=== PATIENT | male | born 1950 | race Caucasian/White ===

== ENCOUNTER 2023-05-31 11:22 | Inpatient (IN) | payer OTHER, SELFPAY ==
[2023-05-31] VITALS (17 sets, daily range): BP systolic 105–142; BP diastolic 44–100; BMI 23.6; BMI 21.9
--- NOTE | 2023-05-31 08:17 | ED.GENMED ---
History of Present Illness
<Glenn Garcia PA-C - Last Filed: 05/31/23 10:32>
General
Chief Complaint: Breathing Problem
Source: patient
Exam Limitations: none
Time Seen by Provider: 05/31/23 08:08
Travel History
Have you had any contact with someone who has COVID-19?: No
Do you have any symptoms of coronavirus? Fever > 100 degrees, chills, cough, shortness of breath, sore throat, loss of taste or smell, muscle aches, or headache?: No
History of Present Illness
History of Present Illness:
73-year-old male with history of end-stage renal disease on dialysis with COPD and CHF presents with the onset of shortness of breath this morning. He states he felt it upon awakening but got worse during dialysis. He received about an hour and a
half for dialysis and presented here on 2 L in the upper 70s. He was placed on a nonrebreather. He denies chest pain. No fever. He notes a productive cough. He is followed by pulmonology cardiology and nephrology.
Past History
<Glenn Garcia PA-C - Last Filed: 05/31/23 10:32>
Past History
ED Past Medical History: Asthma, COPD, HTN, NIDDM and Other (Diabetic neuropathy)
ED Past Surgical History: Orthopedic (Right ankle)
Social History
Tobacco: Former smoker (50+ year)
Alcohol: Occasional
Drug: None
Personal: Partner
Living: with family
Employment: Employed
Family History
Family History: Other (Noncontributory)
Phy Exam
<Glenn Garcia PA-C - Last Filed: 05/31/23 10:32>
Physical Exam
Physical Exam:
General: Unwell appearing male with increased work of breathing on nonrebreather
HEENT: Normocephalic atraumatic
Heart: Regular rate and rhythm
Lungs: Diminished bilaterally with Rales bases at the prolonged expiratory phase
Extremities: No significant edema no cyanosis
Abdomen soft nontender nondistended
Scores
<Glenn Garcia PA-C - Last Filed: 05/31/23 10:32>
Heart Failure Risk
Heart Failure Risk Score: Not Applicable
Course
<Glenn Garcia PA-C - Last Filed: 05/31/23 10:32>
Orders/Labs/Results
Orders:
Orders
05/31/23 07:58
Electrocardiogram (*1) Urgent
Reason for Study: Shortness of Breath
EKG- Treatment ONCE
05/31/23 08:08
COVID-19 Antigen Urgent
Source: Nasal Swab
Complete Blood Count/With Diff Urgent
Comprehensive Metabolic Panel Urgent
NT-proBNP Urgent
Protime/PTT Urgent
Influenza A+B Rapid Molecular Urgent
MARISOL Source: Nasal Swab
Specimen Description:
05/31/23 08:17
CR Chest Portable - 1 View Urgent
Comment:
Reason For Exam: sob
Reason Study Needs to be Portable: Unable to Transport
05/31/23 08:18
Ipratropium/Albuterol Sulfate [Duoneb] 3 ml .ROUTE .STK-MED ONE
05/31/23 08:19
Ipratropium/Albuterol Sulfate [Duoneb] 3 ml INH R NOW ONE
05/31/23 09:03
ABG [Arterial Blood Gas] Urgent
%Oxygen/Room Air: nonrebreather
05/31/23 10:10
O2 Therapy [RESP] Urgent
Titrate/Wean O2 to maintain O2 sat greater than (%): 90
Abnormal Lab Results
05/31/23 05/31/23
08:08 09:03
RBC 3.23 L 10^6/uL
(4.70-6.10)
Hgb 10.9 L g/dL
(13.0-18.0)
Hct 32.5 L %
(39.0-52.0)
MCV 100.6 H fL
(80.0-94.0)
MCH 33.7 H pg
(27.0-31.0)
Plt Count 111 L 10^3/uL
(130-400)
Absolute Lymphs (auto) 0.3 L 10^3/uL
(1.2-3.4)
Neutrophils % 87.7 H %
(42.2-75.2)
Lymphocytes % 4.3 L %
(20.5-51.1)
pCO2 56 H mmHg
(35-48)
pO2 138 H mmHg
(83-108)
HCO3 32.4 H mmol/L
(21-28)
ABG O2 Sat (Measured) 98.2 H %
(94-98)
Chloride 94 L mmol/L
(98-107)
Carbon Dioxide 31 H mmol/L
(22-30)
BUN 48 H mg/dl
(9-20)
Creatinine 3.9 H mg/dL
(0.7-1.3)
Glucose 100 H mg/dl
(70-99)
05/31/23 08:08
05/31/23 08:08
Vital Signs
Initial and Last Documented VS:
Initial Vital Signs
Temp Pulse Resp BP Pulse Ox
99.1 F 66 18 142/100 77
05/31/23 07:53 05/31/23 07:53 05/31/23 07:53 05/31/23 07:53 05/31/23 07:53
Last Documented Vital Signs
Temp Pulse Resp BP Pulse Ox
99.1 F 96 36 142/70 82
05/31/23 07:53 05/31/23 09:45 05/31/23 09:45 05/31/23 08:27 05/31/23 08:30
Baldemarlt;Tank Daly, DO - Last Filed: 05/31/23 08:54>
Orders/Labs/Results
Orders:
Orders
05/31/23 07:58
Electrocardiogram (*1) Urgent
Reason for Study: Shortness of Breath
EKG- Treatment ONCE
05/31/23 08:08
COVID-19 Antigen Urgent
Source: Nasal Swab
Complete Blood Count/With Diff Urgent
Comprehensive Metabolic Panel Urgent
NT-proBNP Urgent
Protime/PTT Urgent
Influenza A+B Rapid Molecular Urgent
MARISOL Source: Nasal Swab
Specimen Description:
05/31/23 08:17
CR Chest Portable - 1 View Urgent
Comment:
Reason For Exam: sob
Reason Study Needs to be Portable: Unable to Transport
05/31/23 08:18
Ipratropium/Albuterol Sulfate [Duoneb] 3 ml .ROUTE .STK-MED ONE
05/31/23 08:19
Ipratropium/Albuterol Sulfate [Duoneb] 3 ml INH R NOW ONE
05/31/23 09:03
ABG [Arterial Blood Gas] Urgent
%Oxygen/Room Air: nonrebreather
05/31/23 10:10
O2 Therapy [RESP] Urgent
Titrate/Wean O2 to maintain O2 sat greater than (%): 90
Abnormal Lab Results
05/31/23 05/31/23
08:08 09:03
RBC 3.23 L 10^6/uL
(4.70-6.10)
Hgb 10.9 L g/dL
(13.0-18.0)
Hct 32.5 L %
(39.0-52.0)
MCV 100.6 H fL
(80.0-94.0)
MCH 33.7 H pg
(27.0-31.0)
Plt Count 111 L 10^3/uL
(130-400)
Absolute Lymphs (auto) 0.3 L 10^3/uL
(1.2-3.4)
Neutrophils % 87.7 H %
(42.2-75.2)
Lymphocytes % 4.3 L %
(20.5-51.1)
pCO2 56 H mmHg
(35-48)
pO2 138 H mmHg
(83-108)
HCO3 32.4 H mmol/L
(21-28)
ABG O2 Sat (Measured) 98.2 H %
(94-98)
Chloride 94 L mmol/L
(98-107)
Carbon Dioxide 31 H mmol/L
(22-30)
BUN 48 H mg/dl
(9-20)
Creatinine 3.9 H mg/dL
(0.7-1.3)
Glucose 100 H mg/dl
(70-99)
05/31/23 08:08
05/31/23 08:08
Vital Signs
Initial and Last Documented VS:
Initial Vital Signs
Temp Pulse Resp BP Pulse Ox
99.1 F 66 18 142/100 77
05/31/23 07:53 05/31/23 07:53 05/31/23 07:53 05/31/23 07:53 05/31/23 07:53
Last Documented Vital Signs
Temp Pulse Resp BP Pulse Ox
99.1 F 96 36 142/70 82
05/31/23 07:53 05/31/23 09:45 05/31/23 09:45 05/31/23 08:27 05/31/23 08:30
<Glenn Garcia PA-C - Last Filed: 05/31/23 10:32>
MDM/Problems Addressed
Differential Diagnosis Includes:
Shortness of breath. Differential could include COPD exacerbation versus CHF pneumonia
Patient does not appear to be volume overloaded. Will check chest x-ray ordered DuoNeb labs pending.
<Glenn Garcia PA-C - Last Filed: 05/31/23 10:32>
*Critical Care Note
Total Time (30-74mins, 75-104mins- exclusive of procedures): Not Applicable
<Glenn Garcia PA-C - Last Filed: 05/31/23 10:32>
Update Note
Update Note:
Sprain patient now requiring mid flow oxygen. pCO2 is 56. Chest x-ray read as increased pulmonary edema. Potassium is 4.5. Patient not able to tolerate DuoNeb. Patient likely needs more dialysis. Contacted nephrology will admit to hospital for
hypoxia
ED Attending Note
<Glenn Garcia PA-C - Last Filed: 05/31/23 10:32>
-
Portions of this chart may have been created with voice recognition software.� Occasional wrong word or��sound alike� substitutions may have occurred due to the inherent limitations of voice recognition software.
<Tank Daly, - Last Filed: 05/31/23 08:54>
ED Attending Note
Patient seen and examined by attending physician: Yes
I performed the substantive portion of visit, reviewed & personally made and approve the management plan that is documented in note by myself or HUSSEIN.: Yes
ED Attending Note:
I agree with Lupillo's note. Patient had worsening shortness of breath this morning. He attempted to tolerate dialysis but was quite short of breath while there. This prompted him to be transferred here to the emergency room. Patient denies chest
pain.
Maintaining his pulse ox with a nonrebreather
Lungs: Crackles and expiratory wheezing bilaterally
Extremities: No edema
Plan: Supplemental oxygen. ABG pending. If CO2 acceptable then we will try to convert him to either mid flow or high flow oxygen. Nebs, steroids. I suspect this is more of a COPD exacerbation. Also above nephrology to see if benefit from
further dialysis as he only had an hour or so at his dialysis facility
Discharge Plan
Departure
Patient Disposition: Admit
Date of Disposition: 05/31/23
Time of Disposition: 10:31
Admit to: Telemetry
Presentation/result/management discussed w/ accepting MD/DO: Hospitalist
Discharge Problem:
Hypoxia
Prescriptions:
No Action
famotidine 20 MG tablet
20 mg PO DAILY
azithromycin 250 MG tablet
250 mg PO MOWEFR@0800
vitamin B complex 1 TAB tablet
1 tab PO MOWEFR@0800
ergocalciferol (vitamin D2) 50,000 UNITS capsule
50,000 units PO .SEE BELOW
Patient Comments:
05/31/2023, this med. is currently on hold according to pt.
Rx Instructions:
05/31/2023, this med. is currently on HOLD.
ascorbic acid (vitamin C) [Vitamin C] 1,000 mg Tablet
1,000 mg PO DAILY
atorvastatin 10 mg Tablet
10 mg PO DAILY
isosorbide mononitrate 30 mg Tablet Extended Release 24 Hr
30 mg PO DAILY
Trelegy Ellipta 100-62.5-25 mcg Blister With Device
1 inh INHALATION R DAILY
albuterol sulfate 2.5 mg /3 mL (0.083 %) Solution For Nebulization
2.5 mg INHALATION R Q4HPRN PRN (Reason: sob)
aspirin 81 mg Tablet,Delayed Release (Dr/Ec)
81 mg PO DAILY
gabapentin 300 mg Capsule
300 mg PO QPM
carvedilol 3.125 mg Tablet
3.125 mg PO BID Qty: 60 0RF
sertraline 25 mg tablet
25 mg PO DAILY
sevelamer carbonate 800 mg tablet
1,600 mg PO MEALS
allopurinol 100 mg tablet
200 mg PO DAILY
docusate sodium [Colace] 100 mg Capsule
200 mg PO Q48H
albuterol sulfate 90 mcg/actuation Hfa Aerosol Inhaler
2 puff INHALATION R Q4HPRN PRN (Reason: sob/wheeze)
insulin aspart U-100 [Novolog FlexPen U-100 Insulin] 100 unit/mL (3 mL) Insulin Pen
0 sliding scale dose SC DIRECTED
Patient Comments:
05/31/2023, pt. uses this med. on sliding scale and does not know what that sliding scale is.
insulin glargine [Lantus Solostar U-100 Insulin] 100 unit/mL (3 mL) Insulin Pen
7 unit SC HS
midodrine 5 mg tablet
5 mg PO TID
Referrals:
Joss Solorzano MD [Family Provider] -
Interventions
Interventions:
*Risk Screen - Suicide Last Done: 05/31/23 07:53
*General Assessment Last Done: 05/31/23 07:53
*Neglect/Abuse Screening Last Done: 05/31/23 07:53
ED- Fall Risk Assessment Last Done: 05/31/23 07:53
*ED COVID-19 Vaccine History Last Done: 05/31/23 07:53
ED- Cardiac Assessment Last Done: 05/31/23 07:53
ED- Pulmonary Assessment Last Done: 05/31/23 07:53
[2023-05-31 08:24] LABS: % Basophils 0.3 % (0-2); % Eosinophils 0.9 % (0-6); % Immature Granulocytes 0.3 % (0-0.5); % Lymphocytes 4.3 % (20.5-51.1); % Monocytes 6.5 % (1.7-9.3); % Neutrophils 87.7 % (42.2-75.2); Absolute Eosinophils 0.1 10^3/uL (0-0.7); Absolute Lymphocytes 0.3 10^3/uL (1.2-3.4); Absolute Monocytes 0.5 10^3/uL (0.1-0.6); Absolute Neutrophils 6.5 10^3/uL (1.4-6.5); Hematocrit 32.5 % (39.0-52.0); Hemoglobin 10.9 g/dL (13.0-18.0); Mean Corp Hgb Conc. 33.5 g/dL (33.0-37.0); Mean Corpuscular Hgb 33.7 pg (27.0-31.0); Mean Corpuscular Volume 100.6 fL (80.0-94.0); Nucleated Red Blood Cells % 0 % (-); Platelet Count 111 10^3/uL (130-400); Red Blood Cell Count 3.23 10^6/uL (4.70-6.10); Red Cell Dist. Width 13.8 % (11.5-14.5); White Blood Cell Count 7.4 10^3/uL (4.8-10.8)
[2023-05-31] MEDS: DUONEB 3 ML INH (08:25)
[2023-05-31 08:38] LABS: APTT 23.5 Sec (23.4-35.0); INR 1.04; PT 13.8 Sec (11.4-14.6)
[2023-05-31 08:41] LABS: COVID-19 Antigen Negative (Negative)
[2023-05-31 08:42] LABS: ALT (SGPT) 18 U/L (0-50); AST (SGOT) 28 U/L (17-59); Albumin 4.6 g/dl (3.5-5.0); Alkaline Phosphatase 101 U/L (38-126); Blood Urea Nitrogen 48 mg/dl (9-20); Calcium 9.3 mg/dl (8.4-10.2); Carbon Dioxide 31 mmol/L (22-30); Chloride 94 mmol/L (98-107); Estimated Creatinine Clearance 18 ml/min; Glucose 100 mg/dl (70-99); Potassium 4.5 mmol/L (3.5-5.1); Sodium 136 mmol/L (135-145); Total Bilirubin 0.8 mg/dl (0.2-1.3); Total Protein 8.1 g/dl (6.3-8.2); eGFR 15.72
[2023-05-31 08:51] LABS: NT-proBNP > 27000 pg/ml
[2023-05-31 09:11] LABS: HCO3 32.4 mmol/L (21-28); O2 Saturation % 98.2 % (94-98); PCO2 56 mmHg (35-48); PO2 138 mmHg (83-108); pH 7.37 (7.35-7.45)
--- NOTE | 2023-05-31 11:09 | HPS.HSE ---
Family Physician
-
Family Physician: Joss Solorzano MD
Chief Complaint
-
Shortness of breath
History of Present Illness
73-year-old male extensive past medical history is presenting from dialysis center with shortness of breath. Patient states at baseline he uses 2 L of oxygen and became more short of breath this morning. Patient stated he was fine after receiving
dialysis on Wednesday. Over the weekend patient without any difficulty. Patient denies any chest pain or shortness of breath over the weekend. Patient denies any nausea or vomiting. This morning patient with severe acute shortness of breath.
States he was unable to breathe and thus came to the hospital. Patient did not finish his regular HD session as outpatient. Denies any productive cough. Denies any fevers or chills. In the ER patient was severely hypoxic and required 15 L
nonrebreather. However O2 requirement improved and was seen on 8 L.
Medical History
Past Medical History
Past Medical History: Reports Other
Additional Past Medical History:
Heart failure preserved EF,
valvular dysfunction mild MR, , AR
recurrent pleural effusion status post multiple thoracentesis
COPD chronic/chronic hypercarbia
multiple pulmonary nodules.
tobacco abuse
Orthostatic hypotension
anemia of chronic disease ESRD on dialysis
gout
HLD
DM2 with diabetic neuropathy
GERD
ESRD on hemodialysis Wednesday
Past Surgical History: Reports Other
Additional Past Surgical History:
recurrent pleural effusion status post multiple thoracentesis
Social History
Tobacco: Former Smoker (50-year 2 pack a day stopped 2017)
Alcohol: None
Living: Alone
Employment: Retired
Family History
Family History: Not pertinent
Allergies / Home Medications
Allergies reflects when Allergies were last updated in [employer].
Home Medications with original date entered in [employer]
Allergy/Medication List:
Allergies
Allergy/AdvReac Type Severity Reaction Status Date / Time
budesonide [From Symbicort] Allergy THROAT Verified 03/03/23 02:42
IRRITATION
formoterol [From Symbicort] Allergy THROAT Verified 03/03/23 02:42
IRRITATION
Home Medications
famotidine 20 mg tablet 20 mg PO DAILY Gastrointestinal issue 07/20/18
azithromycin 250 mg tablet 250 mg PO MOWEFR@0800 Infection 02/28/19
ergocalciferol (vitamin D2) 1,250 mcg (50,000 unit) capsule 50,000 units PO .SEE BELOW Supplement 02/28/19
vitamin B complex 1 tab PO MOWEFR@0800 Supplement 02/28/19
ascorbic acid (vitamin C) 1,000 mg tablet (Vitamin C) 1,000 mg PO DAILY Supplement 11/26/22
atorvastatin 10 mg tablet 10 mg PO DAILY High Cholesterol 11/26/22
fluticasone fur. 100 mcg-umeclid 62.5 mcg-vilant 25 mcg inhalat.powder (Trelegy Ellipta) 1 inh inhalation R DAILY Lung/Breathing Issues 11/26/22
isosorbide mononitrate 30 mg tablet,extended release 24 hr 30 mg PO DAILY Heart Disease/Condition 11/26/22
albuterol sulfate 2.5 mg/3 mL (0.083 %) solution for nebulization 2.5 mg inhalation R Q4HPRN PRN sob 01/18/23
aspirin 81 mg tablet,delayed release 81 mg PO DAILY Blood Clot Prevention/Tx 01/28/23
gabapentin 300 mg capsule 300 mg PO QPM Pain 01/28/23
carvedilol 3.125 mg tablet 3.125 mg PO BID #60 tabs 02/03/23
allopurinol 100 mg tablet 200 mg PO DAILY 04/07/23
sertraline 25 mg tablet 25 mg PO DAILY 04/07/23
sevelamer carbonate 800 mg tablet 1,600 mg PO MEALS 04/07/23
albuterol sulfate 90 mcg/actuation aerosol inhaler 2 puff inhalation R Q4HPRN PRN sob/wheeze 05/31/23
docusate sodium 100 mg capsule (Colace) 200 mg PO Q48H 05/31/23
insulin aspart U-100 100 unit/mL (3 mL) subcutaneous pen (Novolog FlexPen U-100 Insulin aspart) 0 sliding scale dose SC DIRECTED 05/31/23
insulin glargine 100 unit/mL (3 mL) subcutaneous pen (Lantus Solostar U-100 Insulin) 7 unit SC HS 05/31/23
midodrine 5 mg tablet 5 mg PO TID 05/31/23
Review of Systems
-
History Source: Patient
A 12 point ROS was completed and negative except as noted: Yes
Physical Exam
Vital Signs
Vital Signs
Temp Pulse Resp BP Pulse Ox
99.1 F 90 25 142/70 98
05/31/23 07:53 05/31/23 11:00 05/31/23 11:00 05/31/23 08:27 05/31/23 11:00
Physical Exam
General: Well Developed, Well Nourished and No Apparent Distress
HEENT: NormoCephalic, Moist mucous membranes, Atraumatic and Oxygen (8L)
Respiratory: Rhonchi and Decreased Breath Sounds
Cardiac: S1/S2 and Regular Rhythm; No Murmur or Rub
GI: Soft, Non Tender, Non Distended and Normal Bowel Sounds; No Organomegaly
Rectal: Deferred by Provider
Musculoskeletal: No Clubbing, No Cyanosis and No Edema
Skin: No Rash
Neuro: Awake, Alert, Oriented, AO x 3, No Motor Deficits and Nonfocal/grossly intact
Psych: Calm
Laboratory Results
-
05/31/23 08:08
05/31/23 08:08
Laboratory Results
PT 13.8 Sec (11.4-14.6) 05/31/23 08:08
INR 1.04 05/31/23 08:08
APTT 23.5 Sec (23.4-35.0) 05/31/23 08:08
pH 7.37 (7.35-7.45) 05/31/23 09:03
pCO2 56 mmHg (35-48) H 05/31/23 09:03
pO2 138 mmHg (83-108) H 05/31/23 09:03
HCO3 32.4 mmol/L (21-28) H 05/31/23 09:03
Total Bilirubin 0.8 mg/dl (0.2-1.3) 05/31/23 08:08
AST 28 U/L (17-59) 05/31/23 08:08
ALT 18 U/L (0-50) 05/31/23 08:08
Alkaline Phosphatase 101 U/L (38-126) 05/31/23 08:08
Impression/Plan
-
#Acute on chronic hypoxic resp failure 2/2 recurrent progressive pleural effusion, COPD, acute on chronic CHF with preserved ejection fraction and pulmonary edema
#History of recurrent pleural effusions requiring multiple thoracentesis
#Chronic COPD on chronic 2 L nasal cannula 24 hours
#Former nicotine abuse 50-year 2 pack a day quit 2017
#Chronic pulmonary nodules
-May need to consider IV steroids.
-Will ask pulm for input
-Continue bronchodilators
-Undergoing urgent hemodialysis today.
-Fluid removal should help with oxygenation
-Chest x-ray noted. If no improvement may need further imaging such as ultrasound versus Noncon chest CT
#ESRD on dialysis
#AV fistula left upper arm
Wednesday dialysis
-consult Nephro
# Suspect acute on chronic diastolic CHF preserved EF
I/O, daily weights
-Follows at [facility] cardiology
-Continue aspirin, carvedilol, statin, Imdur
On dialysis
#Hypotension orthostatic Hx
-Continue midodrine
#Chronic anemia
#Chronic thrombocytopenia
monitor
EPO/IV iron per nephro
#DM 2 with diabetic neuropathy
Accu-Cheks with SSI,�
-Continue gabapentin
-Continue Lantus at bedtime
#HLD
-Continue statin
#GERD
-Continue Pepcid
#Gout
-Continue allopurinol
#Depression
-Continue Zoloft
DVT prophylaxis
Subcu heparin
I spent a total of 78 minutes with the patient or on the floor. More than 50% of this time involved counseling and coordination of care.
--- NOTE | 2023-05-31 11:39 | CON.MD ---
Addendum entered and electronically signed by Pratik Lemos DO 05/31/23 11:49:
Fluid restriction, 50 ounces daily
Sodium and potassium restricted diet
Original Note:
Consultation - Medical
-
Impression:
End-stage renal disease Wednesday, Wednesday, Wednesday
Hypoxia/Hypercapnia/COPD:home O2 2L
Right pleural effusion (Recurrent)
Hyperphosphatemia
Anemia
Diabetes with multiple microvascular complications
Hypotension on Midodrine
Cirrhosis
Chronic thrombocytopenia
Pulmonary nodules
Plan:
-Will likely require Thoracentesis, COPD treatment with oxygen, nebulizers
-Dialysis will be arranged today with attempted increase ultrafiltration, although patient rarely tolerates more than 2 kg
-No heparin on dialysis. Given chronic thrombocytopenia
-LORIN therapy given on dialysis for anemia
-Midodrin support provided on dialysis for hypotension
[2023-05-31] MEDS: ProAmatine 5 MG PO ×2 (12:41→17:43)
--- NOTE | 2023-05-31 13:38 | W.PN.NEPH.HD ---
Assessment
-
Seen on HD. comfortable on NC. VSS, access ok
Progress Note - Hemodialysis
-
Date of Service: May 31, 2023
Duration: 30 minutes and 3 hours
Potassium Bath: 2
Calcium Bath: 2.5
Opti-Dialyzer: 160
Ultrafiltration: Other (3kg)
Blood Flow: 400
Dialysate Flow: 600
Heparin: 0
EPO: 0
[2023-05-31 14:29] LABS: Glucose - Point of Care 78 mg/dl (70-99)
[2023-05-31] MEDS: RENVELA 1600 MG PO ×2 (14:29→17:43)
[2023-05-31] MEDS: NOVOLOG FLEXPEN-LOW RESISTANCE SC ×2 (14:30→17:43)
--- NOTE | 2023-05-31 15:07 | CON.PUL ---
Consultation
Consultation Request
Date/Time Consultation Requested: 05/31/2023 - 1206PM
Date/Time Consultation Performed: 05/31/2023 - 1502
Requesting Provider: Dr. Mckeon
Performing Provider: Dr Lai
Reason for Consultation: SOB/hypoxia
Medical History
-
Chief Complaint: SOB
History of Present Illness:
73-year-old M former tobacco smoker (quit 2016) with PMhx COPD/asthma, ESRD on HD, GERD and chronic liver disease/cirrhosis who p/w SOB from his HD center. Of note, he follows with us in [facility] office with Dr. Garcia - last office visit on
04/29/2023. He is on treelgy 100mcg with prn albuterol. He was in HD today when he felt more SOB than usual. He took his inhaler which did not help his Sx. SBP wasd in 150s. He was then brought here for evaluation and his R-effusion is larger on
CXR compared to last, and he has a small left pleural effusion. HD session started in ER. He is currently on 6L/min NC and saturating 99%. BP 120/66. He denies recent sick contacts, denies recent travel. He has chronic phlegm production which
is green, and this is unchanged. The amount of phlegm he produces is variable. He has no missed any HD sessions, and he denies eating salty foods. He denies chest pain, GALINDO, abd pain, diarrhea, fever or chills.
PMHx: GERD, mitral regurgitation, ESRD on HD via AVF, HLD, DM type II, Hx of alcoholic cirrhosis with Hx of EV, HTN, COPD/asthma on chronic oxygen (2-3L/min)
PSHx: Tonsillectomy, LUE AVF (12/2022), right ankle screws
Past Medical History
Past Medical History: Other (above as per HPI)
Past Surgical History: Other (above as per HPI)
Social History
Tobacco: Former Smoker (quit 2016)
Alcohol: None
Drug: None
Family History
Family History: CAD (M: heart attack (fatal)) and Other (Father: Alzheimer's dementia)
Allergies / Home Medications
Allergies
Allergy/AdvReac Type Severity Reaction Status Date / Time
budesonide [From Symbicort] Allergy THROAT Verified 03/03/23 02:42
IRRITATION
formoterol [From Symbicort] Allergy THROAT Verified 03/03/23 02:42
IRRITATION
Home Medications
Medication Instructions Recorded Confirmed Last Taken Type
famotidine 20 mg tablet 20 mg PO DAILY Gastrointestinal 07/20/18 05/31/23 05/31/23 History
issue
azithromycin 250 mg tablet 250 mg PO MOWEFR@0800 Infection 02/28/19 05/31/23 05/31/23 History
ergocalciferol (vitamin D2) 1,250 50,000 units PO .SEE BELOW 02/28/19 05/31/23 04/04/23 History
mcg (50,000 unit) capsule Supplement
vitamin B complex 1 tab PO MOWEFR@0800 Supplement 02/28/19 05/31/23 05/31/23 History
ascorbic acid (vitamin C) 1,000 mg 1,000 mg PO DAILY Supplement 11/26/22 05/31/23 05/31/23 History
tablet (Vitamin C)
atorvastatin 10 mg tablet 10 mg PO DAILY High Cholesterol 11/26/22 05/31/23 05/31/23 History
fluticasone fur. 100 mcg-umeclid 1 inh inhalation R DAILY 11/26/22 05/31/23 05/31/23 History
62.5 mcg-vilant 25 mcg Lung/Breathing Issues
inhalat.powder (Trelegy Ellipta)
isosorbide mononitrate 30 mg 30 mg PO DAILY Heart 11/26/22 05/31/23 05/31/23 History
tablet,extended release 24 hr Disease/Condition
albuterol sulfate 2.5 mg/3 mL 2.5 mg inhalation R Q4HPRN PRN sob 09/05/31/23 05/30/23 History
(0.083 %) solution for nebulization
aspirin 81 mg tablet,delayed 81 mg PO DAILY Blood Clot 01/28/23 05/31/23 05/31/23 History
release Prevention/Tx
gabapentin 300 mg capsule 300 mg PO QPM Pain 01/28/23 05/31/23 05/30/23 History
carvedilol 3.125 mg tablet 3.125 mg PO BID #60 tabs 02/03/23 05/31/23 05/31/23 Rx
allopurinol 100 mg tablet 200 mg PO DAILY 04/07/23 05/31/23 05/31/23 History
sertraline 25 mg tablet 25 mg PO DAILY 04/07/23 05/31/23 05/31/23 History
sevelamer carbonate 800 mg tablet 1,600 mg PO MEALS 04/07/23 05/31/23 05/30/23 History
albuterol sulfate 90 mcg/actuation 2 puff inhalation R Q4HPRN PRN 05/31/23 05/31/23 05/31/23 History
aerosol inhaler sob/wheeze
docusate sodium 100 mg capsule 200 mg PO Q48H 05/31/23 05/31/23 05/30/23 History
(Colace)
insulin aspart U-100 100 unit/mL 0 sliding scale dose SC DIRECTED 05/31/23 05/31/23 05/30/23 History
(3 mL) subcutaneous pen (Novolog
FlexPen U-100 Insulin aspart)
insulin glargine 100 unit/mL (3 7 unit SC HS 05/31/23 05/31/23 05/30/23 History
mL) subcutaneous pen (Lantus
Solostar U-100 Insulin)
midodrine 5 mg tablet 5 mg PO TID 05/31/23 05/31/23 05/30/23 History
Review of Systems
-
History Source: Patient
All other systems: Negative unless noted
Vitals / Labs / Diagnostic Testing
Vital Signs
Temp Pulse Resp BP Pulse Ox
98.4 F 89 25 109/56 96
05/31/23 11:53 05/31/23 11:54 05/31/23 11:54 05/31/23 11:54 05/31/23 11:54
Lab Data
05/31/23 08:08
05/31/23 08:08
Laboratory Results
05/31/23 05/31/23
08:08 09:03
PT 13.8
INR 1.04
APTT 23.5
pH 7.37
pCO2 56 H
pO2 138 H
HCO3 32.4 H
O2 Delivery Level
Microbiology
05/31/23 08:08 Nasal Swab Influenza Types A & B (THANG) - Final
Negative for Influenza A & B, NAAT
Negative results must be combined with clinical observations
and patient history.
Nucleic Acid Amplification test (NAAT)performed on the
[employer] platform.
Diagnostic Testing:
Physical Exam
-
HEENT: Normocephalic and Anicteric
Cardiovascular: S1/S2, Peripheral Edema (negative) and Other (normal rate)
Respiratory: Wheeze (n), Rales (bilaterally), Rhonchi (n) and Non-Labored Respirations
GI: Soft, Non Distended and Non Tender
Neurology: AO x 3 and Tremors (n)
Skin: Warm and Dry
General: Comfortable, Chills (n) and Sweats (n)
Assessment
-
Assessment: 73-year-old M former tobacco smoker (quit 2017) with PMhx COPD/asthma, ESRD on HD, GERD and chronic liver disease/cirrhosis who p/w SOB from his HD center. Of note, he follows with us in [facility] office with Dr. Garcia - last office visit
on 04/29/2023. He is on treelgy 100mcg with prn albuterol. He was in HD today when he felt more SOB than usual. He took his inhaler which did not help his Sx. SBP wasd in 150s. He was then brought here for evaluation and his R-effusion is larger
on CXR compared to last, and he has a small left pleural effusion. HD session started in ER. He is currently on 6L/min NC and saturating 99%. BP 120/66. He denies recent sick contacts, denies recent travel. He has chronic phlegm production
which is green, and this is unchanged. The amount of phlegm he produces is variable. He has no missed any HD sessions, and he denies eating salty foods. He denies chest pain, GALINDO, abd pain, diarrhea, fever or chills.
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
Impression:
#Acute on chronic respiratory failure with hypoxemia on supplemental O2 (on 2L/min at baseline)
#Chronic right-sided pleural effusion with acute left-sided pleural effusion
#ESRD on HD - receiving session of HD now in ER
#Moderate COPD with increased DLco/VA, hence COPD is likely due to unremitting asthma
#Restrictive lung defect (moderate with T% predicted via PFT from 04/2022)
#Acute on chronic anemia
#Chronic thrombocytopenia
Plan:
- Continue HD session and repeat CXR in AM --> if pleural effusions persist/worsen then will consider thoracentesis
- R-effusion appears chronic and there is likely traped lung physiology, so unclear if R-lung willl re-expand if fluid is removed. Hence will hold off on r-thora for now unless R-effusion becomes more severe
- Titrate supplemental lO2 flow rate to keep sats >88%
- He is not wheezing and does not appear to be in an acute COPD/asthma flare - hold off on steroids
- transfuse if needed to keep Hb>7 and plt>20k
- Replete K>4, Mg>2
- Maintain MAP>65
- DVT ppx
Pulmonary service will continue to follow along.
(Patient seen and examined on 05/31/2023).
Data:
CXR 05-31-2023:
1).There is a small left pleural effusion, increased in volume when compared with the prior study and associated with new increased parenchymal airspace disease throughout the lower left lung. I favor that this is pulmonary edema superimposed on
underlying effusion. Pneumonia is less likely
2).There is stable moderate-large right-sided pleural effusion with stable underlying parenchymal air space disease likely reflecting atelectasis
Outpatient [facility] Data:
Spirometry10/15/2021,�demonstrated FEV1/FVC 58%, FEV1 1.03 L (32%, FVC 1.76 L or 41%.� Mixed ventilatory defect suggestion of restriction with moderate to severe airflow obstruction.
��������
��������-
��������Spirometry 12/14/2019:�-FEV1/FVC 60%, FEV1 1.78 L 754%, FVC 2.90 L-67%.� Moderate airflow obstruction with a restriction.� Stable compared to before.
��������
��������Pulmonary function testing 12/13/2017:�demonstrated FEV1 /FVC 52%, FEV1 1.95 L-60%, FVC 3.71 L 785%, TLC 6.59 L-95%, RV 3.25 L-129%, DLCO 21.88-81%. Moderate airflow obstruction. Improvement on air trapping and hyperinflation.
��������
��������
Pulmonary function testing 09/09/2016:�FEV1/FVC 46%, FEV1 1.65 L-52%, FVC 3.61 L-84%. There was significant reversibility post bronchodilator. TLC 9.29 L-138%, RV 5.70 L-235%. DLCO 45%. Moderate/severe COPD with air trapping and
hyperinflation-emphysema phenotype.
��������
Spirometry 05/27/2016:�FEV1/FVC 55%, FEV1 1.32 L-38%, FVC 2.43 L-52%. Severe airflow obstruction with no reversibility.
FENO:
������ 10/15/2021 FeNO -- 22 ppb
�������07/15/2021 FENO 32ppb
�������12/14/2019 FENO 25 PPB
�������04/09/22 FENO 27ppb.
[2023-05-31 17:42] LABS: Glucose - Point of Care 39 mg/dl (70-99)
[2023-05-31] MEDS: NEURONTIN 300 MG PO (17:44)
[2023-05-31 18:00] LABS: Glucose - Point of Care 132 mg/dl (70-99)
--- NOTE | 2023-05-31 18:10 | PTCARENOTE ---
Patient arrived to floor 1700. BS taken before dinner. BS of 39. Applejuice given and bs went up to 132. Patient now eating dinner. Will follow protocol and check BS Q 2 hours and at 0300.
[2023-05-31] MEDS: COREG 3.125 MG PO (19:58)
[2023-05-31] MEDS: HEPARIN 5000 UNITS SC (19:59)
[2023-05-31 20:11] LABS: Glucose - Point of Care 264 mg/dl (70-99)
[2023-05-31] MEDS: LANTUS 0.0700000000000000067 UNITS SC (22:39)
[2023-05-31 23:33] LABS: Glucose - Point of Care 140 mg/dl (70-99)
[2023-06-01 03:08] LABS: Glucose - Point of Care 106 mg/dl (70-99)
[2023-06-01 03:21] VITALS: BP 115/57
[2023-06-01 05:17] VITALS: BMI 21.9
[2023-06-01 07:11] LABS: % Basophils 0.2 % (0-2); % Eosinophils 2.2 % (0-6); % Immature Granulocytes 0.2 % (0-0.5); % Monocytes 10.7 % (1.7-9.3); % Neutrophils 75.7 % (42.2-75.2); Absolute Eosinophils 0.1 10^3/uL (0-0.7); Absolute Lymphocytes 0.7 10^3/uL (1.2-3.4); Absolute Monocytes 0.7 10^3/uL (0.1-0.6); Absolute Neutrophils 4.8 10^3/uL (1.4-6.5); Hematocrit 28.1 % (39.0-52.0); Mean Corpuscular Hgb 33.1 pg (27.0-31.0); Mean Corpuscular Volume 103.3 fL (80.0-94.0); Mean Platelet Volume 9.2 fL (7.4-10.4); Nucleated Red Blood Cells % 0 % (-); Platelet Count 95 10^3/uL (130-400); Red Blood Cell Count 2.72 10^6/uL (4.70-6.10); White Blood Cell Count 6.4 10^3/uL (4.8-10.8)
[2023-06-01 07:20] LABS: Blood Urea Nitrogen 34 mg/dl (9-20); Calcium 8.8 mg/dl (8.4-10.2); Carbon Dioxide 31 mmol/L (22-30); Chloride 92 mmol/L (98-107); Estimated Creatinine Clearance 21 ml/min; Glucose 120 mg/dl (70-99); Sodium 134 mmol/L (135-145); eGFR 19.93
[2023-06-01 07:38] VITALS: BP 106/57
[2023-06-01 07:51] LABS: Glucose - Point of Care 59 mg/dl (70-99)
[2023-06-01] MEDS: NOVOLOG FLEXPEN-LOW RESISTANCE SC ×3 (07:53→17:12)
[2023-06-01] MEDS: PEPCID 10 MG PO (07:55)
[2023-06-01] MEDS: ProAmatine 5 MG PO ×3 (07:55→16:59)
[2023-06-01] MEDS: IMDUR (EXTENDED RELEASE) 30 MG PO (07:55)
[2023-06-01] MEDS: ASPIR LOW (ENTERIC COATED) 81 MG PO (07:56)
[2023-06-01] MEDS: ZYLOPRIM 200 MG PO (07:56)
[2023-06-01] MEDS: VITAMIN C 1000 MG PO (07:56)
[2023-06-01] MEDS: COREG 3.125 MG PO ×2 (07:57→19:54)
[2023-06-01] MEDS: COLACE 200 MG PO (07:57)
[2023-06-01] MEDS: ZOLOFT 25 MG PO (07:57)
[2023-06-01] MEDS: LIPITOR 10 MG PO (07:58)
[2023-06-01] MEDS: RENVELA 1600 MG PO ×3 (07:58→17:00)
[2023-06-01] MEDS: HEPARIN 5000 UNITS SC ×2 (07:59→19:55)
[2023-06-01 08:14] LABS: Glucose - Point of Care 81 mg/dl (70-99)
[2023-06-01 10:20] LABS: Glycohemoglobin (HgbA1c) 5.6 % (4.0-5.6)
[2023-06-01 10:26] LABS: Glucose - Point of Care 188 mg/dl (70-99)
--- NOTE | 2023-06-01 11:07 | W.PN.NEPH.PH ---
Today's Communication / Plan
-
HD tomorrow
Assessment/Plan
-
Impression:
End-stage renal disease Wednesday, Wednesday, Wednesday
Hypoxia/Hypercapnia/COPD:home O2 2L
Right pleural effusion (Recurrent)
Hyperphosphatemia
Anemia
Diabetes with multiple microvascular complications
Hypotension on Midodrine
Cirrhosis
Chronic thrombocytopenia
Pulmonary nodules
Plan:
-HD tomorrow
-there may not be more UF to be done
-3kg UF yesterday made little impact on effusions
-
-
Date of Service: June 01, 2023
CC / HPI / ROS
-
Chief Complaint:
ESRD
History of Present Illness:
tolerated HD yesterday
BP stable
remains on supplemental O2
still SOB
Review of Systems:
no CP
+SOB
Labs
-
Labs:
WBC 6.4 10^3/uL (4.8-10.8) 06/01/23 06:07
RBC 2.72 10^6/uL (4.70-6.10) L 06/01/23 06:07
Hgb 9.0 g/dL (13.0-18.0) L 06/01/23 06:07
Hct 28.1 % (39.0-52.0) L 06/01/23 06:07
Plt Count 95 10^3/uL (130-400) L 06/01/23 06:07
Sodium 134 mmol/L (135-145) L 06/01/23 06:07
Potassium 4.0 mmol/L (3.5-5.1) 06/01/23 06:07
Chloride 92 mmol/L (98-107) L 06/01/23 06:07
Carbon Dioxide 31 mmol/L (22-30) H 06/01/23 06:07
BUN 34 mg/dl (9-20) H 06/01/23 06:07
Creatinine 3.2 mg/dL (0.7-1.3) H 06/01/23 06:07
eGFR 19.93 06/01/23 06:07
Glucose 120 mg/dl (70-99) H 06/01/23 06:07
Calcium 8.8 mg/dl (8.4-10.2) 06/01/23 06:07
Ynq-G-Bjypntxvxfd Pept > 84426 pg/ml 05/31/23 08:08
Albumin 4.6 g/dl (3.5-5.0) 05/31/23 08:08
Physical Exam
-
Vital Signs:
Vital Signs
Temp Pulse Resp BP Pulse Ox
97 F 62 18 106/57 98
06/01/23 07:38 06/01/23 07:57 06/01/23 07:38 06/01/23 07:57 06/01/23 08:00
Cardiovascular:: Regular rate and rhythm
Respiratory:: Bilateral: Coarse
Lung Excursion:: Normal
Abdomen:: Nontender and Soft
Bowel Sounds:: Normal
Extremity Edema:: None: Bilateral:
--- NOTE | 2023-06-01 11:18 | W.PN.HOSP.TC ---
Today's Communication/Plan
-
Wean O2 further down
Pulm recs
HD tomm
monitor POC
Assessment / Plan
Assessment / Plan
#Acute on chronic hypoxic resp failure 2/2 recurrent progressive pleural effusion, COPD, acute on chronic CHF with preserved ejection fraction and pulmonary edema
#History of recurrent pleural effusions requiring multiple thoracentesis
#Chronic COPD on chronic 2 L nasal cannula 24 hours
#Former nicotine abuse 50-year 2 pack a day quit 2017
#Chronic pulmonary nodules
-Continue bronchodilators
-s/p UF with 3kg removal per nephro
-repeat CXR with There has been no significant change compared with the prior study. There is moderate right pleural effusion with underlying atelectasis. here is a small left-sided pleural effusion with moderate interstitial airway disease
throughout the lower left lung
-Pulm recs. wean o2 sats >88%.
#ESRD on dialysis
#AV fistula left upper arm
Wednesday dialysis
-consult Nephro
#Chronic diastolic CHF preserved EF
--I/O, daily weights
-Follows at [facility] cardiology
-Continue aspirin, carvedilol, statin, Imdur
-On dialysis- MWF
#Hypotension orthostatic Hx
-Continue midodrine
#Chronic anemia
#Chronic thrombocytopenia
monitor
EPO/IV iron per nephro
#DM 2 with diabetic neuropathy
Accu-Cheks with SSI,�
-Continue gabapentin
-Continue Lantus at bedtime
-POC 81
#HLD
-Continue statin
#GERD
-Continue Pepcid
#Gout
-Continue allopurinol
#Depression
-Continue Zoloft
DVT prophylaxis
Subcu heparin
Anticipated Discharge: > 48 hours
Subjective/Interval History
-
Date of Service: June 01, 2023
episode of hypoglycemia earlier
remains on 8L midflow
states breathing has improved
Objective Data
-
Labs:
Laboratory Results
06/01/23
06:07
WBC 6.4
Hgb 9.0 L
Hct 28.1 L
Plt Count 95 L
Sodium 134 L
Potassium 4.0
Chloride 92 L
Carbon Dioxide 31 H
BUN 34 H
Creatinine 3.2 H
Glucose 120 H
Calcium 8.8
Vital Signs:
Vital Signs
Temp Pulse Resp BP Pulse Ox
97 F 62 18 106/57 98
06/01/23 07:38 06/01/23 07:57 06/01/23 07:38 06/01/23 07:57 06/01/23 08:00
I&O
05/31/23 06/01/23 06/02/23
06:59 06:59 06:59
Intake Total 480 / 480
Balance 480 / 480
Physical Exam
-
General: Well Developed and No Apparent Distress
HEENT: Normocephalic, Atraumatic and Moist Mucous Membranes
Respiratory: Decreased Breath Sounds
Cardiac: Regular Rhythm and S1/S2; Negative Murmur, Rub or Gallop
GI: Soft, Nontender, Nondistended and Normal Bowel Sounds; Negative Organomegaly
Rectal: Deferred by Provider
Musculoskeletal: No Clubbing, No Cyanosis and No Edema
Skin: Negative Rash
Neuro: Awake, Alert, Oriented, AO x 3 and Nonfocal/Grossly Intact
[2023-06-01 11:25] VITALS: BP 100/56
--- NOTE | 2023-06-01 11:32 | W.PN.PUL3 ---
Today's Communication / Plan
-
Plan for left sided thoracentesis --> send standard fluid studies - glucose, LDH, pH, protein, albumin, fluid cultures, and cytopathology
Titrate O2 to keep sats >88%
Trelegy with prn alb
Up OOB as tolerated
IS
PT/OT
Assessment
-
Assessment: 73-year-old M former tobacco smoker (quit 2016) with PMhx COPD/asthma, ESRD on HD, GERD and chronic liver disease/cirrhosis who p/w SOB from his HD center. Of note, he follows with us in [facility] office with Dr. Garcia - last office visit
on 04/29/2023. He is on treelgy 100mcg with prn albuterol. He was in HD today when he felt more SOB than usual. He took his inhaler which did not help his Sx. SBP wasd in 150s. He was then brought here for evaluation and his R-effusion is larger
on CXR compared to last, and he has a small left pleural effusion. HD session started in ER. He is currently on 6L/min NC and saturating 99%. BP 120/66. He denies recent sick contacts, denies recent travel. He has chronic phlegm production
which is green, and this is unchanged. The amount of phlegm he produces is variable. He has no missed any HD sessions, and he denies eating salty foods. He denies chest pain, GALINDO, abd pain, diarrhea, fever or chills.
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
Impression:
#Acute on chronic respiratory failure with hypoxemia on supplemental O2 (on 2L/min at baseline)
#Chronic right-sided pleural effusion with acute left-sided pleural effusion
#ESRD on HD MWF
#Moderate COPD with increased DLco/VA, hence COPD is likely due to unremitting asthma - not in an acute exacerbation
#Restrictive lung defect (moderate with T% predicted via PFT from 04/2022)
#Acute on chronic anemia
#Chronic thrombocytopenia
#Alcoholic liver disease with Hx of grade I EV and portal hypertensive gastropathy (seen via EGD in 2013) --> EV and gastropathy resolved via EGD in October 2019
Plan:
- Repeat CXR today shows persistent pleural effusions --> plan for L-sided thoracentesis; although r-side has more disease with effusion + atelectasis, it is also chronic and low likelihood for R-lung to re-expand as it is likely trapped; hence I
will only order L-sided thora for now and hold off on r-thora for now unless R-effusion becomes more severe
- Titrate supplemental lO2 flow rate to keep sats >88%
- He is not wheezing and does not appear to be in an acute COPD/asthma flare - hold off on steroids
- Continue trelegy with prn nebulized albuterol
- mucolytics as he does produce phlegm chronically
- transfuse if needed to keep Hb>7 and plt>20k
- Replete K>4, Mg>2
- Maintain MAP>65
- PT/OT
- DVT ppx
Pulmonary service will continue to follow along.
Data:
CXR 06-01-2023:
There has been no significant change compared with the prior study.
There is moderate right pleural effusion with underlying atelectasis
There is a small left-sided pleural effusion with moderate interstitial airway disease throughout the lower left lung
CXR 05-31-2023:
1).There is a small left pleural effusion, increased in volume when compared with the prior study and associated with new increased parenchymal airspace disease throughout the lower left lung. I favor that this is pulmonary edema superimposed on
underlying effusion. Pneumonia is less likely
2).There is stable moderate-large right-sided pleural effusion with stable underlying parenchymal air space disease likely reflecting atelectasis
Outpatient [facility] Data:
Spirometry10/15/2021,�demonstrated FEV1/FVC 58%, FEV1 1.03 L (32%, FVC 1.76 L or 41%.� Mixed ventilatory defect suggestion of restriction with moderate to severe airflow obstruction.
��������
��������-
��������Spirometry 12/14/2019:�-FEV1/FVC 60%, FEV1 1.78 L 754%, FVC 2.90 L-67%.� Moderate airflow obstruction with a restriction.� Stable compared to before.
��������
��������Pulmonary function testing 12/13/2017:�demonstrated FEV1 /FVC 52%, FEV1 1.95 L-60%, FVC 3.71 L 785%, TLC 6.59 L-95%, RV 3.25 L-129%, DLCO 21.88-81%. Moderate airflow obstruction. Improvement on air trapping and hyperinflation.
��������
��������
Pulmonary function testing 09/09/2016:�FEV1/FVC 46%, FEV1 1.65 L-52%, FVC 3.61 L-84%. There was significant reversibility post bronchodilator. TLC 9.29 L-138%, RV 5.70 L-235%. DLCO 45%. Moderate/severe COPD with air trapping and
hyperinflation-emphysema phenotype.
��������
Spirometry 05/27/2016:�FEV1/FVC 55%, FEV1 1.32 L-38%, FVC 2.43 L-52%. Severe airflow obstruction with no reversibility.
FENO:
������ 10/15/2021 FeNO -- 22 ppb
�������07/15/2021 FENO 32ppb
�������12/14/2019 FENO 25 PPB
�������04/09/22 FENO 27ppb.
Subjective Data
-
Date of Service:
Date of Service: June 01, 2023
Chief Complaint: Pulmonary Follow Up
Subjective:
Seen today. Feels similar to yesterday. SOB only with activity. He feels well at rest. On 6L/min NC currently. Has cough which is at baseline and the nebs help bring it up well. Denies chest pain, GALINDO, abd pain, N/V/D/f/c.
Review of Systems
General: Other (neg unless mentioned above)
Objective Data
Data Reviewed
Vital Signs / I&O / Oxygen:
Vital Signs
Temp Pulse Resp BP Pulse Ox
97 F 62 18 106/57 98
06/01/23 07:38 06/01/23 07:57 06/01/23 07:38 06/01/23 07:57 06/01/23 08:00
Intake and Output
05/31/23 06/01/23 06/02/23
06:59 06:59 06:59
Intake Total 480 / 480
Balance 480 / 480
SaO2 98
Nasal Cannula flow liters per 8
minute
Physical Exam
General: Comfortable
HEENT: Normocephalic, Moist Mucous Membranes and Other (mild yellowing of conjunctiva b/l)
Cardiovascular: S1-S2 and Peripheral Edema (n)
Respiratory: Wheeze (negative), Crackles, Rhonchi, Non-Labored Respirations, Stridor (negative) and Other (reduced BS at bases (R>L))
GI: Soft, Non Distended, Non Tender and Normal Bowel Sounds
Neurology: AO x 3 and Tremors (negative)
Skin: Warm and Dry
Labs/Micro/Reports
Lab Data
06/01/23 06:07
06/01/23 06:07
Microbiology
05/31/23 08:08 Nasal Swab Influenza Types A & B (THANG) - Final
Negative for Influenza A & B, NAAT
Negative results must be combined with clinical observations
and patient history.
Nucleic Acid Amplification test (NAAT)performed on the
[employer] platform.
[2023-06-01 11:40] LABS: Glucose - Point of Care 155 mg/dl (70-99)
[2023-06-01 12:22] LABS: Glucose - Point of Care 136 mg/dl (70-99)
[2023-06-01 15:00] VITALS: BP 100/55
[2023-06-01] MEDS: NEURONTIN 300 MG PO (17:00)
[2023-06-01 17:08] LABS: Glucose - Point of Care 130 mg/dl (70-99)
[2023-06-01 19:37] VITALS: BP 107/62
[2023-06-01 21:43] LABS: Glucose - Point of Care 166 mg/dl (70-99)
[2023-06-01] MEDS: LANTUS 0.0700000000000000067 UNITS SC (21:46)
[2023-06-01 23:40] VITALS: BP 110/50
[2023-06-02] VITALS (8 sets, daily range): BP systolic 75–123; BP diastolic 49–66; BMI 22.1
[2023-06-02 03:03] LABS: Glucose - Point of Care 131 mg/dl (70-99)
[2023-06-02 07:06] LABS: Glucose - Point of Care 125 mg/dl (70-99)
[2023-06-02] MEDS: ProAmatine 5 MG PO ×3 (07:53→16:54)
[2023-06-02 08:24] LABS: Hematocrit 28.5 % (39.0-52.0); Mean Corp Hgb Conc. 31.6 g/dL (33.0-37.0); Mean Corpuscular Hgb 32.6 pg (27.0-31.0); Mean Corpuscular Volume 103.3 fL (80.0-94.0); Mean Platelet Volume 9.3 fL (7.4-10.4); Platelet Count 95 10^3/uL (130-400); Red Blood Cell Count 2.76 10^6/uL (4.70-6.10); Red Cell Dist. Width 13.9 % (11.5-14.5); White Blood Cell Count 5.5 10^3/uL (4.8-10.8)
[2023-06-02 08:35] LABS: Carbon Dioxide 32 mmol/L (22-30); Chloride 94 mmol/L (98-107); Potassium 4.4 mmol/L (3.5-5.1); Sodium 133 mmol/L (135-145)
[2023-06-02] MEDS: NOVOLOG FLEXPEN-LOW RESISTANCE SC ×3 (08:38→18:05)
[2023-06-02] MEDS: EPOGEN 4000 UNITS IV (09:22)
--- NOTE | 2023-06-02 09:40 | W.PN.NEPH.HD ---
Assessment
-
pt seen during HD
vitals stable on midodrine
UF as tolerates
unlikely UF on HD will mobilize the pleural effusion
AVF functions well
Progress Note - Hemodialysis
-
Date of Service: June 02, 2023
Duration: 30 minutes and 3 hours
Potassium Bath: 2
Calcium Bath: 2.5
Opti-Dialyzer: 160
Ultrafiltration: Other (2.5-3kg)
Blood Flow: 400
Dialysate Flow: 600
Heparin: no
EPO: 4000
--- NOTE | 2023-06-02 10:42 | W.PN.HOSP.TC ---
Today's Communication/Plan
-
HD today
IRAD for thora
pulm recs
wean o2 to baseline
Assessment / Plan
Assessment / Plan
#Acute on chronic hypoxic resp failure 2/2 recurrent progressive pleural effusion, COPD, acute on chronic CHF with preserved ejection fraction and pulmonary edema
#History of recurrent pleural effusions requiring multiple thoracentesis
#Chronic COPD on chronic 2 L nasal cannula 24 hours
#Former nicotine abuse 50-year 2 pack a day quit 2017
#Chronic pulmonary nodules
-Continue bronchodilators
-s/p UF with 3kg removal per nephro
-repeat CXR with There has been no significant change compared with the prior study. There is moderate right pleural effusion with underlying atelectasis. here is a small left-sided pleural effusion with moderate interstitial airway disease
throughout the lower left lung
-Plan for Left sided thora post HD today.
-Pulm recs. wean o2 sats >88%.
#ESRD on dialysis
#AV fistula left upper arm
Wednesday dialysis
-consult Nephro
#Chronic diastolic CHF preserved EF
--I/O, daily weights
-Follows at [facility] cardiology
-Continue aspirin, carvedilol, statin, Imdur
-On dialysis- MWF
#Hypotension orthostatic Hx
-Continue midodrine
#Chronic anemia
#Chronic thrombocytopenia
monitor
EPO/IV iron per nephro
#DM 2 with diabetic neuropathy
Accu-Cheks with SSI,�
-Continue gabapentin
-Continue Lantus at bedtime
-POC 125
#HLD
-Continue statin
#GERD
-Continue Pepcid
#Gout
-Continue allopurinol
#Depression
-Continue Zoloft
DVT prophylaxis
Subcu heparin
Anticipated Discharge: Within 24 hours
Subjective/Interval History
-
Date of Service: June 02, 2023
currently on 3L and on HD
Objective Data
-
Labs:
Laboratory Results
06/02/23
08:16
WBC 5.5
Hgb 9.0 L
Hct 28.5 L
Plt Count 95 L
Sodium 133 L
Potassium 4.4
Chloride 94 L
Carbon Dioxide 32 H
Vital Signs:
Vital Signs
Temp Pulse Resp BP Pulse Ox
96.8 F L 66 16 123/54 98
06/02/23 08:09 06/02/23 08:09 06/02/23 08:09 06/02/23 08:09 06/02/23 08:30
I&O
06/01/23 06/02/23 06/03/23
06:59 06:59 06:59
Intake Total 480 / 480 1440 / 1440
Output Total 150 / 150
Balance 480 / 480 1290 / 1290
Physical Exam
-
General: Well Developed and No Apparent Distress
HEENT: Normocephalic, Atraumatic, Moist Mucous Membranes and Oxygen (3l)
Respiratory: Decreased Breath Sounds
Cardiac: Regular Rhythm and S1/S2; Negative Murmur, Rub or Gallop
GI: Soft, Nontender, Nondistended and Normal Bowel Sounds; Negative Organomegaly
Rectal: Deferred by Provider
Musculoskeletal: No Clubbing, No Cyanosis and No Edema
Skin: Negative Rash
Neuro: Awake, Alert, Oriented, AO x 3 and Nonfocal/Grossly Intact
--- NOTE | 2023-06-02 11:07 | CM ---
Initial Assessment completed with patient who is AOx4, lives alone in an apartment on the 5th floor of an elevator building, 2 steps to enter building, Independent, Has straight cane and rollator, He has been on HD since 01/29/23. Has continuous O2
at home at 2L, has concentrator, [employer] and 1 small tank. Vendor is [employer]. He has an aide through [employer] that comes in for 6 hours a day 4x/week. He believes the Aides agency is [facility]. He has friends as a support system. Pharmacy is [facility]
in [place], and PCP is Dr. Joss Solorzano. Anticipate home with no additional needs.
[2023-06-02] MEDS: RENVELA PO (11:09)
[2023-06-02 11:58] LABS: Glucose - Point of Care 81 mg/dl (70-99)
[2023-06-02] MEDS: RENVELA 1600 MG PO ×2 (12:13→18:05)
[2023-06-02] MEDS: ZITHROMAX 250 MG PO (12:14)
[2023-06-02] MEDS: B COMPLEX w/VITAMIN C 1 CAPLET PO (12:14)
[2023-06-02] MEDS: IMDUR (EXTENDED RELEASE) 30 MG PO (12:14)
[2023-06-02] MEDS: LIPITOR 10 MG PO (12:14)
[2023-06-02] MEDS: VITAMIN C 1000 MG PO (12:14)
[2023-06-02] MEDS: ZYLOPRIM 200 MG PO (12:15)
[2023-06-02] MEDS: HEPARIN 5000 UNITS SC ×2 (12:15→20:30)
[2023-06-02] MEDS: COREG 3.125 MG PO ×2 (12:15→20:31)
[2023-06-02] MEDS: ASPIR LOW (ENTERIC COATED) 81 MG PO (12:15)
[2023-06-02] MEDS: ZOLOFT 25 MG PO (12:16)
--- NOTE | 2023-06-02 12:20 | W.PN.PUL3 ---
Today's Communication / Plan
-
Plan for left sided thoracentesis --> send standard fluid studies - glucose, LDH, pH, protein, albumin, fluid cultures, and cytopathology
CT Chest in AM
Walking pulse ox tomorrow prior to discharge
Titrate O2 to keep sats >88%
Trelegy with prn alb
Up OOB as tolerated
IS
PT/OT
Assessment
-
Assessment: 73-year-old M former tobacco smoker (quit 2016) with PMhx COPD/asthma, ESRD on HD, GERD and chronic liver disease/cirrhosis who p/w SOB from his HD center. Of note, he follows with us in [facility] office with Dr. Garcia - last office visit
on 04/29/2023. He is on treelgy 100mcg with prn albuterol. He was in HD today when he felt more SOB than usual. He took his inhaler which did not help his Sx. SBP wasd in 150s. He was then brought here for evaluation and his R-effusion is larger
on CXR compared to last, and he has a small left pleural effusion. HD session started in ER. He is currently on 6L/min NC and saturating 99%. BP 120/66. He denies recent sick contacts, denies recent travel. He has chronic phlegm production
which is green, and this is unchanged. The amount of phlegm he produces is variable. He has no missed any HD sessions, and he denies eating salty foods. He denies chest pain, GALINDO, abd pain, diarrhea, fever or chills.
Chronic medical conditions ATTENDING PSYCHIATRIST: GERD, mitral regurgitation, ESRD on HD via AVF, HLD, DM type II, Hx of alcoholic cirrhosis with Hx of EV + portal hypertensive gastropathy (seen in 2013 via EGD), HTN, COPD/asthma on chronic oxygen (2-3L/min)
Impression:
#Acute on chronic respiratory failure with hypoxemia on supplemental O2 (on 2L/min at baseline)
#Chronic right-sided pleural effusion with acute left-sided pleural effusion
#ESRD on HD MWF
#Moderate COPD with increased DLco/VA, hence COPD is likely due to unremitting asthma - not in an acute exacerbation
#Restrictive lung defect (moderate with T% predicted via PFT from 04/2022)
#Acute on chronic anemia
#Chronic thrombocytopenia
#Alcoholic liver disease with Hx of grade I EV and portal hypertensive gastropathy (seen via EGD in 2013) --> EV and gastropathy resolved via EGD in October 2019
#5 mm irregular opacity in the posterior left upper lobe - seen on CT chest from October 2022
Plan:
- Repeat CXR yesterday shows persistent pleural effusions --> plan for L-sided thoracentesis today; although r-side has more disease with effusion + atelectasis, it is also chronic and low likelihood for R-lung to re-expand as it is likely trapped;
hence I ordered L-sided thora for now and hold off on r-thora for now unless R-effusion becomes more severe
- Titrate supplemental O2 flow rate to keep sats >88% --> he will need walking pulse ox to assess home O2 needs AFTER his left sided thoracentesis --> I will order for tomorrow AM
- He is not wheezing and does not appear to be in an acute COPD/asthma flare - hold off on steroids
- Continue trelegy with prn nebulized albuterol
- mucolytics as he does produce phlegm chronically - ill order mucinex while he is inpatient
- transfuse if needed to keep Hb>7 and plt>20k
- Replete K>4, Mg>2
- Maintain MAP>65
- PT/OT
-Patient was supposed to obtain a repeat CT chest on 05/20/2023 - Since patient is currently hospitalized, I will order repeat CT chest to be done tomorrow morning.
- DVT ppx
Pulmonary service will continue to follow along. I will arrange for outpatient [facility] follow-up as he sees Dr. Garcia with last office visit on 04/29/2023.
Data:
CXR 06-01-2023:
There has been no significant change compared with the prior study.
There is moderate right pleural effusion with underlying atelectasis
There is a small left-sided pleural effusion with moderate interstitial airway disease throughout the lower left lung
CXR 05-31-2023:
1).There is a small left pleural effusion, increased in volume when compared with the prior study and associated with new increased parenchymal airspace disease throughout the lower left lung. I favor that this is pulmonary edema superimposed on
underlying effusion. Pneumonia is less likely
2).There is stable moderate-large right-sided pleural effusion with stable underlying parenchymal air space disease likely reflecting atelectasis
CT Chest without contrast 10-07-2022:
1. � Redemonstration of a moderate-sized chronic pleural effusion with associated smooth pleural thickening with grossly unchanged masslike consolidation involving the right lower and middle lobes most consistent with rounded atelectasis. Associated
right-sided volume loss.
2. � Previously seen ill-defined nodular opacities within the posterior right upper lobe have largely resolved. There are some new scattered tree-in-bud opacities within the left lower lobe suggestive of infectious or inflammatory bronchiolitis.
3. � Small amount of new pleural thickening within the posterior aspect of the left hemithorax adjacent to the left lower lobe.
4. � New nonspecific 5 mm irregular opacity within the posterior LEFT upper lobe.
5. � Aberrant RIGHT subclavian artery.
Outpatient [facility] Data:
Spirometry10/15/2021,�demonstrated FEV1/FVC 58%, FEV1 1.03 L (32%, FVC 1.76 L or 41%.� Mixed ventilatory defect suggestion of restriction with moderate to severe airflow obstruction.
��������
��������-
��������Spirometry 12/14/2019:�-FEV1/FVC 60%, FEV1 1.78 L 754%, FVC 2.90 L-67%.� Moderate airflow obstruction with a restriction.� Stable compared to before.
��������
��������Pulmonary function testing 12/13/2017:�demonstrated FEV1 /FVC 52%, FEV1 1.95 L-60%, FVC 3.71 L 785%, TLC 6.59 L-95%, RV 3.25 L-129%, DLCO 21.88-81%. Moderate airflow obstruction. Improvement on air trapping and hyperinflation.
��������
��������
Pulmonary function testing 09/09/2016:�FEV1/FVC 46%, FEV1 1.65 L-52%, FVC 3.61 L-84%. There was significant reversibility post bronchodilator. TLC 9.29 L-138%, RV 5.70 L-235%. DLCO 45%. Moderate/severe COPD with air trapping and
hyperinflation-emphysema phenotype.
��������
Spirometry 05/27/2016:�FEV1/FVC 55%, FEV1 1.32 L-38%, FVC 2.43 L-52%. Severe airflow obstruction with no reversibility.
FENO:
������ 10/15/2021 FeNO -- 22 ppb
�������07/15/2021 FENO 32ppb
�������12/14/2019 FENO 25 PPB
�������04/09/22 FENO 27ppb.
Subjective Data
-
Date of Service:
Date of Service: June 02, 2023
Chief Complaint: Pulmonary Follow Up
Subjective:
Seen this AM. He was laying in bed on 3.5L/min, denies SOB at rest. Friend at bedside. He is pending thoracentesis (left) today. No acute events reported from overnight.
Review of Systems
General: Other (12 point ROS performed and is negative unless mentioned above.)
Objective Data
Data Reviewed
Vital Signs / I&O / Oxygen:
Vital Signs
Temp Pulse Resp BP Pulse Ox
97.7 F 74 20 119/63 98
06/02/23 13:09 06/02/23 13:09 06/02/23 13:09 06/02/23 13:09 06/02/23 13:09
Intake and Output
06/01/23 06/02/23 06/03/23
06:59 06:59 06:59
Intake Total 480 / 480 1440 / 1440
Output Total 150 / 150
Balance 480 / 480 1290 / 1290
SaO2 98
Nasal Cannula flow liters per 2
minute
Physical Exam
General: Comfortable and Chills (negative)
HEENT: Normocephalic, Moist Mucous Membranes and Other (mild yellowing of conjunctiva b/l)
Cardiovascular: S1-S2 and Peripheral Edema (n)
Respiratory: Wheeze (negative), Crackles (bialteral), Rhonchi (mild), Non-Labored Respirations, Stridor (negative) and Other (reduced BS at bases (R>L))
GI: Soft, Non Distended, Non Tender and Normal Bowel Sounds
Neurology: AO x 3 and Tremors (negative)
Skin: Warm and Dry
Labs/Micro/Reports
Lab Data
06/02/23 08:16
06/02/23 08:16
Microbiology
05/31/23 18:04 Nose MRSA Screen - Final
No Methicillin Resistant Staphylococcus aureus isolated.
05/31/23 08:08 Nasal Swab Influenza Types A & B (THANG) - Final
Negative for Influenza A & B, NAAT
Negative results must be combined with clinical observations
and patient history.
Nucleic Acid Amplification test (NAAT)performed on the
[employer] platform.
[2023-06-02 14:33] LABS: Body Fluid pH 7.39
[2023-06-02 14:37] LABS: Body Fluid Mononuclear 78.5 %; Body Fluid Polymorphonuclear 21.5 %; Body Fluid WBC 698 /CUMM
[2023-06-02 14:41] LABS: Body Fluid Second Tech AMA
[2023-06-02 14:50] LABS: Body Fluid Albumin 1.7 g/dl; Body Fluid Glucose 85 mg/dl; Body Fluid LDH 227 U/L; Body Fluid Protein 3.6 g/dl
[2023-06-02] MEDS: ProAIR HFA INHALER 2 PUFF INH (16:01)
[2023-06-02] MEDS: OCEAN, SALINE MIST 2 SPRAYS NASAL ×2 (16:53→18:06)
[2023-06-02 17:57] LABS: Glucose - Point of Care 143 mg/dl (70-99)
[2023-06-02] MEDS: NEURONTIN 300 MG PO (18:05)
[2023-06-02] MEDS: MUCINEX 1200 MG PO (20:30)
[2023-06-02 21:47] LABS: Glucose - Point of Care 171 mg/dl (70-99)
[2023-06-02] MEDS: LANTUS 0.0700000000000000067 UNITS SC (22:05)
[2023-06-02] MEDS: OCEAN, SALINE MIST NASAL (22:05)
[2023-06-03] VITALS (7 sets, daily range): BP systolic 104–120; BP diastolic 44–58; PULSE 67; O2SAT 98; BMI 21.1
[2023-06-03 07:17] LABS: Glucose - Point of Care 139 mg/dl (70-99)
[2023-06-03] MEDS: ProAIR HFA INHALER 2 PUFF INH (08:09)
[2023-06-03] MEDS: NOVOLOG FLEXPEN-LOW RESISTANCE SC ×2 (08:19→17:09)
[2023-06-03] MEDS: ProAmatine 5 MG PO ×3 (08:56→17:09)
[2023-06-03] MEDS: IMDUR (EXTENDED RELEASE) 30 MG PO (08:56)
[2023-06-03] MEDS: LIPITOR 10 MG PO (08:57)
[2023-06-03] MEDS: MUCINEX 1200 MG PO ×2 (08:57→20:01)
[2023-06-03] MEDS: ASPIR LOW (ENTERIC COATED) 81 MG PO (08:57)
[2023-06-03] MEDS: VITAMIN C 1000 MG PO (08:58)
[2023-06-03] MEDS: HEPARIN 5000 UNITS SC ×2 (08:58→20:02)
[2023-06-03] MEDS: ZOLOFT 25 MG PO (08:58)
[2023-06-03] MEDS: PEPCID 10 MG PO (08:58)
[2023-06-03] MEDS: RENVELA PO (08:58)
[2023-06-03] MEDS: ZYLOPRIM 200 MG PO (08:59)
[2023-06-03] MEDS: COREG 3.125 MG PO ×2 (08:59→20:01)
[2023-06-03] MEDS: COLACE 200 MG PO (08:59)
[2023-06-03] MEDS: OCEAN, SALINE MIST 2 SPRAYS NASAL ×2 (09:00→17:15)
--- NOTE | 2023-06-03 09:28 | W.PN.NEPH.PH ---
Today's Communication / Plan
-
HD tomorrow
Assessment/Plan
-
Impression:
End-stage renal disease Wednesday, Wednesday, Wednesday
Hypoxia/Hypercapnia/COPD:home O2 2L
Right pleural effusion (Recurrent)
Hyperphosphatemia
Anemia
Diabetes with multiple microvascular complications
Hypotension on Midodrine
Cirrhosis
Chronic thrombocytopenia
Pulmonary nodules
Plan:
-HD tomorrow
extra UF did not help with effusions and had thoracentesis of 1lit 06/02
still with SOB for CT chest today
hemodynamically stable
d/w nursing
-
-
Date of Service: June 03, 2023
CC / HPI / ROS
-
Chief Complaint:
ESRD
History of Present Illness:
tolerated HD yesterday
BP stable
remains on supplemental O2
still SOB
Review of Systems:
no CP
+SOB, cough and difficulty swallow due to sob
Labs
-
Labs:
WBC 5.5 10^3/uL (4.8-10.8) 06/02/23 08:16
RBC 2.76 10^6/uL (4.70-6.10) L 06/02/23 08:16
Hgb 9.0 g/dL (13.0-18.0) L 06/02/23 08:16
Hct 28.5 % (39.0-52.0) L 06/02/23 08:16
Plt Count 95 10^3/uL (130-400) L 06/02/23 08:16
Sodium 133 mmol/L (135-145) L 06/02/23 08:16
Potassium 4.4 mmol/L (3.5-5.1) 06/02/23 08:16
Chloride 94 mmol/L (98-107) L 06/02/23 08:16
Carbon Dioxide 32 mmol/L (22-30) H 06/02/23 08:16
BUN 34 mg/dl (9-20) H 06/01/23 06:07
Creatinine 3.2 mg/dL (0.7-1.3) H 06/01/23 06:07
eGFR 19.93 06/01/23 06:07
Glucose 120 mg/dl (70-99) H 06/01/23 06:07
Calcium 8.8 mg/dl (8.4-10.2) 06/01/23 06:07
Oqa-E-Ibqljzbcoxe Pept > 87058 pg/ml 05/31/23 08:08
Albumin 4.6 g/dl (3.5-5.0) 05/31/23 08:08
Physical Exam
-
Vital Signs:
Vital Signs
Temp Pulse Resp BP Pulse Ox
97.3 F 77 18 119/58 94
06/03/23 07:00 06/03/23 08:59 06/03/23 08:16 06/03/23 08:59 06/03/23 08:16
Cardiovascular:: Regular rate and rhythm
Respiratory:: Bilateral: Coarse (decreased)
Lung Excursion:: Abnormal
Abdomen:: Nontender and Soft
Extremity Edema:: None: Bilateral:
Rodarte Catheter: No
[2023-06-03 11:12] LABS: Glucose - Point of Care 168 mg/dl (70-99)
--- NOTE | 2023-06-03 11:15 | W.PN.HOSP.TC ---
Today's Communication/Plan
-
CT chest
speech eval
Pulm recs
wean o2
home o2 eval
Assessment / Plan
Assessment / Plan
#Acute on chronic hypoxic resp failure 2/2 recurrent progressive pleural effusion, COPD, acute on chronic CHF with preserved ejection fraction and pulmonary edema
#History of recurrent pleural effusions requiring multiple thoracentesis
#Chronic COPD on chronic 2 L nasal cannula 24 hours
#Former nicotine abuse 50-year 2 pack a day quit 2017
#Chronic pulmonary nodules
-Continue bronchodilators
-s/p UF with significant weight loss
-repeat CXR with There has been no significant change compared with the prior study. There is moderate right pleural effusion with underlying atelectasis. here is a small left-sided pleural effusion with moderate interstitial airway disease
throughout the lower left lung
-s/p Left thoracentesis 1L fluid removed.
-Pulm recs. wean o2 sats >88%. O2 requirement significantly improved from admission. Now at 2-3L.
-Home O2 eval prior to dc
#Recurrent pleural effusion
-s/p 1L fluid removed. Exudative effusions. Fluid studies in lab but negative for growth prelim
-CT chest today.
#Suspected dysphagia
-speech eval
#ESRD on dialysis
#AV fistula left upper arm
Wednesday dialysis. HD tomm
-consult Nephro
#Chronic diastolic CHF preserved EF
--I/O, daily weights
-Follows at [facility] cardiology
-Continue aspirin, carvedilol, statin, Imdur
-On dialysis- MWF
#Hypotension orthostatic Hx
-Continue midodrine
#Chronic anemia
#Chronic thrombocytopenia
monitor
EPO/IV iron per nephro
#DM 2 with diabetic neuropathy
Accu-Cheks with SSI,�
-Continue gabapentin
-Continue Lantus at bedtime
-POC 125
#HLD
-Continue statin
#GERD
-Continue Pepcid
#Gout
-Continue allopurinol
#Depression
-Continue Zoloft
DVT prophylaxis
Subcu heparin
Anticipated Discharge: Within 24 hours
Subjective/Interval History
-
Date of Service: June 03, 2023
states had trouble shallowing and breathing at same time
remains on 2-3L oxygen
Objective Data
-
Vital Signs:
Vital Signs
Temp Pulse Resp BP Pulse Ox
97.3 F 77 18 119/58 94
06/03/23 07:00 06/03/23 08:59 06/03/23 08:16 06/03/23 08:59 06/03/23 08:16
I&O
06/02/23 06/03/23 06/04/23
06:59 06:59 06:59
Intake Total 1440 / 1440 780 / 780
Output Total 150 / 150 200 / 200
Balance 1290 / 1290 580 / 580
Physical Exam
-
General: Well Developed and No Apparent Distress
HEENT: Normocephalic, Atraumatic, Moist Mucous Membranes and Oxygen (3l)
Respiratory: Clear to Auscultation
Cardiac: Regular Rhythm and S1/S2; Negative Murmur, Rub or Gallop
GI: Soft, Nontender, Nondistended and Normal Bowel Sounds; Negative Organomegaly
Rectal: Deferred by Provider
Musculoskeletal: No Clubbing, No Cyanosis and No Edema
Skin: Negative Rash
Neuro: Awake, Alert, Oriented, AO x 3 and Nonfocal/Grossly Intact
[2023-06-03] MEDS: NOVOLOG FLEXPEN-LOW RESISTANCE 1 UNITS SC (11:40)
[2023-06-03] MEDS: RENVELA 1600 MG PO ×2 (11:42→17:10)
[2023-06-03] MEDS: OCEAN, SALINE MIST NASAL ×2 (12:32→21:49)
--- NOTE | 2023-06-03 14:02 | W.PN.PUL3 ---
Today's Communication / Plan
-
PT/OT
Await swallowing evaluation
Continue outpatient COPD regimen
Mechanical DVT prophylaxis
Will require outpatient follow-up with nodules
Assessment
-
Assessment: 73-year-old M former tobacco smoker (quit 2017) with PMhx COPD/asthma, ESRD on HD, GERD and chronic liver disease/cirrhosis who p/w SOB from his HD center. Of note, he follows with us in [facility] office with Dr. Garcia - last office visit
on 04/29/2023. He is on treelgy 100mcg with prn albuterol. He was in HD today when he felt more SOB than usual. He took his inhaler which did not help his Sx. SBP wasd in 150s. He was then brought here for evaluation and his R-effusion is larger
on CXR compared to last, and he has a small left pleural effusion. HD session started in ER. He is currently on 6L/min NC and saturating 99%. BP 120/66. He denies recent sick contacts, denies recent travel. He has chronic phlegm production
which is green, and this is unchanged. The amount of phlegm he produces is variable. He has no missed any HD sessions, and he denies eating salty foods. He denies chest pain, GALINDO, abd pain, diarrhea, fever or chills.
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
Impression:
#Acute on chronic respiratory failure with hypoxemia on supplemental O2 (on 2L/min at baseline)
#Chronic right-sided pleural effusion with acute left-sided pleural effusion
#ESRD on HD MWF
#Moderate COPD with increased DLco/VA, hence COPD is likely due to unremitting asthma - not in an acute exacerbation
#Restrictive lung defect (moderate with T% predicted via PFT from 04/2022)
#Acute on chronic anemia
#Chronic thrombocytopenia
#Alcoholic liver disease with Hx of grade I EV and portal hypertensive gastropathy (seen via EGD in 2013) --> EV and gastropathy resolved via EGD in October 2019
#5 mm irregular opacity in the posterior left upper lobe - seen on CT chest from October 2022
Plan:
Patient underwent thoracentesis, mildly elevated LDH otherwise transudate
Reviewed CT chest. Left upper lobe nodule and right upper lobe nodule noted. Largest 1.5 cm left lower lobe. Chronic right pleural effusion with pleural thickening, likely trapped lung physiology.
Moving forward
Unfortunate many of patient's pulmonary issues are chronic
He is already on home oxygen, this will continue
With ambulate and optimize oxygen therapy as outpatient
Reviewed at length trapped lung physiology on the right
Discussed pathophysiology
Continue with thoracentesis as needed
No wheezing on exam, continue with maintenance inhaler therapy (Trelegy)
Reviewed CT chest at length, pulm nodules noted. 1 nodule has decreased in size, other nodules/infiltrate are new
Will require follow-up as outpatient
Await swallowing evaluation
DVT prophylaxis: Mechanical prophylaxis
GI prophylaxis: On Pepcid
Discussed importance of pulmonary follow-up as outpatient
Disposition efforts
Data:
CXR 06-01-2023:
There has been no significant change compared with the prior study.
There is moderate right pleural effusion with underlying atelectasis
There is a small left-sided pleural effusion with moderate interstitial airway disease throughout the lower left lung
CXR 05-31-2023:
1).There is a small left pleural effusion, increased in volume when compared with the prior study and associated with new increased parenchymal airspace disease throughout the lower left lung. I favor that this is pulmonary edema superimposed on
underlying effusion. Pneumonia is less likely
2).There is stable moderate-large right-sided pleural effusion with stable underlying parenchymal air space disease likely reflecting atelectasis
CT Chest without contrast 10-07-2022:
1. � Redemonstration of a moderate-sized chronic pleural effusion with associated smooth pleural thickening with grossly unchanged masslike consolidation involving the right lower and middle lobes most consistent with rounded atelectasis. Associated
right-sided volume loss.
2. � Previously seen ill-defined nodular opacities within the posterior right upper lobe have largely resolved. There are some new scattered tree-in-bud opacities within the left lower lobe suggestive of infectious or inflammatory bronchiolitis.
3. � Small amount of new pleural thickening within the posterior aspect of the left hemithorax adjacent to the left lower lobe.
4. � New nonspecific 5 mm irregular opacity within the posterior LEFT upper lobe.
5. � Aberrant RIGHT subclavian artery.
Outpatient [facility] Data:
Spirometry10/15/2021,�demonstrated FEV1/FVC 58%, FEV1 1.03 L (32%, FVC 1.76 L or 41%.� Mixed ventilatory defect suggestion of restriction with moderate to severe airflow obstruction.
��������
��������-
��������Spirometry 12/14/2019:�-FEV1/FVC 60%, FEV1 1.78 L 754%, FVC 2.90 L-67%.� Moderate airflow obstruction with a restriction.� Stable compared to before.
��������
��������Pulmonary function testing 12/13/2017:�demonstrated FEV1 /FVC 52%, FEV1 1.95 L-60%, FVC 3.71 L 785%, TLC 6.59 L-95%, RV 3.25 L-129%, DLCO 21.88-81%. Moderate airflow obstruction. Improvement on air trapping and hyperinflation.
��������
��������
Pulmonary function testing 09/09/2016:�FEV1/FVC 46%, FEV1 1.65 L-52%, FVC 3.61 L-84%. There was significant reversibility post bronchodilator. TLC 9.29 L-138%, RV 5.70 L-235%. DLCO 45%. Moderate/severe COPD with air trapping and
hyperinflation-emphysema phenotype.
��������
Spirometry 05/27/2016:�FEV1/FVC 55%, FEV1 1.32 L-38%, FVC 2.43 L-52%. Severe airflow obstruction with no reversibility.
FENO:
������ 10/15/2021 FeNO -- 22 ppb
�������07/15/2021 FENO 32ppb
�������12/14/2019 FENO 25 PPB
�������04/09/22 FENO 27ppb.
Subjective Data
-
Date of Service:
Date of Service: June 03, 2023
Chief Complaint: Pulmonary Follow Up
Subjective:
Patient fatigued, just finished cleaning himself up. Awaiting swallowing evaluation. Denies chest pain, hemoptysis, nausea, abdominal pain. Friend at bedside
Objective Data
Data Reviewed
Vital Signs / I&O / Oxygen:
Vital Signs
Temp Pulse Resp BP Pulse Ox
97.5 F 76 24 114/57 93
06/03/23 11:00 06/03/23 11:42 06/03/23 11:00 06/03/23 11:42 06/03/23 11:00
Intake and Output
06/02/23 06/03/23 06/04/23
06:59 06:59 06:59
Intake Total 1440 / 1440 780 / 780
Output Total 150 / 150 200 / 200
Balance 1290 / 1290 580 / 580
SaO2 93
Nasal Cannula flow liters per 3
minute
Physical Exam
General: Respiratory Distress (Mild with conversation) and Comfortable
HEENT: Normocephalic, Moist Mucous Membranes, Other (mild yellowing of conjunctiva b/l) and Other (Missing teeth, poor dentition)
Cardiovascular: S1-S2, Regular Rhythm, Murmur (n) and Peripheral Edema (tr)
Respiratory: Wheeze (negative), Crackles (few), Rhonchi (mild), Stridor (negative) and Other (reduced BS at bases (R>L))
GI: Soft, Distended, Non Tender and Normal Bowel Sounds
Neurology: Awake, Alert and No Motor Deficits (Moves all extremities)
Skin: Cyanosis (n), Jaundice (y) and Rash (n)
Labs/Micro/Reports
Lab Data
06/02/23 08:16
06/02/23 08:16
Microbiology
06/02/23 14:03 Pleural Fluid Body Fluid Culture - Preliminary
No Growth After 18-24 Hours
06/02/23 14:03 Pleural Fluid Gram Stain - Preliminary
06/02/23 14:02 Pleural Fluid Fungal Culture - Preliminary
Culture in progress.
Positive cultures are reported as soon as detected.
Final report to follow in four to five weeks.
05/31/23 18:04 Nose MRSA Screen - Final
No Methicillin Resistant Staphylococcus aureus isolated.
--- NOTE | 2023-06-03 14:16 | PTOTSP ---
Dysphagia Evaluation
Patient has acute (i.e., admission with SOB, hypoxemia) on chronic risk factors (i.e., COPD, GERD, CHF) for dysphagia and is reporting acute difficulty swallowing. Patient reported need for increased 'effort' and difficulty breathing when
swallowing, worse with solids than liquids.
Patient with signs concerning for unspecified pharyngeal dysphagia and signs concerning for aspiration (i.e., overt coughing) were observed with thin liquids. Strongly suspect decreased breathing/swallowing coordination is contributing to patient's
dysphagia. Further objective assessment of swallowing warranted via video swallow study.
Recommend:
1. Temporary IDDSI Level 4 (Puree), IDDSI Level 2 (Mildly Thick Liquids)
2. Medications - crushed in puree if medically cleared to do so
3. Strategies: small single sips/bites, slow rate, breaks for breathing, hold oral PO if increased coughing/dysphagia noted
4. Oral care 3-5x daily
5. Video swallow examination
--- NOTE | 2023-06-03 15:29 | CM ---
Thoracentesis on 06/02 for 1,000cc fluid. 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 Initially anticipated home with no needs. WIll continue to follow care to determine if additional services are required.
[2023-06-03 16:57] LABS: Glucose - Point of Care 136 mg/dl (70-99)
[2023-06-03] MEDS: NEURONTIN 300 MG PO (17:10)
[2023-06-03 21:43] LABS: Glucose - Point of Care 148 mg/dl (70-99)
[2023-06-03] MEDS: LANTUS 0.0700000000000000067 UNITS SC (21:46)
[2023-06-04 03:41] VITALS: BP 103/43
[2023-06-04 06:00] VITALS: BMI 20.2
[2023-06-04] MEDS: DEXTROSE 50% SYRINGE 12.5 GRAMS IV (07:15)
[2023-06-04 07:17] LABS: Glucose - Point of Care 49 mg/dl (70-99)
[2023-06-04] MEDS: NOVOLOG FLEXPEN-LOW RESISTANCE SC ×3 (07:42→17:33)
[2023-06-04] MEDS: ProAmatine 5 MG PO (07:42)
[2023-06-04 07:46] LABS: Glucose - Point of Care 206 mg/dl (70-99)
[2023-06-04 08:12] VITALS: BP 132/65
[2023-06-04] MEDS: RETACRIT 6000 UNITS IV (08:25)
[2023-06-04] MEDS: MANNITOL 12.5 GRAMS IV ×2 (08:27→10:32)
[2023-06-04] MEDS: FLEXBUMIN 25% FOR HEMODIALYSIS 12.5 GRAMS IV ×2 (08:30→10:31)
[2023-06-04 08:31] LABS: Hematocrit 30.4 % (39.0-52.0); Mean Corp Hgb Conc. 32.9 g/dL (33.0-37.0); Mean Corpuscular Hgb 33.3 pg (27.0-31.0); Mean Corpuscular Volume 101.3 fL (80.0-94.0); Mean Platelet Volume 9.2 fL (7.4-10.4); Platelet Count 88 10^3/uL (130-400); Red Cell Dist. Width 14.2 % (11.5-14.5); White Blood Cell Count 7.1 10^3/uL (4.8-10.8)
[2023-06-04 09:09] LABS: Blood Urea Nitrogen 57 mg/dl (9-20); Calcium 9.4 mg/dl (8.4-10.2); Carbon Dioxide 29 mmol/L (22-30); Chloride 90 mmol/L (98-107); Estimated Creatinine Clearance 13 ml/min; Glucose 221 mg/dl (70-99); Potassium 3.9 mmol/L (3.5-5.1); Sodium 131 mmol/L (135-145); eGFR 12.89
[2023-06-04] MEDS: RENVELA PO ×3 (09:52→18:34)
[2023-06-04] MEDS: OCEAN, SALINE MIST NASAL ×3 (09:52→23:18)
--- NOTE | 2023-06-04 10:42 | W.PN.HOSP.TC ---
Today's Communication/Plan
-
HD today
VSE today
Monitor POC
Nutrition eval
Pulm recs
Assessment / Plan
Assessment / Plan
#Acute on chronic hypoxic resp failure 2/2 recurrent progressive pleural effusion, COPD, acute on chronic CHF with preserved ejection fraction and pulmonary edema
#History of recurrent pleural effusions requiring multiple thoracentesis
#Chronic COPD on chronic 2 L nasal cannula 24 hours
#Former nicotine abuse 50-year 2 pack a day quit 2017
#Chronic pulmonary nodules
-Continue bronchodilators
-s/p UF with significant weight loss
-repeat CXR with There has been no significant change compared with the prior study. There is moderate right pleural effusion with underlying atelectasis. here is a small left-sided pleural effusion with moderate interstitial airway disease
throughout the lower left lung
-s/p Left thoracentesis 1L fluid removed.
-Pulm recs. wean o2 sats >88%. O2 requirement significantly improved from admission. Now at 2-3L.
-Home O2 eval prior to dc
#Recurrent pleural effusion
#Left upper lobe lesion
-s/p 1L fluid removed. Exudative effusions. Fluid studies in lab negative for growth prelim
-CT chest left upper lobe opacity decrease in size of volume. Two new small foci of patchy opacity in the left lower lobe are seen in comparison to prior CT, most likely inflammatory/infectious as well as progression of left lower lobe subsegmental
atelectasis and new tiny left pleural effusion. Likely chronic changes with volume loss in the right hemithorax without significant change including likely chronic moderate size right pleural effusion with accompanying pleural thickening.
#Suspected dysphagia
-speech eval
-Diet downgraded per speech recs
-VSE after HD today
#ESRD on dialysis
#AV fistula left upper arm
Wednesday dialysis. HD today. Lost weight.
-consult Nephro
#Chronic diastolic CHF preserved EF
--I/O, daily weights
-Follows at [facility] cardiology
-Continue aspirin, carvedilol, statin, Imdur
-On dialysis- MWF
#Hypotension orthostatic Hx
-Continue midodrine
#Chronic anemia
#Chronic thrombocytopenia
monitor
EPO/IV iron per nephro
#DM 2 with diabetic neuropathy with
#Hypoglycemia
Accu-Cheks with SSI,�
-Continue gabapentin
-Continue Lantus at bedtime
-POC 49-->s/p IV dextrose to 206
#HLD
-Continue statin
#GERD
-Continue Pepcid
#Gout
-Continue allopurinol
#Depression
-Continue Zoloft
DVT prophylaxis
Subcu heparin
Anticipated Discharge: Within 24 hours
Subjective/Interval History
-
Date of Service: June 04, 2023
Hypoglycemia earlier today
feeling tired
lost weight
on HD
Objective Data
-
Labs:
Laboratory Results
06/04/23
07:38
WBC 7.1
Hgb 10.0 L
Hct 30.4 L
Plt Count 88 L
Sodium 131 L
Potassium 3.9
Chloride 90 L
Carbon Dioxide 29
BUN 57 H
Creatinine 4.6 H*
Glucose 221 H
Calcium 9.4
Vital Signs:
Vital Signs
Temp Pulse Resp BP Pulse Ox
97.5 F 81 18 132/65 97
06/04/23 08:12 06/04/23 08:12 06/04/23 08:12 06/04/23 08:12 06/04/23 08:12
I&O
06/03/23 06/04/23 06/05/23
06:59 06:59 06:59
Intake Total 780 / 780 1680 / 1680
Output Total 200 / 200 75 / 75
Balance 580 / 580 1605 / 1605
Physical Exam
-
General: Well Developed and No Apparent Distress
HEENT: Normocephalic, Atraumatic, Moist Mucous Membranes and Oxygen (3l)
Respiratory: Clear to Auscultation
Cardiac: Regular Rhythm and S1/S2; Negative Murmur, Rub or Gallop
GI: Soft, Nontender, Nondistended and Normal Bowel Sounds; Negative Organomegaly
Rectal: Deferred by Provider
Musculoskeletal: No Clubbing, No Cyanosis and No Edema
Skin: Negative Rash
Neuro: Awake, Alert, Oriented, AO x 3 and Nonfocal/Grossly Intact
Psych: Calm
Data Reviewed
-
Total Time Spent with Patient (in minutes): 54
--- NOTE | 2023-06-04 11:10 | W.PN.PUL3 ---
Today's Communication / Plan
-
Continue with supportive care, HD
Continue low-dose macrolide therapy Wednesday/Wednesday/Wednesday
Continue Trelegy
Patient has oxygen therapy at home, will continue
Patient will require pulmonary follow-up, information left in chart
We will sign off. Please call with questions
Assessment
-
Assessment: 73-year-old M former tobacco smoker (quit 2017) with PMhx COPD/asthma, ESRD on HD, GERD and chronic liver disease/cirrhosis who p/w SOB from his HD center. Of note, he follows with us in [facility] office with Dr. Garcia - last office visit
on 04/29/2023. He is on treelgy 100mcg with prn albuterol. He was in HD today when he felt more SOB than usual. He took his inhaler which did not help his Sx. SBP wasd in 150s. He was then brought here for evaluation and his R-effusion is larger
on CXR compared to last, and he has a small left pleural effusion. HD session started in ER. He is currently on 6L/min NC and saturating 99%. BP 120/66. He denies recent sick contacts, denies recent travel. He has chronic phlegm production
which is green, and this is unchanged. The amount of phlegm he produces is variable. He has no missed any HD sessions, and he denies eating salty foods. He denies chest pain, GALINDO, abd pain, diarrhea, fever or chills.
Chronic medical conditions [employer]: GERD, mitral regurgitation, ESRD on HD via AVF, HLD, DM type II, Hx of alcoholic cirrhosis with Hx of EV + portal hypertensive gastropathy (seen in 2013 via EGD), HTN, COPD/asthma on chronic oxygen (2-3L/min)
Impression:
#Acute on chronic respiratory failure with hypoxemia on supplemental O2 (on 2L/min at baseline)
#Chronic right-sided pleural effusion with acute left-sided pleural effusion
#ESRD on HD MWF
#Moderate COPD with increased DLco/VA, hence COPD is likely due to unremitting asthma - not in an acute exacerbation
#Restrictive lung defect (moderate with T% predicted via PFT from 04/2022)
#Acute on chronic anemia
#Chronic thrombocytopenia
#Alcoholic liver disease with Hx of grade I EV and portal hypertensive gastropathy (seen via EGD in 2013) --> EV and gastropathy resolved via EGD in October 2019
#5 mm irregular opacity in the posterior left upper lobe - seen on CT chest from October 2022
Plan:
Patient underwent thoracentesis, mildly elevated LDH otherwise transudate
Reviewed CT chest. Left upper lobe nodule and right upper lobe nodule noted. Largest 1.5 cm left lower lobe. Chronic right pleural effusion with pleural thickening, likely trapped lung physiology.
Moving forward
Unfortunate many of patient's pulmonary issues are chronic
He is already on home oxygen, this will continue
With ambulate and optimize oxygen therapy as outpatient
Reviewed at length trapped lung physiology on the right
Discussed pathophysiology
Continue with thoracentesis as needed
No wheezing on exam, continue with maintenance inhaler therapy (Trelegy)
Reviewed CT chest at length, pulm nodules noted. 1 nodule has decreased in size, other nodules/infiltrate are new
Will require follow-up as outpatient
Currently receiving HD
Patient refused exam and did not want to talk
DVT prophylaxis: Mechanical prophylaxis
GI prophylaxis: On Pepcid
Discussed importance of pulmonary follow-up as outpatient
Disposition efforts
We will sign off. Please call with questions
Data:
CXR 06-01-2023:
There has been no significant change compared with the prior study.
There is moderate right pleural effusion with underlying atelectasis
There is a small left-sided pleural effusion with moderate interstitial airway disease throughout the lower left lung
CXR 05-31-2023:
1).There is a small left pleural effusion, increased in volume when compared with the prior study and associated with new increased parenchymal airspace disease throughout the lower left lung. I favor that this is pulmonary edema superimposed on
underlying effusion. Pneumonia is less likely
2).There is stable moderate-large right-sided pleural effusion with stable underlying parenchymal air space disease likely reflecting atelectasis
CT Chest without contrast 10-07-2022:
1. � Redemonstration of a moderate-sized chronic pleural effusion with associated smooth pleural thickening with grossly unchanged masslike consolidation involving the right lower and middle lobes most consistent with rounded atelectasis. Associated
right-sided volume loss.
2. � Previously seen ill-defined nodular opacities within the posterior right upper lobe have largely resolved. There are some new scattered tree-in-bud opacities within the left lower lobe suggestive of infectious or inflammatory bronchiolitis.
3. � Small amount of new pleural thickening within the posterior aspect of the left hemithorax adjacent to the left lower lobe.
4. � New nonspecific 5 mm irregular opacity within the posterior LEFT upper lobe.
5. � Aberrant RIGHT subclavian artery.
Outpatient [facility] Data:
Spirometry10/15/2021,�demonstrated FEV1/FVC 58%, FEV1 1.03 L (32%, FVC 1.76 L or 41%.� Mixed ventilatory defect suggestion of restriction with moderate to severe airflow obstruction.
��������
��������-
��������Spirometry 12/14/2019:�-FEV1/FVC 60%, FEV1 1.78 L 754%, FVC 2.90 L-67%.� Moderate airflow obstruction with a restriction.� Stable compared to before.
��������
��������Pulmonary function testing 12/13/2017:�demonstrated FEV1 /FVC 52%, FEV1 1.95 L-60%, FVC 3.71 L 785%, TLC 6.59 L-95%, RV 3.25 L-129%, DLCO 21.88-81%. Moderate airflow obstruction. Improvement on air trapping and hyperinflation.
��������
��������
Pulmonary function testing 09/09/2016:�FEV1/FVC 46%, FEV1 1.65 L-52%, FVC 3.61 L-84%. There was significant reversibility post bronchodilator. TLC 9.29 L-138%, RV 5.70 L-235%. DLCO 45%. Moderate/severe COPD with air trapping and
hyperinflation-emphysema phenotype.
��������
Spirometry 05/27/2016:�FEV1/FVC 55%, FEV1 1.32 L-38%, FVC 2.43 L-52%. Severe airflow obstruction with no reversibility.
FENO:
������ 10/15/2021 FeNO -- 22 ppb
�������07/15/2021 FENO 32ppb
�������12/14/2019 FENO 25 PPB
�������04/09/22 FENO 27ppb.
Subjective Data
-
Date of Service:
Date of Service: June 04, 2023
Chief Complaint: Pulmonary Follow Up
Subjective:
Patient currently receiving dialysis, appears comfortable, 93% on 3 L. Refused interview and exam
Objective Data
Data Reviewed
Vital Signs / I&O / Oxygen:
Vital Signs
Temp Pulse Resp BP Pulse Ox
97.5 F 81 18 132/65 97
06/04/23 08:12 06/04/23 08:12 06/04/23 08:12 06/04/23 08:12 06/04/23 08:12
Intake and Output
06/03/23 06/04/23 06/05/23
06:59 06:59 06:59
Intake Total 780 / 780 1680 / 1680
Output Total 200 / 200 75 / 75
Balance 580 / 580 1605 / 1605
SaO2 97
Nasal Cannula flow liters per 3
minute
Physical Exam
General: Comfortable (Patient refused exam, did not want to talk)
HEENT: Normocephalic and Other (Poor dentition)
Respiratory: Wheeze (No audible wheeze), Rhonchi (No audible rhonchi), Non-Labored Respirations and Stridor (negative)
Neurology: Awake and Alert
Labs/Micro/Reports
Lab Data
06/04/23 07:38
06/04/23 07:38
Microbiology
06/02/23 14:03 Pleural Fluid Body Fluid Culture - Preliminary
No Growth After 18-24 Hours
06/02/23 14:03 Pleural Fluid Gram Stain - Preliminary
06/02/23 14:02 Pleural Fluid Fungal Culture - Preliminary
Culture in progress.
Positive cultures are reported as soon as detected.
Final report to follow in four to five weeks.
05/31/23 18:04 Nose MRSA Screen - Final
No Methicillin Resistant Staphylococcus aureus isolated.
[2023-06-04 11:18] VITALS: BP 114/60
--- NOTE | 2023-06-04 11:30 | W.PN.NEPH.HD ---
Assessment
-
Seen on HD. difficulty swallowing. VSS, access ok
Progress Note - Hemodialysis
-
Date of Service: June 04, 2023
Duration: 30 minutes and 3 hours
Potassium Bath: 2
Calcium Bath: 2.5
Opti-Dialyzer: 160
Ultrafiltration: Other (2.5kg)
Blood Flow: 400
Dialysate Flow: 600
Heparin: no
EPO: 6000 units
[2023-06-04 11:37] LABS: Glucose - Point of Care 93 mg/dl (70-99)
[2023-06-04] MEDS: VENTOLIN NEBULES 2.5 MG INH ×2 (12:22→20:52)
[2023-06-04] MEDS: IMDUR (EXTENDED RELEASE) PO (14:06)
[2023-06-04] MEDS: LIPITOR PO (14:06)
[2023-06-04] MEDS: VITAMIN C PO (14:09)
[2023-06-04] MEDS: MUCINEX PO ×2 (14:09→20:35)
[2023-06-04] MEDS: ZITHROMAX PO (14:10)
[2023-06-04] MEDS: ZOLOFT PO (14:10)
[2023-06-04] MEDS: COREG PO ×2 (14:11→20:35)
[2023-06-04] MEDS: B COMPLEX w/VITAMIN C PO (14:11)
[2023-06-04] MEDS: HEPARIN SC (14:11)
[2023-06-04] MEDS: ASPIR LOW (ENTERIC COATED) PO (14:12)
[2023-06-04] MEDS: ZYLOPRIM PO (14:12)
[2023-06-04] MEDS: ProAmatine PO ×2 (14:14→18:33)
[2023-06-04] MEDS: OCEAN, SALINE MIST 2 SPRAYS NASAL (14:16)
--- NOTE | 2023-06-04 14:40 | PN.CDI ---
CDI
- -
CDI:
Physician Documentation Request
Admit Date: 05/31/23 11:22
Dear Doctor Mike,
Patient admitted with acute on chronic hypoxic respiratory failure. Has ESRD on HD.
Sodium resulted as follows:
05/31/23 06/01/23 06/02/23
08:08 06:07 08:16
Sodium 136 134 L 133 L
06/04/23
07:38
Sodium 131 L
Based on the above, could you please provide a diagnosis that supports the above lab abnormalities and additional evaluation/monitoring:
Hyponatremia
Abnormal lab value clinically insignificant
Other
Use of terms such as suspected, likely, concern for, or probable (associated with a specific diagnosis that is being evaluated, monitored, or treated as if it exists) are acceptable and can be coded in the inpatient setting, when documented at the
time of discharge.
Thank you,
Kymberly Ramirez RN, BSN
CDI Specialist
tiger text
Please use your independent medical judgment in providing your response.
--- NOTE | 2023-06-04 14:53 | PTOTSP ---
Video Swallow Examination
Limited video swallow study completed. Oral stage was functional. At least moderate--severe pharyngeal dysphagia noted with limited trials completed. Suspect patient's pulmonary history and acute weakness are contributing to his dysphagia.
Patient had noemi aspiration of thin liquids via cup with a cough response during this test which cleared what was visible of trachea. Study was terminated early when patient had noemi SILENT aspiration of mildly thick liquids via cup without a
cough response and a cued cough was ineffective to fully clear what was visible of trachea of aspirated contrast. Further trials were held due to concern that further aspiration would negatively affect patient's respiratory status.
Patient is not safe for an oral diet at this time. Cannot rule out silent aspiration of thicker consistencies (i.e., moderately thick, puree) bedside - for which there is a greater risk. Patient will need to repeat video swallow study if/when
respiratory status has improved.
Recommend:
1. NPO - consider temporary non-oral means of nutrition/hydration and medications
2. Repeat video swallow study if/when respiratory status appropriate
3. Oral care 3-5x daily with suctioning
4. Aspiration Risk Hydration Protocol - SPARING ice chips after oral care for comfort/hydration
5. Continued dysphagia tx at the acute care level.
[2023-06-04 15:10] VITALS: BMI 20.2
--- NOTE | 2023-06-04 15:15 | PTCARENOTE ---
Patient had RF video swallow today.Speech notified this rn Frankly aspirated nectar thick and was sob so stopped the test. aware. NPO and no Po Meds at this times as per dr. Mckeon.
[2023-06-04 15:41] VITALS: BP 107/62
--- NOTE | 2023-06-04 16:24 | CM ---
PT rec for HH, VN, PT/OT referral to . [facility] w [facility] in [place]. M-W-F.
[2023-06-04 16:37] LABS: Glucose - Point of Care 145 mg/dl (70-99)
[2023-06-04] MEDS: NSS 500 IV (17:49)
[2023-06-04] MEDS: NEURONTIN PO (18:34)
[2023-06-04 19:00] VITALS: BP 101/49
[2023-06-04] MEDS: HEPARIN 5000 UNITS SC (20:45)
[2023-06-04 21:27] LABS: Glucose - Point of Care 89 mg/dl (70-99)
[2023-06-04 23:23] VITALS: BP 111/47
[2023-06-05 00:40] LABS: Glucose - Point of Care 92 mg/dl (70-99)
[2023-06-05] MEDS: NOVOLOG FLEXPEN-LOW RESISTANCE SC ×3 (01:04→17:06)
[2023-06-05 03:00] VITALS: BP 124/57
[2023-06-05 03:48] LABS: Glucose - Point of Care 85 mg/dl (70-99)
[2023-06-05 04:40] VITALS: BMI 20.7
[2023-06-05 07:00] VITALS: BP 112/52
[2023-06-05 07:12] LABS: Glucose - Point of Care 78 mg/dl (70-99)
[2023-06-05] MEDS: COLACE PO (08:22)
[2023-06-05] MEDS: ASPIR LOW (ENTERIC COATED) PO (08:22)
[2023-06-05] MEDS: LIPITOR PO (08:23)
[2023-06-05] MEDS: COREG PO ×2 (08:23→19:36)
[2023-06-05] MEDS: HEPARIN SC (08:23)
[2023-06-05] MEDS: IMDUR (EXTENDED RELEASE) PO (08:23)
[2023-06-05] MEDS: OCEAN, SALINE MIST NASAL (08:23)
[2023-06-05] MEDS: MUCINEX PO ×2 (08:23→19:36)
[2023-06-05] MEDS: VITAMIN C PO (08:24)
[2023-06-05] MEDS: PEPCID PO (08:24)
[2023-06-05] MEDS: RENVELA PO ×3 (08:24→16:49)
[2023-06-05] MEDS: ProAmatine PO ×3 (08:24→16:48)
[2023-06-05] MEDS: ZOLOFT PO (08:25)
[2023-06-05] MEDS: ZYLOPRIM PO (08:25)
--- NOTE | 2023-06-05 08:25 | PTCARENOTE ---
Pt is on strict NPO no morning meds give. Complaint of nose bleeding when blowing nose this AM. Doctor Mike notified.
--- NOTE | 2023-06-05 09:12 | W.PN.NEPH.PH ---
Today's Communication / Plan
-
HD wednesday
Assessment/Plan
-
Impression:
End-stage renal disease Wednesday, Wednesday, Wednesday
Hypoxia/Hypercapnia/COPD:home O2 2L
Right pleural effusion (Recurrent)
Hyperphosphatemia
Anemia
Diabetes with multiple microvascular complications
Hypotension on Midodrine
Cirrhosis
Chronic thrombocytopenia
Pulmonary nodules
Plan:
-HD wednesday
-repeat swallow eval
-?bloody mucus/phlegm
-
-
Date of Service: June 05, 2023
CC / HPI / ROS
-
Chief Complaint:
ESRD
History of Present Illness:
tolerated HD yesterday
BP stable
remains on supplemental O2
failed swallow study
Review of Systems:
no CP
+SOB, cough and difficulty swallow due to sob
Labs
-
Labs:
WBC 7.1 10^3/uL (4.8-10.8) 06/04/23 07:38
RBC 3.00 10^6/uL (4.70-6.10) L 06/04/23 07:38
Hgb 10.0 g/dL (13.0-18.0) L 06/04/23 07:38
Hct 30.4 % (39.0-52.0) L 06/04/23 07:38
Plt Count 88 10^3/uL (130-400) L 06/04/23 07:38
Sodium 131 mmol/L (135-145) L 06/04/23 07:38
Potassium 3.9 mmol/L (3.5-5.1) 06/04/23 07:38
Chloride 90 mmol/L (98-107) L 06/04/23 07:38
Carbon Dioxide 29 mmol/L (22-30) 06/04/23 07:38
BUN 57 mg/dl (9-20) H 06/04/23 07:38
Creatinine 4.6 mg/dL (0.7-1.3) H* 06/04/23 07:38
eGFR 12.89 06/04/23 07:38
Glucose 221 mg/dl (70-99) H 06/04/23 07:38
Calcium 9.4 mg/dl (8.4-10.2) 06/04/23 07:38
Yvg-V-Rhlwvdfzsuh Pept > 47469 pg/ml 05/31/23 08:08
Albumin 4.6 g/dl (3.5-5.0) 05/31/23 08:08
Physical Exam
-
Vital Signs:
Vital Signs
Temp Pulse Resp BP Pulse Ox
97.8 F 80 18 112/52 95
06/05/23 07:00 06/05/23 07:00 06/05/23 07:00 06/05/23 07:00 06/05/23 07:00
Cardiovascular:: Regular rate and rhythm
Respiratory:: Bilateral: Coarse
Lung Excursion:: Normal
Abdomen:: Nontender and Soft
Bowel Sounds:: Normal
Extremity Edema:: None: Bilateral:
[2023-06-05] MEDS: OCEAN, SALINE MIST 50 SPRAYS NASAL ×2 (10:11→12:30)
--- NOTE | 2023-06-05 10:52 | W.PN.HOSP.TC ---
Today's Communication/Plan
-
Await speech eval
DC fluids
HD Wednesday
Assessment / Plan
Assessment / Plan
#Acute on chronic hypoxic resp failure 2/2 recurrent progressive pleural effusion, COPD, acute on chronic CHF with preserved ejection fraction and pulmonary edema
#History of recurrent pleural effusions requiring multiple thoracentesis
#Chronic COPD on chronic 2 L nasal cannula 24 hours
#Former nicotine abuse 50-year 2 pack a day quit 2017
#Chronic pulmonary nodules
-Continue bronchodilators
-s/p UF with significant weight loss
-repeat CXR with There has been no significant change compared with the prior study. There is moderate right pleural effusion with underlying atelectasis. here is a small left-sided pleural effusion with moderate interstitial airway disease
throughout the lower left lung
-s/p Left thoracentesis 1L fluid removed.
-Pulm recs. wean o2 sats >88%. O2 requirement significantly improved from admission. Now at 2-3L.
-Home O2 eval prior to dc
#Recurrent pleural effusion
#Left upper lobe lesion
-s/p 1L fluid removed. Exudative effusions. Fluid studies in lab negative for growth prelim
-CT chest left upper lobe opacity decrease in size of volume. Two new small foci of patchy opacity in the left lower lobe are seen in comparison to prior CT, most likely inflammatory/infectious as well as progression of left lower lobe subsegmental
atelectasis and new tiny left pleural effusion. Likely chronic changes with volume loss in the right hemithorax without significant change including likely chronic moderate size right pleural effusion with accompanying pleural thickening.
#Dysphagia
-speech eval
-Diet downgraded per speech recs
-VSE failed diet of all consistency. Per patient partner at bedside patient's been coughing with eating for the past 3 to 4 weeks.
-DC IV fluids. Patient looking better tolerating may pass speech eval.
#ESRD on dialysis
#AV fistula left upper arm
Wednesday dialysis. HD today. Lost weight.
-consult Nephro
#Chronic diastolic CHF preserved EF
--I/O, daily weights
-Follows at [facility] cardiology
-On hold aspirin, carvedilol, statin, Imdur
-On dialysis- MWF
#Hypotension orthostatic Hx
-Continue midodrine
#Chronic anemia
#Chronic thrombocytopenia
monitor
EPO/IV iron per nephro
#DM 2 with diabetic neuropathy with
#Hypoglycemia
Accu-Cheks with SSI,�
-On hold gabapentin
-Lantus on hold as n.p.o. with strict
-POC 49-->s/p IV dextrose to 206
#HLD
-On hold statin
#GERD
-On hold Pepcid
#Gout
-On hold allopurinol
#Depression
-On hold Zoloft
DVT prophylaxis
Subcu heparin
Discussed with patient and partner at bedside
Anticipated Discharge: 24 - 48 hours
Subjective/Interval History
-
Date of Service: June 05, 2023
feeling better today
wants to eat
Objective Data
-
Vital Signs:
Vital Signs
Temp Pulse Resp BP Pulse Ox
97.8 F 80 18 112/52 95
06/05/23 07:00 06/05/23 07:00 06/05/23 07:00 06/05/23 07:00 06/05/23 07:00
I&O
06/04/23 06/05/23 06/06/23
06:59 06:59 06:59
Intake Total 1680 / 1680 120 / 120
Output Total 75 / 75
Balance 1605 / 1605 120 / 120
Physical Exam
-
General: Well Developed and No Apparent Distress
HEENT: Normocephalic, Atraumatic, Moist Mucous Membranes and Oxygen (3l)
Respiratory: Clear to Auscultation
Cardiac: Regular Rhythm and S1/S2; Negative Murmur, Rub or Gallop
GI: Soft, Nontender, Nondistended and Normal Bowel Sounds; Negative Organomegaly
Rectal: Deferred by Provider
Musculoskeletal: No Clubbing, No Cyanosis and No Edema
Skin: Negative Rash
Neuro: Awake, Alert, Oriented, AO x 3 and Nonfocal/Grossly Intact
Psych: Calm
[2023-06-05 11:00] VITALS: BP 128/64
[2023-06-05 12:17] LABS: Glucose - Point of Care 69 mg/dl (70-99)
[2023-06-05] MEDS: DEXTROSE 50% SYRINGE 12.5 GRAMS IV (12:23)
[2023-06-05 12:48] LABS: Glucose - Point of Care 110 mg/dl (70-99)
[2023-06-05 15:00] VITALS: BP 124/62
[2023-06-05 16:56] LABS: Glucose - Point of Care 74 mg/dl (70-99)
[2023-06-05] MEDS: NEURONTIN PO (17:39)
[2023-06-05] MEDS: OCEAN, SALINE MIST 2 SPRAYS NASAL (17:40)
[2023-06-05 19:00] VITALS: BP 129/57
[2023-06-05] MEDS: OCEAN, SALINE MIST 1 SPRAYS NASAL (20:50)
[2023-06-05] MEDS: HEPARIN 5000 UNITS SC (20:50)
[2023-06-05 21:53] LABS: Glucose - Point of Care 78 mg/dl (70-99)
[2023-06-05 23:18] VITALS: BP 132/60
[2023-06-06 03:24] VITALS: BP 130/60; BMI 20.4
[2023-06-06 07:00] VITALS: BP 135/66
[2023-06-06 07:07] LABS: Glucose - Point of Care 49 mg/dl (70-99)
[2023-06-06] MEDS: HEPARIN 5000 UNITS SC ×2 (07:11→22:33)
[2023-06-06] MEDS: DEXTROSE 50% SYRINGE IV (07:12)
[2023-06-06] MEDS: ASPIR LOW (ENTERIC COATED) PO (07:12)
[2023-06-06] MEDS: NOVOLOG FLEXPEN-LOW RESISTANCE SC ×3 (07:12→17:27)
[2023-06-06] MEDS: ProAmatine PO ×3 (07:13→17:16)
[2023-06-06] MEDS: LIPITOR PO (07:13)
[2023-06-06] MEDS: OCEAN, SALINE MIST 2 SPRAYS NASAL ×3 (07:13→17:17)
[2023-06-06] MEDS: MUCINEX PO ×2 (07:13→21:40)
[2023-06-06] MEDS: COREG PO ×2 (07:13→21:40)
[2023-06-06] MEDS: IMDUR (EXTENDED RELEASE) PO (07:13)
[2023-06-06] MEDS: RENVELA PO ×3 (07:14→17:17)
[2023-06-06] MEDS: ZYLOPRIM PO (07:14)
[2023-06-06] MEDS: ZOLOFT PO (07:14)
[2023-06-06] MEDS: VITAMIN C PO (07:14)
[2023-06-06] MEDS: DEXTROSE 50% SYRINGE 12.5 GRAMS IV ×2 (07:41→08:36)
[2023-06-06 08:25] LABS: Glucose - Point of Care 46 mg/dl (70-99)
[2023-06-06 08:55] LABS: Glucose - Point of Care 45 mg/dl (70-99)
[2023-06-06] MEDS: DEXTROSE 50% SYRINGE 25 GRAMS IV (09:20)
[2023-06-06 09:44] LABS: Glucose - Point of Care 84 mg/dl (70-99)
[2023-06-06] MEDS: D10W 500 IV (10:02)
--- NOTE | 2023-06-06 10:41 | W.PN.HOSP.TC ---
Addendum entered and electronically signed by Noah Mckeon MD 06/09/23 12:21:
Abnormal lab value clinically insignificant
Original Note:
Today's Communication/Plan
-
Hypoglycemia protocol
Start patient on D10
HD tomorrow
Video swallow tomorrow
Assessment / Plan
Assessment / Plan
#Acute on chronic hypoxic resp failure 2/2 recurrent progressive pleural effusion, COPD, acute on chronic CHF with preserved ejection fraction and pulmonary edema
#History of recurrent pleural effusions requiring multiple thoracentesis
#Chronic COPD on chronic 2 L nasal cannula 24 hours
#Former nicotine abuse 50-year 2 pack a day quit 2017
#Chronic pulmonary nodules
-Continue bronchodilators
-s/p UF with significant weight loss
-repeat CXR with There has been no significant change compared with the prior study. There is moderate right pleural effusion with underlying atelectasis. here is a small left-sided pleural effusion with moderate interstitial airway disease
throughout the lower left lung
-s/p Left thoracentesis 1L fluid removed.
-Pulm recs. wean o2 sats >88%. O2 requirement significantly improved from admission. Now at 2-3L.
-Home O2 eval prior to dc
#Recurrent pleural effusion
#Left upper lobe lesion
-s/p 1L fluid removed. Exudative effusions. Fluid studies in lab negative for growth prelim
-CT chest left upper lobe opacity decrease in size of volume. Two new small foci of patchy opacity in the left lower lobe are seen in comparison to prior CT, most likely inflammatory/infectious as well as progression of left lower lobe subsegmental
atelectasis and new tiny left pleural effusion. Likely chronic changes with volume loss in the right hemithorax without significant change including likely chronic moderate size right pleural effusion with accompanying pleural thickening.
#Dysphagia
-speech eval
-Diet downgraded per speech recs
-VSE failed diet of all consistency. Per patient partner at bedside patient's been coughing with eating for the past 3 to 4 weeks.
-Discussed with speech and recommending repeat swallow evaluation in the morning.
#ESRD on dialysis
#AV fistula left upper arm
Wednesday dialysis. HD tomorrow lost weight.
-consult Nephro
#Chronic diastolic CHF preserved EF
--I/O, daily weights
-Follows at [facility] cardiology
-On hold aspirin, carvedilol, statin, Imdur
-On dialysis- MWF
#Hypotension orthostatic Hx
-Continue midodrine
#Chronic anemia
#Chronic thrombocytopenia
monitor
EPO/IV iron per nephro
#DM 2 with diabetic neuropathy with
#Hypoglycemia
Accu-Cheks with SSI,�
-On hold gabapentin
-Lantus 7 units discontinued
-Multiple episode of hypoglycemia received dextrose total of 50 g and will start patient on D10
#HLD
-On hold statin
#GERD
-On hold Pepcid
#Gout
-On hold allopurinol
#Depression
-On hold Zoloft
DVT prophylaxis
Subcu heparin
Discussed with patient and partner at bedside on 06/05.
Anticipated Discharge: > 48 hours
Subjective/Interval History
-
Date of Service: June 06, 2023
Episode of multiple hypoglycemia received dextrose IV
Objective Data
-
Vital Signs:
Vital Signs
Temp Pulse Resp BP Pulse Ox
97.7 F 77 16 135/66 99
06/06/23 07:00 06/06/23 07:00 06/06/23 07:00 06/06/23 07:00 06/06/23 07:00
I&O
06/05/23 06/06/23 06/07/23
06:59 06:59 06:59
Intake Total 120 / 120
Balance 120 / 120
Physical Exam
-
General: Well Developed and No Apparent Distress
HEENT: Normocephalic, Atraumatic, Moist Mucous Membranes and Oxygen (3l)
Respiratory: Clear to Auscultation
Cardiac: Regular Rhythm and S1/S2; Negative Murmur, Rub or Gallop
GI: Soft, Nontender, Nondistended and Normal Bowel Sounds; Negative Organomegaly
Rectal: Deferred by Provider
Musculoskeletal: No Clubbing, No Cyanosis and No Edema
Skin: Negative Rash
Neuro: Awake, Alert, Oriented, AO x 3 and Nonfocal/Grossly Intact
Psych: Calm
Data Reviewed
-
Total Time Spent with Patient (in minutes): 54
[2023-06-06 11:00] VITALS: BP 141/70
--- NOTE | 2023-06-06 11:10 | PTCARENOTE ---
Pt blood sugar low this am. Doctor Mike notified of situation. Look at MAR. Pt. now on D10 w/ 500ml @ 20ml/hr. Will continue to monitor and follow hypoglycemic protocol and communication with Doctor Mckeon. Pt remains strict NPO in preparation for
video swallow tomorrow. HD tomorrow.
[2023-06-06 12:02] LABS: Glucose - Point of Care 137 mg/dl (70-99)
[2023-06-06] MEDS: LIDOCAINE 4% PATCH 1 PATCH TOPICAL (12:06)
--- NOTE | 2023-06-06 12:42 | W.PN.NEPH.PH ---
Today's Communication / Plan
-
HD tomorrow
Assessment/Plan
-
Impression:
End-stage renal disease Wednesday, Wednesday, Wednesday
Hypoxia/Hypercapnia/COPD:home O2 2L
Right pleural effusion (Recurrent)
Hyperphosphatemia
Anemia
Diabetes with multiple microvascular complications
Hypotension on Midodrine
Cirrhosis
Chronic thrombocytopenia
Pulmonary nodules
Plan:
-HD wednesday
-repeat swallow eval
-D10 for hypoglycemia as no po intake
-
-
Date of Service: June 06, 2023
CC / HPI / ROS
-
Chief Complaint:
ESRD
History of Present Illness:
tolerated HD wednesday
BP stable
remains on supplemental O2
failed swallow study
sugars low
Review of Systems:
no CP
+SOB, cough and difficulty swallow due to sob
Labs
-
Labs:
WBC 7.1 10^3/uL (4.8-10.8) 06/04/23 07:38
RBC 3.00 10^6/uL (4.70-6.10) L 06/04/23 07:38
Hgb 10.0 g/dL (13.0-18.0) L 06/04/23 07:38
Hct 30.4 % (39.0-52.0) L 06/04/23 07:38
Plt Count 88 10^3/uL (130-400) L 06/04/23 07:38
Sodium 131 mmol/L (135-145) L 06/04/23 07:38
Potassium 3.9 mmol/L (3.5-5.1) 06/04/23 07:38
Chloride 90 mmol/L (98-107) L 06/04/23 07:38
Carbon Dioxide 29 mmol/L (22-30) 06/04/23 07:38
BUN 57 mg/dl (9-20) H 06/04/23 07:38
Creatinine 4.6 mg/dL (0.7-1.3) H* 06/04/23 07:38
eGFR 12.89 06/04/23 07:38
Glucose 221 mg/dl (70-99) H 06/04/23 07:38
Calcium 9.4 mg/dl (8.4-10.2) 06/04/23 07:38
Gab-V-Wevtiuykdjt Pept > 90379 pg/ml 05/31/23 08:08
Albumin 4.6 g/dl (3.5-5.0) 05/31/23 08:08
Physical Exam
-
Vital Signs:
Vital Signs
Temp Pulse Resp BP Pulse Ox
97.7 F 83 18 141/70 99
06/06/23 11:00 06/06/23 11:00 06/06/23 11:00 06/06/23 11:00 06/06/23 11:00
Cardiovascular:: Regular rate and rhythm
Respiratory:: Bilateral: Coarse
Lung Excursion:: Normal
Abdomen:: Nontender and Soft
Bowel Sounds:: Normal
Extremity Edema:: None: Bilateral:
[2023-06-06 15:30] VITALS: BP 120/61
[2023-06-06 15:33] LABS: Glucose - Point of Care 138 mg/dl (70-99)
[2023-06-06] MEDS: NEURONTIN PO (17:17)
[2023-06-06 17:26] LABS: Glucose - Point of Care 91 mg/dl (70-99)
[2023-06-06 19:04] VITALS: BP 103/59
[2023-06-06] MEDS: BENADRYL 25 MG IV (22:32)
[2023-06-06] MEDS: OCEAN, SALINE MIST 50 SPRAYS NASAL (22:35)
[2023-06-06 23:25] LABS: Glucose - Point of Care 140 mg/dl (70-99)
[2023-06-06 23:36] VITALS: BP 99/59
[2023-06-07 02:58] LABS: Glucose - Point of Care 145 mg/dl (70-99)
[2023-06-07 03:30] VITALS: BP 105/57
[2023-06-07 06:00] VITALS: BMI 20.4
[2023-06-07 07:09] LABS: Glucose - Point of Care 103 mg/dl (70-99)
[2023-06-07 07:15] VITALS: BP 99/53
--- NOTE | 2023-06-07 07:25 | W.PN.HOSP.TC ---
Today's Communication/Plan
-
.
Assessment / Plan
Assessment / Plan
Physical Exam
-
General: chronically ill looking, and No Apparent Distress
HEENT: Normocephalic, Atraumatic, dry Mucous Membranes. Nasal O2.
Respiratory: Clear to Auscultation
Cardiac: Regular Rhythm and S1/S2; Negative Murmur, Rub or Gallop
GI: Soft, Nontender, Nondistended and Normal Bowel Sounds.
Rectal: No rectal bleeding noted.
Musculoskeletal: No Clubbing, No Cyanosis and No Edema
Skin: Negative Rash
Neuro: Awake, Alert, Oriented, AO to self and surroundings, and Nonfocal/Grossly Intact
Psych: Calm
#Acute on chronic hypoxic resp failure 2/2 recurrent progressive pleural effusion, COPD, acute on chronic CHF with preserved ejection fraction and pulmonary edema
#History of recurrent pleural effusions requiring multiple thoracentesis
#Chronic COPD on chronic 2 L nasal cannula 24 hours
#Former nicotine abuse 50-year 2 pack a day quit 2017
#Chronic pulmonary nodules
-Continue bronchodilators
-s/p UF with significant weight loss
-repeat CXR with There has been no significant change compared with the prior study. There is moderate right pleural effusion with underlying atelectasis. here is a small left-sided pleural effusion with moderate interstitial airway disease
throughout the lower left lung
-s/p Left thoracentesis 1L fluid removed.
-Pulm recs. wean o2 sats >88%. O2 requirement significantly improved from admission. Now at 2-3L.
-Home O2 eval prior to dc
#Recurrent pleural effusion
#Left upper lobe lesion
-s/p 1L fluid removed. Exudative effusions. Fluid studies in lab negative for growth prelim
-CT chest left upper lobe opacity decrease in size of volume. Two new small foci of patchy opacity in the left lower lobe are seen in comparison to prior CT, most likely inflammatory/infectious as well as progression of left lower lobe subsegmental
atelectasis and new tiny left pleural effusion. Likely chronic changes with volume loss in the right hemithorax without significant change including likely chronic moderate size right pleural effusion with accompanying pleural thickening.
#Dysphagia
-speech eval
-Diet downgraded per speech recs patient was made n.p.o. with no. Oral tablets given. Will change to IV metoprolol, GI prophylaxis intravenously and rectal aspirin. Will have to do as needed dose of midodrine prior to dialysis. If continues NPO
by speech, will do nasogastric tube for feeding and medication administration until further evaluation for feeding tube options
-VSE failed diet of all consistency. Per patient partner at bedside patient's been coughing with eating for the past 3 to 4 weeks.
-Appreciate speech/swallow therapist help
#Hyponatremia
No confusion
#ESRD on dialysis
#AV fistula left upper arm
Wednesday dialysis. HD tomorrow lost weight.
-consult Nephro
#Chronic diastolic CHF preserved EF
--I/O, daily weights
-Follows at [facility] cardiology
-On hold aspirin, carvedilol, statin, Imdur
-On dialysis- MWF
# Mild protein caloric malnutrition
#Hypotension orthostatic Hx
-Continue midodrine
# Anemia of chronic disease hemoglobin around 10.
#Chronic thrombocytopenia
monitor
EPO/IV iron per nephro
#DM 2 with diabetic neuropathy with
#Hypoglycemia
Accu-Cheks with SSI,�
-On hold gabapentin
-Lantus 7 units discontinued
-Multiple episode of hypoglycemia received dextrose total of 50 g and will start patient on D10
#HLD
-On hold statin
#GERD
-On hold Pepcid
#Gout
-On hold allopurinol
#Depression
-On hold Zoloft
DVT prophylaxis
Subcu heparin
Total time spent to see the patient, examine the patient on the floor, review data and lab results, discuss treatment plan with patient and nursing staff around 55 minutes
Anticipated Discharge: > 48 hours
Subjective/Interval History
-
Date of Service: June 07, 2023
No chest pain
No sob
He wants to eat
Objective Data
-
Labs:
Laboratory Results
06/07/23
07:00
WBC Pending
Hgb Pending
Hct Pending
Plt Count Pending
Sodium Pending
Potassium Pending
Chloride Pending
Carbon Dioxide Pending
Vital Signs:
Vital Signs
Temp Pulse Resp BP Pulse Ox
97.8 F 76 18 105/57 95
06/07/23 03:30 06/07/23 03:30 06/07/23 03:30 06/07/23 03:30 06/07/23 03:30
I&O
06/06/23 06/07/23 06/08/23
06:59 06:59 06:59
Intake Total 240 / 240
Output Total 100 / 100
Balance 140 / 140
[2023-06-07] MEDS: NOVOLOG FLEXPEN-LOW RESISTANCE SC ×3 (08:07→18:39)
[2023-06-07] MEDS: ProAmatine 5 MG PO ×2 (08:24→18:42)
[2023-06-07] MEDS: LIDOCAINE 4% PATCH 1 PATCH TOPICAL (08:25)
[2023-06-07] MEDS: PROTONIX IV 40 MG IV (08:29)
[2023-06-07] MEDS: NSS (PRESERVATIVE FREE) 10 ML IV (08:29)
[2023-06-07 08:38] LABS: Hematocrit 31.8 % (39.0-52.0); Hemoglobin 10.6 g/dL (13.0-18.0); Mean Corp Hgb Conc. 33.3 g/dL (33.0-37.0); Mean Corpuscular Hgb 32.7 pg (27.0-31.0); Mean Corpuscular Volume 98.1 fL (80.0-94.0); Mean Platelet Volume 8.9 fL (7.4-10.4); Platelet Count 84 10^3/uL (130-400); Red Blood Cell Count 3.24 10^6/uL (4.70-6.10); Red Cell Dist. Width 13.9 % (11.5-14.5); White Blood Cell Count 7.1 10^3/uL (4.8-10.8)
[2023-06-07] MEDS: HEPARIN SC (08:41)
[2023-06-07] MEDS: ASPIRIN RECTAL (08:41)
[2023-06-07] MEDS: IMDUR (EXTENDED RELEASE) PO (08:42)
[2023-06-07] MEDS: OCEAN, SALINE MIST NASAL (08:42)
[2023-06-07] MEDS: ZITHROMAX PO (08:43)
[2023-06-07 08:51] LABS: Carbon Dioxide 30 mmol/L (22-30); Chloride 94 mmol/L (98-107); Potassium 4.2 mmol/L (3.5-5.1); Sodium 135 mmol/L (135-145)
--- NOTE | 2023-06-07 09:02 | W.PN.NEPH.HD ---
Assessment
-
Patient seen on HD
sbp ~90s on midodrine support
now with swallowing dysfunction: for video swallow study today
hypoglycemia
Progress Note - Hemodialysis
-
Date of Service: June 07, 2023
Duration: 30 minutes and 3 hours
Potassium Bath: 3
Calcium Bath: 2.5
Opti-Dialyzer: 160
Ultrafiltration: Other (1kg as hemodynamically tolerated)
Blood Flow: 400
Dialysate Flow: 600
Heparin: none
EPO: 6K
[2023-06-07] MEDS: RETACRIT 6000 UNITS IV (09:57)
[2023-06-07] MEDS: ZYLOPRIM PO (10:23)
[2023-06-07] MEDS: D10W 500 IV (10:38)
[2023-06-07 11:15] VITALS: BP 99/64
[2023-06-07 11:28] LABS: Glucose - Point of Care 107 mg/dl (70-99)
[2023-06-07] MEDS: LOPRESSOR IV ×2 (11:43→18:39)
[2023-06-07] MEDS: OCEAN, SALINE MIST 2 SPRAYS NASAL ×2 (13:45→22:41)
[2023-06-07 15:19] VITALS: BP 86/50
--- NOTE | 2023-06-07 16:17 | PTOTSP ---
Video Swallow Study
Patient had aspiration without a cough with moderately thick liquids via cup and trace aspiration without a cough with puree. He could not fully clear moderate pharyngeal residue.
Of note, patient had noemi silent aspiration of thin liquids via cup and mildly thick liquids via cup with inability to clear airway (with mildly thick) and subsequent SOB on recent video swallow study 06/04/2023. These consistencies were deferred
today given concern for aspiration and risk of pulmonary compromise, as patient was SOB when he arrived to this test.
Patient is at high risk for complications from aspiration at this time given his current pulmonary status.
Recommend:
1. NPO - consider temporary non-oral means of nutrition/hydration and medications
2. Oral care 3-5x daily with suctioning
3. Aspiration Risk Hydration Protocol - SPARING ice chips after oral care for comfort/hydration
4. Continued dysphagia tx at the acute care level. Patient would benefit from repeat video swallow study if/when respiratory status improves.
--- NOTE | 2023-06-07 16:24 | CM ---
Discharge plan of care: Home with [facility] and PT/OT. Res[facility] HD [facility] [place] on .
--- NOTE | 2023-06-07 17:34 | PTCARENOTE ---
[address] an NG tube for meds and feeding, but patient did not tolerate. Dr Arceo made aware and does not recommend Dobbhoff. MD will order iv morphine and try again tonight.
[2023-06-07 18:22] LABS: Glucose - Point of Care 81 mg/dl (70-99)
[2023-06-07] MEDS: OCEAN, SALINE MIST 50 SPRAYS NASAL (18:43)
[2023-06-07 19:05] VITALS: BP 97/58
[2023-06-07] MEDS: HEPARIN 5000 UNITS SC (20:41)
[2023-06-07 23:20] VITALS: BP 101/64
[2023-06-08] VITALS (7 sets, daily range): BP systolic 89–115; BP diastolic 46–63; PULSE 56; O2SAT 95; BMI 19.9
[2023-06-08 00:34] LABS: Glucose - Point of Care 94 mg/dl (70-99)
[2023-06-08] MEDS: NOVOLOG FLEXPEN-LOW RESISTANCE SC ×5 (00:39→23:59)
[2023-06-08] MEDS: LOPRESSOR IV ×4 (00:48→23:32)
--- NOTE | 2023-06-08 00:54 | PTCARENOTE ---
Addendum entered by Basilio Burnham RN 06/08/23 06:24:
This AM, patient continues to refuse NGT placement without morphine. When assessing patient's BP this AM, BP 99/48. Morphine/Lopressor not given d/t patient w/ borderline BPs overnight. Will advise dayshift of BP this AM/patient refusal.
Original Note:
Late entry - patient refusing further attempts of NGT placement for feeding/medications. Patient continues w/ d10 @ 20mls/hr. Patient reporting he is willing to reconsider placement of NGT in AM. Will reassess in AM.
[2023-06-08 05:45] LABS: Glucose - Point of Care 98 mg/dl (70-99)
[2023-06-08] MEDS: IMDUR (EXTENDED RELEASE) PO (08:31)
[2023-06-08] MEDS: ZYLOPRIM PO (08:32)
[2023-06-08] MEDS: OCEAN, SALINE MIST 2 SPRAYS NASAL ×4 (08:32→21:12)
[2023-06-08] MEDS: FLUSH (NSS) 2 FLUSH IV (08:49)
[2023-06-08] MEDS: HEPARIN 5000 UNITS SC ×2 (10:40→21:12)
[2023-06-08] MEDS: PROTONIX IV 40 MG IV (10:40)
[2023-06-08] MEDS: NSS (PRESERVATIVE FREE) 10 ML IV (10:40)
[2023-06-08] MEDS: ASPIRIN 300 MG RECTAL (10:40)
[2023-06-08] MEDS: LIDOCAINE 4% PATCH 1 PATCH TOPICAL (10:40)
[2023-06-08 11:46] LABS: Glucose - Point of Care 162 mg/dl (70-99)
[2023-06-08] MEDS: ProAmatine 5 MG PO (12:04)
[2023-06-08] MEDS: MORPHINE SULFATE 2 MG IV (12:05)
[2023-06-08] MEDS: D10W 500 IV (12:14)
--- NOTE | 2023-06-08 12:56 | CON.GI ---
Consultation
-
Date/Time Consultation Performed: 06/08/23
Performing Provider: Ildefonso Romeo MD
Reason for Consultation: dysphagia
Medical History
Chief Complaint / HPI
Chief Complaint: weakness/SOB
History of Present Illness:
The patient is a 73-year-old male with past medical history as noted who was admitted initially on May 31 with acute on chronic hypoxia. During this hospitalization He has had chest CT that showed chronic changes related to COPD, as well as
small foci of patchy opacity in the left lower lobe, small upper lobe nodule. He had thoracentesis done as well. He has had multiple speech evaluations and modified barium swallow, most recently yesterday which showed aspiration this time with
honey and pudding consistency which was worse than previous. He states that he had been having some coughing with eating at home, though this has become much worse since being in the hospital. He denies any esophageal dysphagia. Denies any
abdominal pain, nausea or vomiting. His last endoscopy in 2019 showed normal esophagus, and had Sonia gland hyperplasia. He did have an MRI that was negative for stroke. He had NG tube and Dobbhoff placed with absence of gag reflex.
Past Medical History
Past Medical History: Other (Heart failure preserved EF, valvular dysfunction mild MR, , AR recurrent pleural effusion status post multiple thoracentesis COPD chronic/chronic hypercarbia multiple pulmonary nodules. tobacco abuse Orthostatic
hypotension anemia of chronic disease ESRD on dialysis gout HLD DM2 with diabetic neur)
Past Surgical History: Other (recurrent pleural effusion status post multiple thoracentesis)
Social History
Tobacco: Former Smoker
Alcohol: None
Family History
Family History: Reviewed & Not Pertinent
Allergies / Home Medications
Allergy/AdvReac Type Severity Reaction Status Date / Time
budesonide [From Symbicort] Allergy THROAT Verified 03/03/23 02:42
IRRITATION
formoterol [From Symbicort] Allergy THROAT Verified 03/03/23 02:42
IRRITATION
Medication Instructions Recorded
famotidine 20 mg tablet 20 mg PO DAILY Gastrointestinal 07/20/18
issue
azithromycin 250 mg tablet 250 mg PO MOWEFR@0800 Infection 02/28/19
ergocalciferol (vitamin D2) 1,250 50,000 units PO .SEE BELOW 02/28/19
mcg (50,000 unit) capsule Supplement
vitamin B complex 1 tab PO MOWEFR@0800 Supplement 02/28/19
ascorbic acid (vitamin C) 1,000 mg 1,000 mg PO DAILY Supplement 11/26/22
tablet (Vitamin C)
atorvastatin 10 mg tablet 10 mg PO DAILY High Cholesterol 11/26/22
fluticasone fur. 100 mcg-umeclid 1 inh inhalation R DAILY 11/26/22
62.5 mcg-vilant 25 mcg Lung/Breathing Issues
inhalat.powder (Trelegy Ellipta)
isosorbide mononitrate 30 mg 30 mg PO DAILY Heart 11/26/22
tablet,extended release 24 hr Disease/Condition
albuterol sulfate 2.5 mg/3 mL 2.5 mg inhalation R Q4HPRN PRN sob 01/18/23
(0.083 %) solution for nebulization
aspirin 81 mg tablet,delayed 81 mg PO DAILY Blood Clot 01/28/23
release Prevention/Tx
gabapentin 300 mg capsule 300 mg PO QPM Pain 01/28/23
carvedilol 3.125 mg tablet 3.125 mg PO BID #60 tabs 02/03/23
allopurinol 100 mg tablet 200 mg PO DAILY Gout 04/07/23
sertraline 25 mg tablet 25 mg PO DAILY Mental 04/07/23
Health/Anxiety
sevelamer carbonate 800 mg tablet 1,600 mg PO MEALS Kidney Disease 04/07/23
albuterol sulfate 90 mcg/actuation 2 puff inhalation R Q4HPRN PRN 05/31/23
aerosol inhaler sob/wheeze
docusate sodium 100 mg capsule 200 mg PO Q48H Constipation 05/31/23
(Colace)
insulin aspart U-100 100 unit/mL 0 sliding scale dose SC 05/31/23
(3 mL) subcutaneous pen (Novolog DIRECTED Diabetes
FlexPen U-100 Insulin aspart)
insulin glargine 100 unit/mL (3 7 unit SC HS Diabetes 05/31/23
mL) subcutaneous pen (Lantus
Solostar U-100 Insulin)
midodrine 5 mg tablet 5 mg PO TID Blood Pressure 05/31/23
Review of Systems
-
All other systems: A 12 pt ROS was Negative except as stated above in HPI
Vital Signs
Temp Pulse Resp BP Pulse Ox
97.3 F 61 24 90/50 96
06/08/23 11:20 06/08/23 12:04 06/08/23 11:20 06/08/23 12:04 06/08/23 11:20
Physical Exam
Exam
General: NAD, cachectic
HEENT: MMM, anicteric, no lymphadenopathy, poor dentition
Heart: Regular, no murmurs
Lungs: Decreased at bases bilaterally
Abdomen: normal bowel sounds, soft, no tenderness, no rebound or guarding, no masses, bruits or ascites
Extremeties: no edema
Skin: no rashes
Results
WBC 7.1 10^3/uL (4.8-10.8) 06/07/23 08:17
Hgb 10.6 g/dL (13.0-18.0) L 06/07/23 08:17
Hct 31.8 % (39.0-52.0) L 06/07/23 08:17
MCV 98.1 fL (80.0-94.0) H 06/07/23 08:17
Plt Count 84 10^3/uL (130-400) L 06/07/23 08:17
Absolute Neuts (auto) 4.8 10^3/uL (1.4-6.5) 06/01/23 06:07
PT 13.8 Sec (11.4-14.6) 05/31/23 08:08
INR 1.04 05/31/23 08:08
APTT 23.5 Sec (23.4-35.0) 05/31/23 08:08
Sodium 135 mmol/L (135-145) 06/07/23 08:17
Potassium 4.2 mmol/L (3.5-5.1) 06/07/23 08:17
Chloride 94 mmol/L (98-107) L 06/07/23 08:17
Carbon Dioxide 30 mmol/L (22-30) 06/07/23 08:17
BUN 57 mg/dl (9-20) H 06/04/23 07:38
Creatinine 4.6 mg/dL (0.7-1.3) H* 06/04/23 07:38
Calcium 9.4 mg/dl (8.4-10.2) 06/04/23 07:38
Total Bilirubin 0.8 mg/dl (0.2-1.3) 05/31/23 08:08
AST 28 U/L (17-59) 05/31/23 08:08
ALT 18 U/L (0-50) 05/31/23 08:08
Alkaline Phosphatase 101 U/L (38-126) 05/31/23 08:08
Diagnostic Image Results:
Prior GI Procedures:
EGD:
2020:
Impression:� � � � � - Normal esophagus.
�� � � � � � � � � � - Normal stomach.
�� � � � � � � � � � - Nodule (AVINASH vs duodenal polyp vs. sonia's glands)
�� � � � � � � � � � found in the duodenum. Biopsied.
Colonoscopy:
2017:
Impression:� � � � � - Diverticulosis in the sigmoid colon and in the
�� � � � � � � � � � descending colon.
�� � � � � � � � � � - One 2 mm polyp in the proximal ascending colon,
�� � � � � � � � � � removed with a hot snare and removed with a cold biopsy
�� � � � � � � � � � forceps. Resected and retrieved.
�� � � � � � � � � � - One 4 mm polyp in the proximal transverse colon,
�� � � � � � � � � � removed with a hot snare. Resected and retrieved.
�� � � � � � � � � � - One 5 mm polyp in the mid transverse colon, removed
�� � � � � � � � � � with a cold snare. Resected and retrieved. Clip was
�� � � � � � � � � � placed.
�� � � � � � � � � � - The examination was otherwise normal.
Assessment / Plan
-
1. Oropharyngeal dysphagia: With mild chronic symptoms, though much worsening symptoms during this hospitalization documented on modified barium swallow as well as subjectively, likely due to malnutrition during his hospitalization. His underlying
baseline nutritional status is not great, likely more of a component of his underlying chronic COPD which is oxygen dependent, and likely has little reserve. MRI was negative for acute stroke. Other neuromuscular etiologies such as myasthenia seem
less likely, and would not account for his lack of gag reflex. At this point now that he has means of enteral feeding we will try to maximize his nutritional status to see if there is improvement again in his muscles of swallowing. If not he is
agreeable to PEG tube and will discuss further at that time. If his gag reflux/muscles of swallowing do not improve after improve nutritional status may consider neuro evaluation.
-
-
Thank you for consultation and allowing me to participate in the patient's care. Please call the second hand GI physician during the after hours with any questions or concerns.
--- NOTE | 2023-06-08 14:15 | W.PN.NEPH.PH ---
Today's Communication / Plan
-
HD tomorrow
Assessment/Plan
-
Impression:
End-stage renal disease Wednesday, Wednesday, Wednesday
Hypoxia/Hypercapnia/COPD:home O2 2L
Right pleural effusion (Recurrent)
Hyperphosphatemia
Anemia
Diabetes with multiple microvascular complications
Hypotension on Midodrine
Cirrhosis
Chronic thrombocytopenia
Pulmonary nodules
Plan:
-HD tomorrow, orders provided
-GI evaluation for swallowing dysfunction in progress
-feeding tube placed , awaiting xray to confirm position before feeds initiated
-on d10 until feeds start
-
-
Date of Service: June 08, 2023
CC / HPI / ROS
-
Chief Complaint:
ESRD
History of Present Illness:
ESRD MWF
BP stable
remains on supplemental O2
failed swallow study, now with feeding tube inserted
sugars low
Review of Systems:
no CP
+SOB, cough and difficulty swallow
Labs
-
Labs:
WBC 7.1 10^3/uL (4.8-10.8) 06/07/23 08:17
RBC 3.24 10^6/uL (4.70-6.10) L 06/07/23 08:17
Hgb 10.6 g/dL (13.0-18.0) L 06/07/23 08:17
Hct 31.8 % (39.0-52.0) L 06/07/23 08:17
Plt Count 84 10^3/uL (130-400) L 06/07/23 08:17
Sodium 135 mmol/L (135-145) 06/07/23 08:17
Potassium 4.2 mmol/L (3.5-5.1) 06/07/23 08:17
Chloride 94 mmol/L (98-107) L 06/07/23 08:17
Carbon Dioxide 30 mmol/L (22-30) 06/07/23 08:17
BUN 57 mg/dl (9-20) H 06/04/23 07:38
Creatinine 4.6 mg/dL (0.7-1.3) H* 06/04/23 07:38
eGFR 12.89 06/04/23 07:38
Glucose 221 mg/dl (70-99) H 06/04/23 07:38
Calcium 9.4 mg/dl (8.4-10.2) 06/04/23 07:38
Use-N-Alsgxiwqfsf Pept > 31503 pg/ml 05/31/23 08:08
Albumin 4.6 g/dl (3.5-5.0) 05/31/23 08:08
Physical Exam
-
Vital Signs:
Vital Signs
Temp Pulse Resp BP Pulse Ox
97.3 F 61 24 90/50 96
06/08/23 11:20 06/08/23 12:04 06/08/23 11:20 06/08/23 12:04 06/08/23 11:20
Cardiovascular:: Regular rate and rhythm
Respiratory:: Bilateral: Coarse
Lung Excursion:: Normal
Abdomen:: Nontender
Bowel Sounds:: Normal
Extremity Edema:: None: Bilateral:
Rodarte Catheter: No
Other Findings::
HEENT: feeding tube down nare
--- NOTE | 2023-06-08 14:57 | CM ---
Failed swallowing study. NGT placed. GI evaluation for swallowing dysfunction. Discharge POC: home with [facility] and PT/OT. Resumption of HD with [facility] in [place] . CM will continue to follow should needs change.
--- NOTE | 2023-06-08 15:46 | PN.CDI ---
CDI
- -
CDI:
Physician Documentation Request
Admit Date: 05/31/23 11:22
Dear Doctor Adis,
Documentation includes the diagnosis of mild protein caloric malnutrition on 06/07 progress note.
To ensure the quality of the medical record, based on the above information and the recognized standards for malnutrition , could you please verify in your progress notes which of the following responses best reflects the patient's nutritional
status:
Mild Malnutrition is/was present and is a clinical diagnosis (please provide additional support in the medical record)
No nutritional deficiency
Other (please specify)
[place] Criteria ([facility] Hospitalist 2017)
2 or more criteria must be present for either
non severe or severe malnutrition
Note that the criteria differs related to the
presence of an acute or chronic illness
Acute Illness Chronic Illness
Energy Intake Non Severe: <75% for >7 days Non Severe: <75% for >1 month
Severe: <50% for >5 days Severe: <75% for >1 month
Weight Loss Non Severe: 1-2% over 1 week Non Severe: 5% over 1 month
5% over 1 month 7.5% over 3 months
7.5% over 3 months 10% over 6 months
1 year N/A 20% over 1 year
Severe: >2% over 1 week Severe: >5% over 1 month
>5% over 1 month >7.5% over 3 months
>7.5% over 3 months >10% over 6 months
1 year N/A >20% over 1 year
Body Fat Non Severe: Mild Decrease Non Severe: Mild Loss
Severe: Moderate Decrease Severe: Severe Loss
Muscle Mass Non Severe: Mild Decrease Non Severe: Mild Loss
Severe: Moderate Decrease Severe: Severe Loss
Fluid Accumulation Non Severe: Mild Accumulation Non Severe: Mild Accumulation
Severe: Moderate to severe Severe: Moderate to severe
accumulation accumulation
Reduced Dumper Strength Non Severe: N/A Non Severe: N/A
Severe: Measurably reduced Severe: Measurably reduced
Additional criteria that can be used to Determine if Mild or Moderate Malnutrition ([employer] Manual 2018)
Mild Moderate Severe
BMI <18.5 <17 <16
Use of terms such as suspected, likely, concern for, or probable (associated with a specific diagnosis that is being evaluated, monitored, or treated as if it exists) are acceptable and can be coded in the inpatient setting, when documented at the
time of discharge.
Thank you,
Kymberly Ramirez RN, BSN
CDI Specialist
tiger text
Please use your independent medical judgment in providing your response.
--- NOTE | 2023-06-08 16:15 | W.PN.HOSP.TC ---
Today's Communication/Plan
-
.
Assessment / Plan
Assessment / Plan
Physical Exam
-
General: chronically ill looking, and No Apparent Distress
HEENT: Normocephalic, Atraumatic, dry Mucous Membranes. Nasal O2.
Respiratory: Clear to Auscultation
Cardiac: Regular Rhythm and S1/S2; Negative Murmur, Rub or Gallop
GI: Soft, Nontender, Nondistended and Normal Bowel Sounds.
Rectal: No rectal bleeding noted.
Musculoskeletal: No Clubbing, No Cyanosis and No Edema
Skin: Negative Rash
Neuro: Awake, Alert, Oriented, AO to self and surroundings, and Nonfocal/Grossly Intact
Psych: Calm
#Dysphagia
-speech eval noted.
Likely due to combination of Cachexia associated with advanced COPD and deconditioning/ malnutrition. MRI brain, no stroke.
pt continues to struggle with oropharyngeal dysphagia. Dobbhoff placed, no gag reflex noted also
D/W GI, plan for peg tube this week.
-Appreciate speech/swallow therapist help
#Acute on chronic hypoxic resp failure 2/2 recurrent progressive pleural effusion, COPD, acute on chronic CHF with preserved ejection fraction and pulmonary edema
#History of recurrent pleural effusions requiring multiple thoracentesis
#Chronic COPD on chronic 2 L nasal cannula 24 hours
#Former nicotine abuse 50-year 2 pack a day quit 2017
#Chronic pulmonary nodules
-Continue bronchodilators
-s/p UF with significant weight loss
-repeat CXR with There has been no significant change compared with the prior study. There is moderate right pleural effusion with underlying atelectasis. here is a small left-sided pleural effusion with moderate interstitial airway disease
throughout the lower left lung
-s/p Left thoracentesis 1L fluid removed.
-Pulm recs. wean o2 sats >88%. O2 requirement significantly improved from admission. Now at 2-3L.
-Home O2 eval prior to dc
#Recurrent pleural effusion
#Left upper lobe lesion
-s/p 1L fluid removed. Exudative effusions. Fluid studies in lab negative for growth prelim
-CT chest left upper lobe opacity decrease in size of volume. Two new small foci of patchy opacity in the left lower lobe are seen in comparison to prior CT, most likely inflammatory/infectious as well as progression of left lower lobe subsegmental
atelectasis and new tiny left pleural effusion. Likely chronic changes with volume loss in the right hemithorax without significant change including likely chronic moderate size right pleural effusion with accompanying pleural thickening.
# moderate protein-caloric malnutrition
Patient has characteristics of COPD cachexia with severe loss of energy, wasting of muscles.
#Hyponatremia
No confusion
#ESRD on dialysis
#AV fistula left upper arm
Wednesday dialysis. HD tomorrow lost weight.
-consult Nephro
#Chronic diastolic CHF preserved EF
--I/O, daily weights
-Follows at [facility] cardiology
- resume aspirin, midodrine for now through tube
-On dialysis- MWF
# Mild protein caloric malnutrition
#Hypotension orthostatic Hx
-Continue midodrine ATC, keep midodrine PRN also.
# Anemia of chronic disease hemoglobin around 10.
#Chronic thrombocytopenia
monitor
EPO/IV iron per nephro
#DM 2 with diabetic neuropathy with
#Hypoglycemia
Accu-Cheks with SSI,�
d/w pharmacist, started on liquid gabapentin through tube.
-Lantus 7 units discontinued
-Multiple episode of hypoglycemia received dextrose total of 50 g and will start patient on D10
#HLD
-On hold statin
#GERD
started on IV Protonix.
#Gout
-resume tube allopurinol
#Depression
resumed tube Zoloft
DVT prophylaxis
Subcu heparin
Total time spent to see the patient, examine the patient on the floor, review data and lab results, discuss treatment plan with patient and nursing staff around 57 minutes
Anticipated Discharge: > 48 hours
Subjective/Interval History
-
Date of Service: June 08, 2023
no chest pain
no fevers
Objective Data
-
Vital Signs:
Vital Signs
Temp Pulse Resp BP Pulse Ox
97.4 F 99 22 99/61 95
06/08/23 15:00 06/08/23 15:00 06/08/23 15:00 06/08/23 15:00 06/08/23 15:00
I&O
06/07/23 06/08/23 06/09/23
06:59 06:59 06:59
Intake Total 240 / 240 0 / 0
Output Total 100 / 100 0 / 0
Balance 140 / 140 0 / 0
[2023-06-08 18:03] LABS: Glucose - Point of Care 124 mg/dl (70-99)
[2023-06-08] MEDS: ZYLOPRIM 100 MG TUBE (18:16)
[2023-06-08] MEDS: LOPRESSOR 2.5 MG IV (18:16)
[2023-06-08] MEDS: ProAmatine 5 MG TUBE ×2 (18:16→23:45)
[2023-06-08] MEDS: NEURONTIN 300 MG TUBE (21:12)
[2023-06-08] MEDS: ZOLOFT 25 MG TUBE (21:13)
[2023-06-08 23:56] LABS: Glucose - Point of Care 67 mg/dl (70-99)
[2023-06-09] VITALS (9 sets, daily range): BP systolic 82–128; BP diastolic 48–62
[2023-06-09] MEDS: DEXTROSE 50% SYRINGE 12.5 GRAMS IV ×2 (00:01→06:30)
[2023-06-09 00:36] LABS: Glucose - Point of Care 128 mg/dl (70-99)
[2023-06-09 05:56] LABS: Glucose - Point of Care 52 mg/dl (70-99)
[2023-06-09] MEDS: LOPRESSOR IV ×2 (06:12→12:12)
[2023-06-09] MEDS: NOVOLOG FLEXPEN-LOW RESISTANCE SC ×3 (06:12→18:17)
[2023-06-09 06:51] LABS: Glucose - Point of Care 85 mg/dl (70-99)
--- NOTE | 2023-06-09 07:10 | W.PN.HOSP.TC ---
Today's Communication/Plan
-
.
Assessment / Plan
Assessment / Plan
Physical Exam
-
General: chronically ill looking, and No Apparent Distress
HEENT: Normocephalic, Atraumatic, dry Mucous Membranes. Nasal O2. NG tube
Respiratory: Clear to Auscultation
Cardiac: Regular Rhythm and S1/S2; Negative Murmur, Rub or Gallop
GI: Soft, Nontender, Nondistended and Normal Bowel Sounds.
Rectal: No rectal bleeding noted.
Musculoskeletal: No Clubbing, No Cyanosis and No Edema
Skin: Negative Rash
Neuro: Awake, Alert, Oriented, AO to self and surroundings, and Nonfocal/Grossly Intact
Psych: Calm
#Dysphagia
-speech eval noted.
Likely due to combination of Cachexia associated with advanced COPD and deconditioning/ malnutrition. MRI brain, no stroke.
pt continues to struggle with oropharyngeal dysphagia. Dobbhoff placed, no gag reflex noted also
D/W GI, plan for peg tube
Will do CT a/P for today
High residual over night, c/w TF for now
-Appreciate speech/swallow therapist help
#Acute on chronic hypoxic resp failure 2/2 recurrent progressive pleural effusion, COPD, acute on chronic CHF with preserved ejection fraction and pulmonary edema
#History of recurrent pleural effusions requiring multiple thoracentesis
#Chronic COPD on chronic 2 L nasal cannula 24 hours
#Former nicotine abuse 50-year 2 pack a day quit 2017
#Chronic pulmonary nodules
-Continue bronchodilators
-s/p UF with significant weight loss
-repeat CXR with There has been no significant change compared with the prior study. There is moderate right pleural effusion with underlying atelectasis. here is a small left-sided pleural effusion with moderate interstitial airway disease
throughout the lower left lung
-s/p Left thoracentesis 1L fluid removed.
-Pulm recs. wean o2 sats >88%. O2 requirement significantly improved from admission. Now at 2-3L.
-Home O2 eval prior to dc
#Recurrent pleural effusion
#Left upper lobe lesion
-s/p 1L fluid removed. Exudative effusions. Fluid studies in lab negative for growth prelim
-CT chest left upper lobe opacity decrease in size of volume. Two new small foci of patchy opacity in the left lower lobe are seen in comparison to prior CT, most likely inflammatory/infectious as well as progression of left lower lobe subsegmental
atelectasis and new tiny left pleural effusion. Likely chronic changes with volume loss in the right hemithorax without significant change including likely chronic moderate size right pleural effusion with accompanying pleural thickening.
# moderate protein-caloric malnutrition
Patient has characteristics of COPD cachexia with severe loss of energy, wasting of muscles.
#Hyponatremia
No confusion
#ESRD on dialysis
#AV fistula left upper arm
Wednesday dialysis. HD tomorrow lost weight.
-consult Nephro
#Chronic diastolic CHF preserved EF
--I/O, daily weights
-Follows at [facility] cardiology
- resume aspirin, midodrine for now through tube
-On dialysis- MWF
# Mild protein caloric malnutrition
#Hypotension orthostatic Hx
-Continue midodrine ATC, keep midodrine PRN also.
# Anemia of chronic disease hemoglobin around 10.
#Chronic thrombocytopenia
monitor
EPO/IV iron per nephro
#DM 2 with diabetic neuropathy with
#Hypoglycemia
Accu-Cheks with SSI,�
d/w pharmacist, started on liquid gabapentin through tube.
-Lantus 7 units discontinued
-Multiple episode of hypoglycemia, c/w D10 gg at 20 cc/hour
#HLD
-On hold statin
#GERD
started on IV Protonix.
#Gout
-resume tube allopurinol
#Depression
resumed tube Zoloft
DVT prophylaxis
Subcu heparin
Total time spent to see the patient, examine the patient on the floor, review data and lab results, discuss treatment plan with patient and nursing staff around 57 minutes
Anticipated Discharge: > 48 hours
Subjective/Interval History
-
Date of Service: June 09, 2023
Objective Data
-
Labs:
Laboratory Results
06/09/23
07:00
Hgb Pending
Hct Pending
Sodium Pending
Potassium Pending
Chloride Pending
Carbon Dioxide Pending
Vital Signs:
Vital Signs
Temp Pulse Resp BP Pulse Ox
97.0 F 91 16 96/60 100
06/09/23 03:58 06/09/23 06:12 06/09/23 03:58 06/09/23 06:12 06/09/23 03:58
I&O
06/08/23 06/09/23 06/10/23
06:59 06:59 06:59
Intake Total 0 / 0 540 / 540
Output Total 0 / 0 0 / 0
Balance 0 / 0 540 / 540
--- NOTE | 2023-06-09 07:15 | W.PN.GI.CBS2 ---
Today's Communication / Plan
-
See assessment and plan for details.
Assessment / Plan
-
1. Oropharyngeal dysphagia: With mild chronic symptoms, though much worsening symptoms during this hospitalization documented on modified barium swallow as well as subjectively, likely due to malnutrition during his hospitalization. His underlying
baseline nutritional status is not great, likely more of a component of his underlying chronic COPD which is oxygen dependent, and likely has little reserve. MRI was negative for acute stroke. Other neuromuscular etiologies such as myasthenia seem
less likely, and would not account for his lack of gag reflex. We had another discussion about PEG tube which she is agreeable for, and likely needed given his lack of gag reflex, chronic oropharyngeal dysphagia and cachexia, will tentatively plan
for tomorrow. Given his increased residuals will check CT scan, though clinically no signs of obstruction or mass.
Subjective
Subjective
Date of Service: June 09, 2023
No new events, patient seems a bit brighter today, though still with cough and subjective dysphagia. Per nursing he did have significant residuals with tube feeds via Dobbhoff.
Objective
Data Reviewed
Laboratory Data:
Laboratory Results
PT 13.8 Sec (11.4-14.6) 05/31/23 08:08
INR 1.04 05/31/23 08:08
APTT 23.5 Sec (23.4-35.0) 05/31/23 08:08
Total Bilirubin 0.8 mg/dl (0.2-1.3) 05/31/23 08:08
AST 28 U/L (17-59) 05/31/23 08:08
ALT 18 U/L (0-50) 05/31/23 08:08
Alkaline Phosphatase 101 U/L (38-126) 05/31/23 08:08
Vital Signs and I&O:
Vital Signs
Temp Pulse Resp BP Pulse Ox
97.0 F 91 16 96/60 100
06/09/23 03:58 06/09/23 06:12 06/09/23 03:58 06/09/23 06:12 06/09/23 03:58
I&O
06/08/23 06/09/23 06/10/23
06:59 06:59 06:59
Intake Total 0 / 0 540 / 540
Output Total 0 / 0 0 / 0
Balance 0 / 0 540 / 540
Physical Exam
Physical Exam
General: NAD, cachectic
Abdomen: normal bowel sounds, soft, no tenderness, no masses or bruits, no ascites
[2023-06-09] MEDS: ProAmatine 5 MG TUBE ×3 (07:37→18:22)
[2023-06-09] MEDS: D10W 500 IV (07:38)
[2023-06-09 08:15] LABS: Hematocrit 32.9 % (39.0-52.0); Hemoglobin 10.7 g/dL (13.0-18.0)
[2023-06-09 08:24] LABS: INR 1.22; PT 15.4 Sec (11.4-14.6)
[2023-06-09 08:25] LABS: APTT 35.4 Sec (23.4-35.0)
[2023-06-09 08:30] LABS: Carbon Dioxide 28 mmol/L (22-30); Chloride 93 mmol/L (98-107); Potassium 4.1 mmol/L (3.5-5.1); Sodium 135 mmol/L (135-145)
[2023-06-09] MEDS: MANNITOL 12.5 GRAMS IV ×2 (08:34→09:49)
[2023-06-09 09:00] LABS: Cortisol, Random 33.3 ug/dl
[2023-06-09] MEDS: HEPARIN SC (09:34)
[2023-06-09] MEDS: LIDOCAINE 4% PATCH TOPICAL (09:42)
[2023-06-09] MEDS: IMDUR (EXTENDED RELEASE) PO (09:42)
[2023-06-09] MEDS: PROTONIX IV IV (09:43)
[2023-06-09] MEDS: OCEAN, SALINE MIST NASAL ×4 (09:43→21:34)
[2023-06-09] MEDS: NSS (PRESERVATIVE FREE) IV (09:43)
[2023-06-09] MEDS: LOW STRENGTH ASPIRIN TUBE (09:43)
[2023-06-09] MEDS: ZITHROMAX PO (09:44)
[2023-06-09] MEDS: ZYLOPRIM TUBE (09:44)
[2023-06-09] MEDS: RETACRIT 6000 UNITS IV (09:49)
--- NOTE | 2023-06-09 11:07 | W.PN.NEPH.HD ---
Assessment
-
Seen on HD. no complaints. VSS, acccess ok
for PEG in AM
Progress Note - Hemodialysis
-
Date of Service: June 09, 2023
Duration: 30 minutes and 3 hours
Potassium Bath: 3
Calcium Bath: 2.5
Opti-Dialyzer: 160
Ultrafiltration: Other (no)
Blood Flow: 400
Dialysate Flow: 600
Heparin: no
EPO: 6000
[2023-06-09 11:21] LABS: Glucose - Point of Care 123 mg/dl (70-99)
--- NOTE | 2023-06-09 13:19 | CM ---
Addendum entered by Kleber Hancock 06/09/23 13:23:
Patient for probable peg placement on 06/10/23. Patient will need education and instruction on Peg feeds if discharging home.
Original Note:
Discharge plan of care remains home with [facility] for VN and PT/OT and resumption of outpatient HD with [facility] in [place] schedule.
[2023-06-09] MEDS: LIDOCAINE 4% PATCH 1 PATCH TOPICAL (14:39)
[2023-06-09 18:10] LABS: Glucose - Point of Care 118 mg/dl (70-99)
[2023-06-09] MEDS: LOPRESSOR 2.5 MG IV (18:22)
[2023-06-09] MEDS: HEPARIN 5000 UNITS SC (21:31)
[2023-06-09] MEDS: NEURONTIN 300 MG TUBE (21:32)
[2023-06-09] MEDS: ZOLOFT 25 MG TUBE (21:32)
[2023-06-09] MEDS: DILAUDID 0.25 MG IV (21:33)
[2023-06-10] VITALS (7 sets, daily range): BP systolic 72–118; BP diastolic 50–76; BMI 21.6; BMI 20.3
[2023-06-10 00:28] LABS: Glucose - Point of Care 167 mg/dl (70-99)
[2023-06-10] MEDS: LOPRESSOR 2.5 MG IV ×2 (00:58→05:37)
[2023-06-10] MEDS: NOVOLOG FLEXPEN-LOW RESISTANCE 1 UNITS SC (01:03)
[2023-06-10] MEDS: ANCEF 10 IV (05:38)
[2023-06-10 06:24] LABS: Glucose - Point of Care 64 mg/dl (70-99)
[2023-06-10] MEDS: DEXTROSE 50% SYRINGE 12.5 GRAMS IV (06:29)
[2023-06-10] MEDS: NOVOLOG FLEXPEN-LOW RESISTANCE SC ×3 (06:35→18:43)
[2023-06-10 06:58] LABS: Glucose - Point of Care 164 mg/dl (70-99)
[2023-06-10] MEDS: IMDUR (EXTENDED RELEASE) PO (08:08)
[2023-06-10] MEDS: NSS (PRESERVATIVE FREE) 10 ML IV (09:17)
[2023-06-10] MEDS: LOW STRENGTH ASPIRIN 81 MG TUBE (09:20)
[2023-06-10] MEDS: ZYLOPRIM 100 MG TUBE (09:20)
[2023-06-10 09:25] LABS: Glucose - Point of Care 143 mg/dl (70-99)
[2023-06-10] MEDS: ProAmatine 5 MG TUBE ×4 (09:25→23:25)
[2023-06-10] MEDS: LIDOCAINE 4% PATCH 1 PATCH TOPICAL (09:25)
[2023-06-10] MEDS: OCEAN, SALINE MIST 50 SPRAYS NASAL (09:26)
[2023-06-10] MEDS: HEPARIN SC (09:28)
[2023-06-10] MEDS: PROTONIX IV 40 MG IV (09:29)
--- NOTE | 2023-06-10 10:17 | W.PN.HOSP.TC ---
Today's Communication/Plan
-
.
Assessment / Plan
Assessment / Plan
Physical Exam
-
General: chronically ill looking, and No Apparent Distress
HEENT: Normocephalic, Atraumatic, dry Mucous Membranes. Nasal O2. NG tube
Respiratory: Clear to Auscultation
Cardiac: Regular Rhythm and S1/S2; Negative Murmur, Rub or Gallop
GI: Soft, Nontender, Nondistended and Normal Bowel Sounds.
Rectal: No rectal bleeding noted.
Musculoskeletal: No Clubbing, No Cyanosis and No Edema
Skin: Negative Rash
Neuro: Awake, Alert, Oriented, AO to self and surroundings, and Nonfocal/Grossly Intact
Psych: Calm
#Dysphagia
-speech eval noted.
Likely due to combination of Cachexia associated with advanced COPD and deconditioning/ malnutrition. MRI brain, no stroke.
pt continues to struggle with oropharyngeal dysphagia. Dobbhoff placed, no gag reflex noted also
D/W GI, plan for peg tube
Unable to do CT a/P due to presence of contrast in the gut, abdominal x ray showed non- obstructive bowel gas pattern.
c/w D10 while holding tube feeding
-Appreciate speech/swallow therapist help
#Acute on chronic hypoxic resp failure 2/2 recurrent progressive pleural effusion, COPD, acute on chronic CHF with preserved ejection fraction and pulmonary edema
#History of recurrent pleural effusions requiring multiple thoracentesis
#Chronic COPD on chronic 2 L nasal cannula 24 hours
#Former nicotine abuse 50-year 2 pack a day quit 2017
#Chronic pulmonary nodules
-Continue bronchodilators
-s/p Left thoracentesis 1L fluid removed.
-Pulm recs. wean o2 sats >88%. Now at 2-3L. Continue low-dose macrolide therapy Wednesday/Wednesday/Wednesday. Continue Trelegy
-Home O2 eval prior to dc
Appreciate pulmonary input.
#Recurrent pleural effusion
#Left upper lobe lesion
-s/p 1L fluid removed. Exudative effusions. Fluid studies in lab negative for growth prelim
-CT chest left upper lobe opacity decrease in size of volume. Two new small foci of patchy opacity in the left lower lobe are seen in comparison to prior CT, most likely inflammatory/infectious as well as progression of left lower lobe subsegmental
atelectasis and new tiny left pleural effusion. Likely chronic changes with volume loss in the right hemithorax without significant change including likely chronic moderate size right pleural effusion with accompanying pleural thickening.
# moderate protein-caloric malnutrition
Patient has characteristics of COPD cachexia with severe loss of energy, wasting of muscles.
#Hyponatremia
No confusion
#ESRD on dialysis
#AV fistula left upper arm
Wednesday dialysis. HD tomorrow lost weight.
-consult Nephro
#Chronic diastolic CHF preserved EF
--I/O, daily weights
-Follows at [facility] cardiology
- resume aspirin, midodrine for now through tube
-On dialysis- MWF
# Mild protein caloric malnutrition
#Hypotension orthostatic Hx
-Continue midodrine ATC, keep midodrine PRN also.
# Anemia of chronic disease hemoglobin around 10.
#Chronic thrombocytopenia
monitor
EPO/IV iron per nephro
#DM 2 with diabetic neuropathy with
#Hypoglycemia
Accu-Cheks with SSI,�
d/w pharmacist, started on liquid gabapentin through tube.
-Lantus 7 units discontinued
-Multiple episode of hypoglycemia, c/w D10 gg at 20 cc/hour
#HLD
-On hold statin
#GERD
started on IV Protonix.
#Gout
-resume tube allopurinol
#Depression
resumed tube Zoloft
DVT prophylaxis
Subcu heparin
Total time spent to see the patient, examine the patient on the floor, review data and lab results, discuss treatment plan with patient and nursing staff around 57 minutes
Anticipated Discharge: 24 - 48 hours
Subjective/Interval History
-
Date of Service: June 10, 2023
No chest pain
No abd pain
Objective Data
-
Vital Signs:
Vital Signs
Temp Pulse Resp BP Pulse Ox
97.5 F 83 15 114/53 94
06/10/23 08:00 06/10/23 09:25 06/10/23 08:00 06/10/23 09:25 06/10/23 08:00
I&O
06/09/23 06/10/23 06/11/23
06:59 06:59 06:59
Intake Total 540 / 540 225 / 225
Output Total 0 / 0
Balance 540 / 540 225 / 225
[2023-06-10] MEDS: D10W 500 IV (11:34)
[2023-06-10 11:43] LABS: Glucose - Point of Care 100 mg/dl (70-99)
--- NOTE | 2023-06-10 13:05 | W.PN.NEPH.PH ---
Today's Communication / Plan
-
PEG
Assessment/Plan
-
Impression:
End-stage renal disease Wednesday, Wednesday, Wednesday
Hypoxia/Hypercapnia/COPD:home O2 2L
Right pleural effusion (Recurrent)
Hyperphosphatemia
Anemia
Diabetes with multiple microvascular complications
Hypotension on Midodrine
Cirrhosis
Chronic thrombocytopenia
Pulmonary nodules
Plan:
-HD tomorrow, orders provided
-PEG today
-
-
Date of Service: June 10, 2023
CC / HPI / ROS
-
Chief Complaint:
ESRD
History of Present Illness:
ESRD MWF, tolerated HD yesterday
BP stable
remains on supplemental O2
failed swallow study, now with feeding tube inserted, but high residuals
sugars low
Review of Systems:
no CP
+SOB, cough and difficulty swallow
Labs
-
Labs:
WBC 7.1 10^3/uL (4.8-10.8) 06/07/23 08:17
RBC 3.24 10^6/uL (4.70-6.10) L 06/07/23 08:17
Hgb 10.7 g/dL (13.0-18.0) L 06/09/23 07:50
Hct 32.9 % (39.0-52.0) L 06/09/23 07:50
Plt Count 84 10^3/uL (130-400) L 06/07/23 08:17
Sodium 135 mmol/L (135-145) 06/09/23 07:50
Potassium 4.1 mmol/L (3.5-5.1) 06/09/23 07:50
Chloride 93 mmol/L (98-107) L 06/09/23 07:50
Carbon Dioxide 28 mmol/L (22-30) 06/09/23 07:50
BUN 57 mg/dl (9-20) H 06/04/23 07:38
Creatinine 4.6 mg/dL (0.7-1.3) H* 06/04/23 07:38
eGFR 12.89 06/04/23 07:38
Glucose 221 mg/dl (70-99) H 06/04/23 07:38
Calcium 9.4 mg/dl (8.4-10.2) 06/04/23 07:38
Zqd-S-Aeohlfaisme Pept > 09318 pg/ml 05/31/23 08:08
Albumin 4.6 g/dl (3.5-5.0) 05/31/23 08:08
Physical Exam
-
Vital Signs:
Vital Signs
Temp Pulse Resp BP Pulse Ox
97.6 F 87 16 101/76 100
06/10/23 11:48 06/10/23 11:48 06/10/23 11:48 06/10/23 11:48 06/10/23 11:48
Cardiovascular:: Regular rate and rhythm
Respiratory:: Bilateral: Coarse
Lung Excursion:: Normal
Abdomen:: Nontender and Soft
Bowel Sounds:: Normal
Extremity Edema:: None: Bilateral:
--- NOTE | 2023-06-10 13:58 | W.IMMPOSTOP ---
Addendum entered and electronically signed by Zay Berkowitz MD 06/10/23 14:09:
[facility]# [id number]
Original Note:
Surgical Immed Post Op Note
-
Primary Surgeon: Woo
Assisting Surgeon: Ousmane
Pre-op Diagnosis: Dysphagia, malnutrition
Post-op Diagnosis: Dysphagia, malnutrition
Procedure Performed: Esophagogastroduodenoscopy (EGD) and percutaneous endoscopic gastrostomy tube (PEG)
Anesthesia Type: General
Specimen / Cultures: None
Estimated Blood Loss: 1 cc
Complications: None
Operative Findings:
1. EGD notable for no gag reflex and mild retained secretions/TF in proximal esophagus, normal stomach and duodenum
2. PEG site in LUQ 1-2 finger breadths from costal margin
3. Transillumination, 1:1 palpation, bubble study
4. 20 Fr PEG inserted using standard pull technique, secured at 2 cm at the skin
[2023-06-10] MEDS: ProAmatine TUBE (14:04)
[2023-06-10] MEDS: OCEAN, SALINE MIST NASAL ×3 (14:04→22:43)
--- NOTE | 2023-06-10 14:15 | CM ---
PT recommendation was HH and is now SNF vs HH for PT. Patient wants to speak with his partner before making a decision. [employer] list delivered to friend in room. Patient was sleeping soundly and did not respond to calling of name. Explained
List to friend and requested preferences. This CM will visit and follow-up when patient is awake.
[2023-06-10 18:44] LABS: Glucose - Point of Care 88 mg/dl (70-99)
[2023-06-10] MEDS: COREG 3.125 MG TUBE (20:40)
[2023-06-10] MEDS: HEPARIN 5000 UNITS SC (20:40)
[2023-06-10] MEDS: DILAUDID 0.25 MG IV (20:41)
[2023-06-10] MEDS: ZOLOFT 25 MG TUBE (22:41)
[2023-06-10] MEDS: NEURONTIN 300 MG TUBE (22:41)
[2023-06-11] VITALS (7 sets, daily range): BP systolic 90–118; BP diastolic 44–74; BMI 18.0
[2023-06-11 00:12] LABS: Glucose - Point of Care 80 mg/dl (70-99)
[2023-06-11] MEDS: NOVOLOG FLEXPEN-LOW RESISTANCE SC ×2 (00:13→17:04)
--- NOTE | 2023-06-11 01:19 | PTCARENOTE ---
Pt with pauses back to back for 4 and 3.66sec. BP 80/52. Pt asymptomatic, Awake and alert. Midodrine PRN given. [employer] made aware. Mag level ordered for AM labs.
[2023-06-11 03:02] LABS: Glucose - Point of Care 103 mg/dl (70-99)
[2023-06-11 06:11] LABS: Glucose - Point of Care 33 mg/dl (70-99)
[2023-06-11 06:15] LABS: Glucose - Point of Care 159 mg/dl (70-99)
[2023-06-11] MEDS: NOVOLOG FLEXPEN-LOW RESISTANCE 1 UNITS SC ×3 (06:41→23:18)
--- NOTE | 2023-06-11 07:23 | W.PN.HOSP.TC ---
Today's Communication/Plan
-
.
Assessment / Plan
Assessment / Plan
Physical Exam
-
General: chronically ill looking, and No Apparent Distress
HEENT: Normocephalic, Atraumatic, dry Mucous Membranes. Nasal O2. NG tube
Respiratory: Clear to Auscultation
Cardiac: Regular Rhythm and S1/S2; Negative Murmur, Rub or Gallop
GI: Soft, Nontender, Nondistended and Normal Bowel Sounds.
Rectal: No rectal bleeding noted.
Musculoskeletal: No Clubbing, No Cyanosis and No Edema
Skin: Negative Rash
Neuro: Awake, Alert, Oriented, AO to self and surroundings, and Nonfocal/Grossly Intact
Psych: Calm
# PVD with hypothermia, Hypoglycemia
Accu-checks, Bp, SaO2 are not very accurate at times due to poor peripheral circulation.
His AccuCheck might read 30s but patient would be talking with no symptoms.
AM cortisol level was normal
Will do ACTH stim test on Wednesday
#Dysphagia
s/p peg tube placement on 06/10, no complications reported.
Likely due to combination of Cachexia associated with advanced COPD and deconditioning/ malnutrition. MRI brain, no stroke.
pt continued to struggle with oropharyngeal dysphagia. Dobbhoff placed, no gag reflex noted also. EGD also noted no gag reflex and mild retained secretions/TF in proximal esophagus, normal stomach and duodenum
c/w D10 while holding tube feeding
-Appreciate speech/swallow therapist help
#Acute on chronic hypoxic resp failure 2/2 recurrent progressive pleural effusion, COPD, acute on chronic CHF with preserved ejection fraction and pulmonary edema
#History of recurrent pleural effusions requiring multiple thoracentesis
#Chronic COPD on chronic 2 L nasal cannula 24 hours
#Former nicotine abuse 50-year 2 pack a day quit 2017
#Chronic pulmonary nodules
-Continue bronchodilators
-s/p Left thoracentesis 1L fluid removed.
-Pulm recs. wean o2 sats >88%. Now at 2-3L. Continue low-dose macrolide therapy Wednesday/Wednesday/Wednesday. Continue Trelegy
-Home O2 eval prior to dc
Appreciate pulmonary input.
#Recurrent pleural effusion
#Left upper lobe lesion
-s/p 1L fluid removed. Exudative effusions. Fluid studies in lab negative for growth prelim
-CT chest left upper lobe opacity decrease in size of volume. Two new small foci of patchy opacity in the left lower lobe are seen in comparison to prior CT, most likely inflammatory/infectious as well as progression of left lower lobe subsegmental
atelectasis and new tiny left pleural effusion. Likely chronic changes with volume loss in the right hemithorax without significant change including likely chronic moderate size right pleural effusion with accompanying pleural thickening.
# moderate protein-caloric malnutrition
Patient has characteristics of COPD cachexia with severe loss of energy, wasting of muscles.
#Hyponatremia
No confusion
#ESRD on dialysis
#AV fistula left upper arm
Wednesday dialysis. HD tomorrow lost weight.
-consult Nephro
#Chronic diastolic CHF preserved EF
--I/O, daily weights
-Follows at [facility] cardiology
- resume aspirin, midodrine for now through tube
-On dialysis- MWF
# Mild protein caloric malnutrition
#Hypotension orthostatic Hx
-Continue midodrine ATC, keep midodrine PRN also.
# Anemia of chronic disease hemoglobin around 10.
#Chronic thrombocytopenia
monitor
EPO/IV iron per nephro
#DM 2 with diabetic neuropathy with
#Hypoglycemia
Accu-Cheks with SSI,�
d/w pharmacist, started on liquid gabapentin through tube.
-Lantus 7 units discontinued
-Multiple episode of hypoglycemia, c/w D10 gg at 20 cc/hour
#HLD
-On hold statin
#GERD
started on IV Protonix.
#Gout
-resume tube allopurinol
#Depression
resumed tube Zoloft
DVT prophylaxis
Subcu heparin
Total time spent to see the patient, examine the patient on the floor, review data and lab results, discuss treatment plan with patient and nursing staff around 55 minutes
Anticipated Discharge: > 48 hours
Subjective/Interval History
-
Date of Service: June 11, 2023
No complaints
some discomfort in back, joints, abdomen and Dilaudid is helping
Objective Data
-
Labs:
Laboratory Results
06/11/23
07:00
WBC Pending
Hgb Pending
Hct Pending
Plt Count Pending
Sodium Pending
Potassium Pending
Chloride Pending
Carbon Dioxide Pending
Vital Signs:
Vital Signs
Temp Pulse Resp BP Pulse Ox
96.6 F L 78 18 113/74 94
06/11/23 03:02 06/11/23 03:02 06/11/23 03:02 06/11/23 03:02 06/11/23 03:02
I&O
06/10/23 06/11/23 06/12/23
06:59 06:59 06:59
Intake Total 225 / 225
Output Total
Balance 225 / 225 -10 / -10
[2023-06-11] MEDS: ZITHROMAX 250 MG TUBE (08:51)
[2023-06-11] MEDS: POLYSPORIN OINTMENT 1 APPLIC TOPICAL (08:51)
[2023-06-11] MEDS: ProAmatine 5 MG TUBE ×3 (08:51→17:10)
[2023-06-11] MEDS: ZYLOPRIM 100 MG TUBE (08:51)
[2023-06-11] MEDS: LOW STRENGTH ASPIRIN 81 MG TUBE (08:51)
[2023-06-11] MEDS: DILAUDID 0.25 MG IV ×2 (08:52→19:48)
[2023-06-11] MEDS: LIDOCAINE 4% PATCH 1 PATCH TOPICAL (08:52)
[2023-06-11] MEDS: HEPARIN 5000 UNITS SC ×2 (08:53→19:49)
[2023-06-11] MEDS: PROTONIX IV 40 MG IV (08:53)
[2023-06-11] MEDS: NSS (PRESERVATIVE FREE) 10 ML IV (08:53)
[2023-06-11] MEDS: COREG TUBE ×2 (08:53→19:51)
[2023-06-11] MEDS: OCEAN, SALINE MIST NASAL ×3 (08:54→17:11)
[2023-06-11] MEDS: D10W 500 IV (09:02)
[2023-06-11 11:46] LABS: Glucose - Point of Care 160 mg/dl (70-99)
--- NOTE | 2023-06-11 12:32 | W.PN.GI.CBS2 ---
Addendum entered and electronically signed by Mitali Ryan MD 06/11/23 15:41:
I saw and examined the patient.
The NURSE LIAISON or PA's note was reviewed and I agree with the note.
Comment: No events overnight.
Tube feeds started, tolerating it well at 20 cc an hour of Nepro
G-tube outer bumper at 20 cm, dressing clean and dry.
Advance tube feeds as tolerated.
Will sign off, please call back if needed
Original Note:
Today's Communication / Plan
-
Advance tube feeds as per recommendation of dietitian
We will be available as needed or by request. GI signing off.
Assessment / Plan
-
1. Oropharyngeal dysphagia: With mild chronic symptoms, though much worsening symptoms during this hospitalization documented on modified barium swallow as well as subjectively, likely due to malnutrition during his hospitalization. His underlying
baseline nutritional status is not great, likely more of a component of his underlying chronic COPD which is oxygen dependent, and likely has little reserve. MRI was negative for acute stroke. Other neuromuscular etiologies such as myasthenia seem
less likely, and would not account for his lack of gag reflex. We had another discussion about PEG tube which she is agreeable for, and likely needed given his lack of gag reflex, chronic oropharyngeal dysphagia and cachexia.
Plan:
-Patient's status post PEG tube. Tolerating tube feeds currently at 20 cc an hour.
-Advance as per recommendations of dietitian.
-Nothing further to add from a GI perspective. We will be available as needed or by request.
Subjective
Subjective
Date of Service: June 11, 2023
Patient without any GI complaints. PEG tube site clean, dry, and intact. Tube feeds running at 20 cc an hour. Patient without any discomfort.
Objective
Data Reviewed
Laboratory Data:
Laboratory Results
PT 15.4 Sec (11.4-14.6) H 06/09/23 07:51
INR 1.22 06/09/23 07:51
APTT 35.4 Sec (23.4-35.0) H 06/09/23 07:51
Total Bilirubin 0.8 mg/dl (0.2-1.3) 05/31/23 08:08
AST 28 U/L (17-59) 05/31/23 08:08
ALT 18 U/L (0-50) 05/31/23 08:08
Alkaline Phosphatase 101 U/L (38-126) 05/31/23 08:08
Vital Signs and I&O:
Vital Signs
Temp Pulse Resp BP Pulse Ox
96.6 F L 79 16 108/44 98
06/11/23 03:02 06/11/23 12:01 06/11/23 11:00 06/11/23 12:01 06/11/23 11:00
I&O
06/10/23 06/11/23 06/12/23
06:59 06:59 06:59
Intake Total 225 / 225
Output Total / 10
Balance 225 / 225 -10 / -10
Physical Exam
Physical Exam
Cardiology: Normal Sinus Rhythm
Pulmonary: Clear
GI: Soft, Non Distended, Non Tender, Normal Bowel Sounds and Other (PEG site and left upper quadrant, bumper at 2 cm, site clean, dry and intact. No signs of erythema, edema or exudate. 2 x 2's under bumper.)
Extremities: No Edema
Neuro: Non Focal
[2023-06-11 13:06] LABS: Hematocrit 29.3 % (39.0-52.0); Hemoglobin 9.4 g/dL (13.0-18.0); Mean Corp Hgb Conc. 32.1 g/dL (33.0-37.0); Mean Corpuscular Hgb 32.8 pg (27.0-31.0); Mean Corpuscular Volume 102.1 fL (80.0-94.0); Platelet Count 76 10^3/uL (130-400); Red Blood Cell Count 2.87 10^6/uL (4.70-6.10); Red Cell Dist. Width 13.6 % (11.5-14.5)
[2023-06-11] MEDS: FLEXBUMIN 25% FOR HEMODIALYSIS 12.5 GRAMS IV ×2 (13:10→15:25)
[2023-06-11] MEDS: MANNITOL 12.5 GRAMS IV ×2 (13:15→15:31)
[2023-06-11 13:31] LABS: Carbon Dioxide 27 mmol/L (22-30); Chloride 93 mmol/L (98-107); Magnesium 2.1 mg/dl (1.6-2.3); Potassium 4.4 mmol/L (3.5-5.1); Sodium 130 mmol/L (135-145)
[2023-06-11] MEDS: RETACRIT 6000 UNITS IV (14:02)
--- NOTE | 2023-06-11 14:48 | W.PN.NEPH.HD ---
Assessment
-
Paitent seen on Hd
sbp 129 at current u/f
feels weak
tube feeds in place
Progress Note - Hemodialysis
-
Date of Service: June 11, 2023
Duration: 30 minutes and 3 hours
Potassium Bath: 3
Calcium Bath: 2.5
Opti-Dialyzer: 160
Ultrafiltration: Other (even)
Blood Flow: 400
Dialysate Flow: 600
Heparin: none
EPO: 6K
--- NOTE | 2023-06-11 15:58 | CM ---
Peg tube inserted 06/10/23. Feeds started and are being tolerated. PT recommended for HH vs SNF. Patient and POA have Medicare[employer] list for choice of preferences. Discharge POC TBD, HH vs SNF.
[2023-06-11 16:31] LABS: Glucose - Point of Care 114 mg/dl (70-99)
[2023-06-11 18:13] LABS: Hepatitis B Surface Antigen Negative (Negative)
[2023-06-11] MEDS: VENTOLIN NEBULES 2.5 MG INH (18:54)
[2023-06-11] MEDS: OCEAN, SALINE MIST 2 SPRAYS NASAL (21:10)
[2023-06-11] MEDS: ZOLOFT 25 MG TUBE (21:12)
[2023-06-11] MEDS: NEURONTIN 300 MG TUBE (21:13)
[2023-06-11 23:16] LABS: Glucose - Point of Care 159 mg/dl (70-99)
[2023-06-12] VITALS (7 sets, daily range): BP systolic 90–141; BP diastolic 48–79; PULSE 71; O2SAT 98; BMI 21.1
[2023-06-12 00:02] LABS: Glucose - Point of Care 179 mg/dl (70-99)
[2023-06-12 05:11] LABS: Glucose - Point of Care 145 mg/dl (70-99)
[2023-06-12] MEDS: NOVOLOG FLEXPEN-LOW RESISTANCE SC (05:12)
[2023-06-12] MEDS: COREG 1.5625 MG TUBE ×2 (07:48→19:21)
[2023-06-12] MEDS: LIDOCAINE 4% PATCH 1 PATCH TOPICAL (07:49)
[2023-06-12] MEDS: LOW STRENGTH ASPIRIN 81 MG TUBE (07:49)
[2023-06-12] MEDS: POLYSPORIN OINTMENT 1 APPLIC TOPICAL (07:49)
[2023-06-12] MEDS: ZYLOPRIM 100 MG TUBE (07:49)
[2023-06-12] MEDS: ProAmatine 5 MG TUBE ×3 (07:49→17:10)
[2023-06-12] MEDS: HEPARIN 5000 UNITS SC ×2 (07:50→19:22)
[2023-06-12] MEDS: PROTONIX IV 40 MG IV (07:51)
[2023-06-12] MEDS: OCEAN, SALINE MIST NASAL (07:51)
[2023-06-12] MEDS: NSS (PRESERVATIVE FREE) 10 ML IV (07:51)
--- NOTE | 2023-06-12 07:51 | W.PN.HOSP.TC ---
Today's Communication/Plan
-
dc planning
Assessment / Plan
Assessment / Plan
Physical Exam
-
General: chronically ill looking, and No Apparent Distress
HEENT: Normocephalic, Atraumatic, dry Mucous Membranes. Nasal O2. NG tube
Respiratory: Clear to Auscultation
Cardiac: Regular Rhythm and S1/S2; Negative Murmur, Rub or Gallop
GI: Soft, Nontender, Nondistended and Normal Bowel Sounds.
Rectal: No rectal bleeding noted.
Musculoskeletal: No Clubbing, No Cyanosis and No Edema
Skin: Negative Rash
Neuro: Awake, Alert, Oriented, AO to self and surroundings, and Nonfocal/Grossly Intact
Psych: Calm
# PVD with hypothermia, Hypoglycemia
Accu-checks, Bp, SaO2 are not very accurate at times due to poor peripheral circulation.
His AccuCheck might read 30s but patient would be talking with no symptoms.
AM cortisol level was normal
Will do ACTH stim test today, seems to show normal response.
#Dysphagia
He seems to tolerate low rate TF, will increase gradually
Will stop IVF D10
s/p peg tube placement on 06/10, no complications reported.
Likely due to combination of Cachexia associated with advanced COPD and deconditioning/ malnutrition. MRI brain, no stroke.
pt continued to struggle with oropharyngeal dysphagia. Dobbhoff placed, no gag reflex noted also. EGD also noted no gag reflex and mild retained secretions/TF in proximal esophagus, normal stomach and duodenum
-Appreciate speech/swallow therapist & GI help
#Acute on chronic hypoxic resp failure 2/2 recurrent progressive pleural effusion, COPD, acute on chronic CHF with preserved ejection fraction and pulmonary edema
#History of recurrent pleural effusions requiring multiple thoracentesis
#Chronic COPD on chronic 2 L nasal cannula 24 hours
#Former nicotine abuse 50-year 2 pack a day quit 2017
#Chronic pulmonary nodules
-Continue bronchodilators
-s/p Left thoracentesis 1L fluid removed.
-Pulm recs. wean o2 sats >88%. Now at 2-3L. Continue low-dose macrolide therapy Wednesday/Wednesday/Wednesday. Continue Trelegy
-Home O2 eval prior to dc
Appreciate pulmonary input.
#Recurrent pleural effusion
#Left upper lobe lesion
-s/p 1L fluid removed. Exudative effusions. Fluid studies in lab negative for growth prelim
-CT chest left upper lobe opacity decrease in size of volume. Two new small foci of patchy opacity in the left lower lobe are seen in comparison to prior CT, most likely inflammatory/infectious as well as progression of left lower lobe subsegmental
atelectasis and new tiny left pleural effusion. Likely chronic changes with volume loss in the right hemithorax without significant change including likely chronic moderate size right pleural effusion with accompanying pleural thickening.
# Multiple Atrial tachycardia.
Telemetry showed few episodes of MAT. No palpitation. No chest pain.
Continue with current medication. Unable to tolerate beta-sonal at times due to hypotension.
# moderate protein-caloric malnutrition
Patient has characteristics of COPD cachexia with severe loss of energy, wasting of muscles.
#Hyponatremia
No confusion
#ESRD on dialysis
#AV fistula left upper arm
Wednesday dialysis. HD tomorrow lost weight.
-consult Nephro
#Chronic diastolic CHF preserved EF
-Follows at [facility] cardiology
- resumed tube aspirin, midodrine for now through tube. Lowered dose of Coreg due to hypotension.
-On dialysis- MWF
# Mild to moderate protein caloric malnutrition
Cachexia related to COPD.
#Hypotension orthostatic Hx
-Continue midodrine ATC, keep midodrine PRN also.
# Anemia of chronic disease hemoglobin around 10.
#Chronic thrombocytopenia
monitor
EPO/IV iron per nephro
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
#Hypoglycemia
Accu-Cheks with SSI,�
d/w pharmacist, started on liquid gabapentin through tube.
-Lantus 7 units discontinued
s/p D10 infusion.
# Muscle pain
Patient refused Tylenol ( due to liver cirrhosis) despite LFT is normal
Tried low dose IV Dilaudid 0.25 mg and it helped
will change it to tube Dilaudid.
#HLD
-On hold statin
#GERD
Will change to tube PPI.
#Gout
-resumed tube allopurinol
#Depression
resumed tube Zoloft
DVT prophylaxis
Subcu heparin
Total time spent to see the patient, examine the patient on the floor, review data and lab results, discuss treatment plan with patient, sister and nursing staff around 57 minutes
Anticipated Discharge: Today
Subjective/Interval History
-
Date of Service: June 12, 2023
No events over night
tolerated tube feeding
no chest pain, no sob
Objective Data
-
Vital Signs:
Vital Signs
Temp Pulse Resp BP Pulse Ox
97.4 F 72 18 90/58 98
06/12/23 03:56 06/12/23 03:56 06/12/23 03:56 06/12/23 03:56 06/12/23 03:56
I&O
06/11/23 06/12/23 06/13/23
06:59 06:59 06:59
Intake Total 0
Output Total
Balance - 880 / 880
[2023-06-12] MEDS: OCEAN, SALINE MIST 2 SPRAYS NASAL ×3 (08:00→22:32)
[2023-06-12 08:22] LABS: ACTH Stim Cortisol 0 Min 31.2 ug/dl
[2023-06-12] MEDS: CORTROSYN 0.25 MG IV (08:50)
[2023-06-12] MEDS: NSS (PRESERVATIVE FREE) 1 ML IV (08:51)
[2023-06-12 11:03] LABS: ACTH Stim Cortisol 60 Min 48.4 ug/dl
--- NOTE | 2023-06-12 12:16 | CM ---
CM following re: discharge planning.
Reviewed pt's chart, met with pt.
According to pt is medically stable to be discharged.
CM discussed it with pt. Pt stated he lives alone and he has peg tube and he has no idea how he can handle it at home. Also, pt stated he is very weak.
PT and OT evaluations noted SNF vs home PT recommended. CM discussed it with the pt. Pt reports he wants to go to a SNF for a short term rehab to get stronger and to be more familiar how to manage feeding tube. Pt is on HD at [facility] in
[place]. Pt stated he received Medicare list for SNF. CM discussed with the pt SNFs with HD onsite and pt preferred [facility] and [facility].
A referral to [facility] and [facility] made. Awaiting for determination
CM will fax all necessary clinical to an accepted SNF onsite HD company.
At this point, awaiting for determinations from requested SNFs.
Pt will need an auth from [facility] for SNF level of care at preferred and accepted SNF.
D/C plan: preferred SNF with HD onsite.
CM will follow to assist pt with discharge to a preferred SNF.
--- NOTE | 2023-06-12 12:23 | W.PN.NEPH.PH ---
Today's Communication / Plan
-
HD wednesday
Assessment/Plan
-
Impression:
End-stage renal disease Wednesday, Wednesday, Wednesday
Hypoxia/Hypercapnia/COPD:home O2 2L
Right pleural effusion (Recurrent)
Hyperphosphatemia
Anemia
Diabetes with multiple microvascular complications
Hypotension on Midodrine
Cirrhosis
Chronic thrombocytopenia
Pulmonary nodules
Plan:
-HD Wednesday
-PEG in
-bp stable at edw/meds
-LORIN for anemia
-
-
Date of Service: June 12, 2023
CC / HPI / ROS
-
Chief Complaint:
ESRD
History of Present Illness:
ESRD MWF, tolerated HD yesterday
BP stable
remains on supplemental O2
failed swallow study, now with feeding tube inserted, but high residuals
Review of Systems:
no CP
+SOB, cough and difficulty swallow
PEG
Labs
-
Labs:
WBC 4.0 10^3/uL (4.8-10.8) L 06/11/23 12:53
RBC 2.87 10^6/uL (4.70-6.10) L 06/11/23 12:53
Hgb 9.4 g/dL (13.0-18.0) L 06/11/23 12:53
Hct 29.3 % (39.0-52.0) L 06/11/23 12:53
Plt Count 76 10^3/uL (130-400) L 06/11/23 12:53
Sodium 130 mmol/L (135-145) L 06/11/23 12:53
Potassium 4.4 mmol/L (3.5-5.1) 06/11/23 12:53
Chloride 93 mmol/L (98-107) L 06/11/23 12:53
Carbon Dioxide 27 mmol/L (22-30) 06/11/23 12:53
BUN 57 mg/dl (9-20) H 06/04/23 07:38
Creatinine 4.6 mg/dL (0.7-1.3) H* 06/04/23 07:38
eGFR 12.89 06/04/23 07:38
Glucose 221 mg/dl (70-99) H 06/04/23 07:38
Calcium 9.4 mg/dl (8.4-10.2) 06/04/23 07:38
Nfw-P-Tuwdeemwyad Pept > 03615 pg/ml 05/31/23 08:08
Albumin 4.6 g/dl (3.5-5.0) 05/31/23 08:08
Physical Exam
-
Vital Signs:
Vital Signs
Temp Pulse Resp BP Pulse Ox
97.0 F 67 16 112/48 96
06/12/23 07:00 06/12/23 07:48 06/12/23 07:00 06/12/23 07:48 06/12/23 07:00
Cardiovascular:: Regular rate and rhythm
Respiratory:: Bilateral: Coarse
Lung Excursion:: Normal
Abdomen:: Nontender and Soft
Bowel Sounds:: Decreased
Extremity Edema:: None: Bilateral:
Rodarte Catheter: No
Other Findings::
PEG
[2023-06-12] MEDS: OCEAN, SALINE MIST 1 SPRAYS NASAL (17:17)
[2023-06-12] MEDS: DILAUDID 1 MG TUBE (19:19)
[2023-06-12] MEDS: ZOLOFT 25 MG TUBE (22:30)
[2023-06-12] MEDS: NEURONTIN 300 MG TUBE (22:31)
[2023-06-13 05:48] VITALS: BMI 21.7
[2023-06-13] MEDS: DILAUDID 1 MG TUBE (06:09)
[2023-06-13 07:15] VITALS: BP 115/36
--- NOTE | 2023-06-13 08:11 | W.PN.HOSP.TC ---
Today's Communication/Plan
-
dc
Assessment / Plan
Assessment / Plan
Physical Exam
-
General: chronically ill looking, and No Apparent Distress
HEENT: Normocephalic, Atraumatic, dry Mucous Membranes. Nasal O2. NG tube
Respiratory: rhonchi and linited air
Cardiac: Regular Rhythm and S1/S2; Negative Murmur, Rub or Gallop
GI: Soft, Nontender, Nondistended and Normal Bowel Sounds.
Rectal: No rectal bleeding noted.
Musculoskeletal: No Clubbing, No Cyanosis and No Edema
Skin: Negative Rash
Neuro: Awake, Alert, Oriented, AO to self and surroundings, and Nonfocal/Grossly Intact
Psych: Calm
# PVD with hypothermia, Hypoglycemia
Accu-checks, Bp, SaO2 are not very accurate at times due to poor peripheral circulation.
His AccuCheck might read 30s but patient would be talking with no symptoms.
AM cortisol level was normal
Normal ACTH stim test.
#Dysphagia
He seems to tolerate low rate TF, increased gradually
Stopped IVF D10
s/p peg tube placement on 06/10, no complications reported.
Likely due to combination of Cachexia associated with advanced COPD and deconditioning/ malnutrition. MRI brain, no stroke.
pt continued to struggle with oropharyngeal dysphagia. Dobbhoff placed, no gag reflex noted also. EGD also noted no gag reflex and mild retained secretions/TF in proximal esophagus, normal stomach and duodenum
-Appreciate speech/swallow therapist & GI help
#Acute on chronic hypoxic resp failure 2/2 recurrent progressive pleural effusion, COPD, acute on chronic CHF with preserved ejection fraction and pulmonary edema
#History of recurrent pleural effusions requiring multiple thoracentesis
#Chronic COPD on chronic 2 L nasal cannula 24 hours
#Former nicotine abuse 50-year 2 pack a day quit 2017
#Chronic pulmonary nodules
-Continue bronchodilators, changed to Duo Neb TID.
-s/p Left thoracentesis 1L fluid removed.
-Pulm recs. wean o2 sats >88%. Now at 2-3L. Continue low-dose macrolide therapy Wednesday/Wednesday/Wednesday. Continue Trelegy
-Home O2 eval prior to dc
Appreciate pulmonary input.
#Recurrent pleural effusion
#Left upper lobe lesion
-s/p 1L fluid removed. Exudative effusions. Fluid studies in lab negative for growth prelim
-CT chest left upper lobe opacity decrease in size of volume. Two new small foci of patchy opacity in the left lower lobe are seen in comparison to prior CT, most likely inflammatory/infectious as well as progression of left lower lobe subsegmental
atelectasis and new tiny left pleural effusion. Likely chronic changes with volume loss in the right hemithorax without significant change including likely chronic moderate size right pleural effusion with accompanying pleural thickening.
# Multiple Atrial tachycardia.
Telemetry showed few episodes of MAT. No palpitation. No chest pain.
Continue with current medication. Unable to tolerate beta-sonal at times due to hypotension.
# moderate protein-caloric malnutrition
Patient has characteristics of COPD cachexia with severe loss of energy, wasting of muscles.
#Hyponatremia
No confusion
#ESRD on dialysis
#AV fistula left upper arm
Wednesday dialysis. HD tomorrow lost weight.
-consult Nephro
#Chronic diastolic CHF preserved EF
-Follows at [facility] cardiology
- resumed tube aspirin, midodrine for now through tube. Lowered dose of Coreg due to hypotension.
-On dialysis- MWF
# Mild to moderate protein caloric malnutrition
Cachexia related to COPD.
#Hypotension orthostatic Hx
-Continue midodrine ATC, keep midodrine PRN also.
# Anemia of chronic disease hemoglobin around 10.
#Chronic thrombocytopenia
monitor
EPO/IV iron per nephro
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
#Hypoglycemia
Accu-Cheks with SSI,�
d/w pharmacist, started on liquid gabapentin through tube.
-Lantus 7 units discontinued
s/p D10 infusion.
# Muscle pain
Patient refused Tylenol ( due to liver cirrhosis) despite LFT is normal
Tried low dose IV Dilaudid 0.25 mg and it helped
Changed to to tube Dilaudid.
#HLD
-On hold statin
#GERD
tube PPI.
#Gout
-resumed tube allopurinol
#Depression
resumed tube Zoloft
DVT prophylaxis
Subcu heparin
Total time spent to see the patient, examine the patient on the floor, review data and lab results, discuss treatment plan with patient, sister and nursing staff around 55 minutes
Anticipated Discharge: Today
Subjective/Interval History
-
Date of Service: June 13, 2023
No complaints
Objective Data
-
Vital Signs:
Vital Signs
Temp Pulse Resp BP Pulse Ox
97.3 F 65 17 115/36 96
06/13/23 07:15 06/13/23 07:15 06/13/23 07:15 06/13/23 07:15 06/13/23 07:15
I&O
06/12/23 06/13/23 06/14/23
06:59 06:59 06:59
Intake Total 880 / 880 880 / 880
Balance 880 / 880 880 / 880
[2023-06-13] MEDS: PROTONIX IV 40 MG IV (08:58)
[2023-06-13] MEDS: LOW STRENGTH ASPIRIN 81 MG TUBE (09:01)
[2023-06-13] MEDS: ZYLOPRIM 100 MG TUBE (09:01)
[2023-06-13] MEDS: COREG 1.5625 MG TUBE ×2 (09:01→21:18)
[2023-06-13] MEDS: ProAmatine 5 MG TUBE ×3 (09:01→17:27)
[2023-06-13] MEDS: POLYSPORIN OINTMENT 1 APPLIC TOPICAL (09:02)
[2023-06-13] MEDS: HEPARIN 5000 UNITS SC ×2 (09:03→21:18)
[2023-06-13] MEDS: LIDOCAINE 4% PATCH 1 PATCH TOPICAL (09:03)
[2023-06-13] MEDS: OCEAN, SALINE MIST 1 SPRAYS NASAL ×2 (09:19→13:01)
[2023-06-13] MEDS: NSS (PRESERVATIVE FREE) 10 ML IV (09:20)
--- NOTE | 2023-06-13 09:59 | CM ---
CM reviewed chart. Plan for SNF and referrals sent through [facility] to preferred facilities [facility] and [facility] for review. Pt will need PT/OT notes within 24 hours of dc in order to obtain auth. CM to follow up on Wednesday.
--- NOTE | 2023-06-13 10:57 | W.PN.NEPH.PH ---
Today's Communication / Plan
-
Dialysis tomorrow
Assessment/Plan
-
Impression:
End-stage renal disease Wednesday, Wednesday, Wednesday
Hypoxia/Hypercapnia/COPD:home O2 2L
Right pleural effusion (Recurrent)
Hyperphosphatemia
Anemia
Diabetes with multiple microvascular complications
Hypotension on Midodrine
Cirrhosis
Chronic thrombocytopenia
Pulmonary nodules
Plan:
-HD Wednesday,orders provided
-PEG in
-bp stable at edw/meds
-LORIN for anemia
-For eventual discharge to rehab with dialysis
-
-
Date of Service: June 13, 2023
CC / HPI / ROS
-
Chief Complaint:
ESRD
History of Present Illness:
ESRD MWF, tolerated HD yesterday
BP stable
remains on supplemental O2
failed swallow study, now with PEG
Review of Systems:
no CP
cough and difficulty swallow
PEG
Weights increased
Labs
-
Labs:
WBC 4.0 10^3/uL (4.8-10.8) L 06/11/23 12:53
RBC 2.87 10^6/uL (4.70-6.10) L 06/11/23 12:53
Hgb 9.4 g/dL (13.0-18.0) L 06/11/23 12:53
Hct 29.3 % (39.0-52.0) L 06/11/23 12:53
Plt Count 76 10^3/uL (130-400) L 06/11/23 12:53
Sodium 130 mmol/L (135-145) L 06/11/23 12:53
Potassium 4.4 mmol/L (3.5-5.1) 06/11/23 12:53
Chloride 93 mmol/L (98-107) L 06/11/23 12:53
Carbon Dioxide 27 mmol/L (22-30) 06/11/23 12:53
BUN 57 mg/dl (9-20) H 06/04/23 07:38
Creatinine 4.6 mg/dL (0.7-1.3) H* 06/04/23 07:38
eGFR 12.89 06/04/23 07:38
Glucose 221 mg/dl (70-99) H 06/04/23 07:38
Calcium 9.4 mg/dl (8.4-10.2) 06/04/23 07:38
Bip-X-Cvbpufmbvwk Pept > 03198 pg/ml 05/31/23 08:08
Albumin 4.6 g/dl (3.5-5.0) 05/31/23 08:08
Physical Exam
-
Vital Signs:
Vital Signs
Temp Pulse Resp BP Pulse Ox
97.3 F 65 17 115/36 96
06/13/23 07:15 06/13/23 09:01 06/13/23 07:15 06/13/23 09:01 06/13/23 10:44
Cardiovascular:: Regular rate and rhythm
Respiratory:: Bilateral: Coarse
Lung Excursion:: Normal
Abdomen:: Nontender and Soft
Bowel Sounds:: Decreased
Extremity Edema:: None: Bilateral:
Rodarte Catheter: No
[2023-06-13] MEDS: DUONEB 3 ML INH ×2 (13:31→20:32)
[2023-06-13 15:00] VITALS: BP 99/33
[2023-06-13] MEDS: OCEAN, SALINE MIST NASAL ×2 (17:28→21:34)
[2023-06-13] MEDS: NEURONTIN 300 MG TUBE (21:27)
[2023-06-13] MEDS: ZOLOFT 25 MG TUBE (21:35)
[2023-06-13 23:19] VITALS: BP 103/42
[2023-06-14 06:00] VITALS: BMI 21.4
[2023-06-14 07:45] VITALS: BP 116/60
[2023-06-14] MEDS: DUONEB 3 ML INH ×3 (07:46→19:29)
[2023-06-14] MEDS: ProAmatine 5 MG TUBE ×3 (08:13→17:12)
[2023-06-14] MEDS: LOW STRENGTH ASPIRIN 81 MG TUBE (08:14)
[2023-06-14] MEDS: HEPARIN 5000 UNITS SC ×2 (08:14→21:53)
[2023-06-14] MEDS: POLYSPORIN OINTMENT 1 APPLIC TOPICAL (08:14)
[2023-06-14] MEDS: PREVACID 30 MG TUBE (08:14)
[2023-06-14] MEDS: LIDOCAINE 4% PATCH 1 PATCH TOPICAL (08:14)
[2023-06-14] MEDS: ZITHROMAX 250 MG TUBE (08:15)
[2023-06-14] MEDS: COREG TUBE ×2 (08:15→22:00)
[2023-06-14] MEDS: ZYLOPRIM 100 MG TUBE (08:15)
[2023-06-14] MEDS: OCEAN, SALINE MIST NASAL ×3 (08:40→22:01)
[2023-06-14 08:44] LABS: Hematocrit 28.2 % (39.0-52.0); Hemoglobin 9.1 g/dL (13.0-18.0)
[2023-06-14 09:15] LABS: Carbon Dioxide 28 mmol/L (22-30); Chloride 88 mmol/L (98-107); Iron 40 ug/dl (49-181); Potassium 3.8 mmol/L (3.5-5.1); Sodium 125 mmol/L (135-145)
[2023-06-14 09:25] LABS: Percent Saturation 20 % (20-50); Total Iron Binding Capacity 198 ug/dl (261-462)
[2023-06-14] MEDS: EPOGEN 8000 UNITS IV (09:47)
[2023-06-14] MEDS: MANNITOL 12.5 GRAMS IV (10:01)
--- NOTE | 2023-06-14 10:38 | W.PN.HOSP.TC ---
Today's Communication/Plan
-
await placement
Cont TF
HD today
monitor bp
Assessment / Plan
Assessment / Plan
Physical Exam
-
General: chronically ill looking, and No Apparent Distress
HEENT: Normocephalic, Atraumatic, dry Mucous Membranes. Nasal O2. NG tube
Respiratory: rhonchi and linited air
Cardiac: Regular Rhythm and S1/S2; Negative Murmur, Rub or Gallop
GI: Soft, Nontender, Nondistended and Normal Bowel Sounds.
Rectal: No rectal bleeding noted.
Musculoskeletal: No Clubbing, No Cyanosis and No Edema
Skin: Negative Rash
Neuro: Awake, Alert, Oriented, AO to self and surroundings, and Nonfocal/Grossly Intact
Psych: Calm
# PVD with hypothermia, Hypoglycemia
Accu-checks, Bp, SaO2 are not very accurate at times due to poor peripheral circulation.
AM cortisol level was normal
Normal ACTH stim test.
#Dysphagia
Toleraging TF.
Stopped IVF D10
s/p peg tube placement on 06/10, no complications reported.
Likely due to combination of Cachexia associated with advanced COPD and deconditioning/ malnutrition. MRI brain, no stroke.
pt continued to struggle with oropharyngeal dysphagia. Dobbhoff placed, no gag reflex noted also. EGD also noted no gag reflex and mild retained secretions/TF in proximal esophagus, normal stomach and duodenum
-Appreciate speech/swallow therapist & GI help
#Acute on chronic hypoxic resp failure 2/2 recurrent progressive pleural effusion, COPD, acute on chronic CHF with preserved ejection fraction and pulmonary edema
#History of recurrent pleural effusions requiring multiple thoracentesis
#Chronic COPD on chronic 2 L nasal cannula 24 hours
#Former nicotine abuse 50-year 2 pack a day quit 2017
#Chronic pulmonary nodules
-Continue bronchodilators, changed to Duo Neb TID.
-s/p Left thoracentesis 1L fluid removed.
-Pulm recs. wean o2 sats >88%. Now at 2-3L. Continue low-dose macrolide therapy Wednesday/Wednesday/Wednesday. Continue Trelegy
Appreciate pulmonary input.
#Recurrent pleural effusion
#Left upper lobe lesion
-s/p 1L fluid removed. Exudative effusions. Fluid studies in lab negative for growth. Cytology negative for malignancy.
-CT chest left upper lobe opacity decrease in size of volume. Two new small foci of patchy opacity in the left lower lobe are seen in comparison to prior CT, most likely inflammatory/infectious as well as progression of left lower lobe subsegmental
atelectasis and new tiny left pleural effusion. Likely chronic changes with volume loss in the right hemithorax without significant change including likely chronic moderate size right pleural effusion with accompanying pleural thickening.
-will need to f/u with pulm for nodules.
# Multiple Atrial tachycardia.
Telemetry showed few episodes of MAT. No palpitation. No chest pain.
Continue with current medication. Unable to tolerate beta-sonal at times due to hypotension.
Can adjust bb post HD if bp can tolerate it
# moderate protein-caloric malnutrition Chronic
Patient has characteristics of COPD cachexia with severe loss of energy, wasting of muscles.
#Hyponatremia
No confusion
#ESRD on dialysis
#AV fistula left upper arm
Wednesday dialysis. HD tomorrow lost weight.
-consult Nephro
#Chronic diastolic CHF preserved EF
-Follows at [facility] cardiology
- resumed tube aspirin, midodrine for now through tube. Lowered dose of Coreg due to hypotension.
-On dialysis- MWF
#Hypotension orthostatic Hx
-Continue midodrine ATC, keep midodrine PRN also.
# Anemia of chronic disease hemoglobin around 10.
#Chronic thrombocytopenia
monitor
EPO/IV iron per nephro
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
#Hypoglycemia
Accu-Cheks with SSI,�
d/w pharmacist, started on liquid gabapentin through tube.
-Lantus 7 units discontinued
s/p D10 infusion.
# Muscle pain
Patient refused Tylenol ( due to liver cirrhosis) despite LFT is normal
Tried low dose IV Dilaudid 0.25 mg and it helped
Changed to to tube Dilaudid.
#HLD
-On hold statin
#GERD
tube PPI.
#Gout
-resumed tube allopurinol
#Depression
resumed tube Zoloft
DVT prophylaxis
Subcu heparin
Anticipated Discharge: Today
Subjective/Interval History
-
Date of Service: June 14, 2023
seen on hd
tolerating TF
Objective Data
-
Labs:
Laboratory Results
06/14/23
08:00
Hgb 9.1 L
Hct 28.2 L
Sodium 125 L
Potassium 3.8
Chloride 88 L
Carbon Dioxide 28
Vital Signs:
Vital Signs
Temp Pulse Resp BP Pulse Ox
97.3 F 68 20 107/64 99
06/14/23 07:45 06/14/23 08:13 06/14/23 07:51 06/14/23 08:13 06/14/23 07:51
I&O
06/13/23 06/14/23 06/15/23
06:59 06:59 06:59
Intake Total 880 / 880 780 / 780
Balance 880 / 880 780 / 780
Data Reviewed
-
Total Time Spent with Patient (in minutes): 53
--- NOTE | 2023-06-14 10:39 | WOUNDNOTE ---
WOC RN NOTE: Patient on HAP report for new stage 2 of sacrum. Visited patient but he was receiving dialysis and could not turn. Spoke to patients YVES Kulkarni who reported stage 2 PI of sacrum. Patient is already on an air overlay. Per Cayla patient
is able to turn self and turns from side to side. Patient previously had poor intake but is now on tube feeds. Plan is for foam to sacral area and continued off-loading. Please consult WOC RN if wound worsens or changes.
--- NOTE | 2023-06-14 11:19 | W.PN.NEPH.HD ---
Assessment
-
Patient feeling well
no complaints
planned for d/c today
Progress Note - Hemodialysis
-
Date of Service: June 14, 2023
Duration: 30 minutes and 3 hours
Potassium Bath: 3
Calcium Bath: 2.5
Opti-Dialyzer: 160
Ultrafiltration: Other (1L)
Blood Flow: 400
Dialysate Flow: 600
--- NOTE | 2023-06-14 12:47 | WOUNDNOTE ---
WO RN NOTE: Reviewed chart, spoke to RNCayla. Visited patient for new stage 2 sacral wound noted on HAP report. On assessment wound is a deep dermal stage 2 vs superficial stage 3. Patient recently had poor po intake but is now on tube feedings.
Cayla MARINELLI spoke to hospitalist regarding nutritional status and Prosource BID has been ordered. Patient is able to turn and sleeps on side. His static air overlay was found to be properly inflated. Wound was cleaned and sacral foam dressing applied
by RN. Plan is to continue off-loading of sacrum and increase nutritional status with tube feedings and Prosource. Patient has several comorbidities including ESRD, COPD, CHF, anemia and diabetes. Wounds may worsen and new wounds may develop even
with optimal care. RN updated of plan. Please call [facility]OC RN if wound worsens or new wounds develop.
[2023-06-14 15:00] VITALS: BP 114/94
--- NOTE | 2023-06-14 15:41 | CM ---
Addendum entered by Kleber Hancock 06/14/23 15:45:
Will need [employer] insurance auth. CM will initiate.
Original Note:
Patient has been accepted to [facility] for fci, rehab and inpatient HD. Patient has accepted bed offer. Facility liaison requesting additional information. Will forward.
[2023-06-14] MEDS: OCEAN, SALINE MIST 50 SPRAYS NASAL (17:13)
[2023-06-14] MEDS: DILAUDID 1 MG TUBE (19:00)
[2023-06-14] MEDS: NEURONTIN 300 MG TUBE (22:01)
[2023-06-14] MEDS: ZOLOFT 25 MG TUBE (22:01)
[2023-06-14 23:39] VITALS: BP 95/56
[2023-06-15 06:00] VITALS: BMI 21.2
[2023-06-15 07:00] VITALS: BP 100/39
[2023-06-15] MEDS: DUONEB 3 ML INH ×3 (07:40→19:46)
[2023-06-15] MEDS: PREVACID 30 MG TUBE (09:47)
[2023-06-15] MEDS: POLYSPORIN OINTMENT 1 APPLIC TOPICAL (09:48)
[2023-06-15] MEDS: LOW STRENGTH ASPIRIN 81 MG TUBE (09:48)
[2023-06-15] MEDS: ZYLOPRIM 100 MG TUBE (09:48)
[2023-06-15] MEDS: COREG 3.125 MG TUBE (09:48)
[2023-06-15] MEDS: ProAmatine 5 MG TUBE ×3 (09:48→17:49)
[2023-06-15] MEDS: LIDOCAINE 4% PATCH 1 PATCH TOPICAL (09:49)
[2023-06-15] MEDS: HEPARIN 5000 UNITS SC ×2 (09:49→22:03)
[2023-06-15] MEDS: OCEAN, SALINE MIST 1 SPRAYS NASAL ×2 (09:49→17:49)
--- NOTE | 2023-06-15 10:59 | W.PN.HOSP.TC ---
Today's Communication/Plan
-
Cont TF
Monitor BP
HD tomm?
await placement
Assessment / Plan
Assessment / Plan
Physical Exam
-
General: chronically ill looking, and No Apparent Distress
HEENT: Normocephalic, Atraumatic, dry Mucous Membranes. Nasal O2. NG tube
Respiratory: rhonchi and linited air
Cardiac: Regular Rhythm and S1/S2; Negative Murmur, Rub or Gallop
GI: Soft, Nontender, Nondistended and Normal Bowel Sounds.
Rectal: No rectal bleeding noted.
Musculoskeletal: No Clubbing, No Cyanosis and No Edema
Skin: Negative Rash
Neuro: Awake, Alert, Oriented, AO to self and surroundings, and Nonfocal/Grossly Intact
Psych: Calm
# PVD with hypothermia, Hypoglycemia
Accu-checks, Bp, SaO2 are not very accurate at times due to poor peripheral circulation.
AM cortisol level was normal
Normal ACTH stim test.
#Dysphagia
Toleraging TF at 40cc/hr. Increase to 50cc/hr as tolerated. Increase 5cc q8h.
Stopped IVF D10
s/p peg tube placement on 06/10, no complications reported.
Likely due to combination of Cachexia associated with advanced COPD and deconditioning/ malnutrition. MRI brain, no stroke.
pt continued to struggle with oropharyngeal dysphagia. Dobbhoff placed, no gag reflex noted also. EGD also noted no gag reflex and mild retained secretions/TF in proximal esophagus, normal stomach and duodenum
-Appreciate speech/swallow therapist & GI help
#Acute on chronic hypoxic resp failure 2/2 recurrent progressive pleural effusion, COPD, acute on chronic CHF with preserved ejection fraction and pulmonary edema
#History of recurrent pleural effusions requiring multiple thoracentesis
#Chronic COPD on chronic 2 L nasal cannula 24 hours
#Former nicotine abuse 50-year 2 pack a day quit 2017
#Chronic pulmonary nodules
-Continue bronchodilators, changed to Duo Neb TID.
-s/p Left thoracentesis 1L fluid removed.
-Pulm recs. wean o2 sats >88%. Now at 2-3L. Continue low-dose macrolide therapy Wednesday/Wednesday/Wednesday. Continue Trelegy
Appreciate pulmonary input.
#Recurrent pleural effusion
#Left upper lobe lesion
-s/p 1L fluid removed. Exudative effusions. Fluid studies in lab negative for growth. Cytology negative for malignancy.
-CT chest left upper lobe opacity decrease in size of volume. Two new small foci of patchy opacity in the left lower lobe are seen in comparison to prior CT, most likely inflammatory/infectious as well as progression of left lower lobe subsegmental
atelectasis and new tiny left pleural effusion. Likely chronic changes with volume loss in the right hemithorax without significant change including likely chronic moderate size right pleural effusion with accompanying pleural thickening.
-will need to f/u with pulm for nodules.
# Multiple Atrial tachycardia.
Telemetry showed few episodes of MAT. No palpitation. No chest pain.
Continue with current medication. Unable to tolerate beta-sonal at times due to hypotension.
Can adjust bb post HD if bp can tolerate it
# moderate protein-caloric malnutrition Chronic
Patient has characteristics of COPD cachexia with severe loss of energy, wasting of muscles.
#Hyponatremia
No confusion
#ESRD on dialysis
#AV fistula left upper arm
Wednesday dialysis. HD regular schedule.
-consult Nephro
#Chronic diastolic CHF preserved EF
-Follows at [facility] cardiology
- resumed tube aspirin, midodrine for now through tube. Cont coreg
-On dialysis- MWF
#Hypotension orthostatic Hx
-Continue midodrine ATC, keep midodrine PRN also.
# Anemia of chronic disease hemoglobin around 10.
#Chronic thrombocytopenia
monitor
EPO/IV iron per nephro
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
#Hypoglycemia
Accu-Cheks with SSI,�
cont gabapentin
Lantus 7 units discontinued
s/p D10 infusion.
# Muscle pain
Patient refused Tylenol ( due to liver cirrhosis) despite LFT is normal
Tried low dose IV Dilaudid 0.25 mg and it helped
Changed to to tube Dilaudid.
#HLD
-On hold statin
#GERD
tube PPI.
#Gout
-resumed tube allopurinol
#Depression
resumed tube Zoloft
DVT prophylaxis
Subcu heparin
PT/OT-SNF. CM aware. await placement.
Anticipated Discharge: Today
Subjective/Interval History
-
Date of Service: June 15, 2023
Feeling tired
didnt get much sleep
Objective Data
-
Vital Signs:
Vital Signs
Temp Pulse Resp BP Pulse Ox
97.5 F 64 20 100/39 98
06/15/23 07:00 06/15/23 09:48 06/15/23 07:47 06/15/23 09:48 06/15/23 07:47
I&O
06/14/23 06/15/23 06/16/23
06:59 06:59 06:59
Intake Total 780 / 780 780 / 780
Balance 780 / 780 780 / 780
--- NOTE | 2023-06-15 11:25 | W.PN.NEPH.PH ---
Today's Communication / Plan
-
- plan for HD tomorrow
- retacrit with HD tomorrow
Assessment/Plan
-
Impression:
End-stage renal disease Wednesday, Wednesday, Wednesday
Hypoxia/Hypercapnia/COPD:home O2 2L
Right pleural effusion (Recurrent)
Hyperphosphatemia
Anemia
Diabetes with multiple microvascular complications
Hypotension on Midodrine
Cirrhosis
Chronic thrombocytopenia
Pulmonary nodules
Plan:
-HD Wednesday,orders provided
-PEG in
-bp stable at edw/meds
-LORIN for anemia
-For eventual discharge to rehab with dialysis
-
-
Date of Service: June 15, 2023
CC / HPI / ROS
-
Chief Complaint:
ESRD
History of Present Illness:
ESRD MWF, tolerated HD yesterday
BP stable
remains on supplemental O2
failed swallow study, now with PEG
Review of Systems:
no CP
cough and difficulty swallow
PEG
Weights increased
Labs
-
Labs:
WBC 4.0 10^3/uL (4.8-10.8) L 06/11/23 12:53
RBC 2.87 10^6/uL (4.70-6.10) L 06/11/23 12:53
Hgb 9.1 g/dL (13.0-18.0) L 06/14/23 08:00
Hct 28.2 % (39.0-52.0) L 06/14/23 08:00
Plt Count 76 10^3/uL (130-400) L 06/11/23 12:53
Sodium 125 mmol/L (135-145) L 06/14/23 08:00
Potassium 3.8 mmol/L (3.5-5.1) 06/14/23 08:00
Chloride 88 mmol/L (98-107) L 06/14/23 08:00
Carbon Dioxide 28 mmol/L (22-30) 06/14/23 08:00
BUN 57 mg/dl (9-20) H 06/04/23 07:38
Creatinine 4.6 mg/dL (0.7-1.3) H* 06/04/23 07:38
eGFR 12.89 06/04/23 07:38
Glucose 221 mg/dl (70-99) H 06/04/23 07:38
Calcium 9.4 mg/dl (8.4-10.2) 06/04/23 07:38
Azn-L-Ulrsmbadadv Pept > 44129 pg/ml 05/31/23 08:08
Albumin 4.6 g/dl (3.5-5.0) 05/31/23 08:08
Physical Exam
-
Vital Signs:
Vital Signs
Temp Pulse Resp BP Pulse Ox
97.5 F 64 20 100/39 98
06/15/23 07:00 06/15/23 09:48 06/15/23 07:47 06/15/23 09:48 06/15/23 07:47
Cardiovascular:: Regular rate and rhythm
Respiratory:: Bilateral: Coarse
Lung Excursion:: Normal
Abdomen:: Nontender and Soft
Bowel Sounds:: Normal
Extremity Edema:: None: Bilateral:
Rodarte Catheter: No
[2023-06-15] MEDS: OCEAN, SALINE MIST 50 SPRAYS NASAL (13:24)
[2023-06-15] MEDS: DILAUDID 1 MG TUBE (13:53)
[2023-06-15 15:00] VITALS: BP 112/70
[2023-06-15] MEDS: COREG TUBE (22:03)
[2023-06-15] MEDS: OCEAN, SALINE MIST NASAL (22:04)
[2023-06-15] MEDS: NEURONTIN 300 MG TUBE (22:04)
[2023-06-15] MEDS: ZOLOFT 25 MG TUBE (22:04)
[2023-06-15 23:26] VITALS: BP 132/53
[2023-06-16] MEDS: DILAUDID 1 MG TUBE ×2 (02:03→18:13)
[2023-06-16 05:27] VITALS: BMI 21.7
--- NOTE | 2023-06-16 06:00 | PTCARENOTE ---
Patient tube feed residual for 0600 was 500ml. Notified IP PARALEGAL. Ordered to hold for an hour. Tube feeds currently on hold. Will pass along to dayshift nurse. Patient has no complaints and is resting comfortably in bed.
[2023-06-16 07:00] VITALS: BP 123/53
[2023-06-16 07:08] LABS: Blood Urea Nitrogen 58 mg/dl (9-20); Calcium 10.4 mg/dl (8.4-10.2); Carbon Dioxide 30 mmol/L (22-30); Chloride 87 mmol/L (98-107); Estimated Creatinine Clearance 13 ml/min; Glucose 150 mg/dl (70-99); Magnesium 2.5 mg/dl (1.6-2.3); Potassium 3.9 mmol/L (3.5-5.1); Sodium 126 mmol/L (135-145); eGFR 11.95
[2023-06-16] MEDS: DUONEB 3 ML INH ×3 (07:24→20:16)
[2023-06-16] MEDS: LIDOCAINE 4% PATCH 1 PATCH TOPICAL (08:04)
[2023-06-16] MEDS: MIRALAX 17 GRAMS TUBE (08:04)
[2023-06-16] MEDS: LOW STRENGTH ASPIRIN 81 MG TUBE (08:04)
[2023-06-16] MEDS: OCEAN, SALINE MIST 50 SPRAYS NASAL ×2 (08:05→18:13)
[2023-06-16] MEDS: COREG TUBE (08:05)
[2023-06-16] MEDS: ProAmatine 5 MG TUBE ×3 (08:05→18:13)
[2023-06-16] MEDS: HEPARIN SC (08:05)
[2023-06-16] MEDS: POLYSPORIN OINTMENT 1 APPLIC TOPICAL (08:05)
[2023-06-16] MEDS: PREVACID 30 MG TUBE (08:06)
[2023-06-16] MEDS: ZYLOPRIM 100 MG TUBE (08:06)
[2023-06-16] MEDS: ZITHROMAX 250 MG TUBE (08:06)
[2023-06-16] MEDS: RETACRIT 6000 UNITS IV (08:43)
--- NOTE | 2023-06-16 08:47 | W.PN.NEPH.HD ---
Assessment
-
Patient seen on dialysis
Systolic blood pressure 110 at current UF
DC free water flush in setting of hyponatremia
Attempting increase ultrafiltration due to persistent hyponatremia
Progress Note - Hemodialysis
-
Date of Service: June 16, 2023
Duration: 30 minutes and 3 hours
Potassium Bath: 3
Calcium Bath: 2.5
Opti-Dialyzer: 160
Ultrafiltration: Other (2)
Blood Flow: 400
Dialysate Flow: 600
Heparin: None
EPO: 6K
[2023-06-16] MEDS: SENNA SYRUP 8.80000000000000071 MG PO ×2 (10:09→21:04)
--- NOTE | 2023-06-16 10:25 | W.PN.HOSP.TC ---
Today's Communication/Plan
-
HD today
epo
await placement
Assessment / Plan
Assessment / Plan
Physical Exam
General: chronically ill looking, and No Apparent Distress
HEENT: Normocephalic, Atraumatic, dry Mucous Membranes. Nasal O2.
Respiratory: rhonchi and linited air
Cardiac: Regular Rhythm and S1/S2; Negative Murmur, Rub or Gallop
GI: Soft, Nontender, Nondistended and Normal Bowel Sounds.
Rectal: No rectal bleeding noted.
Musculoskeletal: No Clubbing, No Cyanosis and No Edema
Skin: Negative Rash
Neuro: Awake, Alert, Oriented, AO to self and surroundings, and Nonfocal/Grossly Intact
Psych: Calm
# PVD with hypothermia, Hypoglycemia
Accu-checks, Bp, SaO2 are not very accurate at times due to poor peripheral circulation.
AM cortisol level was normal
Normal ACTH stim test.
#Dysphagia
Toleraging TF at 40cc/hr. Increase to 50cc/hr as tolerated. Increase 5cc q8h.
Stopped IVF D10
s/p peg tube placement on 06/10, no complications reported.
Likely due to combination of Cachexia associated with advanced COPD and deconditioning/ malnutrition. MRI brain, no stroke.
pt continued to struggle with oropharyngeal dysphagia. Dobbhoff placed, no gag reflex noted also. EGD also noted no gag reflex and mild retained secretions/TF in proximal esophagus, normal stomach and duodenum
Appreciate speech/swallow therapist & GI help
#Acute on chronic hypoxic resp failure 2/2 recurrent progressive pleural effusion, COPD, acute on chronic CHF with preserved ejection fraction and pulmonary edema
#History of recurrent pleural effusions requiring multiple thoracentesis
#Chronic COPD on chronic 2 L nasal cannula 24 hours
#Former nicotine abuse 50-year 2 pack a day quit 2017
#Chronic pulmonary nodules
Continue bronchodilators, changed to Duo Neb TID.
s/p Left thoracentesis 1L fluid removed.
Pulm recs. wean o2 sats >88%. Now at 2-3L. Continue low-dose macrolide therapy Wednesday/Wednesday/Wednesday. Continue Trelegy
Appreciate pulmonary input.
#Recurrent pleural effusion
#Left upper lobe lesion
s/p 1L fluid removed. Exudative effusions. Fluid studies in lab negative for growth. Cytology negative for malignancy.
CT chest left upper lobe opacity decrease in size of volume. Two new small foci of patchy opacity in the left lower lobe are seen in comparison to prior CT, most likely inflammatory/infectious as well as progression of left lower lobe subsegmental
atelectasis and new tiny left pleural effusion. Likely chronic changes with volume loss in the right hemithorax without significant change including likely chronic moderate size right pleural effusion with accompanying pleural thickening.
will need to f/u with pulm for nodules.
#Constipation
bowel regimen
# Multiple Atrial tachycardia.
Telemetry showed few episodes of MAT. No palpitation. No chest pain.
Continue with current medication. Unable to tolerate beta-sonal at times due to hypotension.
back to coreg 3.125mg BID
# moderate protein-caloric malnutrition Chronic
Patient has characteristics of COPD cachexia with severe loss of energy, wasting of muscles.
#Hyponatremia due to ESRD
per HD.
#ESRD on dialysis
#AV fistula left upper arm
Wednesday dialysis. HD regular schedule.
nephro on board.
#Chronic diastolic CHF preserved EF
Follows at [facility] cardiology
resumed tube aspirin, midodrine for now through tube. Cont coreg
On dialysis- MWF
#Hypotension orthostatic Hx
Continue midodrine ATC, keep midodrine PRN also.
# Anemia of chronic disease hemoglobin around 10.
#Chronic thrombocytopenia
monitor
EPO/IV iron per nephro
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
#Hypoglycemia
cont gabapentin
Lantus 7 units discontinued
s/p D10 infusion.
# Muscle pain
Patient refused Tylenol ( due to liver cirrhosis) despite LFT is normal
Tried low dose IV Dilaudid 0.25 mg and it helped
Changed to to tube Dilaudid.
#HLD
#GERD
tube PPI.
#Gout
-resumed tube allopurinol
#Depression
resumed tube Zoloft
DVT prophylaxis
Subcu heparin
PT/OT-SNF. CM aware. await placement.
Anticipated Discharge: Today
Subjective/Interval History
-
Date of Service: June 16, 2023
seen on HD
feeling better
Objective Data
-
Labs:
Laboratory Results
06/16/23
05:33
Sodium 126 L
Potassium 3.9
Chloride 87 L
Carbon Dioxide 30
BUN 58 H
Creatinine 4.9 H*
Glucose 150 H
Calcium 10.4 H
Vital Signs:
Vital Signs
Temp Pulse Resp BP Pulse Ox
97.6 F 64 20 129/67 94
06/16/23 07:00 06/16/23 07:29 06/16/23 07:29 06/16/23 08:05 06/16/23 07:29
I&O
06/15/23 06/16/23 06/17/23
06:59 06:59 06:59
Intake Total 780 / 780 780 / 780
Balance 780 / 780 780 / 780
[2023-06-16] MEDS: FLEXBUMIN 25% FOR HEMODIALYSIS 12.5 GRAMS IV (10:35)
--- NOTE | 2023-06-16 10:58 | PTCARENOTE ---
Addendum entered by Sylvia Carrillo RN 06/16/23 12:59:
pt had very large bm on toilet this afternoon. documented on worklist.
Original Note:
Pt receiving HD this am for his MWF schedule. pt coreg held for dialysis. pt given senna syrup and miralax this am due to patient not having a bowel movement for a week. pt on nephrocap tube feeds at 40ml/hr with a 25ml automatic flush. pt had a
500ml residual this AM for hourly shift so tube feeds were held for an hour. when rechecking patient residual was 360ml and tube feeds were restarted. pt verbalizes no abdominal pain or discomfort.
[2023-06-16] MEDS: OCEAN, SALINE MIST 1 SPRAYS NASAL (13:25)
[2023-06-16 15:00] VITALS: BP 112/53
--- NOTE | 2023-06-16 17:21 | CM ---
Patient has been accepted to [facility]. Additional HD documentation has been forwarded early this am. Awaiting dialysis acceptance and then will obtain insurance auth with [employer].
[2023-06-16] MEDS: COREG 3.125 MG TUBE (21:04)
[2023-06-16] MEDS: HEPARIN 5000 UNITS SC (21:04)
[2023-06-16] MEDS: ZOLOFT 25 MG TUBE (21:05)
[2023-06-16] MEDS: NEURONTIN 300 MG TUBE (21:05)
[2023-06-16] MEDS: OCEAN, SALINE MIST NASAL (21:07)
[2023-06-16 23:11] VITALS: BP 121/37
[2023-06-17] MEDS: DILAUDID 1 MG TUBE (05:23)
[2023-06-17 05:39] VITALS: BMI 21.1
[2023-06-17 07:00] VITALS: BP 117/56
[2023-06-17] MEDS: DUONEB 3 ML INH ×3 (07:37→19:43)
[2023-06-17] MEDS: SENNA SYRUP 8.80000000000000071 MG PO ×2 (09:28→20:51)
[2023-06-17] MEDS: ProAmatine 5 MG TUBE ×3 (09:28→17:34)
[2023-06-17] MEDS: LIDOCAINE 4% PATCH 1 PATCH TOPICAL (09:29)
[2023-06-17] MEDS: LOW STRENGTH ASPIRIN 81 MG TUBE (09:29)
[2023-06-17] MEDS: MIRALAX 17 GRAMS TUBE (09:30)
[2023-06-17] MEDS: PREVACID 30 MG TUBE (09:30)
[2023-06-17] MEDS: ZYLOPRIM 100 MG TUBE (09:30)
[2023-06-17] MEDS: COREG 3.125 MG TUBE ×2 (09:30→20:51)
[2023-06-17] MEDS: POLYSPORIN OINTMENT 1 APPLIC TOPICAL (09:30)
[2023-06-17] MEDS: HEPARIN 5000 UNITS SC ×2 (09:31→20:51)
[2023-06-17] MEDS: OCEAN, SALINE MIST 1 SPRAYS NASAL (09:39)
--- NOTE | 2023-06-17 10:40 | W.PN.HOSP.TC ---
Today's Communication/Plan
-
HD likely tomm
await HD acceptance and auth
CM aware
stable otherwise
Assessment / Plan
Assessment / Plan
Physical Exam
General: chronically ill looking, and No Apparent Distress
HEENT: Normocephalic, Atraumatic, dry Mucous Membranes. Nasal O2.
Respiratory: rhonchi and linited air
Cardiac: Regular Rhythm and S1/S2; Negative Murmur, Rub or Gallop
GI: Soft, Nontender, Nondistended and Normal Bowel Sounds.
Rectal: No rectal bleeding noted.
Musculoskeletal: No Clubbing, No Cyanosis and No Edema
Skin: Negative Rash
Neuro: Awake, Alert, Oriented, AO to self and surroundings, and Nonfocal/Grossly Intact
Psych: Calm
# PVD with hypothermia, Hypoglycemia
Accu-checks, Bp, SaO2 are not very accurate at times due to poor peripheral circulation.
AM cortisol level was normal
Normal ACTH stim test.
#Dysphagia
Toleraging TF at 50cc/hr.
Stopped IVF D10
s/p peg tube placement on 06/10, no complications reported.
Likely due to combination of Cachexia associated with advanced COPD and deconditioning/ malnutrition. MRI brain, no stroke.
pt continued to struggle with oropharyngeal dysphagia. Dobbhoff placed, no gag reflex noted also. EGD also noted no gag reflex and mild retained secretions/TF in proximal esophagus, normal stomach and duodenum
Appreciate speech/swallow therapist & GI help
#Acute on chronic hypoxic resp failure 2/2 recurrent progressive pleural effusion, COPD, acute on chronic CHF with preserved ejection fraction and pulmonary edema
#History of recurrent pleural effusions requiring multiple thoracentesis
#Chronic COPD on chronic 2 L nasal cannula 24 hours
#Former nicotine abuse 50-year 2 pack a day quit 2017
#Chronic pulmonary nodules
Continue bronchodilators, changed to Duo Neb TID.
s/p Left thoracentesis 1L fluid removed.
Pulm recs. wean o2 sats >88%. Now at 2-3L. Continue low-dose macrolide therapy Wednesday/Wednesday/Wednesday. Continue Trelegy
Appreciate pulmonary input.
#Recurrent pleural effusion
#Left upper lobe lesion
s/p 1L fluid removed. Exudative effusions. Fluid studies in lab negative for growth. Cytology negative for malignancy.
CT chest left upper lobe opacity decrease in size of volume. Two new small foci of patchy opacity in the left lower lobe are seen in comparison to prior CT, most likely inflammatory/infectious as well as progression of left lower lobe subsegmental
atelectasis and new tiny left pleural effusion. Likely chronic changes with volume loss in the right hemithorax without significant change including likely chronic moderate size right pleural effusion with accompanying pleural thickening.
will need to f/u with pulm for nodules.
#Constipation
bowel regimen
Had bm on 06/16.
# Multiple Atrial tachycardia.
Telemetry showed few episodes of MAT. No palpitation. No chest pain.
Continue with current medication. Unable to tolerate beta-sonal at times due to hypotension.
back to coreg 3.125mg BID
# moderate protein-caloric malnutrition Chronic
Patient has characteristics of COPD cachexia with severe loss of energy, wasting of muscles.
#Hyponatremia due to ESRD
per HD.
#ESRD on dialysis
#AV fistula left upper arm
Wednesday dialysis. HD regular schedule.
nephro on board.
#Chronic diastolic CHF preserved EF
Follows at [facility] cardiology
resumed tube aspirin, midodrine for now through tube. Cont coreg
On dialysis- MWF
#Hypotension orthostatic Hx
Continue midodrine ATC, keep midodrine PRN also.
# Anemia of chronic disease hemoglobin around 10.
#Chronic thrombocytopenia
monitor
EPO/IV iron per nephro
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
#Hypoglycemia
cont gabapentin
Lantus 7 units discontinued
s/p D10 infusion.
# Muscle pain
Patient refused Tylenol ( due to liver cirrhosis) despite LFT is normal
Tried low dose IV Dilaudid 0.25 mg and it helped
Changed to to tube Dilaudid.
#HLD
#GERD
tube PPI.
#Gout
-resumed tube allopurinol
#Depression
resumed tube Zoloft
DVT prophylaxis
Subcu heparin
PT/OT-SNF. CM aware. await placement. Need Hd acceptance and auth.
Anticipated Discharge: Within 24 hours
Subjective/Interval History
-
Date of Service: June 17, 2023
Tolerating TF at goal
no nausea or vomiting
Objective Data
-
Vital Signs:
Vital Signs
Temp Pulse Resp BP Pulse Ox
97.3 F 69 18 117/56 97
06/17/23 07:00 06/17/23 07:40 06/17/23 07:40 06/17/23 09:30 06/17/23 10:34
I&O
06/16/23 06/17/23 06/18/23
06:59 06:59 06:59
Intake Total 780 / 780 645 / 645
Balance 780 / 780 645 / 645
--- NOTE | 2023-06-17 11:39 | CM ---
Addendum entered by Kleber Hancock 06/18/23 08:54:
Met with POA and sister late afternoon. They are requesting patient go to [facility] for rehab and HD. They met with [employer] Operator Helper and was evidently recommended to go to [facility]. Referral sent.
Original Note:
Called Liaison for [facility] requesting update on Dialysis acceptance. She will check and call back. Will need insurance auth after Dialysis accepts.
[2023-06-17] MEDS: VENTOLIN NEBULES 2.5 MG INH (11:54)
[2023-06-17] MEDS: OCEAN, SALINE MIST 2 SPRAYS NASAL (13:03)
--- NOTE | 2023-06-17 13:34 | W.PN.NEPH.PH ---
Today's Communication / Plan
-
HD tomorrow
Assessment/Plan
-
Impression:
End-stage renal disease Wednesday, Wednesday, Wednesday
Hypoxia/Hypercapnia/COPD:home O2 2L
Right pleural effusion (Recurrent)
Hyperphosphatemia
Anemia
Diabetes with multiple microvascular complications
Hypotension on Midodrine
Cirrhosis
Chronic thrombocytopenia
Pulmonary nodules
Plan:
-HD tomorrow ,orders provided
-hyponatremia persists
-PEG in no FWF
-bp stable at edw/meds
-LORIN for anemia
-For eventual discharge to rehab with dialysis
-
-
Date of Service: June 17, 2023
CC / HPI / ROS
-
Chief Complaint:
ESRD
History of Present Illness:
ESRD MWF, tolerated HD yesterday
BP stable
remains on supplemental O2
failed swallow study, now with PEG
Review of Systems:
no CP
cough and difficulty swallow
PEG
Weights stable
Labs
-
Labs:
WBC 4.0 10^3/uL (4.8-10.8) L 06/11/23 12:53
RBC 2.87 10^6/uL (4.70-6.10) L 06/11/23 12:53
Hgb 9.1 g/dL (13.0-18.0) L 06/14/23 08:00
Hct 28.2 % (39.0-52.0) L 06/14/23 08:00
Plt Count 76 10^3/uL (130-400) L 06/11/23 12:53
Sodium 126 mmol/L (135-145) L 06/16/23 05:33
Potassium 3.9 mmol/L (3.5-5.1) 06/16/23 05:33
Chloride 87 mmol/L (98-107) L 06/16/23 05:33
Carbon Dioxide 30 mmol/L (22-30) 06/16/23 05:33
BUN 58 mg/dl (9-20) H 06/16/23 05:33
Creatinine 4.9 mg/dL (0.7-1.3) H* 06/16/23 05:33
eGFR 11.95 06/16/23 05:33
Glucose 150 mg/dl (70-99) H 06/16/23 05:33
Calcium 10.4 mg/dl (8.4-10.2) H 06/16/23 05:33
Phosphorus 6.0 mg/dl (2.5-4.5) H 06/16/23 05:33
Xqw-G-Qykncietmbz Pept > 08337 pg/ml 05/31/23 08:08
Albumin 4.6 g/dl (3.5-5.0) 05/31/23 08:08
Physical Exam
-
Vital Signs:
Vital Signs
Temp Pulse Resp BP Pulse Ox
97.3 F 74 22 120/57 98
06/17/23 07:00 06/17/23 13:05 06/17/23 11:56 06/17/23 13:05 06/17/23 11:56
Cardiovascular:: Regular rate and rhythm
Respiratory:: Bilateral: Coarse
Lung Excursion:: Normal
Abdomen:: Nontender
Bowel Sounds:: Normal
Extremity Edema:: None: Bilateral:
Rodarte Catheter: No
[2023-06-17 15:00] VITALS: BP 135/63
[2023-06-17] MEDS: OCEAN, SALINE MIST 50 SPRAYS NASAL (17:36)
[2023-06-17] MEDS: ZOLOFT 25 MG TUBE (20:52)
[2023-06-17] MEDS: NEURONTIN 300 MG TUBE (20:52)
[2023-06-17] MEDS: OCEAN, SALINE MIST NASAL (21:27)
--- NOTE | 2023-06-17 23:18 | PTCARENOTE ---
Addendum entered by Sylvia Carrillo RN 06/18/23 09:58:
pt with 350ml residual for this nurse. pt currently receiving HD at bedside. pt sob and received respiratory treatment this AM. pt work of breathing increase and abdominal muscles are being used. pt placed on non-rebreather at this time. O2 sat is
98% but patient still verbalizing hard time breathing. MD made aware and chest CT ordered for post HD. pt given meds through peg tube this AM with a 10ml flush. tube feeds ran from 0630 to 1000. holding at this time until HD is complete.
Original Note:
Pt TF residual 530ml. Meds administered with 10ml water flash at that time. TF held per order. recheck in 2hr with residual 550ml. TF continue on hold.
[2023-06-17 23:37] VITALS: BP 118/57
[2023-06-18] VITALS (15 sets, daily range): BP systolic 86–133; BP diastolic 35–118; PULSE 3–78; BMI 22.3
[2023-06-18] MEDS: VENTOLIN NEBULES 2.5 MG INH (00:14)
[2023-06-18] MEDS: DUONEB 3 ML INH ×3 (07:22→20:30)
[2023-06-18] MEDS: LOW STRENGTH ASPIRIN 81 MG TUBE (07:32)
[2023-06-18] MEDS: SENNA SYRUP 8.80000000000000071 MG PO (07:32)
[2023-06-18] MEDS: PREVACID 30 MG TUBE (07:32)
[2023-06-18] MEDS: ProAmatine 5 MG TUBE ×4 (07:33→20:14)
[2023-06-18] MEDS: ZITHROMAX 250 MG TUBE (07:33)
[2023-06-18] MEDS: ZYLOPRIM 100 MG TUBE (07:33)
[2023-06-18] MEDS: MIRALAX 17 GRAMS TUBE (07:33)
[2023-06-18] MEDS: LIDOCAINE 4% PATCH 1 PATCH TOPICAL (07:34)
[2023-06-18] MEDS: COREG TUBE ×2 (07:34→20:10)
[2023-06-18] MEDS: HEPARIN SC (07:34)
[2023-06-18] MEDS: OCEAN, SALINE MIST 50 SPRAYS NASAL (07:34)
[2023-06-18 08:13] LABS: Carbon Dioxide 31 mmol/L (22-30); Chloride 90 mmol/L (98-107); Potassium 4.2 mmol/L (3.5-5.1); Sodium 131 mmol/L (135-145)
[2023-06-18 08:16] LABS: Hematocrit 31.8 % (39.0-52.0); Hemoglobin 9.8 g/dL (13.0-18.0)
[2023-06-18] MEDS: MANNITOL 12.5 GRAMS IV ×2 (09:04→10:06)
[2023-06-18] MEDS: RETACRIT 8000 UNITS IV (09:05)
--- NOTE | 2023-06-18 10:25 | W.PN.HOSP.TC ---
Today's Communication/Plan
-
On HD
Repeat cxr post HD
wean O2
anxiolytics
Assessment / Plan
Assessment / Plan
Physical Exam
General: chronically ill looking, and No Apparent Distress
HEENT: Normocephalic, Atraumatic, dry Mucous Membranes. Nasal O2 +NRB .
Respiratory: Dec bs.
Cardiac: Regular Rhythm and S1/S2; Negative Murmur, Rub or Gallop
GI: Soft, Nontender, Nondistended and Normal Bowel Sounds.
Rectal: No rectal bleeding noted.
Musculoskeletal: No Clubbing, No Cyanosis and No Edema
Skin: Negative Rash
Neuro: Awake, Alert, Oriented, AO to self and surroundings, and Nonfocal/Grossly Intact
Psych: anxious
#Acute on chronic hypoxic resp failure / recurrent progressive pleural effusion, COPD, acute on chronic CHF with preserved ejection fraction and pulmonary edema
#History of recurrent pleural effusions requiring multiple thoracentesis
#Chronic COPD on chronic 2 L nasal cannula 24 hours
#Former nicotine abuse 50-year 2 pack a day quit 2017
#Chronic pulmonary nodules
Continue bronchodilators, changed to Duo Neb TID.
s/p Left thoracentesis 1L fluid removed.
Will repeat two-view chest x-ray and assess if reaccumulation of pleural effusion
O2 requirement trended up 6L +NRB.
HD fluid removal should help however, removal limited due to soft bp
wean o2 sats >88%.
Continue low-dose macrolide therapy Wednesday/Wednesday/Wednesday. Continue Trelegy
Appreciate pulmonary input.
# PVD with hypothermia, Hypoglycemia
Accu-checks, Bp, SaO2 are not very accurate at times due to poor peripheral circulation.
AM cortisol level was normal
Normal ACTH stim test.
#Dysphagia
Tolerating TF at 50cc/hr. No FWF
Stopped IVF D10
s/p peg tube placement on 06/10, no complications reported.
Likely due to combination of Cachexia associated with advanced COPD and deconditioning/ malnutrition. MRI brain, no stroke.
pt continued to struggle with oropharyngeal dysphagia. Dobbhoff placed, no gag reflex noted also. EGD also noted no gag reflex and mild retained secretions/TF in proximal esophagus, normal stomach and duodenum
Appreciate speech/swallow therapist & GI help
#Recurrent pleural effusion
#Left upper lobe lesion
s/p 1L fluid removed. Exudative effusions. Fluid studies in lab negative for growth. Cytology negative for malignancy.
CT chest left upper lobe opacity decrease in size of volume. Two new small foci of patchy opacity in the left lower lobe are seen in comparison to prior CT, most likely inflammatory/infectious as well as progression of left lower lobe subsegmental
atelectasis and new tiny left pleural effusion. Likely chronic changes with volume loss in the right hemithorax without significant change including likely chronic moderate size right pleural effusion with accompanying pleural thickening.
will need to f/u with pulm for nodules.
#Constipation
bowel regimen
Had bm on 06/16.
# Multiple Atrial tachycardia.
Telemetry showed few episodes of MAT. No palpitation. No chest pain.
Continue with current medication. Unable to tolerate beta-sonal at times due to hypotension.
back to coreg 3.125mg BID
# moderate protein-caloric malnutrition Chronic
Patient has characteristics of COPD cachexia with severe loss of energy, wasting of muscles.
#Hyponatremia due to ESRD
per HD.
#ESRD on dialysis
#AV fistula left upper arm
Wednesday dialysis. HD regular schedule.
nephro on board.
#Chronic diastolic CHF preserved EF
Follows at [facility] cardiology
resumed tube aspirin, midodrine for now through tube. Cont coreg
On dialysis- MWF
#Hypotension orthostatic Hx
Continue midodrine ATC, keep midodrine PRN also.
# Anemia of chronic disease hemoglobin around 10.
#Chronic thrombocytopenia
monitor
EPO/IV iron per nephro
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
#Hypoglycemia
cont gabapentin
Lantus 7 units discontinued
s/p D10 infusion.
# Muscle pain
Patient refused Tylenol ( due to liver cirrhosis) despite LFT is normal
Tried low dose IV Dilaudid 0.25 mg and it helped
Changed to to tube Dilaudid.
#HLD
#GERD
tube PPI.
#Gout
-resumed tube allopurinol
#Depression
resumed tube Zoloft
DVT prophylaxis
Subcu heparin
PT/OT-SNF eventually.
Anticipated Discharge: 24 - 48 hours
Subjective/Interval History
-
Date of Service: June 18, 2023
Overnight with increased oxygenation requirement
This morning states of mild shortness of breath associated with severe anxiety
Currently on HD
Objective Data
-
Labs:
Laboratory Results
06/18/23
07:47
Hgb 9.8 L
Hct 31.8 L
Sodium 131 L
Potassium 4.2
Chloride 90 L
Carbon Dioxide 31 H
Vital Signs:
Vital Signs
Temp Pulse Resp BP Pulse Ox
97.8 F 88 20 145/45 96
06/18/23 03:00 06/18/23 07:22 06/18/23 07:22 06/18/23 07:33 06/18/23 07:22
I&O
06/17/23 06/18/23 06/19/23
06:59 06:59 06:59
Intake Total 1320 / 1320 1050 / 1050
Output Total 0 / 0
Balance 1320 / 1320 1050 / 1050
Data Reviewed
-
Total Time Spent with Patient (in minutes): 54
[2023-06-18] MEDS: ATIVAN 0.5 MG PO (10:35)
--- NOTE | 2023-06-18 12:32 | W.PN.UPDATE ---
Addendum entered and electronically signed by Noah Mckeon MD 06/18/23 14:54:
Reevaluated patient while he was on BiPAP . Patient really anxious. States of shortness of breath. Clarified CODE STATUS and patient said he is okay for intubation however not for prolonged period of time. This was discussed in front of
patient domestic partner at current.
Transfer to ICU. Piping Designer consulted
Discussed with RN.
Original Note:
Update Note
Progress Note Update
States of persistent sob. Unable to obtain accurate pulse oximetry as PVD. Currently on 14L midflow +NRB. Patient states of sob. Able to express him self. Feeling weak. No cough. Afebrile
Gen: in mild distress
cards s1 s2 rr
pulm dec bs and mild rales
ext cold. no edema.
Acute on chronic hypoxic and hypercapnic respiratory failure likely 2/2 volume overload vs. pleural effusion vs. ?AECOPD
Cont with midlow +NRB. Advanced to HFNC if needed
ABG ordered and reviewed
BIPAP ordered. May require NIV.
changed xray to portable
may need to consider CT chest ultrasound chest
IV decadron 6mg x 1 dose for now
Pulm re-consulted.
Total Critical Care Time_ 40 minutes. I was immediately available to the patient and staff. I personally examined, reviewed labs, diagnostic images/reports, interpretations, treatment plans, discussed patient care with other providers and family
or caregivers (if patient is unable to make decisions), entered orders as appropriate and documented the medical record.
d/w with MICHAEL partner at bedside
[2023-06-18 12:40] LABS: B.E. 4.8 mmol/L; HCO3 33.8 mmol/L (21-28); O2 Saturation % 99.9 % (94-98); PO2 273 mmHg (83-108); pH 7.25 (7.35-7.45)
--- NOTE | 2023-06-18 12:40 | W.PN.PUL3 ---
Today's Communication / Plan
-
Worsening condition, transfer to IMU
ABG noted, to be on BIPAP, reviewed with RT
Repeat ABG later today
Chest US for eval for thora on R
GOC discussions noted below-- patient remains full code
Assessment
-
73-year-old M former tobacco smoker (quit 2017) with PMhx COPD/asthma, ESRD on HD, GERD and chronic liver disease/cirrhosis who p/w SOB from his HD center. Of note, he follows with us in [facility] office with Dr. Garcia - last office visit on
04/29/2023. He is on Trelegy 100mcg with prn albuterol. Adm to on 05/31/23 for evaluation of R-effusion on CXR compared to last, and he has a small left pleural effusion. HD session started in ER. Underwent thoracentesis with improvement. s/p
PEG 06/10/23 for dysphagia on this admission.
06/18/23 developed worsening SOB, ABG showing acute CO2 retention, started on BIPAP, will be transferred to IMU for further care. Remains full code.
Acute hypercarbic respiratory failure requiring BIPAP
Acute on chronic respiratory failure with hypoxemia on supplemental O2 (on 2L/min at baseline)
Chronic right-sided pleural effusion with acute left-sided pleural effusion s/p multiple thoras
Acute on chronic anemia
Chronic thrombocytopenia
Chronic dysphagia s/p PEG 06/10/23
Protein-Calorie malnutrition
Chronic hyponatremia
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
GERD
Mitral regurgitation
HLD
DM type II
Hx of alcoholic cirrhosis with Hx of EV + portal hypertensive gastropathy (seen in 2013 via EGD), HTN, COPD/asthma on chronic oxygen (2-3L/min)
ESRD on HD MWF
Moderate COPD with increased DLco/VA
Follows Dr Garcia
Restrictive lung defect (moderate with T% predicted via PFT from 04/2022)
Alcoholic liver disease with Hx of grade I EV and portal hypertensive gastropathy (seen via EGD in 2013) --> EV and gastropathy resolved via EGD in October 2019
5 mm irregular opacity in the posterior left upper lobe - seen on CT chest from October 2022
Plan
Currently SOB, ABG obtained indicating acute Co2 retention
ABG 06/18/23: 7., prior 7
BIPAP added on, continue nightly and as needed
Agree with transfer to IMU with observation
Reviewed CT chest -- Left upper lobe nodule and right upper lobe nodule noted. Largest 1.5 cm left lower lobe.
Reviewed CT chest at length, pulm nodules noted. 1 nodule has decreased in size, other nodules/infiltrate are new
Will require follow-up as outpatient
Patient underwent thoracentesis, in past -- studies indicate transudate
Chronic right pleural effusion with pleural thickening, likely trapped lung physiology.
Thora history:
- L 06/02/23 1000 mL
- L 04/08/23 1000 mL
- R 03/03/23 650mL
- L 01/30/23 1200mL
- R 01/18/23 800mL
- R 02/28/19 1500mL
- R 01/11/19 1500mL
Will check chest US to assess for thora on R
Unfortunate many of patient's pulmonary issues are chronic
He is already on home oxygen, this will continue
With ambulate and optimize oxygen therapy as outpatient
COPD, continue inhalers
Nebs
Volume overload noted
Currently receiving HD
Renal following
DVT prophylaxis: Mechanical prophylaxis
GI prophylaxis: On Pepcid
His overall prognosis is poor given numerous severe medical issues that are not improving
He understands his prognosis but wishes to remain full code
He did reiterate to me that should he be prolonged on the vent, he would want to be palliatively extubated by Day 5
Discussed plan of care with team
Diagnostic Data
CXR 06-01-2023:
There has been no significant change compared with the prior study.
There is moderate right pleural effusion with underlying atelectasis
There is a small left-sided pleural effusion with moderate interstitial airway disease throughout the lower left lung
CXR 05-31-2023:
1).There is a small left pleural effusion, increased in volume when compared with the prior study and associated with new increased parenchymal airspace disease throughout the lower left lung. I favor that this is pulmonary edema superimposed on
underlying effusion. Pneumonia is less likely
2).There is stable moderate-large right-sided pleural effusion with stable underlying parenchymal air space disease likely reflecting atelectasis
CT Chest 06/03/23 - 0.5 cm left upper lobe opacity seen on prior CT has decreased in size and volume. Two new small foci of patchy opacity in the left lower lobe are seen in comparison to prior CT, most likely inflammatory/infectious as well as
progression of left lower lobe subsegmental atelectasis and new tiny left pleural effusion. Likely chronic changes with volume loss in the right hemithorax without significant change including likely chronic moderate size right pleural effusion with
accompanying pleural thickening.
CT Chest without contrast 10-07-2022:
1. � Redemonstration of a moderate-sized chronic pleural effusion with associated smooth pleural thickening with grossly unchanged masslike consolidation involving the right lower and middle lobes most consistent with rounded atelectasis. Associated
right-sided volume loss.
2. � Previously seen ill-defined nodular opacities within the posterior right upper lobe have largely resolved. There are some new scattered tree-in-bud opacities within the left lower lobe suggestive of infectious or inflammatory bronchiolitis.
3. � Small amount of new pleural thickening within the posterior aspect of the left hemithorax adjacent to the left lower lobe.
4. � New nonspecific 5 mm irregular opacity within the posterior LEFT upper lobe.
5. � Aberrant RIGHT subclavian artery.
Outpatient [facility] Data:
Spirometry 10/15/2021,�demonstrated FEV1/FVC 58%, FEV1 1.03 L (32%, FVC 1.76 L or 41%.� Mixed ventilatory defect suggestion of restriction with moderate to severe airflow obstruction.
��������
Spirometry 12/14/2019:�-FEV1/FVC 60%, FEV1 1.78 L 754%, FVC 2.90 L-67%.� Moderate airflow obstruction with a restriction.� Stable compared to before.
��������
Pulmonary function testing 12/13/2017:�demonstrated FEV1 /FVC 52%, FEV1 1.95 L-60%, FVC 3.71 L 785%, TLC 6.59 L-95%, RV 3.25 L-129%, DLCO 21.88-81%. Moderate airflow obstruction. Improvement on air trapping and hyperinflation.��������
Pulmonary function testing 09/09/2016:�FEV1/FVC 46%, FEV1 1.65 L-52%, FVC 3.61 L-84%. There was significant reversibility post bronchodilator. TLC 9.29 L-138%, RV 5.70 L-235%. DLCO 45%. Moderate/severe COPD with air trapping and
hyperinflation-emphysema phenotype.
�����
Spirometry 05/27/2016:�FEV1/FVC 55%, FEV1 1.32 L-38%, FVC 2.43 L-52%. Severe airflow obstruction with no reversibility.
FENO:
������ 10/15/2021 FeNO -- 22 ppb
�������07/15/2021 FENO 32ppb
�������12/14/2019 FENO 25 PPB
�������04/09/22 FENO 27ppb.
Subjective Data
-
Date of Service:
Date of Service: June 18, 2023
Chief Complaint: Pulmonary Follow Up
Subjective:
re-eval requested, last seen 06/04/23
worsening SOB noted, now on NRB
transfer initiated to [facility]
Objective Data
Data Reviewed
Vital Signs / I&O / Oxygen:
Vital Signs
Temp Pulse Resp BP Pulse Ox
97.8 F 88 20 145/45 98
06/18/23 03:00 06/18/23 07:22 06/18/23 07:22 06/18/23 07:33 06/18/23 11:00
Intake and Output
06/17/23 06/18/23 06/19/23
06:59 06:59 06:59
Intake Total 1320 / 1320 1050 / 1050
Output Total 0 / 0
Balance 1320 / 1320 1050 / 1050
SaO2 98
Nasal Cannula flow liters per 6
minute
Physical Exam
General: Comfortable (tachypneic with conversation), Poor Appetite and Other (thin, chronically ill appearing)
HEENT: Normocephalic, Anicteric and Other (Poor dentition)
Cardiovascular: S1-S2, Regular Rhythm, Murmur (n) and Peripheral Edema (tr)
Respiratory: Clear (overall decreased), Non-Labored Respirations and Stridor (negative)
GI: Soft, Distended, Non Tender and Normal Bowel Sounds
Neurology: Awake, Alert, Oriented, AO x 3 and No Motor Deficits
Skin: Cyanosis (n), Jaundice (y) and Rash (n)
Labs/Micro/Reports
Lab Data
06/18/23 07:47
06/18/23 07:47
[2023-06-18 12:44] LABS: PCO2 77 mmHg (35-48)
[2023-06-18] MEDS: DECADRON 6 MG IV (12:50)
--- NOTE | 2023-06-18 12:54 | PTCARENOTE ---
patient on 15L midflow and nonrebreather. work of breathing physically exhausting to patient. stat abgs and portable chest xray done at bedside. fluids shown on R side of chest. pt to be transferred to IMU for continuous bipap. pt PCO2 measuring 77.
Md made aware per protocol. tube feeds paused per MD request at this time.
--- NOTE | 2023-06-18 13:33 | W.PN.NEPH.HD ---
Assessment
-
patient with increasing O2 requirements
unable to remove UF due to hypotension
likely transfer to higher level of care
Progress Note - Hemodialysis
-
Date of Service: June 18, 2023
Duration: 30 minutes and 3 hours
Potassium Bath: 3
Calcium Bath: 2.5
Opti-Dialyzer: 160
Ultrafiltration: Other
Blood Flow: 400
Dialysate Flow: 600
Heparin: none
EPO: none
--- NOTE | 2023-06-18 14:19 | CM ---
Family requested referral to [facility]. They do not have an HD chair. Patient has been accepted by [facility] for long term, rehab and HD. Insurance authorization has been initiated, Pending reference # [id number]. Records were to be faxed
to [phone].
This CM reviewed records. Patient has not participated in therapy since 06/12/23. He also is scheduled to be transferred to ICU for respiratory distress this afternoon when bed available. On Bipap currently and received anti-anxiety medication.
Patient not medically stable for discharge.
Consulted with CM Director. Will not send records for insurance auth until patient medically stabilizes and can participate in therapy. Liaison for [facility] notified.
[2023-06-18] MEDS: NSS (PRESERVATIVE FREE) 0.25 ML IV (14:34)
[2023-06-18] MEDS: ATIVAN 0.5 MG IV ×2 (14:35→22:55)
[2023-06-18] MEDS: OCEAN, SALINE MIST 1 SPRAYS NASAL (14:37)
[2023-06-18 15:14] LABS: B.E. 3.9 mmol/L; O2 Saturation % 90.4 % (94-98); PO2 64 mmHg (83-108)
[2023-06-18 15:17] LABS: PCO2 87 mmHg (35-48)
--- NOTE | 2023-06-18 15:58 | PTCARENOTE ---
arrived via bed from , settled in room, G cloth bath, restless, hanging over siderail. BIpap in progress, 17/09 with 6 l.
[2023-06-18 16:56] LABS: B.E. 3.9 mmol/L; HCO3 33.1 mmol/L (21-28); O2 Saturation % 99.7 % (94-98); PO2 294 mmHg (83-108); pH 7.23 (7.35-7.45)
[2023-06-18 16:59] LABS: PCO2 79 mmHg (35-48)
--- NOTE | 2023-06-18 17:14 | PTCARENOTE ---
PICC over wire by VAT. Cxray completed for placement, pending. ABG results to Dr. Lai, resp here to adjust NIV settings, family bedside, questions answered. presently more calm than restless.
[2023-06-18] MEDS: OCEAN, SALINE MIST NASAL ×2 (17:40→21:33)
[2023-06-18] MEDS: SOLU-MEDROL PF 40 MG IV (18:16)
--- NOTE | 2023-06-18 18:28 | PTCARENOTE ---
labs sent, PICC repositioned by VAT, awake, restless, tries to pull at mask, redirectable. fan blowing. no other change, VS noted, ear clip does citrus picker pulse ox.
[2023-06-18 18:31] LABS: Hematocrit 32.2 % (39.0-52.0); Mean Corp Hgb Conc. 31.1 g/dL (33.0-37.0); Mean Corpuscular Hgb 32.8 pg (27.0-31.0); Mean Corpuscular Volume 105.6 fL (80.0-94.0); Mean Platelet Volume 10.4 fL (7.4-10.4); Platelet Count 101 10^3/uL (130-400); Red Blood Cell Count 3.05 10^6/uL (4.70-6.10); Red Cell Dist. Width 14.1 % (11.5-14.5); White Blood Cell Count 4.6 10^3/uL (4.8-10.8)
[2023-06-18 18:45] LABS: APTT 38.5 Sec (23.4-35.0)
[2023-06-18 18:53] LABS: Blood Urea Nitrogen 35 mg/dl (9-20); Calcium 10.3 mg/dl (8.4-10.2); Carbon Dioxide 32 mmol/L (22-30); Chloride 90 mmol/L (98-107); Estimated Creatinine Clearance 26 ml/min; Glucose 199 mg/dl (70-99); Potassium 4.4 mmol/L (3.5-5.1); Sodium 132 mmol/L (135-145); eGFR 25.57
--- NOTE | 2023-06-18 20:00 | PTCARENOTE ---
Patient received in bed, drowsy but arousable. NSR with BBC on monitor, afebrile, blood pressure as documented. No edema noted. Lungs diminished bilaterally, tolerating NIV 22/5 RR 10 and FIO2 50%, pulse ox 94%. Abdomen soft, PEG tube noted,
anuric. Sacral foam intact, scabbed toe open to air. RDL PICC flushed and patent. left arm AV fistual, + bruit, +thrill,. patient turning self in bed. family at bedside updated on plan of care
[2023-06-18] MEDS: NEURONTIN 300 MG TUBE (20:13)
[2023-06-18] MEDS: HEPARIN 5000 UNITS SC (20:13)
[2023-06-18] MEDS: ZOLOFT 25 MG TUBE (20:14)
[2023-06-18 21:21] LABS: B.E. 2.7 mmol/L; HCO3 31.8 mmol/L (21-28); PO2 120 mmHg (83-108); pH 7.23 (7.35-7.45)
[2023-06-18 21:25] LABS: PCO2 76 mmHg (35-48)
[2023-06-18] MEDS: SENNA SYRUP PO (21:33)
[2023-06-19] VITALS (24 sets, daily range): BP systolic 87–123; BP diastolic 39–76; BMI 20.7
--- NOTE | 2023-06-19 | PTCARENOTE ---
Prn ativan given for anxiety, good effect, remains on current NIV settings, no other changes in assessment
[2023-06-19] MEDS: SOLU-MEDROL PF 40 MG IV ×4 (00:24→18:16)
[2023-06-19] MEDS: DUONEB 3 ML INH ×4 (01:10→19:47)
[2023-06-19] MEDS: DILAUDID 1 MG TUBE ×2 (02:33→19:32)
--- NOTE | 2023-06-19 04:00 | PTCARENOTE ---
Patient reassessed, remains calm, nodding head appropriately, turning self in bed. lab sent
[2023-06-19 04:24] LABS: Hematocrit 30.9 % (39.0-52.0); Hemoglobin 9.9 g/dL (13.0-18.0); Mean Corpuscular Hgb 32.5 pg (27.0-31.0); Mean Corpuscular Volume 101.3 fL (80.0-94.0); Mean Platelet Volume 10.5 fL (7.4-10.4); Platelet Count 114 10^3/uL (130-400); Red Blood Cell Count 3.05 10^6/uL (4.70-6.10); Red Cell Dist. Width 13.9 % (11.5-14.5); White Blood Cell Count 5.3 10^3/uL (4.8-10.8)
[2023-06-19 04:48] LABS: Blood Urea Nitrogen 43 mg/dl (9-20); Calcium 10.3 mg/dl (8.4-10.2); Carbon Dioxide 30 mmol/L (22-30); Chloride 93 mmol/L (98-107); Estimated Creatinine Clearance 20 ml/min; Glucose 180 mg/dl (70-99); Potassium 4.4 mmol/L (3.5-5.1); Sodium 132 mmol/L (135-145)
[2023-06-19 05:15] LABS: B.E. 2.5 mmol/L; HCO3 31.1 mmol/L (21-28); O2 Saturation % 99.3 % (94-98); PO2 176 mmHg (83-108); pH 7.25 (7.35-7.45)
[2023-06-19 05:19] LABS: PCO2 71 mmHg (35-48)
--- NOTE | 2023-06-19 05:46 | PTCARENOTE ---
ABG noted, FIO2 decreased to 40%
[2023-06-19] MEDS: COREG TUBE ×2 (07:50→20:06)
[2023-06-19] MEDS: LIDOCAINE 4% PATCH 1 PATCH TOPICAL (08:51)
[2023-06-19] MEDS: OCEAN, SALINE MIST NASAL ×4 (08:52→21:26)
[2023-06-19] MEDS: SENNA SYRUP 8.80000000000000071 MG PO ×2 (08:52→19:31)
[2023-06-19] MEDS: ProAmatine 5 MG TUBE ×3 (08:52→18:16)
[2023-06-19] MEDS: ZYLOPRIM 100 MG TUBE (08:52)
[2023-06-19] MEDS: PREVACID 30 MG TUBE (08:52)
[2023-06-19] MEDS: LOW STRENGTH ASPIRIN 81 MG TUBE (08:52)
[2023-06-19] MEDS: MIRALAX 17 GRAMS TUBE (08:52)
[2023-06-19] MEDS: HEPARIN 5000 UNITS SC ×2 (08:53→19:31)
--- NOTE | 2023-06-19 09:03 | W.PN.INTV ---
Today's Communication / Plan
Recommendations
Continuous BiPAP
Serial blood gas measurements to trend CO2 and pH
Aspiration precautions
HD as per nephrology
PICC line placed on 06/18/2023
Guarded prognosis
Assessment
-
73-year-old M former tobacco smoker (quit 2017) with PMhx COPD/asthma, ESRD on HD, GERD and chronic liver disease/cirrhosis who p/w SOB from his HD center.� Of note, he follows with us in [facility] office with Dr. Garcia - last office visit on
04/29/2023.� He is on Trelegy 100mcg with prn albuterol.� Adm to on 05/31/23 for evaluation of R-effusion on CXR compared to last, and he has a small left pleural effusion.� HD session started in ER.� Underwent thoracentesis with improvement.� s/p
PEG 06/10/23 for dysphagia on this admission.
06/18/23 developed worsening SOB, ABG showing acute CO2 retention, started on BIPAP, will be transferred to IMU for further care.� Remains full code.
Acute hypercarbic respiratory failure requiring BIPAP
Acute on chronic respiratory failure with hypoxemia on supplemental O2 (on 2L/min at baseline)
Chronic right-sided pleural effusion with acute left-sided pleural effusion s/p multiple thoras
Acute on chronic anemia
Chronic thrombocytopenia
Chronic dysphagia s/p PEG 06/10/23
Protein-Calorie malnutrition
Chronic hyponatremia
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
GERD
Mitral regurgitation
HLD
DM type II
Hx of alcoholic cirrhosis with Hx of EV + portal hypertensive gastropathy (seen in 2013 via EGD), HTN, COPD/asthma on chronic oxygen (2-3L/min)
ESRD on HD MWF
Moderate COPD with increased DLco/VA
Follows Dr Garcia
Restrictive lung defect (moderate with T% predicted via PFT from 04/2022)
Alcoholic liver disease with Hx of grade I EV and portal hypertensive gastropathy (seen via EGD in 2013) --> EV and gastropathy resolved via EGD in October 2019
5 mm irregular opacity in the posterior left upper lobe - seen on CT chest from October 2022
Plan
Currently SOB, ABG obtained indicating acute in chronic Co2 retention
Considering his pCO2 is continuing to improve and he is easily arousable and is protecting airway, no need to intubate at this time, but he continues to remain at risk for intubation
Continue serial blood gas measurements to trend pCO2 and pH
Aspiration precautions
Strict NPO while on BiPAP
Per Dr. Krause:
Reviewed CT chest -- Left upper lobe nodule and right upper lobe nodule noted.� Largest 1.5 cm left lower lobe.�
Reviewed CT chest at length, pulm nodules noted.� 1 nodule has decreased in size, other nodules/infiltrate are new
Will require follow-up as outpatient
Patient underwent thoracentesis, in past -- studies indicate transudate
Chronic right pleural effusion with pleural thickening, likely trapped lung physiology.
Thora history:
- L 06/02/23 1000 mL
- L 04/08/23 1000 mL
- R 03/03/23 650mL
- L 01/30/23 1200mL
- R 01/18/23 800mL
- R 02/28/19 1500mL
- R 01/11/19 1500mL
Chest US to assess for thora on R --> shows: small to moderate right pleural effusion with thickened internal septations.
Unfortunate many of patient's pulmonary issues are chronic
He is already on home oxygen, this will continue
Will check 6MWT and optimize oxygen therapy as outpatient, assuming he survives this hospitalization
COPD, continue inhalers
Started systemic steroids on evening of 06/18 --> wean as tolerated
Nebs
Volume overload noted
Continue HD as per nephrology
DVT prophylaxis: HSQ
GI prophylaxis: On PPI
His overall prognosis is poor given numerous severe medical issues that are not improving
He understands his prognosis but wishes to remain full code
He did reiterate to Dr. Krause that should he be prolonged on the vent, he would want to be palliatively extubated by Day 5
I updated the patient's friend and neighbor after patient arrived to the ICU yesterday. Answered all the questions and reviewed the critically ill state that Jaun Jose is in currently.
Continue ICU level care given his low threshold to intubate with need for continuous BiPAP.
Critical care statement: A total of 40 minutes of critical care time was provided for this patient today. This includes management of unstable vital signs, evaluation of the patient at bedside, reviewing the patient's pertinent medical records
including radiographs, microbiology, laboratory evaluations, and discussion with primary team, consultants, pharmacy, nutrition, physical therapy, case management, charge nurse, critical care nursing, and respiratory therapy.
Diagnostic Data
CXR 06-01-2023:
There has been no significant change compared with the prior study.
There is moderate right pleural effusion with underlying atelectasis
There is a small left-sided pleural effusion with moderate interstitial airway disease throughout the lower left lung
CXR 05-31-2023:
1).There is a small left pleural effusion, increased in volume when compared with the prior study and associated with new increased parenchymal airspace disease throughout the lower left lung. I favor that this is pulmonary edema superimposed on
underlying effusion. Pneumonia is less likely
2).There is stable moderate-large right-sided pleural effusion with stable underlying parenchymal air space disease likely reflecting atelectasis
CXR 06-18-2023:
Placement of a right-sided PICC with the catheter tip in the right atrium. This could be retracted by 4 cm for a desired position at the cavoatrial junction.
Small to moderate right pleural effusion. Trace left pleural effusion. Stable mild prominence of the pulmonary vascular markings.
CT Chest 06/03/23 - 0.5 cm left upper lobe opacity seen on prior CT has decreased in size and volume. Two new small foci of patchy opacity in the left lower lobe are seen in comparison to prior CT, most likely inflammatory/infectious as well as
progression of left lower lobe subsegmental atelectasis and new tiny left pleural effusion. Likely chronic changes with volume loss in the right hemithorax without significant change including likely chronic moderate size right pleural effusion with
accompanying pleural thickening.
CT Chest without contrast 10-07-2022:
1. � Redemonstration of a moderate-sized chronic pleural effusion with associated smooth pleural thickening with grossly unchanged masslike consolidation involving the right lower and middle lobes most consistent with rounded atelectasis. Associated
right-sided volume loss.
2. � Previously seen ill-defined nodular opacities within the posterior right upper lobe have largely resolved. There are some new scattered tree-in-bud opacities within the left lower lobe suggestive of infectious or inflammatory bronchiolitis.
3. � Small amount of new pleural thickening within the posterior aspect of the left hemithorax adjacent to the left lower lobe.
4. � New nonspecific 5 mm irregular opacity within the posterior LEFT upper lobe.
5. � Aberrant RIGHT subclavian artery.
Outpatient [facility] Data:
Spirometry 10/15/2021,�demonstrated FEV1/FVC 58%, FEV1 1.03 L�(32%, FVC 1.76 L or 41%.� Mixed ventilatory defect suggestion of restriction with moderate to severe airflow obstruction.
��������
Spirometry 12/14/2019:�-FEV1/FVC 60%, FEV1 1.78 L 754%, FVC 2.90 L-67%.� Moderate airflow obstruction with a restriction.� Stable compared to before.
��������
Pulmonary function testing 12/13/2017:�demonstrated FEV1 /FVC 52%, FEV1 1.95 L-60%, FVC 3.71 L 785%, TLC 6.59 L-95%, RV 3.25 L-129%, DLCO 21.88-81%. Moderate airflow obstruction. Improvement on air trapping and hyperinflation.��������
Pulmonary function testing 09/09/2016:�FEV1/FVC 46%, FEV1 1.65 L-52%, FVC 3.61 L-84%. There was significant reversibility post bronchodilator. TLC 9.29 L-138%, RV 5.70 L-235%. DLCO 45%. Moderate/severe COPD with air trapping and
hyperinflation-emphysema phenotype.
�����
Spirometry 05/27/2016:�FEV1/FVC 55%, FEV1 1.32 L-38%, FVC 2.43 L-52%. Severe airflow obstruction with no reversibility.
FENO:
������ 10/15/2021 FeNO -- 22 ppb
�������07/15/2021 FENO 32ppb
�������12/14/2019 FENO 25 PPB
�������04/09/22 FENO 27ppb.
Subjective Dataa
Subjective Data
Date of Service:
Date of Service: June 19, 2023
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
Subjective:
Patient seen today. He is on BiPAP 21/09 and saturating 97%. BP 97/55. Multiple blood gas obtained since yesterday and pCO2 was continuing to slowly improve. pCO2 this morning 71 with pH 7.25. Patient does awaken but he is otherwise lethargic.
Once he awakens he is taking much better breaths and VTe improves.
Review of Systems
General: Other (Unable to obtain due to patient's acute clinical status)
Objective Data
Data Reviewed
Vital Signs / I&O / Oxygen:
Vital Signs
Temp Pulse Resp BP Pulse Ox
97.5 F 69 15 104/39 99
06/19/23 03:40 06/19/23 09:00 06/19/23 09:00 06/19/23 09:00 06/19/23 07:42
Intake and Output
06/18/23 06/19/23 06/20/23
06:59 06:59 06:59
Intake Total 1050 / 1050 0 / 0
Output Total 0 / 0 0 / 0
Balance 1050 / 1050 0 / 0
SaO2 [NIV (Non Invasive 100
Ventilation)]
SaO2 99
Nasal Cannula flow liters per 4
minute
Physical Exam
General: Respiratory Distress (negative) and Comfortable
HEENT: Normocephalic and Anicteric
Cardiovascular: S1-S2 and Peripheral Edema (negative)
Respiratory: Wheeze (n), Crackles (n), Rhonchi (n) and Non-Labored Respirations
GI: Soft, Non Distended, Non Tender and Normal Bowel Sounds
Neurology: Lethargic (Arousable to voice)
Skin: Warm and Dry
Labs/Micro/Reports
Lab Data
06/19/23 04:00
06/19/23 04:00
Laboratory Results
06/18/23 06/18/23 06/18/23
12:31 14:57 16:45
PT
INR
APTT
pH 7.25 L 7.20 L 7.23 L
pCO2 77 H* 87 H* 79 H*
pO2 273 H 64 L 294 H
HCO3 33.8 H 34.0 H 33.1 H
O2 Delivery Level
06/18/23 06/18/23 06/19/23
18:20 21:13 05:09
PT 15.0 H
INR 1.20
APTT 38.5 H
pH 7.23 L 7.25 L
pCO2 76 H* 71 H*
pO2 120 H 176 H
HCO3 31.8 H 31.1 H
O2 Delivery Level
--- NOTE | 2023-06-19 11:25 | W.PN.HOSP.TC ---
Today's Communication/Plan
-
Cont NIV.low threshold to intubate
pulm recs R pleural effusion
HD wednesday
Assessment / Plan
Assessment / Plan
Physical Exam
General: chronically ill looking, and No Apparent Distress
HEENT: Normocephalic, Atraumatic, dry Mucous Membranes. on NIV
Respiratory: Dec bs.
Cardiac: Regular Rhythm and S1/S2; Negative Murmur, Rub or Gallop
GI: Soft, Nontender, Nondistended and Normal Bowel Sounds. +peg tube,
Rectal: No rectal bleeding noted.
Musculoskeletal: No Clubbing, No Cyanosis and No Edema
Skin: Negative Rash
Neuro: Awake, Alert, Oriented, AO to self and surroundings, and Nonfocal/Grossly Intact
Psych: anxious
#Acute on chronic hypoxic and hypercapnic resp failure 2/2 recurrent progressive pleural effusion, COPD, acute on chronic CHF with preserved ejection fraction and pulmonary edema
#History of recurrent pleural effusions requiring multiple thoracentesis
#Chronic COPD on chronic 2 L nasal cannula 24 hours
#Former nicotine abuse 50-year 2 pack a day quit 2017
#Chronic pulmonary nodules
Continue bronchodilators, changed to Duo Neb TID.
s/p Left thoracentesis 1L fluid removed.
Tx to ICU on 06/18. Now on NIV. 40%.
wean o2 sats >88%.
US chest Small to moderate right pleural effusion with thickened internal septations. May need CT chest and ?CT placement.
Continue low-dose macrolide therapy Wednesday/Wednesday/Wednesday. Continue Trelegy
ICU consulted
#Recurrent pleural effusion
#Left upper lobe lesion
s/p 1L fluid removed. Exudative effusions. Fluid studies in lab negative for growth. Cytology negative for malignancy.
CT chest left upper lobe opacity decrease in size of volume. Two new small foci of patchy opacity in the left lower lobe are seen in comparison to prior CT, most likely inflammatory/infectious as well as progression of left lower lobe subsegmental
atelectasis and new tiny left pleural effusion. Likely chronic changes with volume loss in the right hemithorax without significant change including likely chronic moderate size right pleural effusion with accompanying pleural thickening.
will need to f/u with pulm for nodules.
# PVD with hypothermia, Hypoglycemia
Accu-checks, Bp, SaO2 are not very accurate at times due to poor peripheral circulation.
AM cortisol level was normal
Normal ACTH stim test.
#Dysphagia
Can hold TF if high risk of resp distress and needing to intubate.
Stopped IVF D10
s/p peg tube placement on 06/10, no complications reported.
Likely due to combination of Cachexia associated with advanced COPD and deconditioning/ malnutrition. MRI brain, no stroke.
pt continued to struggle with oropharyngeal dysphagia. Dobbhoff placed, no gag reflex noted also. EGD also noted no gag reflex and mild retained secretions/TF in proximal esophagus, normal stomach and duodenum
Appreciate speech/swallow therapist & GI help
#Constipation
bowel regimen
Had bm on 06/16.
# Multiple Atrial tachycardia.
Telemetry showed few episodes of MAT. No palpitation. No chest pain.
Continue with current medication. Unable to tolerate beta-sonal at times due to hypotension.
back to coreg 3.125mg BID with hold parameters
# moderate protein-caloric malnutrition Chronic
Patient has characteristics of COPD cachexia with severe loss of energy, wasting of muscles.
#Hyponatremia due to ESRD
per HD.
#ESRD on dialysis
#AV fistula left upper arm
Wednesday dialysis. HD regular schedule.
nephro on board.
#Chronic diastolic CHF preserved EF
Follows at [facility] cardiology
resumed tube aspirin, midodrine for now through tube. Cont coreg
On dialysis- MWF
#Hypotension orthostatic Hx
Continue midodrine ATC, keep midodrine PRN also.
# Anemia of chronic disease hemoglobin around 10.
#Chronic thrombocytopenia
monitor
EPO/IV iron per nephro
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
#Hypoglycemia
cont gabapentin
Lantus 7 units discontinued
s/p D10 infusion.
# Muscle pain
Patient refused Tylenol ( due to liver cirrhosis) despite LFT is normal
Tried low dose IV Dilaudid 0.25 mg and it helped
Changed to to tube Dilaudid.
#HLD
#GERD
tube PPI.
#Gout
-resumed tube allopurinol
#Depression
resumed tube Zoloft
DVT prophylaxis
Subcu heparin
PT/OT-SNF eventually.
Anticipated Discharge: > 48 hours
Subjective/Interval History
-
Date of Service: June 19, 2023
Tx to ICu yesterday
picc line placed
on NIV
Objective Data
-
Labs:
Laboratory Results
06/19/23 06/19/23
04:00 05:09
WBC 5.3
Hgb 9.9 L
Hct 30.9 L
Plt Count 114 L
HCO3 31.1 H
Sodium 132 L
Potassium 4.4
Chloride 93 L
Carbon Dioxide 30
BUN 43 H
Creatinine 3.3 H
Glucose 180 H
Calcium 10.3 H
Vital Signs:
Vital Signs
Temp Pulse Resp BP Pulse Ox
97.5 F 69 15 104/39 99
06/19/23 03:40 06/19/23 09:00 06/19/23 09:00 06/19/23 09:00 06/19/23 07:42
I&O
06/18/23 06/19/23 06/20/23
06:59 06:59 06:59
Intake Total 1050 / 1050 0 / 0
Output Total 0 / 0 0 / 0
Balance 1050 / 1050 0 / 0
Data Reviewed
-
Total Time Spent with Patient (in minutes): 55
--- NOTE | 2023-06-19 13:00 | PTCARENOTE ---
Pt lethargic. Follows commands at times. Other times, uncooperative and using foul language.
Sinus to SB with first degree and BBB. +murmur. Weak radial and pedal pulses.
NIV 22/5 40%. Lungs diminished.
Nepro tube feed at goal.
Anuric. LUE AV fistula +B/T
Temperature low via oral and axillary. Placed warm blankets and rectal temperature probe. T 96.6 at this time.
--- NOTE | 2023-06-19 13:08 | W.PN.NEPH.PH ---
Today's Communication / Plan
-
transferred to ICU
on NIV
plan for HD Wednesday
Assessment/Plan
-
Impression:
End-stage renal disease Wednesday, Wednesday, Wednesday
Hypoxia/Hypercapnia/COPD:home O2 2L
Right pleural effusion (Recurrent)
Hyperphosphatemia
Anemia
Diabetes with multiple microvascular complications
Hypotension on Midodrine
Cirrhosis
Chronic thrombocytopenia
Pulmonary nodules
Plan:
-HD Wednesday per usualy MWF schedule
- UF limited on 06/18 due to hypotension
-patient transferred to ICU for acute on chronic hypercapnic resp failure
-hyponatremia persists
-PEG in no FWF
-bp stable at edw/meds
-LORIN for anemia
-For eventual discharge to rehab with dialysis
-
-
Date of Service: June 19, 2023
CC / HPI / ROS
-
Chief Complaint:
ESRD
History of Present Illness:
ESRD MWF, tolerated HD yesterday but UF limited
BP stable
remains on supplemental O2
failed swallow study, now with PEG
Review of Systems:
no CP
cough and difficulty swallow
PEG
Weights stable
Labs
-
Labs:
WBC 5.3 10^3/uL (4.8-10.8) 06/19/23 04:00
RBC 3.05 10^6/uL (4.70-6.10) L 06/19/23 04:00
Hgb 9.9 g/dL (13.0-18.0) L 06/19/23 04:00
Hct 30.9 % (39.0-52.0) L 06/19/23 04:00
Plt Count 114 10^3/uL (130-400) L 06/19/23 04:00
Sodium 132 mmol/L (135-145) L 06/19/23 04:00
Potassium 4.4 mmol/L (3.5-5.1) 06/19/23 04:00
Chloride 93 mmol/L (98-107) L 06/19/23 04:00
Carbon Dioxide 30 mmol/L (22-30) 06/19/23 04:00
BUN 43 mg/dl (9-20) H 06/19/23 04:00
Creatinine 3.3 mg/dL (0.7-1.3) H 06/19/23 04:00
eGFR 19.20 06/19/23 04:00
Glucose 180 mg/dl (70-99) H 06/19/23 04:00
Calcium 10.3 mg/dl (8.4-10.2) H 06/19/23 04:00
Phosphorus 6.0 mg/dl (2.5-4.5) H 06/16/23 05:33
Qvv-[id number] Pept > 97872 pg/ml 05/31/23 08:08
Albumin 4.6 g/dl (3.5-5.0) 05/31/23 08:08
Physical Exam
-
Vital Signs:
Vital Signs
Temp Pulse Resp BP Pulse Ox
96 F L 69 15 104/39 99
06/19/23 11:32 06/19/23 09:00 06/19/23 09:00 06/19/23 09:00 06/19/23 07:42
Cardiovascular:: Regular rate and rhythm
Respiratory:: Bilateral: Coarse
Lung Excursion:: Normal
Abdomen:: Nontender and Soft
Bowel Sounds:: Normal
Extremity Edema:: None: Bilateral:
Rodarte Catheter: No
[2023-06-19 14:45] LABS: Venous Blood Gas B.E. 1.7 mmol/L (-4 to +4); Venous Blood Gas HCO3 30.4 mmol/L (22-27); Venous Blood Gas O2 Sat % 77.2 %; Venous Blood Gas pH 7.24 (7.32-7.43); Venous Blood Gas pO2 48 mmHg (30-50)
[2023-06-19 14:49] LABS: Venous Blood Gas pCO2 71 mmHg (35-48)
[2023-06-19] MEDS: ATIVAN 0.5 MG IV ×2 (18:21→21:21)
--- NOTE | 2023-06-19 18:28 | PTCARENOTE ---
1600 assessment unchanged.
Pt anxious and pulling off mask at times. Also alarms d/t pt fighting ventilator causing SpO2 to drop. PRN Ativan given.
--- NOTE | 2023-06-19 20:30 | PTCARENOTE ---
Rec'd pt on noninvasive ventilation, lethargic but pulling off mask at times as well. Constantly wiggling down in bed. Ativan PRN as needed. Afebrile, rectal probe replaced. NSR on monitor. Picc line flushed/patent. Tube feeds as ordered. Anuric.
Will monitor.
[2023-06-19] MEDS: ZOLOFT 25 MG TUBE (22:13)
[2023-06-19] MEDS: NEURONTIN 300 MG TUBE (22:13)
[2023-06-20] VITALS (37 sets, daily range): BP systolic 65–127; BP diastolic 10–70; BMI 20.9
[2023-06-20] MEDS: SOLU-MEDROL PF 40 MG IV ×5 (00:30→23:02)
[2023-06-20] MEDS: DUONEB 3 ML INH ×4 (01:01→19:58)
[2023-06-20] MEDS: ATIVAN 0.5 MG IV (03:48)
[2023-06-20 03:54] LABS: Hematocrit 34.5 % (39.0-52.0); Hemoglobin 10.5 g/dL (13.0-18.0); Mean Corp Hgb Conc. 30.4 g/dL (33.0-37.0); Mean Corpuscular Hgb 32.1 pg (27.0-31.0); Mean Corpuscular Volume 105.5 fL (80.0-94.0); Mean Platelet Volume 9.6 fL (7.4-10.4); Platelet Count 171 10^3/uL (130-400); Red Blood Cell Count 3.27 10^6/uL (4.70-6.10); Red Cell Dist. Width 14.1 % (11.5-14.5); White Blood Cell Count 10.8 10^3/uL (4.8-10.8)
[2023-06-20 04:14] LABS: B.E. -1.7 mmol/L; HCO3 29.5 mmol/L (21-28); O2 Saturation % 87.8 % (94-98); PO2 66 mmHg (83-108)
[2023-06-20 04:17] LABS: PCO2 93 mmHg (35-48); pH 7.11 (7.35-7.45)
--- NOTE | 2023-06-20 04:30 | PTCARENOTE ---
ABG 7.11, CO2 93, Sat o nmonitor 83% despite maximum support on noninvasive vent. Decision made to intubate pt. RT and Anesthesia at bedside. #8 ETT 25 at the lip. Xray done. Currently Satting 98%. Propofol/Fentanyl/Levo gtts as ordered. Will
monitor.
[2023-06-20] MEDS: LEVOPHED 250 IV ×2 (04:37→18:12)
[2023-06-20 04:38] LABS: Blood Urea Nitrogen 71 mg/dl (9-20); Calcium 10.5 mg/dl (8.4-10.2); Carbon Dioxide 31 mmol/L (22-30); Chloride 91 mmol/L (98-107); Estimated Creatinine Clearance 13 ml/min; Glucose 260 mg/dl (70-99); Sodium 132 mmol/L (135-145); eGFR 12.56
[2023-06-20] MEDS: SUBLIMAZE 50 MCG IV ×2 (04:38→08:32)
[2023-06-20] MEDS: DIPRIVAN 100 IV ×3 (04:42→22:54)
[2023-06-20] MEDS: SUBLIMAZE 100 IV ×2 (04:42→22:54)
--- NOTE | 2023-06-20 04:50 | W.PN.ANESINT ---
Anesthesia Intubation Note
- Intubation Note
Intubation Note:
Diagnosis: Respiratoery Distress
Blade: Mac 3
Tube Size: 8.0
Depth: 23cm@lip
Side Taped: right
Drugs Used: propofoil-50 mg, succs- 100 mg
Grade View: 2
EtCO2 Present: yes
Atraumatic: yes
Attempts: X1
Insertion Start and Stop Time:
SaO2 Pre: 82
SaO2 Post: 97
Glidescope Used: no
Other Airway Adjustments: none
Pre-Oxygenated: yes
Portable Chest X-Ray: yes
RSI: yes
Suctioned: yes
Bilateral Breath Sounds Confirmed: yes
Vent Settings:
Settings per ___Attending Physician
--- NOTE | 2023-06-20 05:33 | W.PN.UPDATE ---
Update Note
Progress Note Update
06/20/2023
1082- Patient sustaining 80s% on NIV. ABG results reviewed: ph 7.11, PCO2 93, PO2 66, HCO3 29.5. Decision was made to intubated for acute hypoxemic hypercapnic respiratory failure. NURSERY RN was called for intubation, patient was intubated without
event. Sedation propofol gtt and fentanyl PRN/gtt ordered per protocol. Oxygen saturations improved to 90s%. Chest xray obtained for ETT placement. Patient's partner Waylon was updated and all questions answered.
[2023-06-20 05:53] LABS: Triglycerides 138 mg/dl (10-149)
[2023-06-20] MEDS: COREG TUBE ×2 (07:15→19:27)
[2023-06-20] MEDS: OCEAN, SALINE MIST NASAL ×3 (07:16→17:31)
[2023-06-20] MEDS: MIRALAX 17 GRAMS TUBE (07:49)
[2023-06-20] MEDS: ZYLOPRIM 100 MG TUBE (07:50)
[2023-06-20] MEDS: SENNA SYRUP 8.80000000000000071 MG PO ×2 (07:50→19:27)
[2023-06-20] MEDS: HEPARIN 5000 UNITS SC ×2 (07:50→19:27)
[2023-06-20] MEDS: LOW STRENGTH ASPIRIN 81 MG TUBE (07:50)
[2023-06-20] MEDS: LIDOCAINE 4% PATCH 1 PATCH TOPICAL (07:50)
[2023-06-20] MEDS: ProAmatine 5 MG TUBE ×3 (07:50→18:13)
[2023-06-20] MEDS: PREVACID 30 MG TUBE (07:50)
--- NOTE | 2023-06-20 08:00 | PTCARENOTE ---
Received pt @ change of shift intubated/sedated w b/l soft limb restraints and 4 rails. Withdraws to deep pain. B/L pupils 3mm brisk/perrla. SR on monitor w BBB. + Doppler pedal pulses. #8.0 ETT, 23 lip on R side. SpO2 96% on vent settings
PC20/16/.100/+5. O2 weaned to 80% by RT. Auscultated coarse scattered rhochi throughout; diminished @ R base; poor aeration/tight airways. Suctioned for lg amt of thick yellow secretions. Breathing tx admin by RT. Peg in place w TF infusing.
Residual 600mL, TF on hold per protocol. Anuric. Prop/fent/levo gtts infusing through R DL PICC-see flow sheet. L AV fisula +bruit/thrill. Pt. repositioned per protocol. Safe environment maintained.
[2023-06-20] MEDS: NIMBEX 15 MG IV (09:06)
--- NOTE | 2023-06-20 09:46 | W.PN.INTV ---
Today's Communication / Plan
Recommendations
Continue mechanical ventilation
Insert A-line
Restart broad-spectrum antibiotics
Trend serial blood gas
Guarded prognosis
Assessment
-
73-year-old M former tobacco smoker (quit 2017) with PMhx COPD/asthma, ESRD on HD, GERD and chronic liver disease/cirrhosis who p/w SOB from his HD center.� Of note, he follows with us in [facility] office with Dr. Garcia - last office visit on
04/29/2023.� He is on Trelegy 100mcg with prn albuterol.� Adm to on 05/31/23 for evaluation of R-effusion on CXR compared to last, and he has a small left pleural effusion.� HD session started in ER.� Underwent thoracentesis with improvement.� s/p
PEG 06/10/23 for dysphagia on this admission.
06/18/23 developed worsening SOB, ABG showing acute CO2 retention, started on BIPAP, will be transferred to IMU for further care.� Remains full code.
Acute on chronic hypercarbic respiratory failure failed BIPAP and now on mechanical ventilation
Acute on chronic respiratory failure with hypoxemia on supplemental O2 (on 2L/min at baseline)
Chronic right-sided pleural effusion with acute left-sided pleural effusion s/p multiple thoras
Acute on chronic anemia
Chronic thrombocytopenia
Chronic dysphagia s/p PEG 06/10/23
Protein-Calorie malnutrition
Chronic hyponatremia
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
GERD
Mitral regurgitation
HLD
DM type II
Hx of alcoholic cirrhosis with Hx of EV + portal hypertensive gastropathy (seen in 2013 via EGD), HTN, COPD/asthma on chronic oxygen (2-3L/min)
ESRD on HD MWF
Moderate COPD with increased DLco/VA
Follows Dr Garcia
Restrictive lung defect (moderate with T% predicted via PFT from 04/2022)
Alcoholic liver disease with Hx of grade I EV and portal hypertensive gastropathy (seen via EGD in 2013) --> EV and gastropathy resolved via EGD in October 2019
5 mm irregular opacity in the posterior left upper lobe - seen on CT chest from October 2022
Plan
Continue mechanical ventilation, may need to be started on paralytic infusion, however in the meantime continue Nimbex pushes as needed
Goal peak pressure <35
Optimize inspiratory time, peak flow 2 try to optimize hypercapnia with goal pH >7.2
Guarded prognosis
Patient remains full code, however if we get to a point where hypercapnia continues to worsen, partner/patient's neighbor will likely withdraw care. Given his multiorgan failure, he is not a candidate for V�V ECMO
Will resume ABx (cefepime/vanc) given his worsening CXR, even though appears streaky opacities with concern for atelectasis vs worsening interstitial edema. But leukocytosis worsening and will cover empirically for now. Check sputum Cx, repeat
MRSA swab, if negative then can DC IV vanco.
Insert A-line given need for frequent blood draws
Per Dr. Krause:
Reviewed CT chest -- Left upper lobe nodule and right upper lobe nodule noted.� Largest 1.5 cm left lower lobe.�
Reviewed CT chest at length, pulm nodules noted.� 1 nodule has decreased in size, other nodules/infiltrate are new
Will require follow-up as outpatient
Patient underwent thoracentesis, in past -- studies indicate transudate
Chronic right pleural effusion with pleural thickening, likely trapped lung physiology.
Thora history:
- L 06/02/23 1000 mL
- L 04/08/23 1000 mL
- R 03/03/23 650mL
- L 01/30/23 1200mL
- R 01/18/23 800mL
- R 02/28/19 1500mL
- R 01/11/19 1500mL
Chest US to assess for thora on R --> shows: small to moderate right pleural effusion with thickened internal septations.
Unfortunate many of patient's pulmonary issues are chronic
Will check 6MWT and optimize oxygen therapy as outpatient, assuming he survives this hospitalization
COPD, continue inhalers
Started systemic steroids on evening of 06/18 --> wean as tolerated
Nebs
Volume overload noted
Continue HD as per nephrology
DVT prophylaxis: HSQ
GI prophylaxis: On PPI
His overall prognosis is poor given numerous severe medical issues that are not improving
He understands his prognosis but wishes to remain full code - this was before he got intubated
He did reiterate to Dr. Krause that should he be prolonged on the vent, he would want to be palliatively extubated by Day 5
I updated the patient's partner and neighbor on the critically ill state that the patient is in. Considering patient says he wanted to be intubated for 5 days to give it a 'try,' will continue with mechanical ventilation and hopefully we can
optimize his hypercapnia and then do an SAT/SBT. I have low hopes for this unfortunately. This was reiterated to the patient's partner, in layman's terms, to his satisfaction.
Critical care statement: A total of 41 minutes of critical care time was provided for this patient today. This includes management of unstable vital signs, evaluation of the patient at bedside, reviewing the patient's pertinent medical records
including radiographs, microbiology, laboratory evaluations, and discussion with primary team, consultants, pharmacy, nutrition, physical therapy, case management, charge nurse, critical care nursing, and respiratory therapy.
Diagnostic Data
CXR 06-01-2023:
There has been no significant change compared with the prior study.
There is moderate right pleural effusion with underlying atelectasis
There is a small left-sided pleural effusion with moderate interstitial airway disease throughout the lower left lung
CXR 05-31-2023:
1).There is a small left pleural effusion, increased in volume when compared with the prior study and associated with new increased parenchymal airspace disease throughout the lower left lung. I favor that this is pulmonary edema superimposed on
underlying effusion. Pneumonia is less likely
2).There is stable moderate-large right-sided pleural effusion with stable underlying parenchymal air space disease likely reflecting atelectasis
CXR 06-20-2023:
There is moderately large right-sided pleural effusion which appears larger than on prior study. There is consolidation in the right lower lobe which may be pneumonia versus atelectasis.
�There is a small left pleural effusion. Patchy airspace disease in the left lower lobe is likely atelectasis, but has worsened from prior study.
CXR 06-18-2023:
Placement of a right-sided PICC with the catheter tip in the right atrium. This could be retracted by 4 cm for a desired position at the cavoatrial junction.
Small to moderate right pleural effusion. Trace left pleural effusion. Stable mild prominence of the pulmonary vascular markings.
CT Chest 06/03/23 - 0.5 cm left upper lobe opacity seen on prior CT has decreased in size and volume. Two new small foci of patchy opacity in the left lower lobe are seen in comparison to prior CT, most likely inflammatory/infectious as well as
progression of left lower lobe subsegmental atelectasis and new tiny left pleural effusion. Likely chronic changes with volume loss in the right hemithorax without significant change including likely chronic moderate size right pleural effusion with
accompanying pleural thickening.
CT Chest without contrast 10-07-2022:
1. � Redemonstration of a moderate-sized chronic pleural effusion with associated smooth pleural thickening with grossly unchanged masslike consolidation involving the right lower and middle lobes most consistent with rounded atelectasis. Associated
right-sided volume loss.
2. � Previously seen ill-defined nodular opacities within the posterior right upper lobe have largely resolved. There are some new scattered tree-in-bud opacities within the left lower lobe suggestive of infectious or inflammatory bronchiolitis.
3. � Small amount of new pleural thickening within the posterior aspect of the left hemithorax adjacent to the left lower lobe.
4. � New nonspecific 5 mm irregular opacity within the posterior LEFT upper lobe.
5. � Aberrant RIGHT subclavian artery.
Outpatient [facility] Data:
Spirometry 10/15/2021,�demonstrated FEV1/FVC 58%, FEV1 1.03 L�(32%, FVC 1.76 L or 41%.� Mixed ventilatory defect suggestion of restriction with moderate to severe airflow obstruction.
��������
Spirometry 12/14/2019:�-FEV1/FVC 60%, FEV1 1.78 L 754%, FVC 2.90 L-67%.� Moderate airflow obstruction with a restriction.� Stable compared to before.
��������
Pulmonary function testing 12/13/2017:�demonstrated FEV1 /FVC 52%, FEV1 1.95 L-60%, FVC 3.71 L 785%, TLC 6.59 L-95%, RV 3.25 L-129%, DLCO 21.88-81%. Moderate airflow obstruction. Improvement on air trapping and hyperinflation.��������
Pulmonary function testing 09/09/2016:�FEV1/FVC 46%, FEV1 1.65 L-52%, FVC 3.61 L-84%. There was significant reversibility post bronchodilator. TLC 9.29 L-138%, RV 5.70 L-235%. DLCO 45%. Moderate/severe COPD with air trapping and
hyperinflation-emphysema phenotype.
�����
Spirometry 05/27/2016:�FEV1/FVC 55%, FEV1 1.32 L-38%, FVC 2.43 L-52%. Severe airflow obstruction with no reversibility.
FENO:
������ 10/15/2021 FeNO -- 22 ppb
�������07/15/2021 FENO 32ppb
�������12/14/2019 FENO 25 PPB
�������04/09/22 FENO 27ppb.
Subjective Dataa
Subjective Data
Date of Service:
Date of Service: June 20, 2023
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
Subjective:
Worsening hypercapnia overnight, intubated. This morning patient hypoxic, high peak pressures. Difficulty ventilating. Had to give Nimbex, sedate, FiO2 100%, changed from volume control to pressure control. Remains critically ill. Patient
remains full code.
Review of Systems
General: Unobtainable - Pat Unresp
Objective Data
Data Reviewed
Vital Signs / I&O / Oxygen:
Vital Signs
Temp Pulse Resp BP Pulse Ox
97.4 F 76 20 127/59 96
06/20/23 07:30 06/20/23 07:56 06/20/23 07:56 06/20/23 05:00 06/20/23 08:00
Intake and Output
06/19/23 06/20/23 06/21/23
06:59 06:59 06:59
Intake Total 0 / 0 744.8 / 768.2 76.6 / 76.6
Output Total 0 / 0
Balance 0 / 0 744.8 / 768.2 76.6 / 76.6
SaO2 [P-A/C] 96
SaO2 [A/C] 98
SaO2 [NIV (Non Invasive 95
Ventilation)]
SaO2 92
Nasal Cannula flow liters per 4
minute
Physical Exam
General: Respiratory Distress (Positive) and Comfortable
HEENT: Normocephalic and Anicteric
Cardiovascular: S1-S2 and Peripheral Edema (negative)
Respiratory: Wheeze (n), Crackles (n), Rhonchi (n), Non-Labored Respirations, ET Tube, Other (Mechanical breath sounds bilaterally) and Other (Reduced breath sounds bilaterally)
GI: Soft, Non Distended, Non Tender and Normal Bowel Sounds
Neurology: Unresponsive and Lethargic
Skin: Warm and Dry
Labs/Micro/Reports
Lab Data
06/20/23 03:42
06/20/23 03:42
Laboratory Results
06/20/23
04:02
pH 7.11 L*
pCO2 93 H*
pO2 66 L
HCO3 29.5 H
O2 Delivery Level
[2023-06-20 10:50] LABS: HCO3 29.9 mmol/L (21-28); O2 Saturation % 93.8 % (94-98); PO2 82 mmHg (83-108)
[2023-06-20 10:54] LABS: PCO2 108 mmHg (35-48); pH 7.05 (7.35-7.45)
--- NOTE | 2023-06-20 11:03 | W.PN.HOSP.TC ---
Today's Communication/Plan
-
Worsening ABG
Continue with steroids
Wean pressors as tolerated
Dialysis tomorrow
Prognosis poor
Assessment / Plan
Assessment / Plan
Physical Exam
General: chronically ill looking, and No Apparent Distress, cachetic
HEENT: Normocephalic, Atraumatic, dry Mucous Membranes. intubated
Respiratory: Dec bs.
Cardiac: Regular Rhythm and S1/S2; Negative Murmur, Rub or Gallop
GI: Soft, Nontender, Nondistended and Normal Bowel Sounds. +peg tube,
Rectal: No rectal bleeding noted.
Musculoskeletal: No Clubbing, No Cyanosis and No Edema
Skin: Negative Rash
Neuro: sedated.
#Acute on chronic hypoxic and hypercapnic resp failure 2/2 recurrent progressive pleural effusion, COPD, acute on chronic CHF with preserved ejection fraction and pulmonary edema
#Mechanical ventilation and intubation
#History of recurrent pleural effusions requiring multiple thoracentesis
#Chronic COPD on chronic 2 L nasal cannula 24 hours
#Former nicotine abuse 50-year 2 pack a day quit 2017
#Chronic pulmonary nodules
Continue bronchodilators, changed to Duo Neb TID.
s/p Left thoracentesis 1L fluid removed.
Tx to ICU on 06/18. Now on NIV. 40%.
wean o2 sats >88%.
US chest Small to moderate right pleural effusion with thickened internal septations. May need CT chest and ?CT placement.
Continue low-dose macrolide therapy Wednesday/Wednesday/Wednesday. Continue Trelegy
Started on steroids solumedrol
ABG with severe respiratory acidosis
Continue with propofol and fentanyl
Ventilation and sedation management per machine filler servicer
ICU consulted
# Chronic hypotension now worsened with sedation
Continue continue with midodrine and started on Levophed.
Afebrile. If spikes fever then start panculture with blood cultures and repeat chest x-ray.
#Recurrent pleural effusion
#Left upper lobe lesion
s/p 1L fluid removed. Exudative effusions. Fluid studies in lab negative for growth. Cytology negative for malignancy.
CT chest left upper lobe opacity decrease in size of volume. Two new small foci of patchy opacity in the left lower lobe are seen in comparison to prior CT, most likely inflammatory/infectious as well as progression of left lower lobe subsegmental
atelectasis and new tiny left pleural effusion. Likely chronic changes with volume loss in the right hemithorax without significant change including likely chronic moderate size right pleural effusion with accompanying pleural thickening.
will need to f/u with pulm for nodules.
#ESRD on dialysis
#AV fistula left upper arm
Wednesday dialysis. HD regular schedule.
Fluid removal should help. already on pressors (BP was limiting factor before)
nephro on board.
# PVD with hypothermia, Hypoglycemia
Accu-checks, Bp, SaO2 are not very accurate at times due to poor peripheral circulation.
AM cortisol level was normal
Normal ACTH stim test.
#Dysphagia
Can hold TF if high risk of resp distress and needing to intubate.
Stopped IVF D10
s/p peg tube placement on 06/10, no complications reported.
Likely due to combination of Cachexia associated with advanced COPD and deconditioning/ malnutrition. MRI brain, no stroke.
pt continued to struggle with oropharyngeal dysphagia. Dobbhoff placed, no gag reflex noted also. EGD also noted no gag reflex and mild retained secretions/TF in proximal esophagus, normal stomach and duodenum
Appreciate speech/swallow therapist & GI help
#Constipation
bowel regimen
# Multiple Atrial tachycardia.
Telemetry showed few episodes of MAT. No palpitation. No chest pain.
Continue with current medication. Unable to tolerate beta-sonal at times due to hypotension.
back to coreg 3.125mg BID with hold parameters
# moderate protein-caloric malnutrition Chronic
Patient has characteristics of COPD cachexia with severe loss of energy, wasting of muscles.
#Hyponatremia due to ESRD
per HD.
#Chronic diastolic CHF preserved EF
Follows at [facility] cardiology
resumed tube aspirin. Coreg held for hypotension
On dialysis- MWF
#Hypotension orthostatic Hx
Continue midodrine ATC, keep midodrine PRN also.
# Anemia of chronic disease hemoglobin around 10.
#Chronic thrombocytopenia
monitor
EPO/IV iron per nephro
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
#Hypoglycemia
cont gabapentin
Lantus 7 units discontinued
s/p D10 infusion.
#HLD
#GERD
tube PPI.
#Gout
-resumed tube allopurinol
#Depression
resumed tube Zoloft
DVT prophylaxis
Subcu heparin
PT/OT-SNF eventually.
d/w with Waylon at bedside
d/w with RN
Total Critical Care Time_ 35 minutes. I was immediately available to the patient and staff. I personally examined, reviewed labs, diagnostic images/reports, interpretations, treatment plans, discussed patient care with other providers and family
or caregivers (if patient is unable to make decisions), entered orders as appropriate and documented the medical record.
Anticipated Discharge: > 48 hours
Subjective/Interval History
-
Date of Service: June 20, 2023
Overnight events noted
Patient was intubated and sedated
Objective Data
-
Labs:
Laboratory Results
06/20/23 06/20/23 06/20/23
03:42 04:02 10:32
WBC 10.8
Hgb 10.5 L
Hct 34.5 L
Plt Count 171 D
HCO3 29.5 H 29.9 H
Sodium 132 L
Potassium 5.0
Chloride 91 L
Carbon Dioxide 31 H
BUN 71 H
Creatinine 4.7 H*
Glucose 260 H
Calcium 10.5 H
Vital Signs:
Vital Signs
Temp Pulse Resp BP Pulse Ox
97.4 F 91 10 100/52 92
06/20/23 07:30 06/20/23 10:30 06/20/23 10:30 06/20/23 10:30 06/20/23 10:30
I&O
06/19/23 06/20/23 06/21/23
06:59 06:59 06:59
Intake Total 0 / 0 744.8 / 768.2 106.4 / 106.4
Output Total 0 / 0
Balance 0 / 0 744.8 / 768.2 106.4 / 106.4
--- NOTE | 2023-06-20 11:27 | PTCARENOTE ---
[id number] pt SpO2 in 70-80 rage. Suctioned/lavage'd mx times until secretions ceased; bronchodilator admin by RT; admin fent bolus and increased sedation gtts. After mx treatments failed to bring SpO2 up, RT bagged pt w/out SpO2 recovery.
Ming made aware and received 1x dose paralytic- see JUL. S/P paralytic SpO2 improved 93-93% on PC vent settings. ABG drawn and sent to lab- results relayed to Dr. Lai and vent settings changed. Family to bedside, updated on pt.
condition/plan of care.
[2023-06-20 12:22] LABS: B.E. -1.6 mmol/L; HCO3 27.9 mmol/L (21-28); O2 Saturation % 97.8 % (94-98); PO2 114 mmHg (83-108)
[2023-06-20 12:30] LABS: pH 7.19 (7.35-7.45)
--- NOTE | 2023-06-20 12:30 | W.PN.NEPH.PH ---
Today's Communication / Plan
-
- HD with UF tomorrow per usual schedule
Assessment/Plan
-
Impression:
End-stage renal disease Wednesday, Wednesday, Wednesday
Hypoxia/Hypercapnia/COPD:home O2 2L
Right pleural effusion (Recurrent)
Hyperphosphatemia
Anemia
Diabetes with multiple microvascular complications
Hypotension on Midodrine
Cirrhosis
Chronic thrombocytopenia
Pulmonary nodules
Plan:
-HD Wednesday per usualy MWF schedule
- UF limited on 06/18 due to hypotension
- now with pressor support, will try for increased UF
-patient transferred to ICU for acute on chronic hypercapnic resp failure, now intubated and on pressor support
-hyponatremia persists
-PEG in no FWF
-bp stable at edw/meds
-LORIN for anemia
-For eventual discharge to rehab with dialysis
The patient is critically ill (intubated and with pressor support) and I spent >31 minutes in the care of this patient.
-
-
Date of Service: June 20, 2023
CC / HPI / ROS
-
Chief Complaint:
ESRD
History of Present Illness:
ESRD MWF, tolerated HD yesterday but UF limited
BP stable
intubated
failed swallow study, now with PEG
Review of Systems:
no CP
cough and difficulty swallow
PEG
Weights stable
Labs
-
Labs:
WBC 10.8 10^3/uL (4.8-10.8) 06/20/23 03:42
RBC 3.27 10^6/uL (4.70-6.10) L 06/20/23 03:42
Hgb 10.5 g/dL (13.0-18.0) L 06/20/23 03:42
Hct 34.5 % (39.0-52.0) L 06/20/23 03:42
Plt Count 171 10^3/uL (130-400) D 06/20/23 03:42
Sodium 132 mmol/L (135-145) L 06/20/23 03:42
Potassium 5.0 mmol/L (3.5-5.1) 06/20/23 03:42
Chloride 91 mmol/L (98-107) L 06/20/23 03:42
Carbon Dioxide 31 mmol/L (22-30) H 06/20/23 03:42
BUN 71 mg/dl (9-20) H 06/20/23 03:42
Creatinine 4.7 mg/dL (0.7-1.3) H* 06/20/23 03:42
eGFR 12.56 06/20/23 03:42
Glucose 260 mg/dl (70-99) H 06/20/23 03:42
Calcium 10.5 mg/dl (8.4-10.2) H 06/20/23 03:42
Phosphorus 6.0 mg/dl (2.5-4.5) H 06/16/23 05:33
Lir-L-Yjvuruddgbg Pept > 06455 pg/ml 05/31/23 08:08
Albumin 4.6 g/dl (3.5-5.0) 05/31/23 08:08
Physical Exam
-
Vital Signs:
Vital Signs
Temp Pulse Resp BP Pulse Ox
97.4 F 77 10 96/48 96
06/20/23 07:30 06/20/23 12:03 06/20/23 10:30 06/20/23 12:03 06/20/23 12:00
Cardiovascular:: Irregular rate and rhythm
Respiratory:: Bilateral: Coarse
Lung Excursion:: Abnormal
Abdomen:: Distended, Nontender and Soft
Bowel Sounds:: Normal
Extremity Edema:: +1: Bilateral:
Rodarte Catheter: No
[2023-06-20 12:31] LABS: PCO2 73 mmHg (35-48)
[2023-06-20 17:18] LABS: Glucose - Point of Care 268 mg/dl (70-99)
[2023-06-20 17:48] LABS: Glucose 264 mg/dl (70-99)
[2023-06-20] MEDS: MAXIPIME 1000 MG IV (18:13)
[2023-06-20] MEDS: STERILE WATER FOR INJECTION 10 ML IV (18:13)
[2023-06-20] MEDS: VANCOCIN 300 MG IV (18:14)
[2023-06-20] MEDS: VANCOCIN 300 ML IV (18:14)
--- NOTE | 2023-06-20 18:20 | W.SUR.POST ---
Surgical Immediate Post Op
Note
Pre Op Diagnosis: Need for frequent blood gasses; on mechanical ventilation
Post Op Diagnosis: same as above
Procedure Performed: Arterial catheter insertion procedure
Primary Surgeon/proceduralist: Dr. Lai
Secondary Surgeons: n/a
Anesthesia: n/a
Estimated Blood Loss: None
Fluids: n/a
Drains/Shunts: n/a
Specimens/Cultures: n/a
Doppler/Duplex/Angio (Y/N): n/a
Complications: No immediate complications
Operative Findings: After informed/verbal consent was obtained from the patient's partner, patient's right arm was prepared. Patient has good pulsatile flow in both ulnar and radial artery as seen on ultrasound. Integral-guidewire technique was
used. Trocar was inserted and advanced until pulsatile blood return was seen. Guidewire was advanced through the needle and catheter. The outer catheter was then advanced over the needle and wire into the artery. The needle�guidewire unit was
then removed and there was pulsatile, bright red blood seen. This was attached to the arterial catheter equipment which showed appropriate waveform. Arterial catheter was then secured into place using suturing, Tegaderm and also Biopatch was used.
There were no immediate complications.
--- NOTE | 2023-06-20 18:46 | PTCARENOTE ---
R rad A-line placed by Dr. Lai @ bedside; attached to pressure bag/tubing; all ports patent and secured; calibrated/monitored/zero'd. 1800 blood sugar elevated,confirmed w venous draw. Dr. Lai aware and further orders received. Also
received orders for BC. Dr. Mccarty aware of b/l limb restrict and received approval for use of PICC line for BC. Family @ bedside updated. Pt. repositioned per protocol. Safe environment maintained.
--- NOTE | 2023-06-20 18:47 | PHA.VAN.IN ---
Assessment
- Assessment
Renal Function: Patient has ESRD, on chronic Hemodialysis
Hemodialysis Schedule: MWF (NEXT HD SESSION PLANNED FOR 06/21)
Concomitant Antimicrobials: CEFEPIME, AZITHROMYCIN
Plan
- Plan
Initial / Loading Dose: VANCO 1500MG X1
Monitoring: RANDOM 06/21 @0600 PRIOR TO HD
MRSA Screen: Ordered per protocol
Pharmacokinetics Vancomycin I
- -
Patient Age: 73
Patient Sex: Male
Vancomycin Day #: 1
Indication: PULM
Requesting Provider: DR. ESPINOZA
Height / Weight:
Height 5 ft 10 in
Actual Weight 66 kg
Pertinent Past Medical History: ESRD-HD MWF, COPD/ASTHMA,DM, CIRRHOSIS
- Vital Signs / Lab Results
Temp Pulse Resp BP Pulse Ox
98.9 F 83 23 90/39 93
06/20/23 17:10 06/20/23 18:13 06/20/23 18:00 06/20/23 18:13 06/20/23 18:00
Lab Results - Hematology
06/18/23 06/19/23 06/20/23
18:20 04:00 03:42
WBC 4.6 L 5.3 10.8
Lab Results - Chemistry
06/18/23 06/19/23 06/20/23
18:20 04:00 03:42
BUN 35 H 43 H 71 H
Creatinine 2.6 H 3.3 H 4.7 H*
Estimated Creat Clear 26 20 13
[2023-06-20 19:24] LABS: Glucose - Point of Care 241 mg/dl (70-99)
[2023-06-20] MEDS: NOVOLOG FLEXPEN-LOW RESISTANCE 2 UNITS SC (19:26)
[2023-06-20 19:52] LABS: B.E. -2.9 mmol/L; HCO3 26.5 mmol/L (21-28); O2 Saturation % 96.8 % (94-98); PO2 93 mmHg (83-108)
[2023-06-20 19:54] LABS: PCO2 71 mmHg (35-48); pH 7.18 (7.35-7.45)
--- NOTE | 2023-06-20 20:35 | PTCARENOTE ---
pt received from previous rn- ett to vent, see settings as charted. remains on propofol, fentanyl and levophed via right picc- lumens flush with blood return, nsr with bbb and 1st degree av block on monitor. right radial rin zeroed and
functioning. pt with decreased o2 sats- abg drawn early- results discussed with Renea MCKAY and Dr. Sweeney. per Dr. Sanders- keep sats >88%. pt with drawls to pain, pupils 3 PERRLA. doppler pedal pulses, dusky in color and cool to touch. tube
feeds continue per order- remains with residual. peg tube site- c/d/i. sacral foam intact. scds on. sister and partner at bedside and updated. all safety precautions in place.
[2023-06-20] MEDS: NEURONTIN 300 MG TUBE (21:12)
[2023-06-20] MEDS: ZOLOFT 25 MG TUBE (21:12)
[2023-06-20] MEDS: NOVOLOG FLEXPEN-LOW RESISTANCE 5 UNITS SC (23:03)
[2023-06-20 23:10] LABS: B.E. -3.5 mmol/L; HCO3 25.4 mmol/L (21-28); O2 Saturation % 98.7 % (94-98); PCO2 65 mmHg (35-48); PO2 123 mmHg (83-108)
[2023-06-20 23:13] LABS: Glucose - Point of Care 345 mg/dl (70-99)
[2023-06-21] MEDS: LEVOPHED 250 IV ×3 (00:33→09:17)
--- NOTE | 2023-06-21 00:35 | PTCARENOTE ---
assessment unchanged. remains on levo, fent and propofol gtts. full bed bath provided. turned and repositioned. oral care provided. suctioned for minimal secretions, unable to obtain sputum sample at this time.
[2023-06-21] MEDS: DUONEB 3 ML INH ×4 (01:09→21:16)
[2023-06-21 03:14] VITALS: BMI 21.4
--- NOTE | 2023-06-21 03:58 | PTCARENOTE ---
assessment unchanged. labs sent. oral care and repositioning provided. gtts and vent settings unchanged.
[2023-06-21 04:00] LABS: B.E. -3.4 mmol/L; HCO3 25.2 mmol/L (21-28); O2 Saturation % 97.5 % (94-98); PCO2 63 mmHg (35-48); PO2 97 mmHg (83-108); pH 7.21 (7.35-7.45)
[2023-06-21 04:04] LABS: % Basophils 0.1 % (0-2); % Immature Granulocytes 0.4 % (0-0.5); % Neutrophils 95.5 % (42.2-75.2); Absolute Immature Granulocytes 0.1 10^3/uL (0-0.05); Absolute Lymphocytes 0.2 10^3/uL (1.2-3.4); Absolute Monocytes 0.5 10^3/uL (0.1-0.6); Absolute Neutrophils 16.4 10^3/uL (1.4-6.5); Hematocrit 33.3 % (39.0-52.0); Hemoglobin 10.8 g/dL (13.0-18.0); Mean Corp Hgb Conc. 32.4 g/dL (33.0-37.0); Mean Corpuscular Hgb 32.9 pg (27.0-31.0); Mean Corpuscular Volume 101.5 fL (80.0-94.0); Mean Platelet Volume 9.3 fL (7.4-10.4); Nucleated Red Blood Cells % 0.5 % (-); Platelet Count 276 10^3/uL (130-400); Red Blood Cell Count 3.28 10^6/uL (4.70-6.10); Red Cell Dist. Width 14.3 % (11.5-14.5); White Blood Cell Count 17.1 10^3/uL (4.8-10.8)
[2023-06-21 04:35] LABS: Vancomycin Random 19.2 ug/ml
[2023-06-21 04:40] LABS: Blood Urea Nitrogen 96 mg/dl (9-20); Calcium 9.7 mg/dl (8.4-10.2); Carbon Dioxide 22 mmol/L (22-30); Chloride 87 mmol/L (98-107); Estimated Creatinine Clearance 11 ml/min; Glucose 308 mg/dl (70-99); Potassium 5.5 mmol/L (3.5-5.1); Sodium 127 mmol/L (135-145); eGFR 9.56
[2023-06-21] MEDS: SOLU-MEDROL PF 40 MG IV (05:00)
[2023-06-21] MEDS: NOVOLOG FLEXPEN-LOW RESISTANCE 3 UNITS SC (05:03)
[2023-06-21 05:13] LABS: Glucose - Point of Care 269 mg/dl (70-99)
--- NOTE | 2023-06-21 06:24 | W.PN.HOSP.TC ---
Today's Communication/Plan
-
.
Assessment / Plan
Assessment / Plan
Physical Exam
General: chronically ill looking, intubated and sedated
HEENT: Atraumatic, dry Mucous Membranes. intubated
Lungs: Rales and rhonchi, limited
Cardiac: Regular Rhythm and S1/S2;
GI: Soft, Nontender, Nondistended and Normal Bowel Sounds. +peg tube,
Rectal: No rectal bleeding noted.
Musculoskeletal: No Clubbing, No Cyanosis and No Edema
Skin: Negative Rash
Neuro: sedated.
Psych: no agitation
#Acute on chronic hypoxic and hypercapnic resp failure 2/2 recurrent progressive pleural effusion, COPD, acute on chronic CHF with preserved ejection fraction and pulmonary edema
#Mechanical ventilation and intubation
#History of recurrent pleural effusions requiring multiple thoracentesis
#Chronic COPD on chronic 2 L nasal cannula 24 hours
#Former nicotine abuse 50-year 2 pack a day quit 2017
#Chronic pulmonary nodules
ABG showed 7.21/63/PO2 97 on ventilator support
Continue ventilatory support,
s/p Left thoracentesis 1L fluid removed.
Chest x-ray showed right pleural effusion. Previous thoracentesis showed transudative
Nebulizer treatment 3 times a day
On fentanyl and propofol for sedation
#Sepsis/septic shock
Continue with empiric antibiotics
Blood culture
Sputum culture
Consult ID
# Chronic hypotension now worsened with sedation
Continue continue with midodrine and started on Levophed. Started on
Stress dose of steroids. Previous cortisol testing including stimulation test did not show adrenal insufficiency
Afebrile. If spikes fever then start panculture with blood cultures and repeat chest x-ray.
#Recurrent pleural effusion
#Left upper lobe lesion
s/p 1L fluid removed. Exudative effusions. Fluid studies in lab negative for growth. Cytology negative for malignancy.
CT chest left upper lobe opacity decrease in size of volume. Two new small foci of patchy opacity in the left lower lobe are seen in comparison to prior CT, most likely inflammatory/infectious as well as progression of left lower lobe subsegmental
atelectasis and new tiny left pleural effusion. Likely chronic changes with volume loss in the right hemithorax without significant change including likely chronic moderate size right pleural effusion with accompanying pleural thickening.
#ESRD on dialysis
#AV fistula left upper arm
Wednesday dialysis. HD regular schedule.
Fluid removal should help. already on pressors (BP was limiting factor before)
nephro on board.
# PVD with hypothermia, Hypoglycemia
Accu-checks, Bp, SaO2 are not very accurate at times due to poor peripheral circulation.
AM cortisol level was normal
Normal ACTH stim test.
#Dysphagia
Can hold TF if high risk of resp distress and needing to intubate.
Stopped IVF D10
s/p peg tube placement on 06/10, no complications reported.
Likely due to combination of Cachexia associated with advanced COPD and deconditioning/ malnutrition. MRI brain, no stroke.
pt continued to struggle with oropharyngeal dysphagia. Dobbhoff placed, no gag reflex noted also. EGD also noted no gag reflex and mild retained secretions/TF in proximal esophagus, normal stomach and duodenum
Appreciate speech/swallow therapist & GI help
#Constipation
bowel regimen
# Multiple Atrial tachycardia.
Telemetry showed few episodes of MAT. No palpitation. No chest pain.
Continue with current medication. Unable to tolerate beta-sonal at times due to hypotension.
back to coreg 3.125mg BID with hold parameters
# moderate protein-caloric malnutrition Chronic
Patient has characteristics of COPD cachexia with severe loss of energy, wasting of muscles.
#Hyponatremia due to ESRD
per HD.
#Chronic diastolic CHF preserved EF
Follows at [facility] cardiology
resumed tube aspirin. Coreg held for hypotension
On dialysis- MWF
#Hypotension orthostatic Hx
Midodrine and Levophed support
# Anemia of chronic disease hemoglobin around 10.
#Chronic thrombocytopenia
monitor
EPO/IV iron per nephro
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
#Hypoglycemia
Hold gabapentin while on sedation
Previous hypoglycemia, on insulin protocol
s/p D10 infusion.
#HLD
#GERD
tube PPI.
#Gout
-resumed tube allopurinol
#Depression
Hold Zoloft while on sedation
DVT prophylaxis
Subcu heparin
PT/OT-SNF eventually.
d/w with Waylon at bedside
d/w with RN
Total Care Time_ 55 minutes. I was immediately available to the patient and staff. I personally examined, reviewed labs, diagnostic images/reports, interpretations, treatment plans, discussed patient care with other providers and family or
caregivers (if patient is unable to make decisions), entered orders as appropriate and documented the medical record.
Anticipated Discharge: > 48 hours
Subjective/Interval History
-
Date of Service: June 21, 2023
No fevers over night
remains on pressure support
Remains on vent support
ABG reviewed
Objective Data
-
Labs:
Laboratory Results
06/20/23 06/20/23 06/21/23
19:47 23:04 03:50
WBC 17.1 H
Hgb 10.8 L
Hct 33.3 L
Plt Count 276 D
HCO3 26.5 25.4 25.2
Sodium 127 L
Potassium 5.5 H
Chloride 87 L
Carbon Dioxide 22
BUN 96 H
Creatinine 5.9 H*
Glucose 308 H
Calcium 9.7
Vital Signs:
Vital Signs
Temp Pulse Resp BP Pulse Ox
99.4 F 92 5 83/10 90
06/21/23 05:58 06/21/23 05:00 06/21/23 05:00 06/20/23 19:48 06/21/23 05:00
I&O
06/19/23 06/20/23 06/21/23
06:59 06:59 06:59
Intake Total 0 / 0 744.8 / 818.2 2198.9 / 2198.9
Output Total 0 / 0 0 / 0
Balance 0 / 0 744.8 / 818.2 2198.9 / 2198.9
[2023-06-21] MEDS: COREG TUBE (07:21)
[2023-06-21] MEDS: ProAmatine 5 MG TUBE ×3 (07:47→18:02)
[2023-06-21] MEDS: LOW STRENGTH ASPIRIN 81 MG TUBE (07:47)
[2023-06-21] MEDS: PREVACID 30 MG TUBE (07:47)
[2023-06-21] MEDS: HEPARIN 5000 UNITS SC ×2 (07:48→19:44)
--- NOTE | 2023-06-21 08:00 | PTCARENOTE ---
Received pt from previous RN, intubated/sedated/restrained w b/l soft limb/4 rails- see flow sheet. W/draws to painful stim. +cough/gag reflex; weak. Pupils 3mm, brisk, perrla. SR w 1st degree AVB and BBB. SpO2 94% on vent settings PC28/28/.100/+5.
Auscultated diminished breath sounds throughout R side; coarse/scat rhonchi L side. Suctioned of lg amt of thick/yellow/slaughter secretions. Peg in place w TF infusing per orders; remains w high residuals. Anuric. Prop/fent/levo gtts infusing via R DL
PICC- see flow sheet. R rad A-line in place; transduced, calibrated, and monitored; all ports patent and secured. L AV fistula +bruit/thrill, HD on progress. Safe environment maintained.
[2023-06-21] MEDS: MANNITOL 12.5 GRAMS IV ×2 (08:35→10:19)
--- NOTE | 2023-06-21 09:09 | CON.ID ---
Addendum entered and electronically signed by Isabela Carlisle MD 06/21/23 16:33:
chart rechecked - US not yet done
Addendum entered and electronically signed by Isabela Carlisle MD 06/21/23 13:15:
chart checked abd US not yet done
Original Note:
Consultation
-
Date/Time Consultation Requested: 06/21/23 6:25
Date/Time Consultation Performed: 06/21/23 9:09
Requesting Provider: Dr Arceo
Performing Provider: Dr Carlisle
Reason for Consultation: Respiratory failure, suspect Pneumonia
Chief Complaint / Past History
Chief Complaint
shortness of breath
History of Present Illness
Mr Najera is a 73 year old male with history notable for ESRD on HD with recurrent exudative pleural effusion, COPD on 2L, cirrhosis, dysphagia who presented here from his HD center 05/31 (21 days ago) for severe, acute shortness of breath to the
point that he could not finish his HD session and came to the hospital instead. Inhaler was not helpful. No fevers or chills at that time. No sick contacts or travel. Reported chronic sputum production - unchanged. No missed HD sessions and no
dietary indiscretions. No chest pain, abdominal pain or diarrhea.
Since arrival here three weeks ago he has been overall afebrile - sporadic nonsustained hypothermia noted - none in the last 36 hours, he began with a pressors requirement yesterday AM for the first time this admission and it has increased to the
point of 20 mcg/min and patient required intubation for acute hypoxemic resp failure, started on steroids same day . Course notable for PEG 06/10 for dysphagia. Trapped lung physiology reported. WBC earlier this admission normal. Began to
decompensate 06/18 with worsening shortness of breath and started on Bipap. Then yesterday wbc increased from baseline of ~5 to 10.8 and today today 17.1, hgb 10.8, plt increased from 100s to 276, a left shift is noted today and there are no
eosinophils on the diff, numerous ABGs needed in the last 24 hour and he was acidotic/hypercarbic, today pH and Co2 trending towards normal, O2 normal, K today .5, cr 5.9, na 127 down from 132, ca was running mildly high nnow 9.7 uncorrected, 06/02
pleural fluid normal pH, monocytic, normal glucose, CXR patchy airspace disease in the left lower lobe, likely atelectasis; I reviewed personally - notable for moderate effusion with likely loculations, There is more consolidation in the right lower
lobe suggesting pneumonia although compressive atelectasis is possible, 06/18 Chest US of the R effusion: small/moderate with internal septations at that time. Today resp culture pending, mrsa screen pending, single blood culture sent, body fluid
culture 06/02 - no growth, 06/02 afb/fungal cx of pleural fluid smears negative cultures in progress. Hospice is a consideration.
Past History
Additional Past Medical History:
Heart failure preserved EF,
valvular dysfunction mild MR, , AR
recurrent pleural effusion status post multiple thoracentesis
COPD chronic/chronic hypercarbia
multiple pulmonary nodules.
tobacco abuse
Orthostatic hypotension
anemia of chronic disease ESRD on dialysis
gout
HLD
DM2 with diabetic neuropathy
GERD
ESRD on hemodialysis Wednesday
Additional Past Surgical History:
AV fistula
recurrent pleural effusion status post multiple thoracentesis
Allergy History:
budesonide [From Symbicort] Allergy (Verified 03/03/23 02:42)
THROAT IRRITATION
formoterol [From Symbicort] Allergy (Verified 03/03/23 02:42)
THROAT IRRITATION
Medications Reviewed: Yes
Social History
Tobacco: Smoker ((50-year 2 pack a day stopped 2018))
Alcohol: None
Drug: None
Family History
Family History: Not Pertinent
Review of Systems
Review of Systems
unable to obtain due to condition of the patient
Vital Signs
Temp Pulse Resp BP Pulse Ox
99.3 F 90 31 109/43 94
06/21/23 07:20 06/21/23 07:47 06/21/23 07:37 06/21/23 07:47 06/21/23 08:09
Physical Exam
Physical Exam
Constitutional: No Acute Distress
Cardiovascular: Regular Rate and S1/S2; Negative Murmur or Rub
Pulmonary: Clear and Symmetric; Negative Wheezes, Rales or Rhonchi
Gastrointestinal: Soft, Non Tender, Non Distended and Normal Bowel Sounds
Skin: Warm and Dry; Negative Rash or Jaundice
Lab / Diagnostic Study Results
06/21/23 03:50
06/21/23 03:50
Abs Immat Gran (auto) 0.1 10^3/uL (0-0.05) H 06/21/23 03:50
Absolute Neuts (auto) 16.4 10^3/uL (1.4-6.5) H 06/21/23 03:50
Absolute Lymphs (auto) 0.2 10^3/uL (1.2-3.4) L 06/21/23 03:50
Absolute Monos (auto) 0.5 10^3/uL (0.1-0.6) 06/21/23 03:50
Absolute Basos (auto) 0.0 10^3/uL (0-0.2) 06/21/23 03:50
Immature Gran % 0.4 % (0-0.5) 06/21/23 03:50
Neutrophils % 95.5 % (42.2-75.2) H 06/21/23 03:50
Lymphocytes % 1.0 % (20.5-51.1) L 06/21/23 03:50
Monocytes % 3.0 % (1.7-9.3) 06/21/23 03:50
Eosinophils % 0.0 % (0-6) 06/21/23 03:50
Basophils % 0.1 % (0-2) 06/21/23 03:50
PT 15.0 Sec (11.4-14.6) H 06/18/23 18:20
INR 1.20 06/18/23 18:20
Microbiology Results
Micro:
06/21/23 03:50 Respiratory Culture - Pending
Endotracheal Gram Stain - Pending
06/20/23 17:27 Nasal Screen MRSA (PCR) - Pending
Nose
06/20/23 17:27 Blood Culture - Pending
Blood/Venous
06/02/23 14:02 Fungal Smear - Final
Pleural Fluid No yeast or fungal elements seen.
Fungal Culture - Preliminary
Culture in progress.
Positive cultures are reported as soon as detected.
Final report to follow in four to five weeks.
06/02/23 14:03 Body Fluid Culture - Final
Pleural Fluid NO GROWTH-FINAL REPORT
Gram Stain - Final
06/02/23 14:02 Acid Fast Bacilli Smear - Preliminary
Pleural Fluid Acid Fast Bacilli Culture - Preliminary
05/31/23 18:04 MRSA Screen - Final
Nose No Methicillin Resistant Staphylococcus aureus isolated.
05/31/23 08:08 Influenza Types A & B (THANG) - Final
Nasal Swab Negative for Influenza A & B, NAAT
Negative results must be combined with clinical observations
and patient history.
Nucleic Acid Amplification test (NAAT)performed on the
[employer] platform.
Assessment / Plan
Shock - likely Septic
Known Aspiration with oropharyngeal dysfunction s/p PEG tube
Possible Aspiration pneumonia
Chronic R pleural effusion with suspected trapped lung physiology
ESRD on HD
Cirrhosis - decompensated?
Pulmonary nodules - progressed - outpatient follow up with pulm
- blood cultures x2 - two sets needed for sensitivity
- sputum culture in progress
- abdominal US - decompensated cirrhosis - check for ascites, may consider SBP if sufficient fluid, chronic R effusion suggests there may be
- ammonia level
- HD access - L arm fistula - RN reports some difficulties with BP, otherwise functional
- no tenderness/redness over the lines, does not require a mills
- agree with vanc/cefepime, decompensated while on azithro 250 MWF I suspect as COPDe prophylaxis - stopped
- added metronidazole
- Agree that prognosis is poor due to multiple comorbidities - hospice a consideration and conversations have been ongoing including on prior admissions
Patient is critically ill
[2023-06-21] MEDS: FLEXBUMIN 25% FOR HEMODIALYSIS 12.5 GRAMS IV ×2 (09:38→10:20)
[2023-06-21] MEDS: DIPRIVAN 100 IV (09:58)
[2023-06-21 10:12] LABS: Ammonia 13 umol/L (9-30)
[2023-06-21 10:18] LABS: ALT (SGPT) < 10 U/L (0-50); AST (SGOT) 19 U/L (17-59); Albumin 3.9 g/dl (3.5-5.0); Alkaline Phosphatase 119 U/L (38-126); Direct Bilirubin 0.6 mg/dl (0.0-0.4); Total Bilirubin 0.6 mg/dl (0.2-1.3); Total Protein 6.9 g/dl (6.3-8.2)
--- NOTE | 2023-06-21 10:27 | W.PN.INTV ---
Addendum entered and electronically signed by Williams Poole MD 06/21/23 10:56:
Had additional discussion with sister and partner at length regarding goals of care
They have reiterated that patient would not want prolonged life support, mechanical ventilation
They have also concluded that he would not want resuscitation in the event of cardiac arrest, shock/CPR at this time
Multiple family members are considering coming to visit.
Reviewed at length the process of withdrawal of care if it comes to that.
Patient is DNR, otherwise continue supportive care
Multiple questions asked and answered to the best my ability
TTS with communication regarding goals of care 15 additional minutes
Original Note:
Today's Communication / Plan
Recommendations
Transition to stress dose steroids
Bowel regimen
Restart insulin regimen
Check echocardiogram
Assessment
-
73-year-old M former tobacco smoker (quit 2016) with PMhx COPD/asthma, ESRD on HD, GERD and chronic liver disease/cirrhosis who p/w SOB from his HD center.� Of note, he follows with us in [facility] office with Dr. Garcia - last office visit on
04/29/2023.� He is on Trelegy 100mcg with prn albuterol.� Adm to on 05/31/23 for evaluation of R-effusion on CXR compared to last, and he has a small left pleural effusion.� HD session started in ER.� Underwent thoracentesis with improvement.� s/p
PEG 06/10/23 for dysphagia on this admission.
06/18/23 developed worsening SOB, ABG showing acute CO2 retention, started on BIPAP, will be transferred to IMU for further care.� Remains full code.
Acute on chronic hypercarbic respiratory failure failed BIPAP and now on mechanical ventilation
Intubated 06/20/2023
Hypotension, requiring pressors
Leukocytosis
Acute on chronic respiratory failure with hypoxemia on supplemental O2 (on 2L/min at baseline)
Chronic right-sided pleural effusion with acute left-sided pleural effusion s/p multiple thoras
Acute on chronic anemia
Chronic thrombocytopenia
Chronic dysphagia s/p PEG 06/10/23
Protein-Calorie malnutrition
Chronic hyponatremia
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
GERD
Mitral regurgitation
HLD
DM type II
Hx of alcoholic cirrhosis with Hx of EV + portal hypertensive gastropathy (seen in 2013 via EGD), HTN, COPD/asthma on chronic oxygen (2-3L/min)
ESRD on HD MWF
Moderate COPD with increased DLco/VA
Follows Dr Garcia
Restrictive lung defect (moderate with T% predicted via PFT from 04/2022)
Alcoholic liver disease with Hx of grade I EV and portal hypertensive gastropathy (seen via EGD in 2013) --> EV and gastropathy resolved via EGD in October 2019
5 mm irregular opacity in the posterior left upper lobe - seen on CT chest from October 2022
Plan/recommendations
At this time, patient remains critically ill, on norepinephrine
Pressure control ventilation continues, plateau pressure 28
Increased residuals noted, no bowel movement for 4 days
Remains on cefepime/vancomycin/Zithromax
Currently receiving dialysis
No further episodes of hypoxia as noted 24 hours prior
Moving forward
Continue with ventilator support, no changes
Currently on PCV 28/5/100%
Ppk 34, Pplat 28. Maintain plateau pressure less than 30
Vt 270-300
Chest x-ray 06/20 with a ET tube a bit high. Advanced 2 cm
Repeat x-ray 06/22
ABG as needed, A-line placed yesterday p.m.
Currently 7./
Leukocytosis noted low-grade fever noted
Presumed sepsis with hypotension
Remains on cefepime/vancomycin. Zithromax discontinued
ID following. Cultures pending
Cover for possible SBP
Chronic right pleuroparenchymal process noted, trapped lung physiology
Reviewed CT chest -- Left upper lobe nodule and right upper lobe nodule noted.� Largest 1.5 cm left lower lobe.�
Reviewed CT chest at length, pulm nodules noted.� 1 nodule has decreased in size, other nodules/infiltrate are new
Patient underwent thoracentesis, in past -- studies indicate transudate
Chronic right pleural effusion with pleural thickening, likely trapped lung physiology.
Thora history:
- L 06/02/23 1000 mL
- L 04/08/23 1000 mL
- R 03/03/23 650mL
- L 01/30/23 1200mL
- R 01/18/23 800mL
- R 02/28/19 1500mL
- R 01/11/19 1500mL
Chest US to assess for thora on R --> shows: small to moderate right pleural effusion with thickened internal septations.
COPD, continue inhalers
Will transition to stress dose steroids given marginal blood pressure
Patient was on steroids started 06/18. Significant COPD history noted
Duonebs continue
Volume overload noted
Continue HD as per nephrology
Marginal blood pressure noted, on midodrine
Check echocardiogram
Increased residuals noted per nursing. Last bowel movement 4 days ago
Optimize bowel regimen elevated blood sugars noted. Resume outpatient insulin regimen, every 6h Insulin monitoring
Follow
DVT prophylaxis: HSQ
GI prophylaxis: On PPI
His overall prognosis is poor given numerous severe medical issues that are not improving
He understands his prognosis but wishes to remain full code - this was before he got intubated
He did reiterate to Dr. Krause that should he be prolonged on the vent, he would want to be palliatively extubated by Day [address] Lai updated the patient's partner and neighbor on the critically ill state that the patient is in. Considering patient says he wanted to be intubated for 5 days to give it a 'try,' will continue with mechanical ventilation and hopefully we
can optimize his hypercapnia and then do an SAT/SBT. This was reiterated to the patient's partner, in layman's terms, to his satisfaction.
This was reviewed again on 06/21/2023 by myself with partner and sister 06/21.
Critical care statement: A total of 43 minutes of critical care time was provided for this patient today. This includes management of unstable vital signs, evaluation of the patient at bedside, reviewing the patient's pertinent medical records
including radiographs, microbiology, laboratory evaluations, and discussion with primary team, consultants, pharmacy, nutrition, physical therapy, case management, charge nurse, critical care nursing, and respiratory therapy.
Diagnostic Data
CXR 06-01-2023:
There has been no significant change compared with the prior study.
There is moderate right pleural effusion with underlying atelectasis
There is a small left-sided pleural effusion with moderate interstitial airway disease throughout the lower left lung
CXR 05-31-2023:
1).There is a small left pleural effusion, increased in volume when compared with the prior study and associated with new increased parenchymal airspace disease throughout the lower left lung. I favor that this is pulmonary edema superimposed on
underlying effusion. Pneumonia is less likely
2).There is stable moderate-large right-sided pleural effusion with stable underlying parenchymal air space disease likely reflecting atelectasis
CXR 06-20-2023:
There is moderately large right-sided pleural effusion which appears larger than on prior study. There is consolidation in the right lower lobe which may be pneumonia versus atelectasis.
�There is a small left pleural effusion. Patchy airspace disease in the left lower lobe is likely atelectasis, but has worsened from prior study.
CXR 06-18-2023:
Placement of a right-sided PICC with the catheter tip in the right atrium. This could be retracted by 4 cm for a desired position at the cavoatrial junction.
Small to moderate right pleural effusion. Trace left pleural effusion. Stable mild prominence of the pulmonary vascular markings.
CT Chest 06/03/23 - 0.5 cm left upper lobe opacity seen on prior CT has decreased in size and volume. Two new small foci of patchy opacity in the left lower lobe are seen in comparison to prior CT, most likely inflammatory/infectious as well as
progression of left lower lobe subsegmental atelectasis and new tiny left pleural effusion. Likely chronic changes with volume loss in the right hemithorax without significant change including likely chronic moderate size right pleural effusion with
accompanying pleural thickening.
CT Chest without contrast 10-07-2022:
1. � Redemonstration of a moderate-sized chronic pleural effusion with associated smooth pleural thickening with grossly unchanged masslike consolidation involving the right lower and middle lobes most consistent with rounded atelectasis. Associated
right-sided volume loss.
2. � Previously seen ill-defined nodular opacities within the posterior right upper lobe have largely resolved. There are some new scattered tree-in-bud opacities within the left lower lobe suggestive of infectious or inflammatory bronchiolitis.
3. � Small amount of new pleural thickening within the posterior aspect of the left hemithorax adjacent to the left lower lobe.
4. � New nonspecific 5 mm irregular opacity within the posterior LEFT upper lobe.
5. � Aberrant RIGHT subclavian artery.
Outpatient [facility] Data:
Spirometry 10/15/2021,�demonstrated FEV1/FVC 58%, FEV1 1.03 L�(32%, FVC 1.76 L or 41%.� Mixed ventilatory defect suggestion of restriction with moderate to severe airflow obstruction.
��������
Spirometry 12/14/2019:�-FEV1/FVC 60%, FEV1 1.78 L 754%, FVC 2.90 L-67%.� Moderate airflow obstruction with a restriction.� Stable compared to before.
��������
Pulmonary function testing 12/13/2017:�demonstrated FEV1 /FVC 52%, FEV1 1.95 L-60%, FVC 3.71 L 785%, TLC 6.59 L-95%, RV 3.25 L-129%, DLCO 21.88-81%. Moderate airflow obstruction. Improvement on air trapping and hyperinflation.��������
Pulmonary function testing 09/09/2016:�FEV1/FVC 46%, FEV1 1.65 L-52%, FVC 3.61 L-84%. There was significant reversibility post bronchodilator. TLC 9.29 L-138%, RV 5.70 L-235%. DLCO 45%. Moderate/severe COPD with air trapping and
hyperinflation-emphysema phenotype.
�����
Spirometry 05/27/2016:�FEV1/FVC 55%, FEV1 1.32 L-38%, FVC 2.43 L-52%. Severe airflow obstruction with no reversibility.
FENO:
������ 10/15/2021 FeNO -- 22 ppb
�������07/15/2021 FENO 32ppb
�������12/14/2019 FENO 25 PPB
�������04/09/22 FENO 27ppb.
Subjective Dataa
Subjective Data
Date of Service:
Date of Service: June 21, 2023
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
Subjective:
Patient remains critically ill. Remains on norepinephrine, 20 mcg. Currently receiving dialysis. Metabolic and respiratory acidemia noted.
Objective Data
Data Reviewed
Vital Signs / I&O / Oxygen:
Vital Signs
Temp Pulse Resp BP Pulse Ox
99.3 F 90 31 109/43 94
06/21/23 07:20 06/21/23 07:47 06/21/23 07:37 06/21/23 07:47 06/21/23 08:09
Intake and Output
06/20/23 06/21/23 06/22/23
06:59 06:59 06:59
Intake Total 744.8 / 818.2 2198.9 / 2312.3 523.6 / 523.6
Output Total 0 / 0
Balance 744.8 / 818.2 2198.9 / 2312.3 523.6 / 523.6
SaO2 [P-A/C] 94
SaO2 [A/C] 98
SaO2 [NIV (Non Invasive 95
Ventilation)]
SaO2 94
Nasal Cannula flow liters per 4
minute
Physical Exam
General: Comfortable and Other (Right upper extremity PICC)
HEENT: Normocephalic and Anicteric
Cardiovascular: S1-S2, Regular Rhythm, Murmur (n) and Rub (n)
Respiratory: Wheeze (n), Crackles (n), Rhonchi (n), Non-Labored Respirations, ET Tube, Other (Mechanical breath sounds bilaterally) and Other (Decreased breath sounds right base)
GI: Soft, Distended, Non Tender, Normal Bowel Sounds and Other (PEG tube)
Neurology: Unresponsive (Sedated)
Skin: Warm, Dry and Bruising (Few scattered)
Labs/Micro/Reports
Lab Data
06/21/23 03:50
06/21/23 03:50
Laboratory Results
06/20/23 06/20/23 06/20/23
10:32 12:12 19:47
pH 7.05 L* 7.19 L* 7.18 L*
pCO2 108 H* 73 H* 71 H*
pO2 82 L 114 H 93
HCO3 29.9 H 27.9 26.5
O2 Delivery Level Not Reportable Not Reportable
06/20/23 06/21/23
23:04 03:50
pH 7.20 L 7.21 L
pCO2 65 H 63 H
pO2 123 H 97
HCO3 25.4 25.2
O2 Delivery Level
Microbiology
06/20/23 17:27 Nose Nasal Screen MRSA (PCR) - Final
MRSA not detected - performed by PCR methodology.
[2023-06-21] MEDS: ZITHROMAX TUBE (10:41)
--- NOTE | 2023-06-21 10:48 | W.PN.NEPH.PH ---
Today's Communication / Plan
-
HD today
Assessment/Plan
-
Impression:
End-stage renal disease Wednesday, Wednesday, Wednesday
Hypoxia/Hypercapnia/COPD:home O2 2L
Right pleural effusion (Recurrent)
Hyperphosphatemia
Anemia
Diabetes with multiple microvascular complications
Hypotension on Midodrine
Cirrhosis
Chronic thrombocytopenia
Pulmonary nodules
Plan:
Progressive clinical decline recently and required multiple admits for resp failure despite HD support
noted plan from [employer], if no improvement in few days likely palliatively extubate
cotn HD as per schedule and try UF as much as possible
cont pressors to keep MAP>60, remains on midodrine 5 TID
On TF through PEG with no FWF
Hb stable
abx and stress steroids per ICU
d/w nursing
Poor prognosis
Total Time Spent with Patient (in minutes): 31min
-
-
Date of Service: June 21, 2023
CC / HPI / ROS
-
Chief Complaint:
ESRD
History of Present Illness:
ESRD MWF,
now in ICU intibated on 90% Fio2
hypotension on pressors and midodrine
failed swallow study, now with PEG feeds
sodium low 127, k high 5.5
Review of Systems:
sedated and intubated
no fever
Labs
-
Labs:
WBC 17.1 10^3/uL (4.8-10.8) H 06/21/23 03:50
RBC 3.28 10^6/uL (4.70-6.10) L 06/21/23 03:50
Hgb 10.8 g/dL (13.0-18.0) L 06/21/23 03:50
Hct 33.3 % (39.0-52.0) L 06/21/23 03:50
Plt Count 276 10^3/uL (130-400) D 06/21/23 03:50
Sodium 127 mmol/L (135-145) L 06/21/23 03:50
Potassium 5.5 mmol/L (3.5-5.1) H 06/21/23 03:50
Chloride 87 mmol/L (98-107) L 06/21/23 03:50
Carbon Dioxide 22 mmol/L (22-30) 06/21/23 03:50
BUN 96 mg/dl (9-20) H 06/21/23 03:50
Creatinine 5.9 mg/dL (0.7-1.3) H* 06/21/23 03:50
eGFR 9.56 06/21/23 03:50
Glucose 308 mg/dl (70-99) H 06/21/23 03:50
Calcium 9.7 mg/dl (8.4-10.2) 06/21/23 03:50
Phosphorus 6.0 mg/dl (2.5-4.5) H 06/16/23 05:33
Fcc-P-Htexkyuhcni Pept > 92102 pg/ml 05/31/23 08:08
Albumin 3.9 g/dl (3.5-5.0) 06/21/23 09:50
Physical Exam
-
Vital Signs:
Vital Signs
Temp Pulse Resp BP Pulse Ox
99.3 F 84 28 109/43 98
06/21/23 07:20 06/21/23 10:30 06/21/23 10:30 06/21/23 07:47 06/21/23 09:30
Cardiovascular:: Regular rate and rhythm
Lung Excursion:: Abnormal (rales right side, decreased left side)
Abdomen:: Nontender and Soft
Extremity Edema:: None: Bilateral:
Rodarte Catheter: No
Other Findings::
toes peripheral cyanosis
--- NOTE | 2023-06-21 10:58 | W.PN.NEPH.HD ---
Assessment
-
pt seen during HD
SBP 90s on pressors
UF as tolerates
AVF functions fine
Progress Note - Hemodialysis
-
Date of Service: June 21, 2023
Duration: 30 minutes and 3 hours
Potassium Bath: 2
Calcium Bath: 2.5
Opti-Dialyzer: 160
Ultrafiltration: Other (2kg)
Blood Flow: 400
Dialysate Flow: 600
Heparin: no
EPO: no
[2023-06-21] MEDS: SENNA SYRUP PO (11:17)
[2023-06-21 11:48] LABS: Glucose - Point of Care 192 mg/dl (70-99)
[2023-06-21] MEDS: LIDOCAINE 4% PATCH 1 PATCH TOPICAL (12:52)
[2023-06-21] MEDS: MIRALAX 17 GRAMS TUBE (12:52)
[2023-06-21] MEDS: DULCOLAX 5 MG PO (12:53)
[2023-06-21] MEDS: SENNA SYRUP 17.6000000000000014 MG TUBE ×2 (12:53→19:44)
[2023-06-21] MEDS: ZYLOPRIM 100 MG TUBE (12:53)
[2023-06-21] MEDS: FLAGYL 500 MG TUBE ×2 (12:53→22:26)
[2023-06-21] MEDS: COLACE LIQUID 100 MG TUBE ×2 (12:54→19:44)
[2023-06-21] MEDS: SOLU-CORTEF 50 MG IV ×3 (12:54→23:51)
[2023-06-21] MEDS: LEVOPHED 258 MG IV (12:56)
[2023-06-21] MEDS: TYLENOL ORAL SOLUTION 650 MG TUBE ×2 (13:35→17:57)
[2023-06-21] MEDS: NOVOLOG FLEXPEN-LOW RESISTANCE 1 UNITS SC (13:36)
[2023-06-21] MEDS: NOVOLOG FLEXPEN 5 UNITS SC ×3 (13:36→23:50)
--- NOTE | 2023-06-21 14:24 | PTCARENOTE ---
HD completed @ approx 1230. Pt. tolerated HD, remains on levo/prop/fent. Levo gtt titrated to keep MAP >65-see flow sheet. SAT not completed d/t HD this AM, Dr. Poole made aware and inquired ab completing SAT trial post HD. Received input to
keep pt sedated d/t vent settings. No SAT performed and plan to keep sedate. Dr. Poole discussed code status w family and code status changed to DNR per orders. Family updated on plan of care. Pt. repositioned per protocol. Safe environment
maintained.
--- NOTE | 2023-06-21 15:26 | PTOTSP ---
The patient has been transferred to ICU, PT orders not continued upon transfer. The patient was intubated 06/20 and is sedated. The patient is not appropriate for PT and will require updated orders if/when appropriate. PT will sign off at this time
and resume following when updated orders are received.
--- NOTE | 2023-06-21 16:04 | CM ---
CM following re: discharge planning.
Discussed in Rounds, reviewed pt's chart, met with pt. Per Rounds meeting, pt intubated yesterday, remains intubated, continue supportive care.
D/C plan: Uncertain at this time and will depend on pt's progresses.
CM will follow with discharge plan updates as hospitalization progresses.
--- NOTE | 2023-06-21 17:07 | PTCARENOTE ---
Secretions in subglottic port and from ETT noted to look like gastric secretions. Bowel sounds remains hypoactive, residual 75mL, abd round/soft. Dr. Poole made aware and further orders received to hold TF until AM. Pt. repositioned. Family @
bedside updated.
--- NOTE | 2023-06-21 17:30 | PTCARENOTE ---
pt. w afib, unk previous hx, rhythm confirmed w EKG. HR controlled in 80's. Dr. Poole aware. Pt. also febrile w temp 103.7, medicated w PRN Tylenol- see MAR and ice packs applied; Dr. Poole also made aware of fever.
[2023-06-21] MEDS: MAXIPIME 1000 MG IV (18:02)
[2023-06-21] MEDS: STERILE WATER FOR INJECTION 10 ML IV (18:02)
[2023-06-21] MEDS: NOVOLOG FLEXPEN-LOW RESISTANCE 4 UNITS SC (18:03)
[2023-06-21 18:08] LABS: Glucose - Point of Care 328 mg/dl (70-99)
[2023-06-21] MEDS: SUBLIMAZE 100 IV (18:20)
[2023-06-21 21:44] VITALS: BP 141/66
--- NOTE | 2023-06-21 22:00 | PTCARENOTE ---
Rec'd care of patient at 1905. Patient intubated and sedated. Propofol and Fentanyl gtts infusing. Patient minimally responsive to painful stimuli. Weak gag reflex. When pupils assessed, left pupil observed to be significantly more dilated than
right. Left pupil +5mm, sluggish. Right pupil +2mm, sluggish. ME[employer]CRUBBER Satish Valentin notified. Patient taken for head ct. Afib on tele monitor with BBB. Rate controlled in the 70-80's. Left AV fistula +thrill/bruit. Trace anasarca present. +Doppler
pulses. #8 ett positioned at 24 cm. P-A/C ordered pressure control 28, rate set 28, PEEP 5, FiO2 85%. FiO2 increased to 100% by RT after head ct. Lung sounds shallow/diminished throughout right side. Left side coarse. Hypo BS. No BM. PEG tube
clamped. TF's off until 0600. Anuric. Sacral foam c/d/i. VSS. Levophed gtt infusing for MAP >65. Febrile. Placed on cooling blanket for rectal temp of 103.9 s/p administration of Tylenol by day shift RN at 1800. Cooling blanket removed at 2135 when
goal temp reached.
[2023-06-21] MEDS: LANTUS 0.0700000000000000067 UNITS SC (23:50)
[2023-06-21] MEDS: NOVOLOG FLEXPEN-LOW RESISTANCE 2 UNITS SC (23:51)
[2023-06-22 00:02] LABS: Glucose - Point of Care 249 mg/dl (70-99)
--- NOTE | 2023-06-22 00:04 | PTCARENOTE ---
Pt reassessed. Minor changes. Pupil change observed again. Pupils now closer in size. Right 3mm, left 4mm. Brisk. Propofol gtt weaned to 5 mcg/kg/min. Levophed gtt weaned to 6 mcg/min for MAP >65. VSS. Afebrile. Rectal temp down to 99.1.
[2023-06-22 00:08] VITALS: BP 138/43
[2023-06-22] MEDS: DUONEB 3 ML INH ×4 (01:02→20:48)
[2023-06-22 03:21] LABS: B.E. 1.1 mmol/L; Ionized Calcium 1.21 mMOL/L (1.15-1.33); O2 Saturation % 98.4 % (94-98); PCO2 36 mmHg (35-48); PO2 105 mmHg (83-108); Potassium 4.1 mMOL/L (3.5-5.1); Sodium 123 mMOL/L (136-145); pH 7.45 (7.35-7.45)
[2023-06-22 03:50] VITALS: BMI 21.6
[2023-06-22 03:59] LABS: Hematocrit 28.1 % (39.0-52.0); Hemoglobin 9.5 g/dL (13.0-18.0); Mean Corp Hgb Conc. 33.8 g/dL (33.0-37.0); Mean Corpuscular Hgb 32.4 pg (27.0-31.0); Mean Corpuscular Volume 95.9 fL (80.0-94.0); Mean Platelet Volume 9.3 fL (7.4-10.4); Platelet Count 103 10^3/uL (130-400); Red Blood Cell Count 2.93 10^6/uL (4.70-6.10); Red Cell Dist. Width 13.9 % (11.5-14.5); White Blood Cell Count 9.8 10^3/uL (4.8-10.8)
--- NOTE | 2023-06-22 03:59 | PTCARENOTE ---
Systems reviewed. Pt more responsive to stimuli on reduced sedation. Pupils equal and reactive, +3mm. Fentanyl gtt turned off at 0300. Prop remains at 5. VSS. Levophed gtt weaned to 5 mcg/min. AM labs drawn.
[2023-06-22] MEDS: LEVOPHED 258 MG IV ×2 (04:13→22:46)
[2023-06-22 04:26] LABS: Blood Urea Nitrogen 75 mg/dl (9-20); Calcium 9.1 mg/dl (8.4-10.2); Carbon Dioxide 23 mmol/L (22-30); Chloride 88 mmol/L (98-107); Estimated Creatinine Clearance 18 ml/min; Glucose 243 mg/dl (70-99); Magnesium 2.2 mg/dl (1.6-2.3); Potassium 4.2 mmol/L (3.5-5.1); Sodium 125 mmol/L (135-145); eGFR 16.74
[2023-06-22] MEDS: SOLU-CORTEF 50 MG IV ×4 (06:01→23:39)
[2023-06-22] MEDS: NOVOLOG FLEXPEN 5 UNITS SC ×4 (06:05→23:38)
[2023-06-22] MEDS: NOVOLOG FLEXPEN-HIGH RESISTANCE 7 UNITS SC (06:05)
--- NOTE | 2023-06-22 06:13 | PTCARENOTE ---
Ventilator changes made by RT. A/C 20/350/8/60%.
[2023-06-22 06:17] LABS: Glucose - Point of Care 258 mg/dl (70-99)
[2023-06-22] MEDS: SUBLIMAZE 50 MCG IV ×7 (06:20→22:07)
--- NOTE | 2023-06-22 06:33 | W.PN.HOSP.TC ---
Today's Communication/Plan
-
.
Assessment / Plan
Assessment / Plan
Physical Exam
General: chronically ill looking, intubated and sedated
HEENT: Atraumatic, dry Mucous Membranes. intubated
Lungs: Rales and rhonchi, limited
Cardiac: Regular Rhythm and S1/S2;+ murmur
GI: Soft, Nontender, Nondistended and Normal Bowel Sounds. +peg tube,
Rectal: No rectal bleeding noted.
Musculoskeletal: No Clubbing, No Cyanosis and No Edema
Skin: Negative Rash
Neuro: sedated.
Psych: no agitation
#Acute on chronic hypoxic and hypercapnic resp failure 2/ recurrent progressive pleural effusion, COPD, acute on chronic CHF with preserved ejection fraction and pulmonary edema
#Mechanical ventilation and intubation
#History of recurrent pleural effusions requiring multiple thoracentesis
#Chronic COPD on chronic 2 L nasal cannula 24 hours
#Former nicotine abuse 50-year 2 pack a day quit 2017
#Chronic pulmonary nodules
ABG showed 7.45/36/PO2 105 on ventilator support
Continue ventilatory support,
s/p Left thoracentesis 1L fluid removed.
Chest x-ray 06/22 showed Small left and moderate right pleural effusions with associated consolidation, slightly improved. Previous thoracentesis showed transudative
Nebulizer treatment 3 times a day
On propofol for sedation
fentanyl was dc over night, might need it if agitation continues
CT head 06/21 was done due to concern about pupils' size : No evidence of acute intracranial abnormality.
Appreciate pulmonary help
#Sepsis/septic shock
Continue with empiric antibiotics, cefepime & Flagyl
Blood culture, no growth
Appreciate ID help
# Chronic hypotension now worsened with sedation
Continue continue with midodrine, Levophed.
Stress dose of steroids. Previous cortisol testing including stimulation test did not show adrenal insufficiency
#Recurrent pleural effusion
#Left upper lobe lesion
s/p 1L fluid removed. Exudative effusions. Fluid studies in lab negative for growth. Cytology negative for malignancy.
CT chest left upper lobe opacity decrease in size of volume. Two new small foci of patchy opacity in the left lower lobe are seen in comparison to prior CT, most likely inflammatory/infectious as well as progression of left lower lobe subsegmental
atelectasis and new tiny left pleural effusion. Likely chronic changes with volume loss in the right hemithorax without significant change including likely chronic moderate size right pleural effusion with accompanying pleural thickening.
#ESRD on dialysis
#AV fistula left upper arm
Wednesday dialysis. HD regular schedule.
Fluid removal should help. already on pressors (BP was limiting factor before)
Appreciate nephrology help
# PVD with hypothermia, Hypoglycemia
Accu-checks, Bp, SaO2 are not very accurate at times due to poor peripheral circulation.
AM cortisol level was normal
Normal ACTH stim test.
#Dysphagia
s/p peg tube placement on 06/10, no complications reported.
Likely due to combination of Cachexia associated with advanced COPD and deconditioning/ malnutrition. MRI brain, no stroke.
In history: pt continued to struggle with oropharyngeal dysphagia. Dobbhoff placed, no gag reflex noted also. EGD also noted no gag reflex and mild retained secretions/TF in proximal esophagus, normal stomach and duodenum
Appreciate speech/swallow therapist & GI help
#Constipation
Good BM
c/w bowel regimen
# Multiple Atrial tachycardia.
Telemetry showed few episodes of MAT. No palpitation. No chest pain.
Continue with current medication. Unable to tolerate beta-sonal at times due to hypotension.
Was placed back on Coreg 3.125mg BID with hold parameters but no off due to hypotension
# moderate protein-caloric malnutrition Chronic
Patient has characteristics of COPD cachexia with severe loss of energy, wasting of muscles.
#Hyponatremia
per HD.
# Suspect diabetic gastroparesis
high residual with tube feeding. Unable to reach goal.
#Chronic diastolic CHF preserved EF
Follows at [facility]ology
resumed tube aspirin. Coreg held for hypotension
On dialysis- MWF
#Hypotension orthostatic Hx
Midodrine and Levophed support
# Anemia of chronic disease hemoglobin around 10.
#Chronic thrombocytopenia
monitor
EPO/IV iron per nephro
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
#Hypoglycemia
Hold gabapentin while on sedation
Previous hypoglycemia, on insulin protocol
s/p D10 infusion.
#HLD
#GERD
tube PPI.
#Gout
-resumed tube allopurinol
#Depression
Hold Zoloft while on sedation
DVT prophylaxis
Subcu heparin
PT/OT-SNF eventually.
Total time spent to see the patient, examine the patient on the floor, review data and lab results, discuss treatment plan with patient, nursing staff around 55 minutes
Anticipated Discharge: > 48 hours
Subjective/Interval History
-
Date of Service: June 22, 2023
Night team:
Patient had CT head due to concern about pupil's size. Fever over night
Tube feeding concern regarding high residual
Cut back on Fentanyl over night
Objective Data
-
Labs:
Laboratory Results
06/22/23
03:14
WBC 9.8
Hgb 9.5 L
Hct 28.1 L
Plt Count 103 L D
HCO3 25.0
Sodium 125 L
Potassium 4.2
Chloride 88 L
Carbon Dioxide 23
BUN 75 H
Creatinine 3.7 H
Glucose 243 H
Calcium 9.1
Vital Signs:
Vital Signs
Temp Pulse Resp BP Pulse Ox
99.0 F 73 26 138/43 98
06/22/23 03:41 06/22/23 06:00 06/22/23 06:00 06/22/23 00:08 06/22/23 06:00
I&O
06/20/23 06/21/23 06/22/23
06:59 06:59 06:59
Intake Total 744.8 / 818.2 2198.9 / 2312.3 1347.8 / 1347.8
Output Total 0 / 0
Balance 744.8 / 818.2 2198.9 / 2312.3 1347.8 / 1347.8
[2023-06-22] MEDS: SUBLIMAZE 100 IV (06:59)
--- NOTE | 2023-06-22 07:51 | W.PN.INTV ---
Today's Communication / Plan
Recommendations
Transition to volume-cycled ventilation
ABG in a.m.
Continue antibiotics per ID, follow cultures
Adjust insulin
Resume tube feeds, trickle
Assessment
-
73-year-old M former tobacco smoker (quit 2016) with PMhx COPD/asthma, ESRD on HD, GERD and chronic liver disease/cirrhosis who p/w SOB from his HD center.� Of note, he follows with us in [facility] office with Dr. Garcia - last office visit on
04/29/2023.� He is on Trelegy 100mcg with prn albuterol.� Adm to on 05/31/23 for evaluation of R-effusion on CXR compared to last, and he has a small left pleural effusion.� HD session started in ER.� Underwent thoracentesis with improvement.� s/p
PEG 06/10/23 for dysphagia on this admission.
06/18/23 developed worsening SOB, ABG showing acute CO2 retention, started on BIPAP, will be transferred to IMU for further care.� Remains full code.
Acute on chronic hypercarbic respiratory failure failed BIPAP and now on mechanical ventilation
Intubated 06/20/2023
Hypotension, requiring pressors
Leukocytosis
Acute on chronic respiratory failure with hypoxemia on supplemental O2 (on 2L/min at baseline)
Chronic right-sided pleural effusion with acute left-sided pleural effusion s/p multiple thoras
Acute on chronic anemia
Chronic thrombocytopenia
Chronic dysphagia s/p PEG 06/10/23
Protein-Calorie malnutrition
Chronic hyponatremia
Severe pulm hypertension, PA pressure 75, progressive
Per echo 06/21/2023
Normal RV size and function
Aortic stenosis, valve area 1.1 cm�
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
GERD
Mitral regurgitation
HLD
DM type II
Hx of alcoholic cirrhosis with Hx of EV + portal hypertensive gastropathy (seen in 2013 via EGD), HTN, COPD/asthma on chronic oxygen (2-3L/min)
ESRD on HD MWF
Moderate COPD with increased DLco/VA
Follows Dr Garcia
Restrictive lung defect (moderate with T% predicted via PFT from 04/2022)
Alcoholic liver disease with Hx of grade I EV and portal hypertensive gastropathy (seen via EGD in 2013) --> EV and gastropathy resolved via EGD in October 2019
5 mm irregular opacity in the posterior left upper lobe - seen on CT chest from October 2022
Plan/recommendations
At this time, patient remains critically ill, on norepinephrine, wean down to 8 mcg
Transition from pressure control to volume-cycled ventilation this morning due to overventilation per ABG
Increased residuals noted, no bowel movement for 4 days, tube feeds held
Remains on cefepime/Flagyl
Moving forward
Continue with ventilator support
Currently on AC/VCV 20/350/8/60%
Ppk 34, Pplat 28. Maintain plateau pressure less than 30
Was on pressure control ventilation
Chest x-ray 06/21 with adequate ET tube, improved right pleuroparenchymal process
Leukocytosis noted low-grade fever noted
Presumed sepsis with hypotension
Remains on cefepime/Flagyl
ID following. Sputum culture positive for gram-negative bacilli
Cover for possible SBP
Chronic right pleuroparenchymal process noted, trapped lung physiology
Reviewed CT chest -- Left upper lobe nodule and right upper lobe nodule noted.� Largest 1.5 cm left lower lobe.�
Reviewed CT chest at length, pulm nodules noted.� 1 nodule has decreased in size, other nodules/infiltrate are new
Patient underwent thoracentesis, in past -- studies indicate transudate
Chronic right pleural effusion with pleural thickening, likely trapped lung physiology.
Thora history:
- L 06/02/23 1000 mL
- L 04/08/23 1000 mL
- R 03/03/23 650mL
- L 01/30/23 1200mL
- R 01/18/23 800mL
- R 02/28/19 1500mL
- R 01/11/19 1500mL
Chest US to assess for thora on R --> shows: small to moderate right pleural effusion with thickened internal septations.
COPD, continue inhalers
Continue stress dose steroids, no change
Patient was on steroids started 06/18. Significant COPD history noted
Duonebs continue
Volume overload noted
Continue HD as per nephrology, planned 06/23
Marginal blood pressure noted, on midodrine
Echocardiogram normal LV function, severe pulm hypertension, PA pressure 75, aortic stenosis 1.1 cm
Increased residuals noted per nursing. Last bowel movement 4 days ago
Tube feeds held for now, consider restarting at trickle feeds
Optimize bowel regimen elevated blood sugars noted. Resume outpatient insulin regimen, every 6h Insulin monitoring
Follow
DVT prophylaxis: HSQ
GI prophylaxis: On PPI
Prior discussion:
His overall prognosis is poor given numerous severe medical issues that are not improving
He understands his prognosis but wishes to remain full code - this was before he got intubated
He did reiterate to Dr. Krause that should he be prolonged on the vent, he would want to be palliatively extubated by Day [address] Lai updated the patient's partner and neighbor on the critically ill state that the patient is in. Considering patient says he wanted to be intubated for 5 days to give it a 'try,' will continue with mechanical ventilation and hopefully we
can optimize his hypercapnia and then do an SAT/SBT. This was reiterated to the patient's partner, in layman's terms, to his satisfaction.
This was reviewed again on 06/21/2023 by myself with partner and sister 06/21.
Critical care statement: A total of 35 minutes of critical care time was provided for this patient today. This includes management of unstable vital signs, evaluation of the patient at bedside, reviewing the patient's pertinent medical records
including radiographs, microbiology, laboratory evaluations, and discussion with primary team, consultants, pharmacy, nutrition, physical therapy, case management, charge nurse, critical care nursing, and respiratory therapy.
Diagnostic Data
CXR 06-01-2023:
There has been no significant change compared with the prior study.
There is moderate right pleural effusion with underlying atelectasis
There is a small left-sided pleural effusion with moderate interstitial airway disease throughout the lower left lung
CXR 05-31-2023:
1).There is a small left pleural effusion, increased in volume when compared with the prior study and associated with new increased parenchymal airspace disease throughout the lower left lung. I favor that this is pulmonary edema superimposed on
underlying effusion. Pneumonia is less likely
2).There is stable moderate-large right-sided pleural effusion with stable underlying parenchymal air space disease likely reflecting atelectasis
CXR 06-20-2023:
There is moderately large right-sided pleural effusion which appears larger than on prior study. There is consolidation in the right lower lobe which may be pneumonia versus atelectasis.
�There is a small left pleural effusion. Patchy airspace disease in the left lower lobe is likely atelectasis, but has worsened from prior study.
CXR 06-18-2023:
Placement of a right-sided PICC with the catheter tip in the right atrium. This could be retracted by 4 cm for a desired position at the cavoatrial junction.
Small to moderate right pleural effusion. Trace left pleural effusion. Stable mild prominence of the pulmonary vascular markings.
CT Chest 06/03/23 - 0.5 cm left upper lobe opacity seen on prior CT has decreased in size and volume. Two new small foci of patchy opacity in the left lower lobe are seen in comparison to prior CT, most likely inflammatory/infectious as well as
progression of left lower lobe subsegmental atelectasis and new tiny left pleural effusion. Likely chronic changes with volume loss in the right hemithorax without significant change including likely chronic moderate size right pleural effusion with
accompanying pleural thickening.
CT Chest without contrast 10-07-2022:
1. � Redemonstration of a moderate-sized chronic pleural effusion with associated smooth pleural thickening with grossly unchanged masslike consolidation involving the right lower and middle lobes most consistent with rounded atelectasis. Associated
right-sided volume loss.
2. � Previously seen ill-defined nodular opacities within the posterior right upper lobe have largely resolved. There are some new scattered tree-in-bud opacities within the left lower lobe suggestive of infectious or inflammatory bronchiolitis.
3. � Small amount of new pleural thickening within the posterior aspect of the left hemithorax adjacent to the left lower lobe.
4. � New nonspecific 5 mm irregular opacity within the posterior LEFT upper lobe.
5. � Aberrant RIGHT subclavian artery.
Outpatient [facility] Data:
Spirometry 10/15/2021,�demonstrated FEV1/FVC 58%, FEV1 1.03 L�(32%, FVC 1.76 L or 41%.� Mixed ventilatory defect suggestion of restriction with moderate to severe airflow obstruction.
��������
Spirometry 12/14/2019:�-FEV1/FVC 60%, FEV1 1.78 L 754%, FVC 2.90 L-67%.� Moderate airflow obstruction with a restriction.� Stable compared to before.
��������
Pulmonary function testing 12/13/2017:�demonstrated FEV1 /FVC 52%, FEV1 1.95 L-60%, FVC 3.71 L 785%, TLC 6.59 L-95%, RV 3.25 L-129%, DLCO 21.88-81%. Moderate airflow obstruction. Improvement on air trapping and hyperinflation.��������
Pulmonary function testing 09/09/2016:�FEV1/FVC 46%, FEV1 1.65 L-52%, FVC 3.61 L-84%. There was significant reversibility post bronchodilator. TLC 9.29 L-138%, RV 5.70 L-235%. DLCO 45%. Moderate/severe COPD with air trapping and
hyperinflation-emphysema phenotype.
�����
Spirometry 05/27/2016:�FEV1/FVC 55%, FEV1 1.32 L-38%, FVC 2.43 L-52%. Severe airflow obstruction with no reversibility.
FENO:
������ 10/15/2021 FeNO -- 22 ppb
�������07/15/2021 FENO 32ppb
�������12/14/2019 FENO 25 PPB
�������04/09/22 FENO 27ppb.
Subjective Dataa
Subjective Data
Date of Service:
Date of Service: June 22, 2023
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
Subjective:
Patient remains critically ill. Was weaned off fentanyl overnight, able to move extremities. Was transitioned volume-cycled ventilation this morning due to overventilation. Initially did not tolerate, more comfortable with increased sedation.
Temperature 103.9 noted. Hyperglycemia noted.
Objective Data
Data Reviewed
Vital Signs / I&O / Oxygen:
Vital Signs
Temp Pulse Resp BP Pulse Ox
99.0 F 82 23 138/43 97
06/22/23 03:41 06/22/23 07:28 06/22/23 07:28 06/22/23 00:08 06/22/23 07:29
Intake and Output
06/21/23 06/22/23 06/23/23
06:59 06:59 06:59
Intake Total 2198.9 / 2312.3 1347.8 / 1347.8
Output Total 0 / 0
Balance 2198.9 / 2312.3 1347.8 / 1347.8
SaO2 [P-A/C] 100
SaO2 [A/C] 98
SaO2 [NIV (Non Invasive 95
Ventilation)]
SaO2 97
Nasal Cannula flow liters per 4
minute
Physical Exam
General: Comfortable and Other (Right upper extremity PICC)
HEENT: Normocephalic and Anicteric
Cardiovascular: S1-S2, Regular Rhythm, Murmur (n) and Rub (n)
Respiratory: Wheeze (n), Crackles (n), Rhonchi (n), Non-Labored Respirations, ET Tube, Other (Mechanical breath sounds bilaterally) and Other (Decreased breath sounds right base)
GI: Soft, Distended, Non Tender, Normal Bowel Sounds and Other (PEG tube)
Neurology: Unresponsive (Sedated)
Skin: Warm, Dry and Bruising (Few scattered)
Labs/Micro/Reports
Lab Data
06/22/23 03:14
06/22/23 03:14
Laboratory Results
06/22/23
03:14
pH 7.45
pCO2 36
pO2 105
HCO3 25.0
O2 Delivery Level
Microbiology
06/20/23 17:27 Blood/Venous Blood Culture - Preliminary
No Growth in 24 hours- Final report to follow
06/21/23 03:50 Endotracheal Gram Stain - Preliminary
06/02/23 14:02 Pleural Fluid Fungal Smear - Final
No yeast or fungal elements seen.
06/02/23 14:02 Pleural Fluid Fungal Culture - Preliminary
Culture in progress.
Positive cultures are reported as soon as detected.
Final report to follow in four to five weeks.
06/20/23 17:27 Nose Nasal Screen MRSA (PCR) - Final
MRSA not detected - performed by PCR methodology.
--- NOTE | 2023-06-22 08:00 | PTCARENOTE ---
Received pt @ change of shift. SAT completed prior to change of shift and vent settings adjusted to AC20/350/.60/+8 on previous shift. Pt. unable to tolerate settings on minimal sedation, fent bolus admin x2 and gtt restarted; prop adjusted per
orders- see flow sheet; 100% delivered. S/P sedation, pt able to tolerate vent settings on 60% fiO2, SpO2 95%. Dr. Poole made aware and plan to cont on current sedation. Suctioned for mod amt of thick/slaughter/yellow secretions. A fib on monitor w
HR in 80's. TF infusing via peg, restarted on previous shift @ 0600; abd soft/non-distended. Inc of large soft/brown BM. Anuric. R DL PICC w fent/prop/levo gtts- see flow sheet. R A-line transduced, calibrated, and monitored; all ports patent and
secured. L AV fistula +brui/thrill. Repositioned q2h. Safe environment maintained.
[2023-06-22] MEDS: PREVACID 30 MG TUBE (08:14)
[2023-06-22] MEDS: LOW STRENGTH ASPIRIN 81 MG TUBE (08:14)
[2023-06-22] MEDS: LIDOCAINE 4% PATCH 1 PATCH TOPICAL (08:14)
[2023-06-22] MEDS: SENNA SYRUP 17.6000000000000014 MG TUBE ×2 (08:14→20:10)
[2023-06-22] MEDS: ProAmatine 5 MG TUBE ×2 (08:14→12:56)
[2023-06-22] MEDS: COLACE LIQUID 100 MG TUBE ×2 (08:14→20:10)
[2023-06-22] MEDS: ZYLOPRIM 100 MG TUBE (08:14)
[2023-06-22] MEDS: MIRALAX 17 GRAMS TUBE (08:14)
[2023-06-22] MEDS: HEPARIN 5000 UNITS SC ×2 (10:23→20:10)
[2023-06-22] MEDS: TYLENOL ORAL SOLUTION 650 MG TUBE (10:24)
[2023-06-22] MEDS: FLAGYL 500 MG TUBE ×2 (10:24→22:07)
[2023-06-22 10:36] LABS: B.E. -2.6 mmol/L; HCO3 24.1 mmol/L (21-28); PCO2 49 mmHg (35-48); PO2 87 mmHg (83-108)
--- NOTE | 2023-06-22 11:54 | W.PN.ID1 ---
Date of Service
Date of Service: June 22, 2023
Today's Communication
continue cefepime/metrondiazole
Assessment / Plan
Shock - likely Septic
Known Aspiration with oropharyngeal dysfunction s/p PEG tube
Possible Aspiration pneumonia
Chronic R pleural effusion with suspected trapped lung physiology
ESRD on HD
Cirrhosis - decompensated?
Pulmonary nodules - progressed - outpatient follow up with pulm
- blood cultures x2 - two sets needed for sensitivity
- abdominal US - no significant ascites
- sputum culture many GNR and many yeast; GNR likely pathogen, yeast is normal feroz
- continue cefepime/metronidazole; agree with stopping vancomycin
- Agree that prognosis is poor due to multiple comorbidities - family share that they are waiting for visitors and plan to withdraw care wednesday
Patient remains critically ill
Chief Complaint
-: Fever
Subjective / Review of Systems
fevers ongoing
declining norepi requirements
leukocytosis resolved
thrombocytopenia noted today
K normalized
CXR today: moderate right pleural effusion on my review
sputum: moderate GNR and moderate yeast
mrsa swab negative
ammonia level was normal
discussed with family, particularly my concern for ongoing aspiration, cirrhosis, esrd - I recommended hospice
Vital Signs / Physical Exam
Vital Signs
Vital Signs
Temp Pulse Resp BP Pulse Ox
101.6 F H 89 19 138/43 92
06/22/23 11:00 06/22/23 11:30 06/22/23 11:30 06/22/23 00:08 06/22/23 11:42
Physical Exam
Constitutional: No Acute Distress and Chronically Ill
Cardiovascular: Regular Rate and S1/S2; Negative Murmur or Rub
Pulmonary: Clear and Symmetric; Negative Wheezes or Rales
Gastrointestinal: Soft, Non Tender, Non Distended and Normal Bowel Sounds
Skin: Warm and Dry; Negative Rash or Jaundice
Neurological: Negative Awake
Objective Data
Lab Data
Lab Results
06/22/23 03:14
06/22/23 03:14
PT 15.0 Sec (11.4-14.6) H 06/18/23 18:20
INR 1.20 06/18/23 18:20
APTT 38.5 Sec (23.4-35.0) H 06/18/23 18:20
Estimated Creat Clear 18 ml/min 06/22/23 03:14
Total Bilirubin 0.6 mg/dl (0.2-1.3) 06/21/23 09:50
AST 19 U/L (17-59) 06/21/23 09:50
ALT < 10 U/L (0-50) 06/21/23 09:50
Alkaline Phosphatase 119 U/L (38-126) 06/21/23 09:50
Most recent labs reviewed.
Micro Results:
06/21/23 09:50 Blood Culture - Preliminary
Blood/Venous No Growth in 24 hours- Final report to follow
06/21/23 03:50 Respiratory Culture - Preliminary
Endotracheal Gram negative bacilli
Ksenia albicans
Gram Stain - Preliminary
06/20/23 17:27 Blood Culture - Preliminary
Blood/Venous No Growth in 24 hours- Final report to follow
06/02/23 14:02 Fungal Smear - Final
Pleural Fluid No yeast or fungal elements seen.
Fungal Culture - Preliminary
Culture in progress.
Positive cultures are reported as soon as detected.
Final report to follow in four to five weeks.
06/20/23 17:27 Nasal Screen MRSA (PCR) - Final
Nose MRSA not detected - performed by PCR methodology.
06/02/23 14:03 Body Fluid Culture - Final
Pleural Fluid NO GROWTH-FINAL REPORT
Gram Stain - Final
06/02/23 14:02 Acid Fast Bacilli Smear - Preliminary
Pleural Fluid Acid Fast Bacilli Culture - Preliminary
05/31/23 18:04 MRSA Screen - Final
Nose No Methicillin Resistant Staphylococcus aureus isolated.
05/31/23 08:08 Influenza Types A & B (THANG) - Final
Nasal Swab Negative for Influenza A & B, NAAT
Negative results must be combined with clinical observations
and patient history.
Nucleic Acid Amplification test (NAAT)performed on the
[employer] platform.
--- NOTE | 2023-06-22 12:38 | PTCARENOTE ---
During repositioning pt w small amt of emesis. Mouth care provided. Dr. Poole aware and TF on hold for now, plan to start trickle feeds later. 1020 ABG results relayed to Dr. Poole as well, no changes in vent settings. Family @ bedside
updated on plan of care.
--- NOTE | 2023-06-22 12:53 | CM ---
CM following re: discharge planning.
Discussed in Rounds, reviewed pt's chart, met with pt. Per Rounds meeting, pt remains intubated, continue supportive care.
D/C plan: Uncertain at this time and will depend on pt's progresses.
CM will follow with discharge plan updates as hospitalization progresses.
[2023-06-22 13:04] LABS: Glucose - Point of Care 229 mg/dl (70-99)
[2023-06-22] MEDS: NOVOLOG FLEXPEN-HIGH RESISTANCE 4 UNITS SC ×2 (13:05→23:38)
--- NOTE | 2023-06-22 13:30 | W.PN.NEPH.PH ---
Today's Communication / Plan
-
HD tomorrow
Assessment/Plan
-
Impression:
End-stage renal disease Wednesday, Wednesday, Wednesday
Hypoxia/Hypercapnia/COPD:home O2 2L
Right pleural effusion (Recurrent)
Hyperphosphatemia
Anemia
Diabetes with multiple microvascular complications
Hypotension on Midodrine
Cirrhosis
Chronic thrombocytopenia
Pulmonary nodules
Plan:
Progressive clinical decline recently and required multiple admits for resp failure despite HD support
remains intubated, wean per pulm and likely comfortcare on Wednesday
cotn HD as per schedule and try UF as much as possible
cont pressors to keep MAP>60, increase midodrine 10 TID
On TF through PEG with no FWF
Hb stable
abx and stress steroids per ID, febrile
d/w family at bedside who seem to understand Poor prognosis
d/w ICU
-
-
Date of Service: June 22, 2023
CC / HPI / ROS
-
Chief Complaint:
ESRD
History of Present Illness:
ESRD MWF,
now in ICU intubated
hypotension on pressors and midodrine
failed swallow study earlier in admit, now with PEG feeds
sodium low 125 but BG 243
Review of Systems:
sedated and intubated
+ fever
Labs
-
Labs:
WBC 9.8 10^3/uL (4.8-10.8) 06/22/23 03:14
RBC 2.93 10^6/uL (4.70-6.10) L 06/22/23 03:14
Hgb 9.5 g/dL (13.0-18.0) L 06/22/23 03:14
Hct 28.1 % (39.0-52.0) L 06/22/23 03:14
Plt Count 103 10^3/uL (130-400) L D 06/22/23 03:14
Sodium 125 mmol/L (135-145) L 06/22/23 03:14
Potassium 4.2 mmol/L (3.5-5.1) 06/22/23 03:14
Chloride 88 mmol/L (98-107) L 06/22/23 03:14
Carbon Dioxide 23 mmol/L (22-30) 06/22/23 03:14
BUN 75 mg/dl (9-20) H 06/22/23 03:14
Creatinine 3.7 mg/dL (0.7-1.3) H 06/22/23 03:14
eGFR 16.74 06/22/23 03:14
Glucose 243 mg/dl (70-99) H 06/22/23 03:14
Calcium 9.1 mg/dl (8.4-10.2) 06/22/23 03:14
Phosphorus 6.0 mg/dl (2.5-4.5) H 06/16/23 05:33
Udz-Q-Yigcolbzgss Pept > 45710 pg/ml 05/31/23 08:08
Albumin 3.9 g/dl (3.5-5.0) 06/21/23 09:50
Physical Exam
-
Vital Signs:
Vital Signs
Temp Pulse Resp BP Pulse Ox
100.8 F H 83 22 138/43 92
06/22/23 12:00 06/22/23 13:14 06/22/23 13:14 06/22/23 00:08 06/22/23 13:14
Cardiovascular:: Regular rate and rhythm
Respiratory:: Bilateral: Rales
Lung Excursion:: Abnormal (decreased)
Abdomen:: Nontender and Soft
Extremity Edema:: None: Bilateral:
Rodarte Catheter: No
[2023-06-22] MEDS: MAXIPIME 1000 MG IV (17:58)
[2023-06-22] MEDS: STERILE WATER FOR INJECTION 10 ML IV (17:58)
[2023-06-22] MEDS: NOVOLOG FLEXPEN-HIGH RESISTANCE 2 UNITS SC (17:59)
[2023-06-22] MEDS: ProAmatine 10 MG TUBE (17:59)
[2023-06-22 18:08] LABS: Glucose - Point of Care 187 mg/dl (70-99)
[2023-06-22 20:28] VITALS: BP 120/41
[2023-06-22 20:29] VITALS: BP 120/41
[2023-06-22 22:24] VITALS: BP 103/66
--- NOTE | 2023-06-22 22:30 | PTCARENOTE ---
Assumed care of patient at 1910. Patient intubated and sedated. Intermittent periods of restlessness; kicking legs and fighting ventilator. Initially Fentanyl bolus administered with temporary improvement. Around 2199, bolus administered and rate
increased to 50mcg/hr. Patient alert to verbal stimuli. Does not follow commands. +Corneal and gag reflexes. Gag reflex weak. Pupils sluggish and unequal. Left +3mm, Right +2mm. Afib with BBB on tele monitor. Fingers and toes cyanotic. Doppler pedal
pulses. B/l radial pulses weak on palpation. Trace anasarca. Left AV fistula + thrill/bruit. HD scheduled for am. #8 ett @ 24 cm repositioned to the right. A/C 20/350/8/60%. Lung sounds coarse/diminished throughout. Expiratory wheeze auscultated
anteriorly. Liao, thick secretions suction for endotracheal tube. +BS. Incontinent of smear of bm. TF's running at 10mL/hr through peg tube. Anuric. Sacral dressing c/d/i. Stage 1 pressure ulcer on nose open to air. Vitals stable. Levophed running at
8 mcg/min for MAP >65. Right brachial arterial line leveled and zeroed. Full assessment and care as charted on worklist.
[2023-06-22] MEDS: DIPRIVAN 100 IV (22:46)
[2023-06-22] MEDS: LANTUS 0.100000000000000006 UNITS SC (23:37)
[2023-06-22 23:51] LABS: Glucose - Point of Care 202 mg/dl (70-99)
--- NOTE | 2023-06-23 00:36 | PTCARENOTE ---
0000- Assessment unchanged. Remains intubated and sedated on Fentanyl and Propofol gtts. VSS.
[2023-06-23] MEDS: DUONEB 3 ML INH ×4 (01:07→19:32)
[2023-06-23 04:14] VITALS: BMI 21.8
--- NOTE | 2023-06-23 04:15 | DOWNTIME ---
There was a [employer] Client Supervisor Welding Equipment Repairer Downtime on 06/23/2023 from 0111 to 06/23/2023 at 0405. Downtime documentation of patient's care, including medication administrations, has been reconciled in the electronic record per guidelines. Refer to the
patient's paper chart under the miscellaneous tab to see printed paper medication records and downtime forms.
[2023-06-23 04:38] LABS: Hematocrit 32.1 % (39.0-52.0); Hemoglobin 10.6 g/dL (13.0-18.0); Mean Corpuscular Hgb 31.5 pg (27.0-31.0); Mean Corpuscular Volume 95.5 fL (80.0-94.0); Mean Platelet Volume 9.4 fL (7.4-10.4); Platelet Count 155 10^3/uL (130-400); Red Blood Cell Count 3.36 10^6/uL (4.70-6.10); Red Cell Dist. Width 14.4 % (11.5-14.5); White Blood Cell Count 18.4 10^3/uL (4.8-10.8)
[2023-06-23 04:41] LABS: B.E. -6.1 mmol/L; HCO3 22.3 mmol/L (21-28); Ionized Calcium 1.24 mMOL/L (1.15-1.33); O2 Saturation % 96.2 % (94-98); PCO2 57 mmHg (35-48); PO2 84 mmHg (83-108); Potassium 5.5 mMOL/L (3.5-5.1); Sodium 122 mMOL/L (136-145)
--- NOTE | 2023-06-23 04:41 | PTCARENOTE ---
Systems reviewed. Minor changes in assessment. Lung sounds diminished throughout with rhonchi in b/l bases. Vitals stable. Levo weaned to 6 mcg/min. Afib with rate controlled. AM labs drawn.
[2023-06-23] MEDS: SUBLIMAZE 50 MCG IV ×4 (04:46→20:15)
[2023-06-23 05:08] LABS: Blood Urea Nitrogen 97 mg/dl (9-20); Carbon Dioxide 19 mmol/L (22-30); Chloride 88 mmol/L (98-107); Estimated Creatinine Clearance 14 ml/min; Glucose 128 mg/dl (70-99); Magnesium 2.5 mg/dl (1.6-2.3); Potassium 5.4 mmol/L (3.5-5.1); Sodium 125 mmol/L (135-145); Triglycerides 91 mg/dl (10-149); eGFR 12.25
[2023-06-23] MEDS: NOVOLOG FLEXPEN 5 UNITS SC (05:26)
[2023-06-23] MEDS: NOVOLOG FLEXPEN-HIGH RESISTANCE 1 UNITS SC (05:26)
[2023-06-23] MEDS: SOLU-CORTEF 50 MG IV ×3 (05:27→23:27)
[2023-06-23 05:38] LABS: Glucose - Point of Care 138 mg/dl (70-99)
--- NOTE | 2023-06-23 06:23 | W.PN.HOSP.TC ---
Today's Communication/Plan
-
.
Assessment / Plan
Assessment / Plan
Physical Exam
General: chronically ill looking, intubated and sedated
HEENT: Atraumatic, dry Mucous Membranes. intubated. Ulcer noted on nasal bridge
Lungs: Rales and rhonchi, limited
Cardiac: Regular Rhythm and S1/S2;+ murmur
GI: Soft, Nontender, Nondistended and Normal Bowel Sounds. +peg tube,
Rectal: No rectal bleeding noted.
Musculoskeletal: No Clubbing, No Cyanosis and No Edema
Skin: Negative Rash
Neuro: sedated.
Psych: no agitation
#Acute on chronic hypoxic and hypercapnic resp failure 2/2 recurrent progressive pleural effusion, COPD, acute on chronic CHF with preserved ejection fraction and pulmonary edema
#Mechanical ventilation and intubation
#History of recurrent pleural effusions requiring multiple thoracentesis
#Chronic COPD on chronic 2 L nasal cannula 24 hours
#Former nicotine abuse 50-year 2 pack a day quit 2017
#Chronic pulmonary nodules
ABG showed 7.20/57/PO2 84 on ventilator support,
Continue ventilatory support and will need adjustments,
s/p Left thoracentesis 1L fluid removed.
Chest x-ray 06/22 showed Small left and moderate right pleural effusions with associated consolidation, slightly improved. Previous thoracentesis showed transudative
Nebulizer treatment 3 times a day
On propofol for sedation
Better sedation with Fentanyl and propofol.
CT head 06/21 was done due to concern about pupils' size : No evidence of acute intracranial abnormality.
Appreciate pulmonary help
#Sepsis/septic shock
Continue with empiric antibiotics, cefepime & Flagyl
Blood culture, no growth
Appreciate ID help
# Chronic hypotension now worsened with sedation
Continue continue with midodrine, Levophed.
Stress dose steroids. Previous cortisol testing including stimulation test did not show adrenal insufficiency
#Recurrent pleural effusion
#Left upper lobe lesion
s/p 1L fluid removed. Exudative effusions. Fluid studies in lab negative for growth. Cytology negative for malignancy.
CT chest left upper lobe opacity decrease in size of volume. Two new small foci of patchy opacity in the left lower lobe are seen in comparison to prior CT, most likely inflammatory/infectious as well as progression of left lower lobe subsegmental
atelectasis and new tiny left pleural effusion. Likely chronic changes with volume loss in the right hemithorax without significant change including likely chronic moderate size right pleural effusion with accompanying pleural thickening.
#ESRD on dialysis
#AV fistula left upper arm
Wednesday dialysis. HD regular schedule.
Pressure support with higher dose midodrine and Levophed.
Appreciate nephrology help
# PVD with hypothermia, Hypoglycemia
Accu-checks, Bp, SaO2 are not very accurate at times due to poor peripheral circulation.
AM cortisol level was normal
Normal ACTH stim test.
#Dysphagia
s/p peg tube placement on 06/10, no complications reported.
Likely due to combination of Cachexia associated with advanced COPD and deconditioning/ malnutrition. MRI brain, no stroke.
In history: pt continued to struggle with oropharyngeal dysphagia. Dobbhoff placed, no gag reflex noted also. EGD also noted no gag reflex and mild retained secretions/TF in proximal esophagus, normal stomach and duodenum
Appreciate speech/swallow therapist & GI help
#Constipation
Good BM
c/w bowel regimen
# Multiple Atrial tachycardia.
Telemetry showed few episodes of MAT. No palpitation. No chest pain.
Continue with current medication. Unable to tolerate beta-sonal at times due to hypotension.
Was placed back on Coreg 3.125mg BID with hold parameters but no off due to hypotension
# moderate protein-caloric malnutrition Chronic
Patient has characteristics of COPD cachexia with severe loss of energy, wasting of muscles.
#Hyponatremia
per HD.
# Suspect diabetic gastroparesis
high residual with tube feeding. Unable to reach goal.
#Chronic diastolic CHF preserved EF
Follows at [facility] cardiology
resumed tube aspirin. Coreg held for hypotension
On dialysis- MWF
#Hypotension orthostatic Hx
Midodrine and Levophed support
# Anemia of chronic disease hemoglobin around 10.
#Chronic thrombocytopenia
monitor
EPO/IV iron per nephro
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
#Hx of Hypoglycemia
Hold gabapentin while on sedation
Previous hypoglycemia, on insulin protocol, SQ insulin 5 units Q6 + Lantus
s/p D10 infusion.
#HLD
#GERD
tube PPI.
#Gout
-resumed tube allopurinol
#Depression
Hold Zoloft while on sedation
DVT prophylaxis
Subcu heparin
PT/OT-SNF eventually.
Total time spent to see the patient, examine the patient on the floor, review data and lab results, discuss treatment plan with sisters, nursing staff around 55 minutes
Anticipated Discharge: > 48 hours
Subjective/Interval History
-
Date of Service: June 23, 2023
Objective Data
-
Labs:
Laboratory Results
06/23/23
04:31
WBC 18.4 H
Hgb 10.6 L
Hct 32.1 L
Plt Count 155 D
HCO3 22.3
Sodium 125 L
Potassium 5.4 H D
Chloride 88 L
Carbon Dioxide 19 L
BUN 97 H
Creatinine 4.8 H*
Glucose 128 H
Calcium 9.0
Vital Signs:
Vital Signs
Temp Pulse Resp BP Pulse Ox
99.2 F 82 25 103/66 99
06/23/23 03:30 06/23/23 06:00 06/23/23 06:00 06/22/23 22:24 06/23/23 06:00
I&O
06/21/23 06/22/23 06/23/23
06:59 06:59 06:59
Intake Total 2198.9 / 2312.3 1347.8 / 1402.3 800.7 / 800.7
Output Total 0 / 0
Balance 2198.9 / 2312.3 1347.8 / 1402.3 800.7 / 800.7
[2023-06-23] MEDS: SUBLIMAZE 100 IV ×2 (06:43→19:19)
[2023-06-23] MEDS: ProAmatine 10 MG TUBE ×3 (07:33→17:34)
[2023-06-23] MEDS: PREVACID 30 MG TUBE (07:34)
[2023-06-23] MEDS: LIDOCAINE 4% PATCH 1 PATCH TOPICAL (07:34)
[2023-06-23] MEDS: HEPARIN 5000 UNITS SC ×2 (07:34→19:12)
[2023-06-23] MEDS: ZYLOPRIM 100 MG TUBE (07:34)
[2023-06-23] MEDS: LOW STRENGTH ASPIRIN 81 MG TUBE (07:34)
[2023-06-23] MEDS: COLACE LIQUID 100 MG TUBE ×2 (07:35→19:12)
[2023-06-23] MEDS: SENNA SYRUP 17.6000000000000014 MG TUBE ×2 (07:35→19:12)
[2023-06-23] MEDS: MIRALAX 17 GRAMS TUBE (07:35)
--- NOTE | 2023-06-23 07:50 | W.PN.INTV ---
Addendum entered and electronically signed by Williams Poole MD 06/23/23 15:08:
Updated sister at length at bedside this afternoon.
Reviewed lack of clinical progress, poor prognosis moving forward.
Sister states that family has reiterated plans for withdrawal of care on Wednesday
Family not able to come from [place]
Plan for withdrawal of care 06/25 as I do not expect patient to show any clinical improvement in the interim
Comfort would be a priority moving forward
Continue supportive care for now
Original Note:
Today's Communication / Plan
Recommendations
Continue volume-cycled ventilation
Decrease steroids to every 8 hours
Advance tube feeds as able
Continue antibiotics
ABG later p.m.
Wean pressors as able
Extremely poor prognosis
Assessment
-
73-year-old M former tobacco smoker (quit 2016) with PMhx COPD/asthma, ESRD on HD, GERD and chronic liver disease/cirrhosis who p/w SOB from his HD center.� Of note, he follows with us in [facility] office with Dr. Garcia - last office visit on
04/29/2023.� He is on Trelegy 100mcg with prn albuterol.� Adm to on 05/31/23 for evaluation of R-effusion on CXR compared to last, and he has a small left pleural effusion.� HD session started in ER.� Underwent thoracentesis with improvement.� s/p
PEG 06/10/23 for dysphagia on this admission.
06/18/23 developed worsening SOB, ABG showing acute CO2 retention, started on BIPAP, will be transferred to IMU for further care.� Remains full code.
Acute on chronic hypercarbic respiratory failure failed BIPAP and now on mechanical ventilation
Intubated 06/20/2023
Hypotension, requiring pressors
Leukocytosis
Acute on chronic respiratory failure with hypoxemia on supplemental O2 (on 2L/min at baseline)
Chronic right-sided pleural effusion with acute left-sided pleural effusion s/p multiple thoras
Acute on chronic anemia
Chronic thrombocytopenia
Chronic dysphagia s/p PEG 06/10/23
Protein-Calorie malnutrition
Chronic hyponatremia
Severe pulm hypertension, PA pressure 75, progressive
Per echo 06/21/2023
Normal RV size and function
Aortic stenosis, valve area 1.1 cm�
Chronic medical conditions [employer]ARD[employer] MOTHER:���
GERD
Mitral regurgitation
HLD
DM type II
Hx of alcoholic cirrhosis with Hx of EV + portal hypertensive gastropathy (seen in 2013 via EGD), HTN, COPD/asthma on chronic oxygen (2-3L/min)
ESRD on HD MWF
Moderate COPD with increased DLco/VA
Follows Dr Gacria
Restrictive lung defect (moderate with T% predicted via PFT from 04/2022)
Alcoholic liver disease with Hx of grade I EV and portal hypertensive gastropathy (seen via EGD in 2013) --> EV and gastropathy resolved via EGD in October 2019
5 mm irregular opacity in the posterior left upper lobe - seen on CT chest from October 2022
Plan/recommendations
At this time, patient remains critically ill, on norepinephrine, wean down to 6-8 mcg
Maintain on volume-cycled ventilation.
Respiratory increased to 24 for pH 7.20/57 this a.m.
Plateau pressure 29
Increased residuals noted, no bowel movement for 4 days, tube feeds remain with trickle
Remains on cefepime/Flagyl
Persistent fevers noted, sputum culture positive for Acinetobacter Bauminni, resistant to ampicillin/sulbactam, Bactrim
Moving forward
Continue with ventilator support
Currently on AC/VCV 24/350/8/60%
Ppk 34, Pplat 29. Maintain plateau pressure less than 30
Decrease rate to 20
Repeat ABG later p.m.
Chest x-ray 06/21 with adequate ET tube
Leukocytosis noted, fever noted, persistent
Presumed sepsis with hypotension
Remains on cefepime/Flagyl
ID following. Sputum culture positive for Acinetobacter Bauminni, resistant to ampicillin/sulbactam, Bactrim
Chronic right pleuroparenchymal process noted, trapped lung physiology
Reviewed CT chest -- Left upper lobe nodule and right upper lobe nodule noted.� Largest 1.5 cm left lower lobe.�
Reviewed CT chest at length, pulm nodules noted.� 1 nodule has decreased in size, other nodules/infiltrate are new
Patient underwent thoracentesis, in past -- studies indicate transudate
Chronic right pleural effusion with pleural thickening, likely trapped lung physiology.
Thora history:
- L 06/02/23 1000 mL
- L 04/08/23 1000 mL
- R 03/03/23 650mL
- L 01/30/23 1200mL
- R 01/18/23 800mL
- R 02/28/19 1500mL
- R 01/11/19 1500mL
Chest US to assess for thora on R --> shows: small to moderate right pleural effusion with thickened internal septations.
COPD, continue inhalers
Continue stress dose steroids, will decrease to every 8 hours
Patient was on steroids started 06/18. Significant COPD history noted
Duonebs continue
Volume overload noted
Continue HD as per nephrology, planned 06/23
Marginal blood pressure noted, on midodrine
Echocardiogram normal LV function, severe pulm hypertension, PA pressure 75, aortic stenosis 1.1 cm
Increased residuals noted per nursing. Had a bowel movement yesterday p.m.
Continue trickle feeds, advance as able
Optimize bowel regimen elevated blood sugars noted. Resume outpatient insulin regimen, every 6h Insulin monitoring
Follow
DVT prophylaxis: HSQ
GI prophylaxis: On PPI
Prior discussion:
His overall prognosis is poor given numerous severe medical issues that are not improving
He understands his prognosis but wishes to remain full code - this was before he got intubated
He did reiterate to Dr. Krause that should he be prolonged on the vent, he would want to be palliatively extubated by Day [address] Lai updated the patient's partner and neighbor on the critically ill state that the patient is in. Considering patient says he wanted to be intubated for 5 days to give it a 'try,' will continue with mechanical ventilation and hopefully we
can optimize his hypercapnia and then do an SAT/SBT. This was reiterated to the patient's partner, in layman's terms, to his satisfaction.
This was reviewed again on 06/22/2023 by myself with partner and sister
Reiterated that I do not think patient will be weaned or liberated from the ventilator
Critical care statement: A total of 40 minutes of critical care time was provided for this patient today. This includes management of unstable vital signs, evaluation of the patient at bedside, reviewing the patient's pertinent medical records
including radiographs, microbiology, laboratory evaluations, and discussion with primary team, consultants, pharmacy, nutrition, physical therapy, case management, charge nurse, critical care nursing, and respiratory therapy.
Diagnostic Data
CXR 06-01-2023:
There has been no significant change compared with the prior study.
There is moderate right pleural effusion with underlying atelectasis
There is a small left-sided pleural effusion with moderate interstitial airway disease throughout the lower left lung
CXR 05-31-2023:
1).There is a small left pleural effusion, increased in volume when compared with the prior study and associated with new increased parenchymal airspace disease throughout the lower left lung. I favor that this is pulmonary edema superimposed on
underlying effusion. Pneumonia is less likely
2).There is stable moderate-large right-sided pleural effusion with stable underlying parenchymal air space disease likely reflecting atelectasis
CXR 06-20-2023:
There is moderately large right-sided pleural effusion which appears larger than on prior study. There is consolidation in the right lower lobe which may be pneumonia versus atelectasis.
�There is a small left pleural effusion. Patchy airspace disease in the left lower lobe is likely atelectasis, but has worsened from prior study.
CXR 06-18-2023:
Placement of a right-sided PICC with the catheter tip in the right atrium. This could be retracted by 4 cm for a desired position at the cavoatrial junction.
Small to moderate right pleural effusion. Trace left pleural effusion. Stable mild prominence of the pulmonary vascular markings.
CT Chest 06/03/23 - 0.5 cm left upper lobe opacity seen on prior CT has decreased in size and volume. Two new small foci of patchy opacity in the left lower lobe are seen in comparison to prior CT, most likely inflammatory/infectious as well as
progression of left lower lobe subsegmental atelectasis and new tiny left pleural effusion. Likely chronic changes with volume loss in the right hemithorax without significant change including likely chronic moderate size right pleural effusion with
accompanying pleural thickening.
CT Chest without contrast 10-07-2022:
1. � Redemonstration of a moderate-sized chronic pleural effusion with associated smooth pleural thickening with grossly unchanged masslike consolidation involving the right lower and middle lobes most consistent with rounded atelectasis. Associated
right-sided volume loss.
2. � Previously seen ill-defined nodular opacities within the posterior right upper lobe have largely resolved. There are some new scattered tree-in-bud opacities within the left lower lobe suggestive of infectious or inflammatory bronchiolitis.
3. � Small amount of new pleural thickening within the posterior aspect of the left hemithorax adjacent to the left lower lobe.
4. � New nonspecific 5 mm irregular opacity within the posterior LEFT upper lobe.
5. � Aberrant RIGHT subclavian artery.
Outpatient [facility] Data:
Spirometry 10/15/2021,�demonstrated FEV1/FVC 58%, FEV1 1.03 L�(32%, FVC 1.76 L or 41%.� Mixed ventilatory defect suggestion of restriction with moderate to severe airflow obstruction.
��������
Spirometry 12/14/2019:�-FEV1/FVC 60%, FEV1 1.78 L 754%, FVC 2.90 L-67%.� Moderate airflow obstruction with a restriction.� Stable compared to before.
��������
Pulmonary function testing 12/13/2017:�demonstrated FEV1 /FVC 52%, FEV1 1.95 L-60%, FVC 3.71 L 785%, TLC 6.59 L-95%, RV 3.25 L-129%, DLCO 21.88-81%. Moderate airflow obstruction. Improvement on air trapping and hyperinflation.��������
Pulmonary function testing 09/09/2016:�FEV1/FVC 46%, FEV1 1.65 L-52%, FVC 3.61 L-84%. There was significant reversibility post bronchodilator. TLC 9.29 L-138%, RV 5.70 L-235%. DLCO 45%. Moderate/severe COPD with air trapping and
hyperinflation-emphysema phenotype.
�����
Spirometry 05/27/2016:�FEV1/FVC 55%, FEV1 1.32 L-38%, FVC 2.43 L-52%. Severe airflow obstruction with no reversibility.
FENO:
������ 10/15/2021 FeNO -- 22 ppb
�������07/15/2021 FENO 32ppb
�������12/14/2019 FENO 25 PPB
�������04/09/22 FENO 27ppb.
Subjective Dataa
Subjective Data
Date of Service:
Date of Service: June 23, 2023
Chief Complaint: Lab Intern Follow Up
Subjective:
Patient remains critically ill. Does wake up and move extremities occasionally, remains sedated otherwise. Remains on volume-cycled ventilation. Poor ventilation, pCO2 57 with pH 7.20. Metabolic acidemia also noted. Blood sugars better
controlled. Remains on pressors, norepinephrine at 6-8 mcg
Objective Data
Data Reviewed
Vital Signs / I&O / Oxygen:
Vital Signs
Temp Pulse Resp BP Pulse Ox
99.7 F 84 25 119/45 100
06/23/23 07:01 06/23/23 07:33 06/23/23 06:00 06/23/23 07:33 06/23/23 07:18
Intake and Output
06/22/23 06/23/23 06/24/23
06:59 06:59 06:59
Intake Total 1347.8 / 1402.3 800.7 / 835.2 34.5 / 34.5
Output Total 0 / 0
Balance 1347.8 / 1402.3 800.7 / 835.2 34.5 / 34.5
SaO2 [P-A/C] 100
SaO2 [A/C] 99
SaO2 [NIV (Non Invasive 95
Ventilation)]
SaO2 100
Nasal Cannula flow liters per 4
minute
Physical Exam
General: Comfortable and Other (Right upper extremity PICC)
HEENT: Normocephalic and Anicteric
Cardiovascular: S1-S2, Regular Rhythm, Murmur (n) and Rub (n)
Respiratory: Wheeze (n), Crackles (n), Rhonchi (n), Non-Labored Respirations, ET Tube and Other (Decreased breath sounds right base)
GI: Soft, Distended, Non Tender, Normal Bowel Sounds and Other (PEG tube)
Neurology: Unresponsive (Sedated)
Skin: Warm, Dry, Bruising (Few scattered) and Other (Sacral stage 1 decubitus ulcer)
Labs/Micro/Reports
Lab Data
06/23/23 04:31
06/23/23 04:31
Laboratory Results
06/22/23 06/23/23
10:20 04:31
pH 7.30 L 7.20 L
pCO2 49 H 57 H
pO2 87 84
HCO3 24.1 22.3
O2 Delivery Level
Microbiology
06/20/23 17:27 Blood/Venous Blood Culture - Preliminary
No Growth in 48 hours- Final report to follow
06/21/23 09:50 Blood/Venous Blood Culture - Preliminary
No Growth in 24 hours- Final report to follow
06/21/23 03:50 Endotracheal Respiratory Culture - Preliminary
Gram negative bacilli
Ksenia albicans
06/21/23 03:50 Endotracheal Gram Stain - Preliminary
06/02/23 14:02 Pleural Fluid Fungal Smear - Final
No yeast or fungal elements seen.
06/02/23 14:02 Pleural Fluid Fungal Culture - Preliminary
Culture in progress.
Positive cultures are reported as soon as detected.
Final report to follow in four to five weeks.
06/20/23 17:27 Nose Nasal Screen MRSA (PCR) - Final
MRSA not detected - performed by PCR methodology.
--- NOTE | 2023-06-23 08:00 | PTCARENOTE ---
Assumed care of PT in bed intubated and sedated, Oral care preformed, deep suction with scant amount of thick slaughter secretions, weak gag reflex, AFib, HR 80-90, pulses + Doppler, B/L feet dusky, trace anasarca, #8 ETT @ 24 left side of mouth, coarse
and diminished T/O, right abdominal PEG tube Nepro with Carb steady @ 10 ml/hr, no free water flushes, hypoactive BS, PT is anuric, left UE AV fistula, + bruit/thrill, dual PICC patent, see work list for meds and titrations, Dialysis underway
[2023-06-23] MEDS: HEPARIN 500 UNITS IV ×2 (08:56→08:58)
[2023-06-23] MEDS: RETACRIT 6000 UNITS IV (09:00)
--- NOTE | 2023-06-23 09:32 | W.PN.ID1 ---
Date of Service
Date of Service: June 23, 2023
Today's Communication
continue cefepime/metro
Assessment / Plan
Shock - Septic
Known Aspiration with oropharyngeal dysfunction s/p PEG tube
Possible Aspiration pneumonia
Chronic R pleural effusion with suspected trapped lung physiology
ESRD on HD
Cirrhosis - decompensated?
Pulmonary nodules - progressed - outpatient follow up with pulm
- blood cultures x2 - two sets needed for sensitivity
- sputum culture with acinetobacter - resistant to unasyn, cefepime remains a first line drug and isolate sensitive continue
- yeast is normal feroz
- continue cefepime/metronidazole -
- Agree that prognosis is poor due to multiple comorbidities with progression despite aggressive medical management- family share that they are waiting for visitors and plan to withdraw care wednesday - I am not confident that he will survive to wednesday.
Chief Complaint
-: Fever
Subjective / Review of Systems
fever curve improving
continued pressor requirements - increasing overall
increasing leukocytosis
relapse of hyperkalemia
resp culture with acinetobacter
Vital Signs / Physical Exam
Vital Signs
Vital Signs
Temp Pulse Resp BP Pulse Ox
100.0 F 95 49 119/45 100
06/23/23 08:00 06/23/23 09:15 06/23/23 09:15 06/23/23 07:33 06/23/23 09:15
Physical Exam
Constitutional: Acutely Ill and Chronically Ill
Cardiovascular: Regular Rate and S1/S2; Negative Murmur or Rub
Pulmonary: Clear and Coarse; Negative Wheezes or Rales
Gastrointestinal: Soft, Non Tender, Non Distended and Normal Bowel Sounds
Skin: Warm and Dry; Negative Rash or Jaundice
Neurological: Negative Awake
Objective Data
Lab Data
Lab Results
06/23/23 04:31
06/23/23 04:31
PT 15.0 Sec (11.4-14.6) H 06/18/23 18:20
INR 1.20 06/18/23 18:20
APTT 38.5 Sec (23.4-35.0) H 06/18/23 18:20
Estimated Creat Clear 14 ml/min 06/23/23 04:31
Total Bilirubin 0.6 mg/dl (0.2-1.3) 06/21/23 09:50
AST 19 U/L (17-59) 06/21/23 09:50
ALT < 10 U/L (0-50) 06/21/23 09:50
Alkaline Phosphatase 119 U/L (38-126) 06/21/23 09:50
Most recent labs reviewed.
Micro Results:
06/21/23 03:50 Respiratory Culture - Final
Endotracheal Acinet. baumannii/haemolyticus
Ksenia albicans
Gram Stain - Final
06/20/23 17:27 Blood Culture - Preliminary
Blood/Venous No Growth in 48 hours- Final report to follow
06/21/23 09:50 Blood Culture - Preliminary
Blood/Venous No Growth in 24 hours- Final report to follow
06/02/23 14:02 Fungal Smear - Final
Pleural Fluid No yeast or fungal elements seen.
Fungal Culture - Preliminary
Culture in progress.
Positive cultures are reported as soon as detected.
Final report to follow in four to five weeks.
06/20/23 17:27 Nasal Screen MRSA (PCR) - Final
Nose MRSA not detected - performed by PCR methodology.
06/02/23 14:03 Body Fluid Culture - Final
Pleural Fluid NO GROWTH-FINAL REPORT
Gram Stain - Final
06/02/23 14:02 Acid Fast Bacilli Smear - Preliminary
Pleural Fluid Acid Fast Bacilli Culture - Preliminary
05/31/23 18:04 MRSA Screen - Final
Nose No Methicillin Resistant Staphylococcus aureus isolated.
05/31/23 08:08 Influenza Types A & B (THANG) - Final
Nasal Swab Negative for Influenza A & B, NAAT
Negative results must be combined with clinical observations
and patient history.
Nucleic Acid Amplification test (NAAT)performed on the
[email or web address] platform.
[2023-06-23] MEDS: FLAGYL 500 MG TUBE ×2 (10:29→23:27)
[2023-06-23] MEDS: NOVOLOG FLEXPEN-HIGH RESISTANCE SC ×2 (11:33→17:38)
[2023-06-23] MEDS: NOVOLOG FLEXPEN SC (11:38)
[2023-06-23 11:42] LABS: Glucose - Point of Care 85 mg/dl (70-99)
--- NOTE | 2023-06-23 12:11 | PN.CDI ---
Addendum entered and electronically signed by Bucky Arceo MD 06/23/23 12:43:
Atrial fibrillation is a valid diagnosis, type: paroxysmal atrial fibrillation
Original Note:
CDI
- -
CDI:
Physician Documentation Request
Admit Date: 05/31/23 11:22
Dear Doctor Adis
The diagnosis of atrial fibrillation was included in the signed EKG 06/21/2023.
It is also documented as rhythm in vital signs from 06/21-06/23
Please indicate in your progress notes if you are in agreement that the above diagnosis is valid for this patient:
____ - atrial fibrillation is a valid diagnosis (Please specify type)
____ - atrial fibrillation is not a valid diagnosis for this patient
____ - Other
Use of terms such as suspected, likely, concern for, or probable are acceptable for a diagnosis that is being evaluated, monitored or treated as if it exists and can be coded in the inpatient setting, when documented at the time of discharge.
Thank you,
Kymberly Ramirez RN, BSN
CDI Specialist
tiger text
Please use your independent medical judgment in providing your response.
[2023-06-23] MEDS: DIPRIVAN 100 IV (12:22)
[2023-06-23] MEDS: SOLU-CORTEF IV (12:50)
--- NOTE | 2023-06-23 12:50 | PTCARENOTE ---
PT finished Dialysis, 2 Kilos taken off, PT's BP started to drop with maps in the 50's increased Levophed to 10 mcg/18.8 ml, see work list, PT remains afebrile, PT repositioned to left side, oral care preformed
[2023-06-23] MEDS: TYLENOL ORAL SOLUTION 650 MG TUBE ×2 (14:23→23:27)
[2023-06-23 14:32] VITALS: BP 120/38
--- NOTE | 2023-06-23 14:36 | PTCARENOTE ---
PT's temp elevated @ 100.7, as per rounds this am, obtained a setof blood cultures and medicated with Tylenol via PEG, sisters at bedside, updated and DR Poole in to speak with family
--- NOTE | 2023-06-23 15:02 | W.PN.NEPH.HD ---
Assessment
-
intubated and sedated
weaning pressors as able
this patient is critically ill and i spent >30 minutes in the care of this patient.
Progress Note - Hemodialysis
-
Date of Service: June 23, 2023
Duration: 30 minutes and 3 hours
Potassium Bath: 3
Calcium Bath: 2.5
Opti-Dialyzer: 160
Ultrafiltration: Other
Blood Flow: 400
Dialysate Flow: 600
Heparin: 500x2
EPO: 6K
[2023-06-23] MEDS: LEVOPHED 258 MG IV (15:46)
[2023-06-23 16:00] VITALS: BP 109/39
--- NOTE | 2023-06-23 16:00 | PTCARENOTE ---
PT remains febrile temp now @ 101.2, after Tylenol administration, cooling blanket placed on, PT awake and agitated, pain assessed and Fentanyl bolus given as ordered, family at bedside, updated, answered all questions and concerns
[2023-06-23] MEDS: MAXIPIME 1000 MG IV (17:34)
[2023-06-23] MEDS: STERILE WATER FOR INJECTION 10 ML IV (17:34)
[2023-06-23 17:45] LABS: Glucose - Point of Care 116 mg/dl (70-99)
--- NOTE | 2023-06-23 20:34 | PTCARENOTE ---
pt received from previous rn- ett to vent- see settings as charted. pt restless in bed, rass of +1-+2, unable to follow commands. pupils unequal and sluggish, no change from previous shift. pt given prn fentanyl bolus, propofol increased to
15mcg/kg/min. fentanyl continues at 75mcg, and levophed at 11mcg for map>65. right radial rin site c/d/i, good pulse, zeroed and functioning. pt in afib with bbb. pt with smear of bm, turned and repositioned. oral care provided. all safety
precautions in place.
[2023-06-23 23:23] LABS: Glucose - Point of Care 176 mg/dl (70-99)
[2023-06-23] MEDS: LANTUS 0.100000000000000006 UNITS SC (23:28)
[2023-06-23] MEDS: NOVOLOG FLEXPEN-HIGH RESISTANCE 2 UNITS SC (23:29)
--- NOTE | 2023-06-23 23:39 | PTCARENOTE ---
assessment unchanged, turned and repositioned. oral care provided. chg and bath provided. tube feeds continue. all safety precautions remain in place.
[2023-06-24] MEDS: DUONEB 3 ML INH ×4 (01:49→19:40)
[2023-06-24 02:56] VITALS: BMI 21.4
[2023-06-24] MEDS: LEVOPHED 258 MG IV ×3 (04:28→22:10)
[2023-06-24 05:02] LABS: B.E. -3.5 mmol/L; HCO3 25.6 mmol/L (21-28); Hematocrit 32.4 % (39.0-52.0); Hemoglobin 10.5 g/dL (13.0-18.0); Mean Corp Hgb Conc. 32.4 g/dL (33.0-37.0); Mean Corpuscular Hgb 32.1 pg (27.0-31.0); Mean Corpuscular Volume 99.1 fL (80.0-94.0); Mean Platelet Volume 9.9 fL (7.4-10.4); O2 Saturation % 98.5 % (94-98); PCO2 67 mmHg (35-48); PO2 143 mmHg (83-108); Platelet Count 129 10^3/uL (130-400); Red Blood Cell Count 3.27 10^6/uL (4.70-6.10); Red Cell Dist. Width 14.5 % (11.5-14.5); White Blood Cell Count 14.5 10^3/uL (4.8-10.8)
[2023-06-24] MEDS: SUBLIMAZE 100 IV ×2 (05:19→18:37)
[2023-06-24 05:20] LABS: Blood Urea Nitrogen 68 mg/dl (9-20); Calcium 9.2 mg/dl (8.4-10.2); Carbon Dioxide 24 mmol/L (22-30); Chloride 91 mmol/L (98-107); Estimated Creatinine Clearance 17 ml/min; Glucose 238 mg/dl (70-99); Potassium 4.7 mmol/L (3.5-5.1); Sodium 129 mmol/L (135-145); eGFR 15.72
[2023-06-24] MEDS: DIPRIVAN 100 IV ×2 (05:28→15:03)
--- NOTE | 2023-06-24 05:39 | PTCARENOTE ---
0400- pt assessment unchanged. remains on propofol, fent, and levophed. tube feeds continue- pt tolerating. turned and repositioned. suctioned for scant slaughter secretions.
[2023-06-24] MEDS: NOVOLOG FLEXPEN-HIGH RESISTANCE 4 UNITS SC ×2 (05:43→12:07)
[2023-06-24 05:47] LABS: O2 Therapy VENT; pH 7.19 (7.35-7.45)
[2023-06-24 05:54] LABS: Glucose - Point of Care 211 mg/dl (70-99)
--- NOTE | 2023-06-24 06:12 | W.PN.HOSP.TC ---
Today's Communication/Plan
-
.
Assessment / Plan
Assessment / Plan
Physical Exam
General: chronically ill looking, intubated and sedated
HEENT: Atraumatic, dry Mucous Membranes. intubated. Ulcer noted on nasal bridge
Lungs: Rales and rhonchi, limited
Cardiac: Regular Rhythm and S1/S2;+ murmur
GI: Soft, Nontender, Nondistended and Normal Bowel Sounds. +peg tube,
Rectal: No rectal bleeding noted.
Musculoskeletal: No Clubbing, No Cyanosis and No Edema
Skin: Negative Rash
Neuro: sedated.
Psych: no agitation
#Acute on chronic hypoxic and hypercapnic resp failure 2/ recurrent progressive pleural effusion, COPD, acute on chronic CHF with preserved ejection fraction and pulmonary edema
#Mechanical ventilation and intubation
#History of recurrent pleural effusions requiring multiple thoracentesis
#Chronic COPD on chronic 2 L nasal cannula 24 hours
#Former nicotine abuse 50-year 2 pack a day quit 2017
#Chronic pulmonary nodules
ABG showed 7.19/67/PO2 143 on ventilator support,
Continue ventilatory support and will need adjustments,
s/p Left thoracentesis 1L fluid removed.
Chest x-ray 06/22 showed Small left and moderate right pleural effusions with associated consolidation, slightly improved. Previous thoracentesis showed transudative
Nebulizer treatment 3 times a day
On propofol & Fentanyl for sedation
CT head 06/21 was done due to concern about pupils' size : No evidence of acute intracranial abnormality.
Appreciate pulmonary help
#Sepsis/septic shock
Continue with empiric antibiotics, cefepime & Flagyl
Blood culture, no growth
Appreciate ID help
# Chronic hypotension now worsened with sedation
Continue continue with midodrine, Levophed.
Stress dose steroids. Previous cortisol testing including stimulation test did not show adrenal insufficiency
#Recurrent pleural effusion
#Left upper lobe lesion
s/p 1L fluid removed. Exudative effusions. Fluid studies in lab negative for growth. Cytology negative for malignancy.
CT chest left upper lobe opacity decrease in size of volume. Two new small foci of patchy opacity in the left lower lobe are seen in comparison to prior CT, most likely inflammatory/infectious as well as progression of left lower lobe subsegmental
atelectasis and new tiny left pleural effusion. Likely chronic changes with volume loss in the right hemithorax without significant change including likely chronic moderate size right pleural effusion with accompanying pleural thickening.
#ESRD on dialysis
#AV fistula left upper arm
Wednesday dialysis. HD regular schedule.
Pressure support with higher dose midodrine and Levophed.
Appreciate nephrology help
# PVD with hypothermia, Hypoglycemia
Accu-checks, Bp, SaO2 are not very accurate at times due to poor peripheral circulation.
AM cortisol level was normal
Normal ACTH stim test.
# Acute on chronic thrombocytopenia secondary to sepsis. No bleeding.
#Dysphagia
s/p peg tube placement on 06/10, no complications reported.
Likely due to combination of Cachexia associated with advanced COPD and deconditioning/ malnutrition. MRI brain, no stroke.
In history: pt continued to struggle with oropharyngeal dysphagia. Dobbhoff placed, no gag reflex noted also. EGD also noted no gag reflex and mild retained secretions/TF in proximal esophagus, normal stomach and duodenum
Appreciate speech/swallow therapist & GI help
#Constipation
Good BM
c/w bowel regimen
# Multiple Atrial tachycardia.
Telemetry showed few episodes of MAT. No palpitation. No chest pain.
Continue with current medication. Unable to tolerate beta-sonal at times due to hypotension.
Was placed back on Coreg 3.125mg BID with hold parameters but no off due to hypotension
# moderate protein-caloric malnutrition Chronic
Patient has characteristics of COPD cachexia with severe loss of energy, wasting of muscles.
#Hyponatremia
per HD.
# Suspect diabetic gastroparesis
high residual with tube feeding. Unable to reach goal.
#Chronic diastolic CHF preserved EF
Follows at [facility] cardiology
resumed tube aspirin. Coreg held for hypotension
On dialysis- MWF
#Hypotension orthostatic Hx
Midodrine and Levophed support
# Anemia of chronic disease hemoglobin around 10.
monitor
EPO/IV iron per nephro
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
#Hx of Hypoglycemia
Hold gabapentin while on sedation
Previous hypoglycemia, on insulin protocol, SQ insulin 5 units Q6 + Lantus
s/p D10 infusion.
#HLD
#GERD
tube PPI.
#Gout
-resumed tube allopurinol
#Depression
Hold Zoloft while on sedation
DVT prophylaxis
Subcu heparin
PT/OT-SNF eventually.
Total time spent to see the patient, examine the patient on the floor, review data and lab results, discuss treatment plan with sisters, nursing staff around 55 minutes
Anticipated Discharge: > 48 hours
Subjective/Interval History
-
Date of Service: June 24, 2023
Mild fever over night
on Levophed
Objective Data
-
Labs:
Laboratory Results
06/24/23
04:38
WBC 14.5 H
Hgb 10.5 L
Hct 32.4 L
Plt Count 129 L
HCO3 25.6
Sodium 129 L
Potassium 4.7
Chloride 91 L
Carbon Dioxide 24
BUN 68 H
Creatinine 3.9 H
Glucose 238 H
Calcium 9.2
Vital Signs:
Vital Signs
Temp Pulse Resp BP Pulse Ox
97.9 F 89 25 124/41 98
06/24/23 05:57 06/24/23 05:30 06/24/23 05:30 06/23/23 17:34 06/24/23 05:30
I&O
06/22/23 06/23/23 06/24/23
06:59 06:59 06:59
Intake Total 1347.8 / 1402.3 800.7 / 835.2 1142.9 / 1142.9
Output Total 0 / 0
Balance 1347.8 / 1402.3 800.7 / 835.2 1142.9 / 1142.9
--- NOTE | 2023-06-24 07:39 | W.PN.INTV ---
Today's Communication / Plan
Recommendations
Continue with supportive care
Unable to wean pressors
Persistent fevers noted, prognosis poor
Per discussion with sister at bedside 06/23, comfort is a priority
I reiterated my opinion the patient will not improve in the next 24 to 48 hours
Plan for withdrawal of care 06/25, timing to be determined by family (based on pt wishes)
Assessment
-
73-year-old M former tobacco smoker (quit 2016) with PMhx COPD/asthma, ESRD on HD, GERD and chronic liver disease/cirrhosis who p/w SOB from his HD center.� Of note, he follows with us in [facility] office with Dr. Garcia - last office visit on
04/29/2023.� He is on Trelegy 100mcg with prn albuterol.� Adm to on 05/31/23 for evaluation of R-effusion on CXR compared to last, and he has a small left pleural effusion.� HD session started in ER.� Underwent thoracentesis with improvement.� s/p
PEG 06/10/23 for dysphagia on this admission.
06/18/23 developed worsening SOB, ABG showing acute CO2 retention, started on BIPAP, will be transferred to IMU for further care.� Remains full code.
Acute on chronic hypercarbic respiratory failure failed BIPAP and now on mechanical ventilation
Intubated 06/20/2023
Hypotension, requiring pressors
Leukocytosis
Acute on chronic respiratory failure with hypoxemia on supplemental O2 (on 2L/min at baseline)
Chronic right-sided pleural effusion with acute left-sided pleural effusion s/p multiple thoras
Acute on chronic anemia
Chronic thrombocytopenia
Chronic dysphagia s/p PEG 06/10/23
Protein-Calorie malnutrition
Chronic hyponatremia
Severe pulm hypertension, PA pressure 75, progressive
Per echo 06/21/2023
Normal RV size and function
Aortic stenosis, valve area 1.1 cm�
Chronic medical conditions [employer]ING:���
GERD
Mitral regurgitation
HLD
DM type II
Hx of alcoholic cirrhosis with Hx of EV + portal hypertensive gastropathy (seen in 2013 via EGD), HTN, COPD/asthma on chronic oxygen (2-3L/min)
ESRD on HD MWF
Moderate COPD with increased DLco/VA
Follows Dr Garcia
Restrictive lung defect (moderate with T% predicted via PFT from 04/2022)
Alcoholic liver disease with Hx of grade I EV and portal hypertensive gastropathy (seen via EGD in 2013) --> EV and gastropathy resolved via EGD in October 2019
5 mm irregular opacity in the posterior left upper lobe - seen on CT chest from October 2022
Plan/recommendations
At this time, patient remains critically ill, on norepinephrine, wean down to 6-8 mcg
Maintain on volume-cycled ventilation.
Respiratory increased to 24 for pH 7.20/57 this a.m.
Plateau pressure 29
Increased residuals noted, no bowel movement for 4 days, tube feeds remain with trickle
Remains on cefepime/Flagyl
Persistent fevers noted, sputum culture positive for Acinetobacter Bauminni, resistant to ampicillin/sulbactam, Bactrim
Moving forward
Continue with ventilator support
Currently on AC/VCV 20/350/8/60%
Ppk 33, Pplat 24. Maintain plateau pressure less than 30
ABG with persistent acidemia, 7.19/67/143
Chest x-ray 06/22 with adequate ET tube, no change in the right pleuroparenchymal process
Reports suggest heart failure slightly progressed
Leukocytosis noted, fever noted, persistent
Presumed sepsis with hypotension
Remains on cefepime/Flagyl
ID following. Sputum culture positive for Acinetobacter Bauminni, resistant to ampicillin/sulbactam, Bactrim
Unfortunately still having fevers
Chronic right pleuroparenchymal process noted, trapped lung physiology
Reviewed CT chest -- Left upper lobe nodule and right upper lobe nodule noted.� Largest 1.5 cm left lower lobe.�
Reviewed CT chest at length, pulm nodules noted.� 1 nodule has decreased in size, other nodules/infiltrate are new
Patient underwent thoracentesis, in past -- studies indicate transudate
Chronic right pleural effusion with pleural thickening, likely trapped lung physiology.
Thora history:
- L 06/02/23 1000 mL
- L 04/08/23 1000 mL
- R 03/03/23 650mL
- L 01/30/23 1200mL
- R 01/18/23 800mL
- R 02/28/19 1500mL
- R 01/11/19 1500mL
COPD, continue inhalers
Continue stress dose steroids, no change at this time
Patient was on steroids started 06/18. Significant COPD history noted
Duonebs continue
Volume overload noted
Chest x-ray 06/23 with slight worsening heart failure findings per report
Last HD session 06/23
Marginal blood pressure noted, on midodrine
Still requiring pressors
Given findings on echocardiogram, end-stage renal disease, liver disease, chronic lung disease, do not think that patient will recover
Echocardiogram normal LV function, severe pulm hypertension, PA pressure 75, aortic stenosis 1.1 cm
This has worsened compared to prior echocardiogram
Continue trickle feeds, no plans to advance given plans for withdrawal of care in the next 24 hours
Continue to follow blood sugars, insulin as able/needed
DVT prophylaxis: HSQ
GI prophylaxis: On PPI
Updated sister at length at bedside 06/23/2023
She is aware as is partner and other family members of patient's poor prognosis
Continue with supportive care for now with comfort being a primary goal
Plans for withdrawal of care 06/25, timing to be determined by family members
Critical care statement: A total of 35 minutes of critical care time was provided for this patient today. This includes management of unstable vital signs, evaluation of the patient at bedside, reviewing the patient's pertinent medical records
including radiographs, microbiology, laboratory evaluations, and discussion with primary team, consultants, pharmacy, nutrition, physical therapy, case management, charge nurse, critical care nursing, and respiratory therapy.
Diagnostic Data
CXR 06-01-2023:
There has been no significant change compared with the prior study.
There is moderate right pleural effusion with underlying atelectasis
There is a small left-sided pleural effusion with moderate interstitial airway disease throughout the lower left lung
CXR 05-31-2023:
1).There is a small left pleural effusion, increased in volume when compared with the prior study and associated with new increased parenchymal airspace disease throughout the lower left lung. I favor that this is pulmonary edema superimposed on
underlying effusion. Pneumonia is less likely
2).There is stable moderate-large right-sided pleural effusion with stable underlying parenchymal air space disease likely reflecting atelectasis
CXR 06-20-2023:
There is moderately large right-sided pleural effusion which appears larger than on prior study. There is consolidation in the right lower lobe which may be pneumonia versus atelectasis.
�There is a small left pleural effusion. Patchy airspace disease in the left lower lobe is likely atelectasis, but has worsened from prior study.
CXR 06-18-2023:
Placement of a right-sided PICC with the catheter tip in the right atrium. This could be retracted by 4 cm for a desired position at the cavoatrial junction.
Small to moderate right pleural effusion. Trace left pleural effusion. Stable mild prominence of the pulmonary vascular markings.
CT Chest 06/03/23 - 0.5 cm left upper lobe opacity seen on prior CT has decreased in size and volume. Two new small foci of patchy opacity in the left lower lobe are seen in comparison to prior CT, most likely inflammatory/infectious as well as
progression of left lower lobe subsegmental atelectasis and new tiny left pleural effusion. Likely chronic changes with volume loss in the right hemithorax without significant change including likely chronic moderate size right pleural effusion with
accompanying pleural thickening.
CT Chest without contrast 10-07-2022:
1. � Redemonstration of a moderate-sized chronic pleural effusion with associated smooth pleural thickening with grossly unchanged masslike consolidation involving the right lower and middle lobes most consistent with rounded atelectasis. Associated
right-sided volume loss.
2. � Previously seen ill-defined nodular opacities within the posterior right upper lobe have largely resolved. There are some new scattered tree-in-bud opacities within the left lower lobe suggestive of infectious or inflammatory bronchiolitis.
3. � Small amount of new pleural thickening within the posterior aspect of the left hemithorax adjacent to the left lower lobe.
4. � New nonspecific 5 mm irregular opacity within the posterior LEFT upper lobe.
5. � Aberrant RIGHT subclavian artery.
Outpatient [facility] Data:
Spirometry 10/15/2021,�demonstrated FEV1/FVC 58%, FEV1 1.03 L�(32%, FVC 1.76 L or 41%.� Mixed ventilatory defect suggestion of restriction with moderate to severe airflow obstruction.
��������
Spirometry 12/14/2019:�-FEV1/FVC 60%, FEV1 1.78 L 754%, FVC 2.90 L-67%.� Moderate airflow obstruction with a restriction.� Stable compared to before.
��������
Pulmonary function testing 12/13/2017:�demonstrated FEV1 /FVC 52%, FEV1 1.95 L-60%, FVC 3.71 L 785%, TLC 6.59 L-95%, RV 3.25 L-129%, DLCO 21.88-81%. Moderate airflow obstruction. Improvement on air trapping and hyperinflation.��������
Pulmonary function testing 09/09/2016:�FEV1/FVC 46%, FEV1 1.65 L-52%, FVC 3.61 L-84%. There was significant reversibility post bronchodilator. TLC 9.29 L-138%, RV 5.70 L-235%. DLCO 45%. Moderate/severe COPD with air trapping and
hyperinflation-emphysema phenotype.
�����
Spirometry 05/27/2016:�FEV1/FVC 55%, FEV1 1.32 L-38%, FVC 2.43 L-52%. Severe airflow obstruction with no reversibility.
FENO:
������ 10/15/2021 FeNO -- 22 ppb
�������07/15/2021 FENO 32ppb
�������12/14/2019 FENO 25 PPB
�������04/09/22 FENO 27ppb. Status post
Subjective Dataa
Subjective Data
Date of Service:
Date of Service: June 24, 2023
Chief Complaint: Steam Bone Press Tender Follow Up
Subjective:
Unfortunate, no improvement overnight, patient remains critically ill. Requiring increased pressor dosing. Remains with poor ventilation, poor respiratory status. Fevers persist
Objective Data
Data Reviewed
Vital Signs / I&O / Oxygen:
Vital Signs
Temp Pulse Resp BP Pulse Ox
97.9 F 89 25 124/41 98
06/24/23 05:57 06/24/23 05:30 06/24/23 05:30 06/23/23 17:34 06/24/23 05:30
Intake and Output
06/23/23 06/24/23 06/25/23
06:59 06:59 06:59
Intake Total 800.7 / 835.2 1142.9 / 1142.9
Output Total 0 / 0
Balance 800.7 / 835.2 1142.9 / 1142.9
SaO2 [P-A/C] 100
SaO2 [A/C] 98
SaO2 [NIV (Non Invasive 95
Ventilation)]
SaO2 98
Nasal Cannula flow liters per 4
minute
Physical Exam
General: Comfortable and Other (Right upper extremity PICC)
HEENT: Normocephalic and Anicteric
Cardiovascular: S1-S2, Regular Rhythm, Murmur (n) and Rub (n)
Respiratory: Wheeze (n), Crackles (n), Rhonchi (n), Non-Labored Respirations, ET Tube and Other (Decreased breath sounds right base)
GI: Soft, Distended (slight), Non Tender, Normal Bowel Sounds and Other (PEG tube)
Neurology: Unresponsive (Sedated)
Skin: Cyanosis (n), Bruising (Few scattered) and Other (Sacral stage 1 decubitus ulcer)
Labs/Micro/Reports
Lab Data
06/24/23 04:38
06/24/23 04:38
Laboratory Results
06/24/23
04:38
pH 7.19 L*
pCO2 67 H
pO2 143 H
HCO3 25.6
O2 Delivery Level Vent
Microbiology
06/20/23 17:27 Blood/Venous Blood Culture - Preliminary
No Growth in 72 hours- Final report to follow
06/21/23 09:50 Blood/Venous Blood Culture - Preliminary
No Growth in 48 hours- Final report to follow
06/21/23 03:50 Endotracheal Respiratory Culture - Final
Acinet. baumannii/haemolyticus
Ksenia albicans
06/21/23 03:50 Endotracheal Gram Stain - Final
06/02/23 14:02 Pleural Fluid Fungal Smear - Final
No yeast or fungal elements seen.
06/02/23 14:02 Pleural Fluid Fungal Culture - Preliminary
Culture in progress.
Positive cultures are reported as soon as detected.
Final report to follow in four to five weeks.
06/20/23 17:27 Nose Nasal Screen MRSA (PCR) - Final
MRSA not detected - performed by PCR methodology.
[2023-06-24] MEDS: LOW STRENGTH ASPIRIN 81 MG TUBE (07:56)
[2023-06-24] MEDS: ZYLOPRIM 100 MG TUBE (07:56)
[2023-06-24] MEDS: PREVACID 30 MG TUBE (07:57)
[2023-06-24] MEDS: ProAmatine 10 MG TUBE ×3 (07:57→17:08)
[2023-06-24] MEDS: SENNA SYRUP 17.6000000000000014 MG TUBE ×2 (07:57→20:35)
[2023-06-24] MEDS: HEPARIN 5000 UNITS SC ×2 (07:57→20:35)
[2023-06-24] MEDS: COLACE LIQUID 100 MG TUBE ×2 (07:57→20:35)
[2023-06-24] MEDS: LIDOCAINE 4% PATCH 1 PATCH TOPICAL (07:57)
[2023-06-24] MEDS: SOLU-CORTEF 50 MG IV ×2 (07:58→15:03)
[2023-06-24] MEDS: MIRALAX 17 GRAMS TUBE (07:58)
--- NOTE | 2023-06-24 08:00 | PTCARENOTE ---
PT received unresponsive, intubated and sedated, pupils sluggish but reactive, AFib, pulses +Doppler, B/L feet and hands dusky and cyanotic, cool to touch, rectal probe for temperature management, #8 ETT @24 moved to left lip, 20/350/60/8, B/L BS
diminished with scattered rhonchi, right bases almost absent, peg tube in left abdomen, Nepro @ 20 ml/hr, residual 190 ml's, anuric, right dual PICC, Levophed, Propofol, Fentanyl, see work list for titrations, PT received full CHG bath, linen changed
[2023-06-24] MEDS: TYLENOL ORAL SOLUTION 650 MG TUBE ×2 (08:02→17:24)
--- NOTE | 2023-06-24 09:27 | W.PN.ID1 ---
Date of Service
Date of Service: June 24, 2023
Today's Communication
- continue cefepime/metronidazole
- Agree that prognosis remains poor and I continue to recommend hospice; agree with making comfort a priority.
Assessment / Plan
Shock - Septic - persistent
Known Aspiration with oropharyngeal dysfunction s/p PEG tube
Possible Aspiration pneumonia
Chronic R pleural effusion with suspected trapped lung physiology
ESRD on HD
Cirrhosis - decompensated?
Pulmonary nodules - progressed - outpatient follow up with pulm
- blood cultures x2 - two sets needed for sensitivity
- sputum culture with acinetobacter - resistant to unasyn, cefepime remains a first line drug and isolate sensitive continue
- yeast is normal feroz - doesnt require treatment
- continue cefepime/metronidazole
- Agree that prognosis remains poor and I continue to recommend hospice; agree with making comfort a priority.
Chief Complaint
-: Fever
Subjective / Review of Systems
fevers ongoing
increasing pressor requirements
persistent leukocytosis
thrombocytopenia
hyperkalemia resolved
blood cultures no growth to date
sedated
Vital Signs / Physical Exam
Vital Signs
Vital Signs
Temp Pulse Resp BP Pulse Ox
99.9 F 91 20 113/45 95
06/24/23 08:02 06/24/23 07:57 06/24/23 07:49 06/24/23 07:57 06/24/23 08:00
Physical Exam
Constitutional: Acutely Ill and Chronically Ill
Cardiovascular: Regular Rate and S1/S2; Negative Murmur or Rub
Pulmonary: Symmetric and Coarse; Negative Wheezes or Rales
Gastrointestinal: Soft, Non Tender, Non Distended and Normal Bowel Sounds
Skin: Warm and Dry; Negative Rash or Jaundice
Neurological: Negative Awake
Objective Data
Lab Data
Lab Results
06/24/23 04:38
06/24/23 04:38
PT 15.0 Sec (11.4-14.6) H 06/18/23 18:20
INR 1.20 06/18/23 18:20
APTT 38.5 Sec (23.4-35.0) H 06/18/23 18:20
Estimated Creat Clear 17 ml/min 06/24/23 04:38
Total Bilirubin 0.6 mg/dl (0.2-1.3) 06/21/23 09:50
AST 19 U/L (17-59) 06/21/23 09:50
ALT < 10 U/L (0-50) 06/21/23 09:50
Alkaline Phosphatase 119 U/L (38-126) 06/21/23 09:50
Most recent labs reviewed.
Micro Results:
06/20/23 17:27 Blood Culture - Preliminary
Blood/Venous No Growth in 72 hours- Final report to follow
06/23/23 14:22 Blood Culture - Pending
Blood/Venous
06/21/23 09:50 Blood Culture - Preliminary
Blood/Venous No Growth in 48 hours- Final report to follow
06/21/23 03:50 Respiratory Culture - Final
Endotracheal Acinet. baumannii/haemolyticus
Ksenia albicans
Gram Stain - Final
06/02/23 14:02 Fungal Smear - Final
Pleural Fluid No yeast or fungal elements seen.
Fungal Culture - Preliminary
Culture in progress.
Positive cultures are reported as soon as detected.
Final report to follow in four to five weeks.
06/20/23 17:27 Nasal Screen MRSA (PCR) - Final
Nose MRSA not detected - performed by PCR methodology.
06/02/23 14:03 Body Fluid Culture - Final
Pleural Fluid NO GROWTH-FINAL REPORT
Gram Stain - Final
06/02/23 14:02 Acid Fast Bacilli Smear - Preliminary
Pleural Fluid Acid Fast Bacilli Culture - Preliminary
05/31/23 18:04 MRSA Screen - Final
Nose No Methicillin Resistant Staphylococcus aureus isolated.
05/31/23 08:08 Influenza Types A & B (THANG) - Final
Nasal Swab Negative for Influenza A & B, NAAT
Negative results must be combined with clinical observations
and patient history.
Nucleic Acid Amplification test (NAAT)performed on the
[employer] platform.
Care Review
Plan reviewed with: Physician (Dr Poole - prognosis)
[2023-06-24] MEDS: FLAGYL 500 MG TUBE ×2 (09:59→22:13)
--- NOTE | 2023-06-24 12:00 | PTCARENOTE ---
Family at bedside, family had multiple questions about withdrawing an the process, explained in depth the process, offered emotional support, assessment remains unchanged
[2023-06-24 12:01] LABS: Glucose - Point of Care 232 mg/dl (70-99)
[2023-06-24] MEDS: NOVOLOG FLEXPEN 3 UNITS SC ×2 (12:08→17:07)
--- NOTE | 2023-06-24 14:20 | CM ---
CM following re: discharge planning.
Discussed in Rounds, reviewed pt's chart, met with pt. Per Rounds meeting, pt remains intubated, continue supportive care and a plan for withdrawal of care tomorrow 06/25/23 when family members arrive.
D/C plan: Withdrawal of care tomorrow 06/25/23.
CM is available for emotional support.
--- NOTE | 2023-06-24 14:20 | W.PN.NEPH.PH ---
Today's Communication / Plan
-
- plan for withdrawal of care tomorrow
- hold HD
Assessment/Plan
-
Impression:
End-stage renal disease Wednesday, Wednesday, Wednesday
Hypoxia/Hypercapnia/COPD:home O2 2L
Right pleural effusion (Recurrent)
Hyperphosphatemia
Anemia
Diabetes with multiple microvascular complications
Hypotension on Midodrine
Cirrhosis
Chronic thrombocytopenia
Pulmonary nodules
Plan:
Progressive clinical decline recently and required multiple admits for resp failure despite HD support
remains intubated, wean per pulm and likely withdrawal of care on Wednesday
cont HD as per schedule and try UF as much as possible
cont pressors to keep MAP>60, increase midodrine 10 TID
On TF through PEG with no FWF
Hb stable
abx and stress steroids per ID
family seen at bedside
d/w ICU
-
-
Date of Service: June 24, 2023
CC / HPI / ROS
-
Chief Complaint:
ESRD
History of Present Illness:
ESRD MWF,
now in ICU intubated
hypotension on pressors and midodrine
failed swallow study earlier in admit, now with PEG feeds
sodium low 129
Review of Systems:
sedated and intubated
+ fever
Labs
-
Labs:
WBC 14.5 10^3/uL (4.8-10.8) H 06/24/23 04:38
RBC 3.27 10^6/uL (4.70-6.10) L 06/24/23 04:38
Hgb 10.5 g/dL (13.0-18.0) L 06/24/23 04:38
Hct 32.4 % (39.0-52.0) L 06/24/23 04:38
Plt Count 129 10^3/uL (130-400) L 06/24/23 04:38
Sodium 129 mmol/L (135-145) L 06/24/23 04:38
Potassium 4.7 mmol/L (3.5-5.1) 06/24/23 04:38
Chloride 91 mmol/L (98-107) L 06/24/23 04:38
Carbon Dioxide 24 mmol/L (22-30) 06/24/23 04:38
BUN 68 mg/dl (9-20) H 06/24/23 04:38
Creatinine 3.9 mg/dL (0.7-1.3) H 06/24/23 04:38
eGFR 15.72 06/24/23 04:38
Glucose 238 mg/dl (70-99) H 06/24/23 04:38
Calcium 9.2 mg/dl (8.4-10.2) 06/24/23 04:38
Phosphorus 6.0 mg/dl (2.5-4.5) H 06/16/23 05:33
Tkw-U-Nbzisbpdzyw Pept > 25573 pg/ml 05/31/23 08:08
Albumin 3.9 g/dl (3.5-5.0) 06/21/23 09:50
Physical Exam
-
Vital Signs:
Vital Signs
Temp Pulse Resp BP Pulse Ox
99.7 F 90 22 106/39 97
06/24/23 11:18 06/24/23 13:59 06/24/23 13:59 06/24/23 12:06 06/24/23 13:59
Cardiovascular:: Irregular rate and rhythm
Respiratory:: Bilateral: Coarse
Lung Excursion:: Normal
Abdomen:: Nontender and Soft
Bowel Sounds:: Normal
Extremity Edema:: None: Bilateral:
Rodarte Catheter: No
--- NOTE | 2023-06-24 15:22 | PTCARENOTE ---
Assessment remains unchanged, family at bedside, sister asked to stay the evening before withdraw, this nurse gave ok, Plan is for withdraw 2/2 around 12 , offered pastoral care, explained that they are here for the patient and their yazidi
beliefs, at this time family declines services
[2023-06-24] MEDS: NOVOLOG FLEXPEN-HIGH RESISTANCE 2 UNITS SC (17:07)
[2023-06-24] MEDS: MAXIPIME 1000 MG IV (17:08)
[2023-06-24] MEDS: STERILE WATER FOR INJECTION 10 ML IV (17:08)
[2023-06-24 17:17] LABS: Glucose - Point of Care 177 mg/dl (70-99)
[2023-06-24] MEDS: LANTUS 0.100000000000000006 UNITS SC (22:13)
[2023-06-24 23:33] LABS: Glucose - Point of Care 91 mg/dl (70-99)
[2023-06-25] MEDS: NOVOLOG FLEXPEN-HIGH RESISTANCE SC (00:38)
[2023-06-25] MEDS: SOLU-CORTEF 50 MG IV ×2 (00:39→09:51)
[2023-06-25] MEDS: DUONEB 3 ML INH (01:36)
[2023-06-25] MEDS: NOVOLOG FLEXPEN 3 UNITS SC ×2 (01:39→06:04)
--- NOTE | 2023-06-25 01:44 | PTCARENOTE ---
received pt from daysazft RN, family at bedside with patient. patient remains sedate, non responsive, minimal cough/gag/corneal reflexes.
patients dialysis is cancelle for am due to the fact that patient is being placed on comfort care in the morning.
patient is turned/repostioned for comfort, levo increased per parameters, family would like to hold on until wednesday am before turning medications off.
blle dark blue/purple and cold (cyanotic) patient remains afebrile as long as he stays on the cooling blanket,
sister on couch spending night to be with her bother, all needs of patient and family met at this time.
[2023-06-25] MEDS: DIPRIVAN 100 IV (03:05)
[2023-06-25] MEDS: LEVOPHED 258 MG IV ×2 (04:12→09:35)
--- NOTE | 2023-06-25 05:33 | PTCARENOTE ---
assessment remains unchanged, patient had large bm, family remains at bedside, increasing levo to keep MAP >60
[2023-06-25 06:00] VITALS: BMI 21.2
[2023-06-25] MEDS: NOVOLOG FLEXPEN-HIGH RESISTANCE 1 UNITS SC (06:06)
--- NOTE | 2023-06-25 06:14 | W.PN.HOSP.TC ---
Today's Communication/Plan
-
Palliative extubation and withdrawal of care today
Assessment / Plan
Assessment / Plan
Physical Exam
General: chronically ill looking, intubated and sedated
HEENT: Atraumatic, dry Mucous Membranes. intubated. Ulcer noted on nasal bridge
Lungs: Rales and rhonchi, limited
Cardiac: Regular Rhythm and S1/S2;+ murmur
GI: Soft, Nontender, Nondistended and Normal Bowel Sounds. +peg tube,
Rectal: No rectal bleeding noted.
Musculoskeletal: No Clubbing, No Edema. Cyanosis noted in tips of fingers and toes.
Skin: Negative Rash
Neuro: sedated.
Psych: no agitation
#Acute on chronic hypoxic and hypercapnic resp failure / recurrent progressive pleural effusion, COPD, acute on chronic CHF with preserved ejection fraction and pulmonary edema
#Mechanical ventilation and intubation
#History of recurrent pleural effusions requiring multiple thoracentesis
#Chronic COPD on chronic 2 L nasal cannula 24 hours
#Former nicotine abuse 50-year 2 pack a day quit 2017
#Chronic pulmonary nodules
No improvement despite support
Ventilatory sup[port and palliative extubation today when family is around.
s/p Left thoracentesis 1L fluid removed.
Chest x-ray 06/22 showed Small left and moderate right pleural effusions with associated consolidation, slightly improved. Previous thoracentesis showed transudative
Nebulizer treatment 3 times a day
On propofol & Fentanyl for sedation
CT head 06/21 was done due to concern about pupils' size : No evidence of acute intracranial abnormality.
Appreciate pulmonary help
#Sepsis/septic shock
s/p empiric antibiotics, cefepime & Flagyl
Blood culture, no growth
Appreciate ID help
# Chronic hypotension now worsened with sedation
Worsening hypotension over night
Continue continue with midodrine, Levophed.
Stress dose steroids. Previous cortisol testing including stimulation test did not show adrenal insufficiency
#Recurrent pleural effusion
#Left upper lobe lesion
s/p 1L fluid removed. Exudative effusions. Fluid studies in lab negative for growth. Cytology negative for malignancy.
CT chest left upper lobe opacity decrease in size of volume. Two new small foci of patchy opacity in the left lower lobe are seen in comparison to prior CT, most likely inflammatory/infectious as well as progression of left lower lobe subsegmental
atelectasis and new tiny left pleural effusion. Likely chronic changes with volume loss in the right hemithorax without significant change including likely chronic moderate size right pleural effusion with accompanying pleural thickening.
#ESRD on dialysis
#AV fistula left upper arm
Wednesday dialysis. HD regular schedule. Hold HD due to palliative extubation and withdrawal of care
Given pressure support with higher dose midodrine and Levophed.
Appreciate nephrology help
# PVD with hypothermia, Hypoglycemia
Normal ACTH stim test.
# Acute on chronic thrombocytopenia secondary to sepsis. No bleeding.
#Dysphagia
s/p peg tube placement on 06/10, no complications reported.
Likely due to combination of Cachexia associated with advanced COPD and deconditioning/ malnutrition. MRI brain, no stroke.
In history: pt continued to struggle with oropharyngeal dysphagia. Dobbhoff placed, no gag reflex noted also. EGD also noted no gag reflex and mild retained secretions/TF in proximal esophagus, normal stomach and duodenum
Appreciate speech/swallow therapist & GI help
#Constipation
Good BM
c/w bowel regimen
# Multiple Atrial tachycardia/ paroxysmal A fib noted also due to respiratory failure.
Not a candidate for systemic anticoagulation because of patient's wishes to be extubated and to peacefully if no improvement in his breathing status. He was kept on aspirin.
Was placed back on Coreg 3.125mg but stopped due to hypotension
# moderate protein-caloric malnutrition Chronic
Patient had characteristics of COPD cachexia with severe loss of energy, wasting of muscles.
#Hyponatremia
per HD.
# Suspect diabetic gastroparesis
high residual with tube feeding and TF contents regurgitated upon ET suction. Unable to reach goal most times.
#Chronic diastolic CHF preserved EF
Follows at [facility] cardiology
resumed tube aspirin. Coreg held for hypotension
Had dialysis- MWF
# Anemia of chronic disease hemoglobin around 10.
monitor
EPO/IV iron per nephro
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
#Hx of Hypoglycemia
Hold gabapentin while on sedation
Previous hypoglycemia, on insulin protocol, SQ insulin 5 units Q6 + Lantus
s/p D10 infusion.
#HLD
#GERD
tube PPI.
#Gout
-resumed tube allopurinol
#Depression
Hold Zoloft while on sedation
DVT prophylaxis
Subcu heparin
PT/OT-SNF eventually.
Plan for palliative extubation and withdrawal of care based on pt's wishes.
Total time spent to see the patient, examine the patient on the floor, review data and lab results, discuss treatment plan with sisters, nursing staff around 59 minutes
Anticipated Discharge: Within 24 hours
Subjective/Interval History
-
Date of Service: June 25, 2023
Hypotensive over night requiring escalating doses of Levophed
Objective Data
-
Vital Signs:
Vital Signs
Temp Pulse Resp BP Pulse Ox
100.0 F 92 22 115/40 94
06/25/23 00:23 06/25/23 01:37 06/25/23 01:37 06/24/23 17:08 06/25/23 04:08
I&O
06/23/23 06/24/23 06/25/23
06:59 06:59 06:59
Intake Total 800.7 / 835.2 1142.9 / 1180.8 1252.5 / 1252.5
Output Total 0 / 0
Balance 800.7 / 835.2 1142.9 / 1180.8 1251.5 / 1251.5
[2023-06-25 06:19] LABS: Glucose - Point of Care 105 mg/dl (70-99)
--- NOTE | 2023-06-25 07:15 | W.PN.INTV ---
Today's Communication / Plan
Recommendations
No further studies, no plans for dialysis
Await arrival of family members
Eventual transition to comfort regimen
Assess comfort on CPAP and spontaneous breathing
Plans for withdrawal of care later today around noon
Emotional support provided
Assessment
-
73-year-old M former tobacco smoker (quit 2017) with PMhx COPD/asthma, ESRD on HD, GERD and chronic liver disease/cirrhosis who p/w SOB from his HD center.� Of note, he follows with us in [facility] office with Dr. Garcia - last office visit on
04/29/2023.� He is on Trelegy 100mcg with prn albuterol.� Adm to on 05/31/23 for evaluation of R-effusion on CXR compared to last, and he has a small left pleural effusion.� HD session started in ER.� Underwent thoracentesis with improvement.� s/p
PEG 06/10/23 for dysphagia on this admission.
06/18/23 developed worsening SOB, ABG showing acute CO2 retention, started on BIPAP, will be transferred to IMU for further care.� Remains full code.
Acute on chronic hypercarbic respiratory failure failed BIPAP and now on mechanical ventilation
Intubated 06/20/2023
Hypotension, requiring pressors
Leukocytosis
Acute on chronic respiratory failure with hypoxemia on supplemental O2 (on 2L/min at baseline)
Chronic right-sided pleural effusion with acute left-sided pleural effusion s/p multiple thoras
Acute on chronic anemia
Chronic thrombocytopenia
Chronic dysphagia s/p PEG 06/10/23
Protein-Calorie malnutrition
Chronic hyponatremia
Severe pulm hypertension, PA pressure 75, progressive
Per echo 06/21/2023
Normal RV size and function
Aortic stenosis, valve area 1.1 cm�
Chronic medical conditions [employer]:���
GERD
Mitral regurgitation
HLD
DM type II
Hx of alcoholic cirrhosis with Hx of EV + portal hypertensive gastropathy (seen in 2013 via EGD), HTN, COPD/asthma on chronic oxygen (2-3L/min)
ESRD on HD MWF
Moderate COPD with increased DLco/VA
Follows Dr Garcia
Restrictive lung defect (moderate with T% predicted via PFT from 04/2022)
Alcoholic liver disease with Hx of grade I EV and portal hypertensive gastropathy (seen via EGD in 2013) --> EV and gastropathy resolved via EGD in October 2019
5 mm irregular opacity in the posterior left upper lobe - seen on CT chest from October 2022
Plan/recommendations
At this time, patient remains critically ill, on norepinephrine, requirements have increased, currently on 20 mcg
Maintain on volume-cycled ventilation.
Unfortunate, remains critically ill
Sister at bedside.
Plan for withdrawal of care later today
Family has expressed interest in primarily focusing on comfort. They do not want to see him struggle
Moving forward
Continue with ventilator support for now, no changes
Currently on AC/VCV 20/350/8/60%
Plan to transition to comfort regimen following discussion with pharmacy
Will plan to discontinue all medications thereafter, assess on CPAP for spontaneous breathing and comfort and proceed to withdrawal of care
No plans for dialysis today
No plans for blood work, tube feeds
Updated sister at length at bedside 06/25/2023
Await arrival of additional family members
Reviewed plan at length with critical care, pharmacy, respiratory care
Emotional support provided
TCCT 31 min
Diagnostic Data
CXR 06-01-2023:
There has been no significant change compared with the prior study.
There is moderate right pleural effusion with underlying atelectasis
There is a small left-sided pleural effusion with moderate interstitial airway disease throughout the lower left lung
CXR 05-31-2023:
1).There is a small left pleural effusion, increased in volume when compared with the prior study and associated with new increased parenchymal airspace disease throughout the lower left lung. I favor that this is pulmonary edema superimposed on
underlying effusion. Pneumonia is less likely
2).There is stable moderate-large right-sided pleural effusion with stable underlying parenchymal air space disease likely reflecting atelectasis
CXR 06-20-2023:
There is moderately large right-sided pleural effusion which appears larger than on prior study. There is consolidation in the right lower lobe which may be pneumonia versus atelectasis.
�There is a small left pleural effusion. Patchy airspace disease in the left lower lobe is likely atelectasis, but has worsened from prior study.
CXR 06-18-2023:
Placement of a right-sided PICC with the catheter tip in the right atrium. This could be retracted by 4 cm for a desired position at the cavoatrial junction.
Small to moderate right pleural effusion. Trace left pleural effusion. Stable mild prominence of the pulmonary vascular markings.
CT Chest 06/03/23 - 0.5 cm left upper lobe opacity seen on prior CT has decreased in size and volume. Two new small foci of patchy opacity in the left lower lobe are seen in comparison to prior CT, most likely inflammatory/infectious as well as
progression of left lower lobe subsegmental atelectasis and new tiny left pleural effusion. Likely chronic changes with volume loss in the right hemithorax without significant change including likely chronic moderate size right pleural effusion with
accompanying pleural thickening.
CT Chest without contrast 10-07-2022:
1. � Redemonstration of a moderate-sized chronic pleural effusion with associated smooth pleural thickening with grossly unchanged masslike consolidation involving the right lower and middle lobes most consistent with rounded atelectasis. Associated
right-sided volume loss.
2. � Previously seen ill-defined nodular opacities within the posterior right upper lobe have largely resolved. There are some new scattered tree-in-bud opacities within the left lower lobe suggestive of infectious or inflammatory bronchiolitis.
3. � Small amount of new pleural thickening within the posterior aspect of the left hemithorax adjacent to the left lower lobe.
4. � New nonspecific 5 mm irregular opacity within the posterior LEFT upper lobe.
5. � Aberrant RIGHT subclavian artery.
Outpatient [facility] Data:
Spirometry 10/15/2021,�demonstrated FEV1/FVC 58%, FEV1 1.03 L�(32%, FVC 1.76 L or 41%.� Mixed ventilatory defect suggestion of restriction with moderate to severe airflow obstruction.
��������
Spirometry 12/14/2019:�-FEV1/FVC 60%, FEV1 1.78 L 754%, FVC 2.90 L-67%.� Moderate airflow obstruction with a restriction.� Stable compared to before.
��������
Pulmonary function testing 12/13/2017:�demonstrated FEV1 /FVC 52%, FEV1 1.95 L-60%, FVC 3.71 L 785%, TLC 6.59 L-95%, RV 3.25 L-129%, DLCO 21.88-81%. Moderate airflow obstruction. Improvement on air trapping and hyperinflation.��������
Pulmonary function testing 09/09/2016:�FEV1/FVC 46%, FEV1 1.65 L-52%, FVC 3.61 L-84%. There was significant reversibility post bronchodilator. TLC 9.29 L-138%, RV 5.70 L-235%. DLCO 45%. Moderate/severe COPD with air trapping and
hyperinflation-emphysema phenotype.
�����
Spirometry 05/27/2016:�FEV1/FVC 55%, FEV1 1.32 L-38%, FVC 2.43 L-52%. Severe airflow obstruction with no reversibility.
FENO:
������ 10/15/2021 FeNO -- 22 ppb
�������07/15/2021 FENO 32ppb
�������12/14/2019 FENO 25 PPB
�������04/09/22 FENO 27ppb. Status post
Subjective Dataa
Subjective Data
Date of Service:
Date of Service: June 25, 2023
Chief Complaint: Meal Cook Follow Up
Subjective:
Patient remains critically ill. Pressors continue, maxed out. Patient remains sedated.
Objective Data
Data Reviewed
Vital Signs / I&O / Oxygen:
Vital Signs
Temp Pulse Resp BP Pulse Ox
100.0 F 98 19 115/40 94
06/25/23 00:23 06/25/23 06:15 06/25/23 06:15 06/24/23 17:08 06/25/23 06:15
Intake and Output
06/24/23 06/25/23 06/26/23
06:59 06:59 06:59
Intake Total 1142.9 / 1180.8 1252.5 / 1252.5
Output Total 0 / 0
Balance 1142.9 / 1180.8 1251.5 / 1251.5
SaO2 [P-A/C] 100
SaO2 [A/C] 96
SaO2 [NIV (Non Invasive 95
Ventilation)]
SaO2 94
Nasal Cannula flow liters per 4
minute
Physical Exam
General: Comfortable and Other (Right upper extremity PICC)
HEENT: Normocephalic and Anicteric
Cardiovascular: S1-S2, Regular Rhythm, Murmur (n), Rub (n) and Other (Mild peripheral cyanosis lower extremity toes, cool to touch)
Respiratory: Wheeze (n), Crackles (n), Rhonchi (n), Non-Labored Respirations, ET Tube and Other (Decreased breath sounds right base)
GI: Soft, Distended (slight), Non Tender, Normal Bowel Sounds and Other (PEG tube)
Neurology: Unresponsive (Sedated)
Skin: Cyanosis (n), Bruising (Few scattered) and Other (Sacral stage 1 decubitus ulcer)
Labs/Micro/Reports
Lab Data
06/24/23 04:38
06/24/23 04:38
Microbiology
06/20/23 17:27 Blood/Venous Blood Culture - Preliminary
No Growth in 4 days- Final report to follow
06/23/23 14:22 Blood/Venous Blood Culture - Preliminary
No Growth in 24 hours- Final report to follow
06/21/23 09:50 Blood/Venous Blood Culture - Preliminary
No Growth in 72 hours- Final report to follow
06/21/23 03:50 Endotracheal Respiratory Culture - Final
Acinet. baumannii/haemolyticus
Ksenia albicans
06/21/23 03:50 Endotracheal Gram Stain - Final
--- NOTE | 2023-06-25 08:00 | PTCARENOTE ---
PT received unresponsive, intubated and sedated, pupils sluggish but reactive, AFib, pulses +Doppler, B/L feet and hands dusky and cyanotic, cool to touch, #8 ETT @24 moved to left lip, 20/350/60/8, B/L BS diminished with scattered rhonchi, right
bases almost absent, peg tube left abdominal wall, feeds finished, not ot be restarted as termianl extubation later this am, anuric, right dual PICC, Levophed, Propofol, Fentanyl, see work list for titrations,
[2023-06-25] MEDS: SUBLIMAZE 100 IV (08:22)
[2023-06-25] MEDS: ProAmatine 10 MG TUBE (09:51)
--- NOTE | 2023-06-25 09:55 | W.PN.ID1 ---
Date of Service
Date of Service: June 25, 2023
Today's Communication
- Agree that prognosis remains poor and note progressive illness despite aggressive management, I continue to recommend hospice and agree with planned withdraw of care
Assessment / Plan
Shock - Septic - persistent and progressive
Known Aspiration with oropharyngeal dysfunction s/p PEG tube
Possible Aspiration pneumonia
Chronic R pleural effusion with suspected trapped lung physiology
ESRD on HD
Cirrhosis - decompensated?
Pulmonary nodules - progressed - outpatient follow up with pulm
- blood cultures x2 - two sets needed for sensitivity
- sputum culture with acinetobacter - resistant to unasyn, cefepime remains a first line drug and isolate sensitive continue
- yeast is normal feroz - doesnt require treatment
- continue cefepime/metronidazole
- Agree that prognosis remains poor and note progressive illness despite aggressive management, I continue to recommend hospice and agree with planned withdraw of care
Chief Complaint
-: Fever
Subjective / Review of Systems
fevers ongoing
markedly increasing pressor requirements
no cbc/bmpp done
06/23 blood cultures remain no growth to date
Vital Signs / Physical Exam
Vital Signs
Vital Signs
Temp Pulse Resp BP Pulse Ox
102.2 F H 97 21 107/40 93
06/25/23 09:31 06/25/23 09:51 06/25/23 09:30 06/25/23 09:51 06/25/23 09:30
Physical Exam
Constitutional: Acutely Ill and Chronically Ill
Cardiovascular: Regular Rate and S1/S2; Negative Murmur or Rub
Pulmonary: Symmetric and Coarse; Negative Wheezes or Rales
Gastrointestinal: Soft, Non Tender, Non Distended and Normal Bowel Sounds
Skin: Warm and Dry; Negative Rash or Jaundice
Neurological: Negative Awake
Objective Data
Lab Data
Lab Results
06/24/23 04:38
06/24/23 04:38
PT 15.0 Sec (11.4-14.6) H 06/18/23 18:20
INR 1.20 06/18/23 18:20
APTT 38.5 Sec (23.4-35.0) H 06/18/23 18:20
Estimated Creat Clear 17 ml/min 06/24/23 04:38
Total Bilirubin 0.6 mg/dl (0.2-1.3) 06/21/23 09:50
AST 19 U/L (17-59) 06/21/23 09:50
ALT < 10 U/L (0-50) 06/21/23 09:50
Alkaline Phosphatase 119 U/L (38-126) 06/21/23 09:50
Most recent labs reviewed.
Micro Results:
06/20/23 17:27 Blood Culture - Preliminary
Blood/Venous No Growth in 4 days- Final report to follow
06/23/23 14:22 Blood Culture - Preliminary
Blood/Venous No Growth in 24 hours- Final report to follow
06/21/23 09:50 Blood Culture - Preliminary
Blood/Venous No Growth in 72 hours- Final report to follow
06/21/23 03:50 Respiratory Culture - Final
Endotracheal Acinet. baumannii/haemolyticus
Ksenia albicans
Gram Stain - Final
06/02/23 14:02 Fungal Smear - Final
Pleural Fluid No yeast or fungal elements seen.
Fungal Culture - Preliminary
Culture in progress.
Positive cultures are reported as soon as detected.
Final report to follow in four to five weeks.
06/20/23 17:27 Nasal Screen MRSA (PCR) - Final
Nose MRSA not detected - performed by PCR methodology.
06/02/23 14:03 Body Fluid Culture - Final
Pleural Fluid NO GROWTH-FINAL REPORT
Gram Stain - Final
06/02/23 14:02 Acid Fast Bacilli Smear - Preliminary
Pleural Fluid Acid Fast Bacilli Culture - Preliminary
05/31/23 18:04 MRSA Screen - Final
Nose No Methicillin Resistant Staphylococcus aureus isolated.
05/31/23 08:08 Influenza Types A & B (THANG) - Final
Nasal Swab Negative for Influenza A & B, NAAT
Negative results must be combined with clinical observations
and patient history.
Nucleic Acid Amplification test (NAAT)performed on the
[employer] platform.
[2023-06-25] MEDS: ATIVAN 2 MG IV (10:12)
[2023-06-25] MEDS: NSS (PRESERVATIVE FREE) 1 ML IV (10:12)
--- NOTE | 2023-06-25 10:39 | W.PN.NEPH.PH ---
Today's Communication / Plan
-
withdrawal of care today
Assessment/Plan
-
Impression:
End-stage renal disease Wednesday, Wednesday, Wednesday
Hypoxia/Hypercapnia/COPD:home O2 2L
Right pleural effusion (Recurrent)
Hyperphosphatemia
Anemia
Diabetes with multiple microvascular complications
Hypotension on Midodrine
Cirrhosis
Chronic thrombocytopenia
Pulmonary nodules
Plan:
Progressive clinical decline recently and required multiple admits for resp failure despite HD support
remains intubated, plan withdrawal of care today
no plan f HD
awaiting all family to arrive
will s/o, call with ?s
-
-
Date of Service: June 25, 2023
CC / HPI / ROS
-
Chief Complaint:
ESRD
History of Present Illness:
ESRD MWF,
now in ICU intubated
hypotension on pressors
febrile
Review of Systems:
sedated and intubated
Labs
-
Labs:
WBC 14.5 10^3/uL (4.8-10.8) H 06/24/23 04:38
RBC 3.27 10^6/uL (4.70-6.10) L 06/24/23 04:38
Hgb 10.5 g/dL (13.0-18.0) L 06/24/23 04:38
Hct 32.4 % (39.0-52.0) L 06/24/23 04:38
Plt Count 129 10^3/uL (130-400) L 06/24/23 04:38
Sodium 129 mmol/L (135-145) L 06/24/23 04:38
Potassium 4.7 mmol/L (3.5-5.1) 06/24/23 04:38
Chloride 91 mmol/L (98-107) L 06/24/23 04:38
Carbon Dioxide 24 mmol/L (22-30) 06/24/23 04:38
BUN 68 mg/dl (9-20) H 06/24/23 04:38
Creatinine 3.9 mg/dL (0.7-1.3) H 06/24/23 04:38
eGFR 15.72 06/24/23 04:38
Glucose 238 mg/dl (70-99) H 06/24/23 04:38
Calcium 9.2 mg/dl (8.4-10.2) 06/24/23 04:38
Phosphorus 6.0 mg/dl (2.5-4.5) H 06/16/23 05:33
Wiw-X-Spturxeacob Pept > 99088 pg/ml 05/31/23 08:08
Albumin 3.9 g/dl (3.5-5.0) 06/21/23 09:50
Physical Exam
-
Vital Signs:
Vital Signs
Temp Pulse Resp BP Pulse Ox
102.2 F H 97 21 107/40 93
06/25/23 09:31 06/25/23 09:51 06/25/23 09:30 06/25/23 09:51 06/25/23 09:30
Cardiovascular:: Regular rate and rhythm
Respiratory:: Bilateral: Coarse
Lung Excursion:: Abnormal
Extremity Edema:: None: Bilateral:
Rodarte Catheter: No
--- NOTE | 2023-06-25 10:54 | PTCARENOTE ---
2mg Ativan given as ordered, family at bedside, answered all questions and concerns, will obtain a family grief tray
[2023-06-25] MEDS: MORPHINE SULFATE 2 MG IV (11:25)
--- NOTE | 2023-06-25 11:42 | RESPNOTE ---
patient extubated for comfort care at this time. family at bedside.
[2023-06-25] MEDS: SUBLIMAZE 100 MCG IV (11:48)
--- NOTE | 2023-06-25 12:24 | PTCARENOTE ---
PT passed peacefully with family at bedside holding his hands, family was offered pastoral services multiple times, declined offer, as PT would not want, DR Arceo and Dr Jama notified of passing, DR Arceo came to pronounce, family remains at
bedside
--- NOTE | 2023-06-25 12:34 | W.DCSUMMARY ---
Discharge Summary
Discharge Data
Date of Admission: 05/31/23
Date of Discharge: 06/25/23
-
Pending Results: No
Hospital Course
73 years old male admitted with respiratory failure. Patient complained of shortness of breath, hypoxia, swallowing difficulty and generalized weakness upon admission. He had history of COVID infection prior to admission. Patient was evaluated
by infectious diseases energy sales consultant. Patient was out of window for antiviral treatment. Patient had hypoxic respiratory failure requiring noninvasive ventilatory support in the beginning. Patient had history of chronic obstructive pulmonary disease
and was diagnosed with exacerbation of underlying respiratory disease. Patient received supportive care with oxygen, nebulizer treatment, steroid therapy. He was diagnosed with nonischemic myocardial injury and he was seen by cook taco.
Patient had history of severe aortic stenosis but he deferred evaluation for TAVR at that time. He had history of paroxysmal atrial fibrillation and he was not on anticoagulation as per patient's wishes. Patient was treated in the intensive care
unit. His pulmonary status stabilized and was transferred to telemetry floor. He continued to struggle with the swallowing. Patient was evaluated by speech therapist and was found to have significant dysphagia/aspiration risk. Patient was
evaluated by gastroenterology and subsequently received percutaneous gastrostomy tube for tube feeding. He continued to struggle with shortness of breath. He was maintained on nebulizer treatment. He was noted to have hypotension and his blood
pressure medications were adjusted to maintain normal blood pressure and midodrine was added to his regimen. Cortisol level was normal. Patient was noticeably weak and he was diagnosed with muscle weakness and cachexia secondary to underlying
medical conditions including B- cell lymphoma/chronic obstructive pulmonary disease. Breathing status deteriorated and required higher level of care. Patient was sent back to the intensive care unit and discussion of CODE STATUS with the patient
was made. Patient reported that he was accepting to be on invasive ventilatory support but for limited time (not more than 5 days). Patient was intubated and was maintained on ventilatory support. He was noticeably hypotensive and required
pressure support medications. He continued to struggle with hypoxia and unable to come off the vent. He was noted to have recurrent fevers and was diagnosed with aspiration pneumonia. Tube feeding was held multiple times due to high residual
volume. Patient was noted to have absence of gag reflex upon earlier examination which might be consistent with underlying diabetic gastroparesis. Blood glucose was monitored and he had episodes of hyperglycemia/hypoglycemia. He underwent his
regular dialysis with pressure support. He was followed by nephrology and infectious disease energy sales consultant in addition to pulmonary/survival specialist. Goal of care was discussed with his family and his friends including his partner. They
wanted to pursue patient's wishes by withdrawing of care and palliative extubation if no improvement after few days. Patient continued to struggle with fever and hypotension. Subsequently, family gathered and palliative extubation was done.
Patient peacefully surrounded by his loved ones on June. Help and support were offered to the family.
Discharge Plan
-
Patient Disposition:
Diet: Tube feeding and Other diet
Activity: With assistance and As tolerated
Driving Restrictions: Not until seen by your Dr
Activity Restrictions/Additional Instructions:
Wound Care Instructions Sacrum- Clean with soap and water or normal saline. Apply silicone border foam. Change Q 3 days and PRN if loose or soiled.
Referrals:
Joss Solorzano MD [Family Provider] -
Patrick Hoskins MD [Active] - in one to two weeks (or with INSTRUMENTATION MANAGER as scheduling permits.)
Prescriptions:
New
midodrine 5 mg Tablet
5 mg feeding tube Q4HPRN PRN (Reason: SBP less than 100) 30 Days Qty: 30 0RF
Polysporin 500-10,000 unit/gram Ointment In Packet
1 applic topical DAILY 1 Days Qty: 144 0RF
Rx Instructions:
APPLY TO PEG TUBE SITE DAILY X 1 WEEK
lansoprazole 30 mg Tablet,Disintegrat, Delay Rel
30 mg feeding tube DAILY 30 Days Qty: 30 0RF
Continued
Trelegy Ellipta 100-62.5-25 mcg Blister With Device
1 inh INHALATION R DAILY
albuterol sulfate 2.5 mg /3 mL (0.083 %) Solution For Nebulization
2.5 mg INHALATION R Q4HPRN PRN (Reason: sob)
albuterol sulfate 90 mcg/actuation Hfa Aerosol Inhaler
2 puff INHALATION R Q4HPRN PRN (Reason: sob/wheeze)
Changed
azithromycin 250 MG tablet
250 mg feeding tube MOWEFR@0800 Qty: 0 0RF
ascorbic acid (vitamin C) [Vitamin C] 1,000 mg Tablet
1,000 mg feeding tube DAILY Qty: 0 0RF
atorvastatin 10 mg Tablet
10 mg feeding tube DAILY Qty: 0 0RF
aspirin 81 mg Tablet,Delayed Release (Dr/Ec)
81 mg feeding tube DAILY Qty: 0 0RF
gabapentin 300 mg Capsule
300 mg feeding tube QPM Qty: 0 0RF
carvedilol 3.125 mg Tablet
3.125 mg feeding tube BID Qty: 60 0RF
allopurinol 100 mg tablet
200 mg feeding tube DAILY Qty: 0 0RF
sertraline 25 mg tablet
25 mg feeding tube DAILY Qty: 0 0RF
midodrine 5 mg tablet
5 mg feeding tube TID Qty: 0 0RF
Discontinued
famotidine 20 MG tablet
20 mg PO DAILY
vitamin B complex 1 TAB tablet
1 tab PO MOWEFR@0800
ergocalciferol (vitamin D2) 50,000 UNITS capsule
50,000 units PO .SEE BELOW
Patient Comments:
05/31/2023, this med. is currently on hold according to pt.
Rx Instructions:
05/31/2023, this med. is currently on HOLD.
isosorbide mononitrate 30 mg Tablet Extended Release 24 Hr
30 mg PO DAILY
sevelamer carbonate 800 mg tablet
1,600 mg PO MEALS
docusate sodium [Colace] 100 mg Capsule
200 mg PO Q48H
insulin aspart U-100 [Novolog FlexPen U-100 Insulin] 100 unit/mL (3 mL) Insulin Pen
0 sliding scale dose SC DIRECTED
Patient Comments:
05/31/2023, pt. uses this med. on sliding scale and does not know what that sliding scale is.
insulin glargine [Lantus Solostar U-100 Insulin] 100 unit/mL (3 mL) Insulin Pen
7 unit SC HS
Date/Time
Date/Time: 06/25/23 11:50
--- NOTE | 2023-06-25 12:39 | W.PN.DEATH ---
Pronouncement of
-
Called to see patient to pronounce.
No spontaneous heart tones or respirations noted.
Patient not responsive to verbal stimuli.
Patient is pronounced .
Time of : 11:50
Date of : 06/25/23
Family Notified: Yes
--- NOTE | 2023-06-25 13:01 | CM ---
CM following re: discharge planning.
Discussed in Rounds, reviewed pt' chart, met with pt and family members at bedside.
Per Rounds meeting, comfort care initiated this morning, pt peacefully with family at bedside holding hands.
Emotional support offered and provided.
--- NOTE | 2023-06-25 13:41 | PTCARENOTE ---
SUDHEER called and notified, PT received post mortem care, and transported to [facility] [place], no personnel belongings, family took home, chart in medical records
== END 2023-06-25 11:50 | disposition expired | DRG 207 ==
LOC: ICU 11:22
PROVIDERS: Internal Medicine; Internal Medicine Critical Care Medicine; Nurse Practitioner Family; Nurse Practitioner Primary Care; Physician Assistant; Radiology Diagnostic Radiology; Specialist; Student in an Organized Health Care Education/Training Program; Surgery; ADMITTING PHYSICIAN Hospitalist; ATTENDING PHYSICIAN Internal Medicine; CONSULT PHYSICIAN Internal Medicine Critical Care Medicine; CONSULT PHYSICIAN Internal Medicine Gastroenterology; EMERGENCY PHYSICIAN Emergency Medicine; FAMILY PHYSICIAN Internal Medicine; OTHER PHYSICIAN Specialist; OTHER PHYSICIAN Student in an Organized Health Care Education/Training Program
PROC: 5A1D70Z Performance of Urinary Filtration, Intermittent, Less than 6 Hours Per Day (ICD-10-PCS; 2023-05-31)
PROC: 0W9B3ZZ Drainage of Left Pleural Cavity, Percutaneous Approach (ICD-10-PCS; 2023-06-02)
PROC: 0DH63UZ Insertion of Feeding Device into Stomach, Percutaneous Approach (ICD-10-PCS; 2023-06-10)
PROC: 02HV33Z Insertion of Infusion Device into Superior Vena Cava, Percutaneous Approach (ICD-10-PCS; 2023-06-18)
PROC: 5A09357 Assistance with Respiratory Ventilation, Less than 24 Consecutive Hours, Continuous Positive Airway Pressure (ICD-10-PCS; 2023-06-18)
PROC: 0BH17EZ Insertion of Endotracheal Airway into Trachea, Via Natural or Artificial Opening (ICD-10-PCS; 2023-06-20)
PROC: 5A1955Z Respiratory Ventilation, Greater than 96 Consecutive Hours (ICD-10-PCS; 2023-06-20)
PROC: 03HY32Z Insertion of Monitoring Device into Upper Artery, Percutaneous Approach (ICD-10-PCS; 2023-06-20)
DX: J96.21 Acute and chronic respiratory failure with hypoxia (principal); I50.33 Acute on chronic diastolic (congestive) heart failure; N18.6 End stage renal disease; J69.0 Pneumonitis due to inhalation of food and vomit; A41.9 Sepsis, unspecified organism; R65.21 Severe sepsis with septic shock; J44.1 Chronic obstructive pulmonary disease with (acute) exacerbation; I5A Non-ischemic myocardial injury (non-traumatic); I13.2 Hypertensive heart and chronic kidney disease with heart failure and with stage 5 chronic kidney disease, or end stage renal disease; J91.8 Pleural effusion in other conditions classified elsewhere; J98.11 Atelectasis; C85.90 Non-Hodgkin lymphoma, unspecified, unspecified site; I47.19 Other supraventricular tachycardia; E44.0 Moderate protein-calorie malnutrition; E87.1 Hypo-osmolality and hyponatremia; I48.0 Paroxysmal atrial fibrillation; Z51.5 Encounter for palliative care; I08.3 Combined rheumatic disorders of mitral, aortic and tricuspid valves; D63.1 Anemia in chronic kidney disease; I95.1 Orthostatic hypotension; E88.A Wasting disease (syndrome) due to underlying condition; E11.40 Type 2 diabetes mellitus with diabetic neuropathy, unspecified; E11.22 Type 2 diabetes mellitus with diabetic chronic kidney disease; D69.6 Thrombocytopenia, unspecified; R13.12 Dysphagia, oropharyngeal phase; J96.22 Acute and chronic respiratory failure with hypercapnia; E11.649 Type 2 diabetes mellitus with hypoglycemia without coma; E11.65 Type 2 diabetes mellitus with hyperglycemia; E11.43 Type 2 diabetes mellitus with diabetic autonomic (poly)neuropathy; K31.84 Gastroparesis; E78.00 Pure hypercholesterolemia, unspecified; K21.9 Gastro-esophageal reflux disease without esophagitis; R68.0 Hypothermia, not associated with low environmental temperature; E11.51 Type 2 diabetes mellitus with diabetic peripheral angiopathy without gangrene; R91.8 Other nonspecific abnormal finding of lung field; M10.9 Gout, unspecified; I27.20 Pulmonary hypertension, unspecified; K59.00 Constipation, unspecified; K70.30 Alcoholic cirrhosis of liver without ascites; F32.A Depression, unspecified; F41.9 Anxiety disorder, unspecified; E83.39 Other disorders of phosphorus metabolism; Z99.2 Dependence on renal dialysis; Z99.81 Dependence on supplemental oxygen; Z86.16 Personal history of COVID-19; Z11.52 Encounter for screening for COVID-19; Z68.20 Body mass index [BMI] 20.0-20.9, adult; Z87.891 Personal history of nicotine dependence; Z79.82 Long term (current) use of aspirin; Z79.4 Long term (current) use of insulin
CPT/HCPCS: 88305; 32555; 36600; 70450; 70551; 71045; 71250; 74018; 74230; 76604; 76700; 80048; 80051; 80053; 80076; 80202; 82042; 82140; 82330; 82533; 82728; 82805; 82945; 82947; 82962; 83036; 83540; 83550; 83615; 83735; 83880; 83986; 84100; 84132; 84157; 84302; 84478; 85014; 85018; 85025; 85027; 85610; 85730; 87015; 87040; 87070; 87077; 87102; 87116; 87186; 87205; 87206; 87340; 87502; 87641; 87811; 88112; 89051; 92526; 92610; 92611; 93005; 93306; 94002; 94003; 94640; 94660; 97162; 97166; 97530; 99285; G0257; J0885; J1610; P9047; Q5106